=== PATIENT | female | born 1940 | race African-American/Black ===

== ENCOUNTER 2017-02-19 20:55 | Inpatient (IN) | payer MEDICARE ==
--- NOTE | 2017-02-19 21:09 | ED Physician Chart ---
Chief Complaint/HPI - Patient Information Date Seen:: 02/19/17 Time Seen:: 20:58 Chief Complaint:: agitation History of Present Illness:: 77-year-old female from nursing facility with acute, constant, worsening, moderate to severe, agitation since this morning. Has associated aggressive behavior towards staff. Allergies:: Allergies Allergy/AdvReac Type Severity Reaction Status Date / Time No Known Allergies Allergy Verified 02/19/17 21:03 Historian:: EMS, Medical Records Review:: Nurse's Note Reviewed, EMS run form Reviewed Review of Systems - Review of Systems Other: Complete system review otherwise unremarkable except as noted in history of present illness. Past Medical History - Past Medical History Past Medical History: HTN, DM, PUD/GERD, Dementia, Other (chronic UTI) Family History: None Social History: Non Smoker, No Alcohol, No Drug Use, Care Facility Surgical History: None Psychiatricy History: Dementia Medication: Reviewed Family Medical History - Family Member Mother History Unknown: Yes Physical Exam - Physical Examination Other:: INITIAL VITAL SIGNS: Reviewed by me GENERAL: Alert and interactive. No acute distress HEAD: Head is normocephalic and atraumatic EYES: EOMI. PERRL. No scleral icterus. No conjunctival injection ENT: Moist mucous membranes. NECK: Supple. No masses. Full range of motion RESPIRATORY: No tachypnea. Clear breath sounds bilaterally. No wheezing, rales, or rhonchi CV: Regular rate and rhythm. No murmurs, rubs, or gallops ABDOMEN: Soft, non-distended, non-tender. No guarding. No rebound. No masses. EXTREMITIES: No deformity. No cyanosis. No edema. SKIN: Warm and dry. No obvious rashes. NEUROLOGIC: Alert and oriented. Face is symmetric. Speech is normal. Moves all extremities equally. Motor and sensory distally intact. Labs/Radiology/EKG Results - Radiology Results Results: 12-lead EKG Interpretation by Sara Rodríguez MD: Sinus bradycardia with ventricular rate of 51 beats per minute Normal axis First-degree heart block/prolonged OH interval. No acute ST or T wave changes. No obvious STEMI ED Septic Shock - . Is Septic Shock (SBP<90, OR Lactate>4 mmol\L) present?: No Reassessment (Disposition) - Reassessment Reassessment:: Corbin by mouth potassium. EKG unremarkable. Patient medically cleared for admission to the geriatric psych unit - Diagnosis Diagnosis:: Acute psychosis, NOS - Patient Disposition Discharge/Transfer:: Acute Care w/in this hosp Admitted to:: [facility] Admitting Medical Physician:: Yue Mcmullen Admitting Psych Physician:: Claudia Rashid Time:: 23:03 Condition at Disposition:: Stable
[2017-02-19 21:31] LABS: % BASOPHILS 0.4 % (0.0-2.0); % LYMPHOCYTES 40.1 % (20.0-50.0); % MONOCYTES 7.5 % (2.0-10.0); HEMATOCRIT 37.2 % (35.0-45.0); HEMOGLOBIN 12.5 gm/dL (11.7-16.1); MEAN CELL VOLUME 90.7 fl (81-100); MEAN CORPUSCULAR HEMOGLOBIN 30.6 pg (27.0-31.0); MEAN CORPUSCULAR HGB CONC 33.7 pg (28.0-36.0); MEAN PLATELET VOLUME 7.9 fl; NEUTROPHILE ABSOLUTE 4.3 Th/cmm (1.8-8.0); PLATELET COUNT 237 Th/cmm (150-400); RED CELL DISTRIBUTION WIDTH 11.1 % (11.5-20.0); WHITE BLOOD COUNT 8.5 Th/cmm (4.8-10.8)
[2017-02-19 21:49] LABS: ALB/GLOB RATIO 1.5 (1.0-1.8); ALKALINE PHOSPHATASE 71 U/L (34-104); ANION GAP 7.3 (7.0-16.0); BILIRUBIN,TOTAL 0.3 mg/dL (0.3-1.0); BUN - UREA NITROGEN 23 mg/dL (7-25); CALCIUM SERUM 8.9 mg/dL (8.6-10.3); CARBON DIOXIDE 29.3 mEq/L (21.0-31.0); CHLORIDE 97 mEq/L (98-107); CHOLESTEROL 160 mg/dL (<200); GLUCOSE 142 mg/dL (70-105); SGOT 17 U/L (13-39); SGPT/ALT 13 U/L (7-52); SODIUM SERUM 131 mEq/L (136-145); TRIGLYCERIDES 46 mg/dL (<150)
[2017-02-19 21:52] LABS: ACETAMINOPHEN < 10.0 ug/mL (10.0-30.0); POTASSIUM SERUM 2.6 mEq/L (3.5-5.1)
[2017-02-19] MEDS ORDERED: Potassium Chloride 20 mEq ER Tab PO ONE ×4 (21:57→23:12)
[2017-02-19 23:22] VITALS: BP 128/66
[2017-02-19] MEDS ORDERED: Fluticasone Propionate 0.05mg/Actuation 16gm Nasal Spray NS PRN (23:27)
[2017-02-19] MEDS ORDERED: Magnesium Hydroxide (MOM) 30 mL UDC PO PRN (23:27)
[2017-02-20] MEDS: INSULIN ASPART SLIDING SCALE 100 UNITS/ML UNIT SUBQ SCH ×4 (06:51→20:44)
[2017-02-20] MEDS ORDERED: INSULIN ASPART SLIDING SCALE 100 UNITS/ML UNIT SUBQ SCH (07:30)
[2017-02-20] MEDS: Pantoprazole 40 mg EC Tab PO SCH (09:51)
[2017-02-20] MEDS: Multivitamin w/ Minerals Tab PO SCH (09:51)
[2017-02-20] MEDS: Aspirin 81mg Chewable Tab PO SCH (09:51)
--- NOTE | 2017-02-20 22:02 | History & Physical ---
ADMIT DATE: 02/20/2017 HISTORY OF PRESENT ILLNESS: The patient is a 77-year-old female with long history of diabetes mellitus, hypertension, dementia, admitted to [facility] for evaluation and treatment. The patient has been very agitated. No chest pain, no shortness of breath, no nausea, no vomiting, no fever, and no chills. PAST MEDICAL HISTORY: Significant for hypertension, diabetes mellitus, dementia, and psychosis. PAST SURGICAL HISTORY: No recent surgery. ALLERGIES: None. MEDICATIONS: Follow admission reconciliation. SOCIAL HISTORY: No smoking, no alcohol, and no drug. FAMILY HISTORY: Noncontributory. REVIEW OF SYSTEMS: RENAL SYSTEM: No history of chronic renal disorder. CARDIOVASCULAR SYSTEM: She has history of hypertension. ENDOCRINE SYSTEM: She has history of diabetes mellitus. GASTROINTESTINAL SYSTEM: No upper or lower gastrointestinal bleed. NEUROLOGICAL: , dementia, psychosis. MUSCULOSKELETAL SYSTEM: No muscular dystrophy. HEMATOLOGIC SYSTEM: No bleeding tendencies. GENITOURINARY: No dysuria or hematuria. PHYSICAL EXAMINATION: GENERAL: She is awake, not coherent. VITAL SIGNS: Temperature 97.8, heart rate 64, and blood pressure 112/73. HEENT: Normocephalic. Pupils are reacting and equal to light and accommodation. Sclerae clear. NECK: Supple. Negative for lymphadenopathy, JVD, or bruit. CHEST: Bilateral normal. No rhonchi or wheezing. HEART: S1, S2 normal, no gallop. ABDOMEN: Soft, bowel sounds positive. EXTREMITIES: No edema. NEUROLOGIC: She is awake, alert, not fully oriented. No focal motor or sensory deficits. LABORATORY DATA: White blood cell , hemoglobin 12.5, hematocrit 37.3, and platelet 237,000. Sodium 131, potassium 2.6, BUN 23, and creatinine ____. ASSESSMENT: 1. Hypertension. 2. Diabetes mellitus. 3. Hyponatremia. 4. Dementia. 5. Psychosis. PLAN: The patient is in the hospital under Dr. Rashid's service. MEDICAL PROBLEMS TO BE ADDRESSED DURING HOSPITALIZATION: Psychosis. MEDICAL PROBLEMS TO BE ADDRESSED AT DISCHARGE: Hypertension and diabetes mellitus. We will repeat the blood workup for tomorrow, CBC, CMP. Thank you, Dr. Rashid, for asking me to see your patient. JOB# [id number]
--- NOTE | 2017-02-21 03:23 | History & Physical ---
ADMIT DATE: 02/20/2017 IDENTIFYING INFORMATION: The patient is a 77-year-old female. CHIEF COMPLAINT: "I and here for x-ray." HISTORY OF PRESENT ILLNESS: Referred by me as they called me from [facility] yesterday said she was very psychotic, agitated. She was hitting other residents and when I talked to her, she has no clue why she is here. She is unpredictable, impulsive, needing redirection, looking disheveled; however, she was unable to tell me the date and she knew she is in the hospital, sleeping. She is here because she needs to have some x-rays checked, very poor insight. She denies any auditory or visual hallucination or paranoia, but she was very agitated yesterday. PAST PSYCHIATRIC HISTORY: I have been seeing this patient at [facility] for the past 2 weeks. MEDICATIONS: The patient has been on glipizide, insulin, lorazepam as needed, metoprolol, potassium, and Zolpidem. MEDICAL HISTORY: Deferred. The patient is diabetic. ALLERGIES: She has no known drug allergies. No history of seizure disorder. 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 She denies any family history of psychotic disorder. However, she is not a great historian. MENTAL STATUS EXAMINATION: The patient is appropriately dressed, not very well groomed. Her mood is depressed. Affect is constricted. Thoughts are concrete. Speech is coherent. She was able to tell me that ____. Concentration is fair, unable to answer questions, affect is flat. There is no forward or backward. Long-term memory is good for her age, date of . Recent memory is poor. She is not sure that she cannot tell me ____ for breakfast. She denies any intent to harm herself. She was very psychotic, family is backing up the patient, at the [facility]. Her insight and judgment is impaired. IMPRESSION: AXIS I: Psychosis, NOS. MEDICAL DIAGNOSES: Deferred to the medical doctor. ASSETS: She wants to get help, negative poor coping skills. INITIAL TREATMENT PLAN: The patient will be started on Risperdal, will do group therapy, milieu therapy, individual therapy. ESTIMATED LENGTH OF STAY: Three to 3-7 days. DISCHARGE CRITERIA: Decreasing psychosis, no longer threatening. After discharge, outpatient treatment. [facility]# [id number]
--- NOTE | 2017-02-21 04:33 | Admit Criteria Form ---
Admit Criteria Forms - Admit Criteria Diagnosis: PSYCHIATRIC DISORDERS (Place 'X' for any and all applicable criteria): Ongoing inpatient care may be needed for 1 or more of the following(1)(2)(3)(4)( 6)(7)(8): [ ]I. Danger to self or others not manageable at lower level of care. [ ]II. Grave disability (eg, inability to perform self care necessary at lower level of care) [ ]III. Agitation or inappropriate behavior interfering with care for primary condition (eg, attempting to discontinue lines or drains prematurely, unable to cooperate with respiratory care) [X ]IV. Severe disability or disorder indicated by ALL of the following: [X ]a) Severe behavioral health disorder-related symptoms or condition indicated by 1 or more of the following: [ ]i) Severe problem with cognition, memory, judgment, or impulse control [X ]ii) Severe clinical manifestations (eg, hallucinations , delusions, other acute psychotic symptoms, olga, extreme agitation or anxiety) [X ]b) Patient management at lower level of care is not feasible until acute intervention or modification is initiated. Extended stay beyond goal length of stay for the primary condition may be needed until ALLof the following are present(1)(2)(3)(4)(7)38)(23): [ ]a) Danger to self or others is absent or manageable at lower level of care [ ]b) Behavior crisis management, including physical or chemical restraints, is required and is not available at a lower level of care. [ ]c) Behavioral symptoms (e.g., agitation, somnolence, inappropriate behavior) are present, and are not manageable at a lower level of care. [ ]d) Patient cannot understand follow-up treatment and crisis plan. [ ]e) Provider and supports are sufficiently available at lower level of care. [ ]f) Patient can participate (e.g., verify absence of plan for harm) and is in needed of monitoring. The original [facility] content created by [facility] has been revised. The portions of the content which have been revised are identified through the use of italic text or in bold, and [facility] has neither reviewed nor approved the modified material. All other unmodified content is copyright [facility]. Please see references footnoted in the original [facility] edition 2017 Admit Criteria Met?: Yes
[2017-02-21] MEDS: INSULIN ASPART SLIDING SCALE 100 UNITS/ML UNIT SUBQ SCH ×4 (06:31→21:04)
[2017-02-21 07:05] LABS: % BASOPHILS 0.2 % (0.0-2.0); % LYMPHOCYTES 35.4 % (20.0-50.0); % MONOCYTES 7.9 % (2.0-10.0); % NEUTROPHILS 54.5 % (40.0-80.0); HEMATOCRIT 37.5 % (35.0-45.0); HEMOGLOBIN 12.7 gm/dL (11.7-16.1); MEAN CELL VOLUME 89.9 fl (81-100); MEAN CORPUSCULAR HEMOGLOBIN 30.5 pg (27.0-31.0); MEAN CORPUSCULAR HGB CONC 33.9 pg (28.0-36.0); NEUTROPHILE ABSOLUTE 2.9 Th/cmm (1.8-8.0); PLATELET COUNT 214 Th/cmm (150-400); RED BLOOD COUNT 4.17 Mil/cmm (3.80-5.20); RED CELL DISTRIBUTION WIDTH 11.4 % (11.5-20.0)
[2017-02-21 07:19] LABS: WHITE BLOOD COUNT 5.2 Th/cmm (4.8-10.8)
[2017-02-21 07:30] LABS: ALB/GLOB RATIO 1.5 (1.0-1.8); ALKALINE PHOSPHATASE 46 U/L (34-104); ANION GAP 8.3 (7.0-16.0); BILIRUBIN,TOTAL 0.5 mg/dL (0.3-1.0); BUN - UREA NITROGEN 20 mg/dL (7-25); CALCIUM SERUM 9.4 mg/dL (8.6-10.3); CARBON DIOXIDE 27.1 mEq/L (21.0-31.0); CHLORIDE 100 mEq/L (98-107); GLUCOSE 135 mg/dL (70-105); POTASSIUM SERUM 3.4 mEq/L (3.5-5.1); SGOT 16 U/L (13-39); SGPT/ALT 12 U/L (7-52); SODIUM SERUM 132 mEq/L (136-145)
[2017-02-21] MEDS: Multivitamin w/ Minerals Tab PO SCH (08:48)
[2017-02-21] MEDS: Aspirin 81mg Chewable Tab PO SCH (08:49)
[2017-02-21] MEDS: Pantoprazole 40 mg EC Tab PO SCH (08:52)
[2017-02-21] MEDS ORDERED: Potassium Chloride 20 mEq ER Tab PO ONE (16:32)
--- NOTE | 2017-02-21 16:39 | Internal Medicine Prog Note ---
Internal Medicine Subjective - Subjective Service Date: 02/21/17 Patient seen and examined:: with staff Patient is:: awake, in bed, confused Per staff patient has:: no adverse event (EATING WELL AND TAKING MEDICATION.) Internal Medicine Objective - Results Result Diagrams: 02/21/17 06:35 02/21/17 06:35 Recent Labs: Laboratory Last Values WBC 5.2 Th/cmm (4.8-10.8) D 02/21/17 06:35 RBC 4.17 Mil/cmm (3.80-5.20) 02/21/17 06:35 Hgb 12.7 gm/dL (11.7-16.1) 02/21/17 06:35 Hct 37.5 % (35.0-45.0) 02/21/17 06:35 MCV 89.9 fl (81-100) 02/21/17 06:35 MCH 30.5 pg (27.0-31.0) 02/21/17 06:35 MCHC Differential 33.9 pg (28.0-36.0) 02/21/17 06:35 RDW 11.4 % (11.5-20.0) L 02/21/17 06:35 Plt Count 214 Th/cmm (150-400) 02/21/17 06:35 MPV 8.0 fl 02/21/17 06:35 Neutrophils % 54.5 % (40.0-80.0) 02/21/17 06:35 Lymphocytes % 35.4 % (20.0-50.0) 02/21/17 06:35 Monocytes % 7.9 % (2.0-10.0) 02/21/17 06:35 Eosinophils % 2.0 % (0.0-5.0) 02/21/17 06:35 Basophils % 0.2 % (0.0-2.0) 02/21/17 06:35 Sodium 132 mEq/L (136-145) L 02/21/17 06:35 Potassium 3.4 mEq/L (3.5-5.1) L 02/21/17 06:35 Chloride 100 mEq/L (98-107) 02/21/17 06:35 Carbon Dioxide 27.1 mEq/L (21.0-31.0) 02/21/17 06:35 Anion Gap 8.3 (7.0-16.0) 02/21/17 06:35 BUN 20 mg/dL (7-25) 02/21/17 06:35 Creatinine 1.0 mg/dL (0.6-1.2) 02/21/17 06:35 Est GFR ( Amer) TNP 02/21/17 06:35 Est GFR (Non-Af Amer) TNP 02/21/17 06:35 BUN/Creatinine Ratio 20.0 02/21/17 06:35 Glucose 135 mg/dL (70-105) H 02/21/17 06:35 POC Glucose 88 MG/DL (70 - 105) 02/21/17 12:12 Calcium 9.4 mg/dL (8.6-10.3) 02/21/17 06:35 Total Bilirubin 0.5 mg/dL (0.3-1.0) 02/21/17 06:35 AST 16 U/L (13-39) 02/21/17 06:35 ALT 12 U/L (7-52) 02/21/17 06:35 Alkaline Phosphatase 46 U/L (34-104) 02/21/17 06:35 Total Protein 6.4 gm/dL (6.0-8.3) 02/21/17 06:35 Albumin 3.8 gm/dL (3.7-5.3) 02/21/17 06:35 Globulin 2.6 gm/dL 02/21/17 06:35 Albumin/Globulin Ratio 1.5 (1.0-1.8) 02/21/17 06:35 Triglycerides 46 mg/dL (<150) 02/19/17 21:21 Cholesterol 160 mg/dL (<200) 02/19/17 21:21 LDL Cholesterol Direct 89 mg/dL (75-193) 02/19/17 21:21 HDL Cholesterol 60 mg/dL (23-92) 02/19/17 21:21 TSH 2.02 uIU/ml (0.34-5.60) 02/19/17 21:21 Salicylates < 25.0 mg/L (30.0-100.0) L 02/19/17 21:21 Acetaminophen < 10.0 ug/mL (10.0-30.0) L 02/19/17 21:21 Ethyl Alcohol < 10 mg/dL (0-10) 02/19/17 21:21 - Physical Exam Vitals and I&O: Vital Signs Temp 97.7 F 02/21/17 06:24 Pulse 58 02/21/17 11:12 Resp 19 02/21/17 11:12 BP 137/70 02/21/17 08:50 Pulse Ox 99 02/21/17 06:24 Intake & Output 02/20/17 02/21/17 02/21/17 18:59 06:59 18:59 Intake Total 120 Balance 120 Intake: Oral 120 Other: # Voids 3 # Bowel Movements 0 Active Medications: Current Medications Acetaminophen (Tylenol) 650 mg PO Q4HR PRN PRN Reason: Pain or Fever >101 Stop: 04/20/17 23:26 Amlodipine Besylate (Norvasc) 5 mg PO DAILY [facility] Stop: 04/21/17 08:59 Last Admin: 02/21/17 08:49 Dose: 5 mg Aspirin (Aspirin Chewable) 81 mg PO DAILY [facility] Stop: 04/21/17 08:59 Last Admin: 02/21/17 08:49 Dose: 81 mg Docusate Sodium (Colace) 100 mg PO BID [facility] Stop: 04/21/17 08:59 Last Admin: 02/21/17 08:45 Dose: 100 mg Fluticasone Propionate (Flonase) 1 spr NS DAILY PRN PRN Reason: Congestion Stop: 04/20/17 23:26 Glipizide (Glucotrol) 5 mg PO BID [facility] Stop: 04/21/17 08:59 Last Admin: 02/21/17 08:48 Dose: 5 mg Insulin Aspart (Novolog Insulin Sliding Scale) 0 units SUBQ ACHS [facility] PRN Reason: Protocol Stop: 04/21/17 07:29 Last Admin: 02/21/17 13:02 Dose: Not Given Lorazepam (Ativan) 0.5 mg PO Q4HR PRN; Protocol PRN Reason: Anxiety Stop: 03/21/17 23:21 Last Admin: 02/20/17 04:28 Dose: 0.5 mg Losartan Potassium (Cozaar) 50 mg PO DAILY [facility] Stop: 04/21/17 08:59 Last Admin: 02/21/17 08:49 Dose: 50 mg Magnesium Hydroxide (Milk Of Magnesia) 30 ml PO DAILY PRN PRN Reason: Constipation Stop: 04/20/17 23:26 Metoprolol Tartrate (Lopressor) 50 mg PO BID [facility] Stop: 04/21/17 08:59 Last Admin: 02/21/17 08:50 Dose: Not Given Pantoprazole Sodium (Protonix) 40 mg PO DAILY [facility] Stop: 04/21/17 08:59 Last Admin: 02/21/17 08:52 Dose: 40 mg Potassium Chloride (Klor-Con) 40 meq PO X1 ONE Stop: 02/21/17 16:33 Risperidone (Risperdal) 0.25 mg PO BID [facility] PRN Reason: Protocol Stop: 04/21/17 16:59 Last Admin: 02/21/17 08:52 Dose: 0.25 mg Zolpidem Tartrate (Ambien) 5 mg PO HS PRN PRN Reason: Insomnia Stop: 04/20/17 23:21 Last Admin: 02/20/17 00:30 Dose: 5 mg General: demented HEENT: NC/AT, PERRLA, EOMI, anicteric sclerae, throat clear Neck: Supple, No JVD, No thyromegaly, No LAD Lungs: CTAB Cardiovascular: RRR, Normal S1, Normal S2, without murmur Abdomen: soft, non-tender, non-distended Extremities: clear Neurological: no change Internal Medicine Assmt/Plan - Assessment Assessment: 1.HTN 2.DM. 3.DEMENTIA. 4.HYPOKALEMIA - Plan Plan: KCL 40 MEQ ONE DOSE.
--- NOTE | 2017-02-22 01:06 | Progress Notes ---
DATE: 02/21/2017 Case discussed with staff of the patient, reviewed records. The patient is a little bit calmer, sleeping better, eating better. ____, unable to make safe plan for self-care. No side effects with the medication, no sedation, no nausea, no extrapyramidal symptoms. She tolerates well, no side effects and we will continue the patient in group therapy, milieu therapy, adjust medication as needed. Her chemistry panel showed low sodium 132, low potassium 3.4, high blood sugar 135, the rest within normal range. His CBC was within normal range. I will be deferring this to Dr. Mcmullen and we will continue with the patient in group therapy, milieu therapy, adjust the medication as needed. JOB# [id number]
[2017-02-22] MEDS: INSULIN ASPART SLIDING SCALE 100 UNITS/ML UNIT SUBQ SCH ×5 (06:33→20:22)
[2017-02-22] MEDS: Pantoprazole 40 mg EC Tab PO SCH (09:30)
[2017-02-22] MEDS: Multivitamin w/ Minerals Tab PO SCH (09:32)
[2017-02-22] MEDS: Aspirin 81mg Chewable Tab PO SCH (09:33)
--- NOTE | 2017-02-22 20:11 | Internal Medicine Prog Note ---
Internal Medicine Subjective - Subjective Service Date: 02/22/17 Patient seen and examined:: with staff Patient is:: awake, in bed, confused Per staff patient has:: no adverse event (EATING WELL AND TAKING MEDICATION.) Internal Medicine Objective - Results Result Diagrams: 02/21/17 06:35 02/21/17 06:35 Recent Labs: Laboratory Last Values WBC 5.2 Th/cmm (4.8-10.8) D 02/21/17 06:35 RBC 4.17 Mil/cmm (3.80-5.20) 02/21/17 06:35 Hgb 12.7 gm/dL (11.7-16.1) 02/21/17 06:35 Hct 37.5 % (35.0-45.0) 02/21/17 06:35 MCV 89.9 fl (81-100) 02/21/17 06:35 MCH 30.5 pg (27.0-31.0) 02/21/17 06:35 MCHC Differential 33.9 pg (28.0-36.0) 02/21/17 06:35 RDW 11.4 % (11.5-20.0) L 02/21/17 06:35 Plt Count 214 Th/cmm (150-400) 02/21/17 06:35 MPV 8.0 fl 02/21/17 06:35 Neutrophils % 54.5 % (40.0-80.0) 02/21/17 06:35 Lymphocytes % 35.4 % (20.0-50.0) 02/21/17 06:35 Monocytes % 7.9 % (2.0-10.0) 02/21/17 06:35 Eosinophils % 2.0 % (0.0-5.0) 02/21/17 06:35 Basophils % 0.2 % (0.0-2.0) 02/21/17 06:35 Sodium 132 mEq/L (136-145) L 02/21/17 06:35 Potassium 3.4 mEq/L (3.5-5.1) L 02/21/17 06:35 Chloride 100 mEq/L (98-107) 02/21/17 06:35 Carbon Dioxide 27.1 mEq/L (21.0-31.0) 02/21/17 06:35 Anion Gap 8.3 (7.0-16.0) 02/21/17 06:35 BUN 20 mg/dL (7-25) 02/21/17 06:35 Creatinine 1.0 mg/dL (0.6-1.2) 02/21/17 06:35 Est GFR ( Amer) TNP 02/21/17 06:35 Est GFR (Non-Af Amer) TNP 02/21/17 06:35 BUN/Creatinine Ratio 20.0 02/21/17 06:35 Glucose 135 mg/dL (70-105) H 02/21/17 06:35 POC Glucose 182 MG/DL (70 - 105) H 02/22/17 19:47 Calcium 9.4 mg/dL (8.6-10.3) 02/21/17 06:35 Total Bilirubin 0.5 mg/dL (0.3-1.0) 02/21/17 06:35 AST 16 U/L (13-39) 02/21/17 06:35 ALT 12 U/L (7-52) 02/21/17 06:35 Alkaline Phosphatase 46 U/L (34-104) 02/21/17 06:35 Total Protein 6.4 gm/dL (6.0-8.3) 02/21/17 06:35 Albumin 3.8 gm/dL (3.7-5.3) 02/21/17 06:35 Globulin 2.6 gm/dL 02/21/17 06:35 Albumin/Globulin Ratio 1.5 (1.0-1.8) 02/21/17 06:35 Triglycerides 46 mg/dL (<150) 02/19/17 21:21 Cholesterol 160 mg/dL (<200) 02/19/17 21:21 LDL Cholesterol Direct 89 mg/dL (75-193) 02/19/17 21:21 HDL Cholesterol 60 mg/dL (23-92) 02/19/17 21:21 TSH 2.02 uIU/ml (0.34-5.60) 02/19/17 21:21 Salicylates < 25.0 mg/L (30.0-100.0) L 02/19/17 21:21 Acetaminophen < 10.0 ug/mL (10.0-30.0) L 02/19/17 21:21 Ethyl Alcohol < 10 mg/dL (0-10) 02/19/17 21:21 RPR NONREACTIVE (NONREACTIVE) 02/19/17 21:21 - Physical Exam Vitals and I&O: Vital Signs Temp 98.2 F 02/22/17 16:14 Pulse 62 02/22/17 17:24 Resp 20 02/22/17 16:14 BP 180/63 02/22/17 17:24 Pulse Ox 96 02/22/17 16:14 Intake & Output 02/22/17 02/22/17 02/23/17 06:59 18:59 06:59 Intake Total 300 800 Balance 300 800 Intake: Oral 300 800 Other: # Voids 2 4 # Bowel Movements 0 1 Stool Characteristics Soft Active Medications: Current Medications Acetaminophen (Tylenol) 650 mg PO Q4HR PRN PRN Reason: Pain or Fever >101 Stop: 04/20/17 23:26 Amlodipine Besylate (Norvasc) 5 mg PO DAILY [facility] Stop: 04/21/17 08:59 Last Admin: 02/22/17 09:33 Dose: 5 mg Aspirin (Aspirin Chewable) 81 mg PO DAILY [facility] Stop: 04/21/17 08:59 Last Admin: 02/22/17 09:33 Dose: 81 mg Docusate Sodium (Colace) 100 mg PO BID [facility] Stop: 04/21/17 08:59 Last Admin: 02/22/17 17:24 Dose: 100 mg Fluticasone Propionate (Flonase) 1 spr NS DAILY PRN PRN Reason: Congestion Stop: 04/20/17 23:26 Glipizide (Glucotrol) 5 mg PO BID [facility] Stop: 04/21/17 08:59 Last Admin: 02/22/17 09:32 Dose: 5 mg Insulin Aspart (Novolog Insulin Sliding Scale) 0 units SUBQ ACHS [facility] PRN Reason: Protocol Stop: 04/21/17 07:29 Last Admin: 02/22/17 17:03 Dose: Not Given Lorazepam (Ativan) 0.5 mg PO Q4HR PRN; Protocol PRN Reason: Anxiety Stop: 03/21/17 23:21 Last Admin: 02/20/17 04:28 Dose: 0.5 mg Losartan Potassium (Cozaar) 50 mg PO DAILY [facility] Stop: 04/21/17 08:59 Last Admin: 02/22/17 09:32 Dose: 50 mg Magnesium Hydroxide (Milk Of Magnesia) 30 ml PO DAILY PRN PRN Reason: Constipation Stop: 04/20/17 23:26 Metoprolol Tartrate (Lopressor) 50 mg PO BID [facility] Stop: 04/21/17 08:59 Last Admin: 02/22/17 17:24 Dose: 50 mg Pantoprazole Sodium (Protonix) 40 mg PO DAILY [facility] Stop: 04/21/17 08:59 Last Admin: 02/22/17 09:30 Dose: 40 mg Risperidone (Risperdal) 0.25 mg PO BID [facility] PRN Reason: Protocol Stop: 04/21/17 16:59 Last Admin: 02/22/17 17:25 Dose: 0.25 mg Zolpidem Tartrate (Ambien) 5 mg PO HS PRN PRN Reason: Insomnia Stop: 04/20/17 23:21 Last Admin: 02/20/17 00:30 Dose: 5 mg General: demented HEENT: NC/AT, PERRLA, EOMI, anicteric sclerae, throat clear Neck: Supple, No JVD, No thyromegaly, No LAD Lungs: CTAB Cardiovascular: RRR, Normal S1, Normal S2, without murmur Abdomen: soft, non-tender, non-distended Extremities: clear Neurological: no change Internal Medicine Assmt/Plan - Assessment Assessment: 1.HTN 2.DM. 3.DEMENTIA. 4.HYPOKALEMIA - Plan Plan: CONTINUE ON CURRENT MEDICATION AND DIET. Nutritional Asmnt/Malnutr-PDOC - Dietary Evaluation Malnutrition Findings (Please click <Entered> for more info): Nutritional Asmnt/Malnutrition Start: 02/22/17 16: 31 Text: Status: Complete Freq: Document 02/22/17 16:31 GSUN (Rec: 02/22/17 16:43 GSUN [id number]) Nutritional Asmnt/Malnutrition Patient General Information Nutritional Screening Moderate Risk Screening Diagnosis Psychosis, NOS Pertinent Medical Hx/Surgical Hx DM, HTN, dementia, psychosis Subjective Information 77 year old female from SNF. Spoke to pt sitting in frida chair in room, pt was pleasant , slow and selective in resposnes, slight confusion noted, not suitable for nutrition edu due to cognition . Pt responded "I eat" to severel nturition questions. Pt stated usually good appetite and does feel hungry. Avg PO intake 75-100% of meals yesterday, meeting nutritional needs. Pt denied allergies. Teeth intact. Spoke to MEAT TRIMMER, MEAT TRIMMER stated no diffilculties noted. No muslce /fat wasting noted. Pt report UBW 151lb a week ago. Current Diet Order/ Nutrition Support [facility] Pertinent Medications Colace, Glucotrol, Novolog, MOM Pertinent Labs 02/19: potassium 2.6L, glucose 142H 02/21: potassium 3.4L, glucose 135H POC glucose 88, 103, 152H Nutritional Hx/Data Height 1.57 m Height (Calculated Centimeters) 157.5 Current Weight (lbs) 82.554 kg Weight (Calculated Kilograms) 82.6 Weight (Calculated Grams) 11445.8 Usual body Weight (lbs) 151 [place] Body Weight 110 Weight Status Overweight GI Symptoms Cultural/Ethnic/Tenriism Belief Pt dislikes sweet potatoes. Usual diet at home [facility]: regular, [facility], [facility] Skin Integrity/Comment: Julián 21. Skin intact. Current %PO Good (75-100%) Estimated Nutritional Goals BEE in Kcals: Adj wt of IBW Calories/Kcals/Kg AdjBW 128lb/58.2kg Kcals Calculated 1455-1746kcal (25-30kcal/kg) Protein: Adj wt of IBW Protein Calculated 58g (1g/kg) Fluid: ml 1455-1746ml (1ml/kcal) Nutritional Problem 1. Problem Problem Altered nutrition related laboratory values related to Etiology DM aeb Signs/Symptoms: pt is on insulin, elevated glucose levels Intervention/Recommendation Comments 1. Continue current diet order . Avg PO intake since adm is adequate. Expected Outcomes/Goals Expected Outcomes/Goals 1. PO intake continue to meet at least 75% of estimated nutritional needs.
--- NOTE | 2017-02-23 00:04 | Progress Notes ---
DATE: 02/22/2017 Case was discussed with staff of the patient, reviewed records. The patient was crying this morning and agitated; however, she calmed down after she took her medication. She is still unpredictable, impulsive, and needing redirection. Continues to be demented, confused, unable to make safe plan for self-care. No side effects with the medication, no sedation, no nausea, no extrapyramidal symptoms and we will continue to work with the patient in group therapy, milieu therapy, and adjust the medication as needed. JOB# [id number]
[2017-02-23] MEDS: INSULIN ASPART SLIDING SCALE 100 UNITS/ML UNIT SUBQ SCH ×4 (06:33→20:18)
[2017-02-23] MEDS: Multivitamin w/ Minerals Tab PO SCH (08:49)
[2017-02-23] MEDS: Aspirin 81mg Chewable Tab PO SCH (08:49)
[2017-02-23] MEDS: Pantoprazole 40 mg EC Tab PO SCH (08:51)
--- NOTE | 2017-02-23 19:23 | Internal Medicine Prog Note ---
Internal Medicine Subjective - Subjective Service Date: 02/23/17 Patient seen and examined:: with staff Patient is:: awake, in bed, confused Per staff patient has:: no adverse event (EATING WELL AND TAKING MEDICATION.) Internal Medicine Objective - Results Result Diagrams: 02/21/17 06:35 02/21/17 06:35 Recent Labs: Laboratory Last Values WBC 5.2 Th/cmm (4.8-10.8) D 02/21/17 06:35 RBC 4.17 Mil/cmm (3.80-5.20) 02/21/17 06:35 Hgb 12.7 gm/dL (11.7-16.1) 02/21/17 06:35 Hct 37.5 % (35.0-45.0) 02/21/17 06:35 MCV 89.9 fl (81-100) 02/21/17 06:35 MCH 30.5 pg (27.0-31.0) 02/21/17 06:35 MCHC Differential 33.9 pg (28.0-36.0) 02/21/17 06:35 RDW 11.4 % (11.5-20.0) L 02/21/17 06:35 Plt Count 214 Th/cmm (150-400) 02/21/17 06:35 MPV 8.0 fl 02/21/17 06:35 Neutrophils % 54.5 % (40.0-80.0) 02/21/17 06:35 Lymphocytes % 35.4 % (20.0-50.0) 02/21/17 06:35 Monocytes % 7.9 % (2.0-10.0) 02/21/17 06:35 Eosinophils % 2.0 % (0.0-5.0) 02/21/17 06:35 Basophils % 0.2 % (0.0-2.0) 02/21/17 06:35 Sodium 132 mEq/L (136-145) L 02/21/17 06:35 Potassium 3.4 mEq/L (3.5-5.1) L 02/21/17 06:35 Chloride 100 mEq/L (98-107) 02/21/17 06:35 Carbon Dioxide 27.1 mEq/L (21.0-31.0) 02/21/17 06:35 Anion Gap 8.3 (7.0-16.0) 02/21/17 06:35 BUN 20 mg/dL (7-25) 02/21/17 06:35 Creatinine 1.0 mg/dL (0.6-1.2) 02/21/17 06:35 Est GFR ( Amer) TNP 02/21/17 06:35 Est GFR (Non-Af Amer) TNP 02/21/17 06:35 BUN/Creatinine Ratio 20.0 02/21/17 06:35 Glucose 135 mg/dL (70-105) H 02/21/17 06:35 POC Glucose 111 MG/DL (70 - 105) H 02/23/17 16:28 Calcium 9.4 mg/dL (8.6-10.3) 02/21/17 06:35 Total Bilirubin 0.5 mg/dL (0.3-1.0) 02/21/17 06:35 AST 16 U/L (13-39) 02/21/17 06:35 ALT 12 U/L (7-52) 02/21/17 06:35 Alkaline Phosphatase 46 U/L (34-104) 02/21/17 06:35 Total Protein 6.4 gm/dL (6.0-8.3) 02/21/17 06:35 Albumin 3.8 gm/dL (3.7-5.3) 02/21/17 06:35 Globulin 2.6 gm/dL 02/21/17 06:35 Albumin/Globulin Ratio 1.5 (1.0-1.8) 02/21/17 06:35 Triglycerides 46 mg/dL (<150) 02/19/17 21:21 Cholesterol 160 mg/dL (<200) 02/19/17 21:21 LDL Cholesterol Direct 89 mg/dL (75-193) 02/19/17 21:21 HDL Cholesterol 60 mg/dL (23-92) 02/19/17 21:21 TSH 2.02 uIU/ml (0.34-5.60) 02/19/17 21:21 Salicylates < 25.0 mg/L (30.0-100.0) L 02/19/17 21:21 Acetaminophen < 10.0 ug/mL (10.0-30.0) L 02/19/17 21:21 Ethyl Alcohol < 10 mg/dL (0-10) 02/19/17 21:21 RPR NONREACTIVE (NONREACTIVE) 02/19/17 21:21 - Physical Exam Vitals and I&O: Vital Signs Temp 98.3 F 02/23/17 14:00 Pulse 56 02/23/17 16:39 Resp 20 02/23/17 14:00 BP 128/61 02/23/17 16:39 Pulse Ox 96 02/23/17 14:00 Intake & Output 02/23/17 02/23/17 02/24/17 06:59 18:59 06:59 Intake Total 120 1600 Balance 120 1600 Intake: Oral 120 1600 Other: # Voids 4 4 # Bowel Movements 0 1 Active Medications: Current Medications Acetaminophen (Tylenol) 650 mg PO Q4HR PRN PRN Reason: Pain or Fever >101 Stop: 04/20/17 23:26 Last Admin: 02/23/17 01:26 Dose: 650 mg Amlodipine Besylate (Norvasc) 5 mg PO DAILY [facility] Stop: 04/21/17 08:59 Last Admin: 02/23/17 08:53 Dose: 5 mg Aspirin (Aspirin Chewable) 81 mg PO DAILY [facility] Stop: 04/21/17 08:59 Last Admin: 02/23/17 08:49 Dose: 81 mg Docusate Sodium (Colace) 100 mg PO BID [facility] Stop: 04/21/17 08:59 Last Admin: 02/23/17 16:39 Dose: 100 mg Fluticasone Propionate (Flonase) 1 spr NS DAILY PRN PRN Reason: Congestion Stop: 04/20/17 23:26 Glipizide (Glucotrol) 5 mg PO BID [facility] Stop: 04/21/17 08:59 Last Admin: 02/23/17 16:39 Dose: 5 mg Insulin Aspart (Novolog Insulin Sliding Scale) 0 units SUBQ ACHS MARISEL PRN Reason: Protocol Stop: 04/21/17 07:29 Last Admin: 02/23/17 16:34 Dose: Not Given Lorazepam (Ativan) 0.5 mg PO Q4HR PRN; Protocol PRN Reason: Anxiety Stop: 03/21/17 23:21 Last Admin: 02/23/17 01:07 Dose: 0.5 mg Losartan Potassium (Cozaar) 50 mg PO DAILY [facility] Stop: 04/21/17 08:59 Last Admin: 02/23/17 08:50 Dose: 50 mg Magnesium Hydroxide (Milk Of Magnesia) 30 ml PO DAILY PRN PRN Reason: Constipation Stop: 04/20/17 23:26 Metoprolol Tartrate (Lopressor) 50 mg PO BID [facility] Stop: 04/21/17 08:59 Last Admin: 02/23/17 16:39 Dose: 50 mg Pantoprazole Sodium (Protonix) 40 mg PO DAILY [facility] Stop: 04/21/17 08:59 Last Admin: 02/23/17 08:51 Dose: 40 mg Risperidone (Risperdal) 0.25 mg PO BID [facility]EL PRN Reason: Protocol Stop: 04/21/17 16:59 Last Admin: 02/23/17 16:40 Dose: 0.25 mg Zolpidem Tartrate (Ambien) 5 mg PO HS PRN PRN Reason: Insomnia Stop: 04/20/17 23:21 Last Admin: 02/20/17 00:30 Dose: 5 mg General: demented HEENT: NC/AT, PERRLA, EOMI, anicteric sclerae, throat clear Neck: Supple, No JVD, No thyromegaly, No LAD Lungs: CTAB Cardiovascular: RRR, Normal S1, Normal S2, without murmur Abdomen: soft, non-tender, non-distended Extremities: clear Neurological: no change Internal Medicine Assmt/Plan - Assessment Assessment: 1.HTN 2.DM. 3.DEMENTIA. 4.HYPOKALEMIA - Plan Plan: CONTINUE ON CURRENT MEDICATION AND DIET. Nutritional Asmnt/Malnutr-PDOC - Dietary Evaluation Malnutrition Findings (Please click <Entered> for more info): Nutritional Asmnt/Malnutrition Start: 02/22/17 16: 31 Text: Status: Complete Freq: Document 02/22/17 16:31 GSUN (Rec: 02/22/17 16:43 GSUN [email or web address]) Nutritional Asmnt/Malnutrition Patient General Information Nutritional Screening Moderate Risk Screening Diagnosis Psychosis, NOS Pertinent Medical Hx/Surgical Hx DM, HTN, dementia, psychosis Subjective Information 77 year old female from SNF. Spoke to pt sitting in frida chair in room, pt was pleasant , slow and selective in resposnes, slight confusion noted, not suitable for nutrition edu due to cognition . Pt responded "I eat" to severel nturition questions. Pt stated usually good appetite and does feel hungry. Avg PO intake 75-100% of meals yesterday, meeting nutritional needs. Pt denied allergies. Teeth intact. Spoke to BRASS SORTER, BRASS SORTER stated no diffilculties noted. No muslce /fat wasting noted. Pt report UBW 151lb a week ago. Current Diet Order/ Nutrition Support [facility], [facility] Pertinent Medications Colace, Glucotrol, Novolog, MOM Pertinent Labs 02/19: potassium 2.6L, glucose 142H 02/21: potassium 3.4L, glucose 135H POC glucose 88, 103, 152H Nutritional Hx/Data Height 1.57 m Height (Calculated Centimeters) 157.5 Current Weight (lbs) 82.554 kg Weight (Calculated Kilograms) 82.6 Weight (Calculated Grams) 21042.8 Usual body Weight (lbs) 151 [place] Body Weight 110 Weight Status Overweight GI Symptoms Cultural/Ethnic/Latter Day Belief Pt dislikes sweet potatoes. Usual diet at home [facility]: regular, [facility], [facility] Skin Integrity/Comment: Julián Karishma. Skin intact. Current %PO Good (75-100%) Estimated Nutritional Goals BEE in Kcals: Adj wt of IBW Calories/Kcals/Kg AdjBW 128lb/58.2kg Kcals Calculated 1455-1746kcal (25-30kcal/kg) Protein: Adj wt of IBW Protein Calculated 58g (1g/kg) Fluid: ml 1455-1746ml (1ml/kcal) Nutritional Problem 1. Problem Problem Altered nutrition related laboratory values related to Etiology DM aeb Signs/Symptoms: pt is on insulin, elevated glucose levels Intervention/Recommendation Comments 1. Continue current diet order . Avg PO intake since adm is adequate. Expected Outcomes/Goals Expected Outcomes/Goals 1. PO intake continue to meet at least 75% of estimated nutritional needs.
--- NOTE | 2017-02-23 23:15 | Progress Notes ---
DATE: 02/23/2017 Case was discussed with staff of the patient, reviewed records. The patient is confused, continues to have poor insight, unpredictable, impulsive, stays to herself generally. She is compliant with the medication with no side effects, no sedation, no nausea, no extrapyramidal symptoms. We will continue to work with the patient in group therapy, milieu therapy, and adjust the medication as needed. JOB# [id number]
[2017-02-24] MEDS: INSULIN ASPART SLIDING SCALE 100 UNITS/ML UNIT SUBQ SCH ×4 (07:01→20:16)
[2017-02-24] MEDS: Aspirin 81mg Chewable Tab PO SCH (08:44)
[2017-02-24] MEDS: Pantoprazole 40 mg EC Tab PO SCH (08:44)
[2017-02-24] MEDS: Multivitamin w/ Minerals Tab PO SCH (08:44)
--- NOTE | 2017-02-24 17:24 | Internal Medicine Prog Note ---
Internal Medicine Subjective - Subjective Service Date: 02/24/17 Patient seen and examined:: with staff Patient is:: awake, in bed, confused Per staff patient has:: no adverse event (EATING WELL AND TAKING MEDICATION.) Internal Medicine Objective - Results Result Diagrams: 02/21/17 06:35 02/21/17 06:35 Recent Labs: Laboratory Last Values WBC 5.2 Th/cmm (4.8-10.8) D 02/21/17 06:35 RBC 4.17 Mil/cmm (3.80-5.20) 02/21/17 06:35 Hgb 12.7 gm/dL (11.7-16.1) 02/21/17 06:35 Hct 37.5 % (35.0-45.0) 02/21/17 06:35 MCV 89.9 fl (81-100) 02/21/17 06:35 MCH 30.5 pg (27.0-31.0) 02/21/17 06:35 MCHC Differential 33.9 pg (28.0-36.0) 02/21/17 06:35 RDW 11.4 % (11.5-20.0) L 02/21/17 06:35 Plt Count 214 Th/cmm (150-400) 02/21/17 06:35 MPV 8.0 fl 02/21/17 06:35 Neutrophils % 54.5 % (40.0-80.0) 02/21/17 06:35 Lymphocytes % 35.4 % (20.0-50.0) 02/21/17 06:35 Monocytes % 7.9 % (2.0-10.0) 02/21/17 06:35 Eosinophils % 2.0 % (0.0-5.0) 02/21/17 06:35 Basophils % 0.2 % (0.0-2.0) 02/21/17 06:35 Sodium 132 mEq/L (136-145) L 02/21/17 06:35 Potassium 3.4 mEq/L (3.5-5.1) L 02/21/17 06:35 Chloride 100 mEq/L (98-107) 02/21/17 06:35 Carbon Dioxide 27.1 mEq/L (21.0-31.0) 02/21/17 06:35 Anion Gap 8.3 (7.0-16.0) 02/21/17 06:35 BUN 20 mg/dL (7-25) 02/21/17 06:35 Creatinine 1.0 mg/dL (0.6-1.2) 02/21/17 06:35 Est GFR ( Amer) TNP 02/21/17 06:35 Est GFR (Non-Af Amer) TNP 02/21/17 06:35 BUN/Creatinine Ratio 20.0 02/21/17 06:35 Glucose 135 mg/dL (70-105) H 02/21/17 06:35 POC Glucose 152 MG/DL (70 - 105) H 02/24/17 16:47 Calcium 9.4 mg/dL (8.6-10.3) 02/21/17 06:35 Total Bilirubin 0.5 mg/dL (0.3-1.0) 02/21/17 06:35 AST 16 U/L (13-39) 02/21/17 06:35 ALT 12 U/L (7-52) 02/21/17 06:35 Alkaline Phosphatase 46 U/L (34-104) 02/21/17 06:35 Total Protein 6.4 gm/dL (6.0-8.3) 02/21/17 06:35 Albumin 3.8 gm/dL (3.7-5.3) 02/21/17 06:35 Globulin 2.6 gm/dL 02/21/17 06:35 Albumin/Globulin Ratio 1.5 (1.0-1.8) 02/21/17 06:35 Triglycerides 46 mg/dL (<150) 02/19/17 21:21 Cholesterol 160 mg/dL (<200) 02/19/17 21:21 LDL Cholesterol Direct 89 mg/dL (75-193) 02/19/17 21:21 HDL Cholesterol 60 mg/dL (23-92) 02/19/17 21:21 TSH 2.02 uIU/ml (0.34-5.60) 02/19/17 21:21 Salicylates < 25.0 mg/L (30.0-100.0) L 02/19/17 21:21 Acetaminophen < 10.0 ug/mL (10.0-30.0) L 02/19/17 21:21 Ethyl Alcohol < 10 mg/dL (0-10) 02/19/17 21:21 RPR NONREACTIVE (NONREACTIVE) 02/19/17 21:21 - Physical Exam Vitals and I&O: Vital Signs Temp 98.4 F 02/24/17 06:01 Pulse 55 02/24/17 16:07 Resp 20 02/24/17 08:00 BP 177/87 02/24/17 16:07 Pulse Ox 98 02/24/17 06:01 Intake & Output 02/23/17 02/24/17 02/24/17 18:59 06:59 18:59 Intake Total 1600 Balance 1600 Intake: Oral 1600 Other: # Voids 4 3 # Bowel Movements 1 0 Active Medications: Current Medications Acetaminophen (Tylenol) 650 mg PO Q4HR PRN PRN Reason: Pain or Fever >101 Stop: 04/20/17 23:26 Last Admin: 02/23/17 01:26 Dose: 650 mg Amlodipine Besylate (Norvasc) 5 mg PO DAILY [facility] Stop: 04/21/17 08:59 Last Admin: 02/24/17 08:45 Dose: 5 mg Aspirin (Aspirin Chewable) 81 mg PO DAILY [facility] Stop: 04/21/17 08:59 Last Admin: 02/24/17 08:44 Dose: 81 mg Docusate Sodium (Colace) 100 mg PO BID [facility] Stop: 04/21/17 08:59 Last Admin: 02/24/17 16:08 Dose: 100 mg Fluticasone Propionate (Flonase) 1 spr NS DAILY PRN PRN Reason: Congestion Stop: 04/20/17 23:26 Glipizide (Glucotrol) 5 mg PO BID [facility] Stop: 04/21/17 08:59 Last Admin: 02/24/17 16:08 Dose: 5 mg Insulin Aspart (Novolog Insulin Sliding Scale) 0 units SUBQ ACHS MARISEL PRN Reason: Protocol Stop: 04/21/17 07:29 Last Admin: 02/24/17 16:52 Dose: Not Given Lorazepam (Ativan) 0.5 mg PO Q4HR PRN; Protocol PRN Reason: Anxiety Stop: 03/21/17 23:21 Last Admin: 02/23/17 01:07 Dose: 0.5 mg Losartan Potassium (Cozaar) 50 mg PO DAILY [facility] Stop: 04/21/17 08:59 Last Admin: 02/24/17 08:44 Dose: 50 mg Magnesium Hydroxide (Milk Of Magnesia) 30 ml PO DAILY PRN PRN Reason: Constipation Stop: 04/20/17 23:26 Metoprolol Tartrate (Lopressor) 50 mg PO BID [facility] Stop: 04/21/17 08:59 Last Admin: 02/24/17 16:07 Dose: 50 mg Pantoprazole Sodium (Protonix) 40 mg PO DAILY [facility] Stop: 04/21/17 08:59 Last Admin: 02/24/17 08:44 Dose: 40 mg Risperidone (Risperdal) 0.5 mg PO BID [facility]ISEL PRN Reason: Protocol Stop: 04/25/17 11:39 Last Admin: 02/24/17 16:07 Dose: 0.5 mg Zolpidem Tartrate (Ambien) 5 mg PO HS PRN PRN Reason: Insomnia Stop: 04/20/17 23:21 Last Admin: 02/20/17 00:30 Dose: 5 mg General: demented HEENT: NC/AT, PERRLA, EOMI, anicteric sclerae, throat clear Neck: Supple, No JVD, No thyromegaly, No LAD Lungs: CTAB Cardiovascular: RRR, Normal S1, Normal S2, without murmur Abdomen: soft, non-tender, non-distended Extremities: clear Neurological: no change Internal Medicine Assmt/Plan - Assessment Assessment: 1.HTN 2.DM. 3.DEMENTIA. 4.HYPOKALEMIA - Plan Plan: CONTINUE ON CURRENT MEDICATION AND DIET. Nutritional Asmnt/Malnutr-PDOC - Dietary Evaluation Malnutrition Findings (Please click <Entered> for more info): Nutritional Asmnt/Malnutrition Start: 02/22/17 16: 31 Text: Status: Complete Freq: Document 02/22/17 16:31 GSUN (Rec: 02/22/17 16:43 GSUN [id number]) Nutritional Asmnt/Malnutrition Patient General Information Nutritional Screening Moderate Risk Screening Diagnosis Psychosis, NOS Pertinent Medical Hx/Surgical Hx DM, HTN, dementia, psychosis Subjective Information 77 year old female from SNF. Spoke to pt sitting in frida chair in room, pt was pleasant , slow and selective in resposnes, slight confusion noted, not suitable for nutrition edu due to cognition . Pt responded "I eat" to severel nturition questions. Pt stated usually good appetite and does feel hungry. Avg PO intake 75-100% of meals yesterday, meeting nutritional needs. Pt denied allergies. Teeth intact. Spoke to PROFESSOR OF RELIGION, PROFESSOR OF RELIGION stated no diffilculties noted. No muslce /fat wasting noted. Pt report UBW 151lb a week ago. Current Diet Order/ Nutrition Support [facility], [facility] Pertinent Medications Colace, Glucotrol, Novolog, MOM Pertinent Labs 02/19: potassium 2.6L, glucose 142H 02/21: potassium 3.4L, glucose 135H POC glucose 88, 103, 152H Nutritional Hx/Data Height 1.57 m Height (Calculated Centimeters) 157.5 Current Weight (lbs) 82.554 kg Weight (Calculated Kilograms) 82.6 Weight (Calculated Grams) 76243.8 Usual body Weight (lbs) 151 [place] Body Weight 110 Weight Status Overweight GI Symptoms Cultural/Ethnic/Rastafarian Belief Pt dislikes sweet potatoes. Usual diet at home [facility]: regular, [facility], [facility] Skin Integrity/Comment: Julián Schwarz. Skin intact. Current %PO Good (75-100%) Estimated Nutritional Goals BEE in Kcals: Adj wt of IBW Calories/Kcals/Kg AdjBW 128lb/58.2kg Kcals Calculated 1455-1746kcal (25-30kcal/kg) Protein: Adj wt of IBW Protein Calculated 58g (1g/kg) Fluid: ml 1455-1746ml (1ml/kcal) Nutritional Problem 1. Problem Problem Altered nutrition related laboratory values related to Etiology DM aeb Signs/Symptoms: pt is on insulin, elevated glucose levels Intervention/Recommendation Comments 1. Continue current diet order . Avg PO intake since adm is adequate. Expected Outcomes/Goals Expected Outcomes/Goals 1. PO intake continue to meet at least 75% of estimated nutritional needs.
--- NOTE | 2017-02-25 02:25 | Progress Notes ---
DATE: 02/24/2017 Case was discussed with staff of the patient, reviewed records. The patient is reported to be labile. She has been laughing to herself, very inappropriate`, unpredictable, impulsive, continues to have poor insight. Continues to be unable to make safe plan for self-care. She has been compliant with the medication with no side effects, no sedation, no nausea, no extrapyramidal symptoms and I will be increasing Risperdal dose to 0.5 mg twice a day. Lab work showed MRSA is negative and she has a low serum sodium and low potassium for which ____ have consulted and asked the staff to make sure that Dr. Mcmullen takes care of it. No side effects with the medication, no sedation, no nausea, no extrapyramidal symptoms. So, I will be increasing Risperdal to 0.5 mg twice a day. We will continue to work with the patient in group therapy, milieu therapy, adjust medication as needed. JOB# [id number]
[2017-02-25] MEDS: INSULIN ASPART SLIDING SCALE 100 UNITS/ML UNIT SUBQ SCH ×4 (06:39→20:20)
[2017-02-25] MEDS: Multivitamin w/ Minerals Tab PO SCH (08:40)
[2017-02-25] MEDS: Aspirin 81mg Chewable Tab PO SCH (08:41)
[2017-02-25] MEDS: Pantoprazole 40 mg EC Tab PO SCH (08:41)
--- NOTE | 2017-02-26 03:10 | Progress Notes ---
DATE: 02/25/2017 Case was discussed with staff of the patient, reviewed records. The patient continues to be labile and has not slept well last night. Continues to be unpredictable, impulsive, needing redirection. She is compliant with the medication with no side effects, no sedation, no nausea, no extrapyramidal symptoms. I will take her off Risperdal and give her Seroquel instead because of her lack of sleep as that will be a better choice to help her sleep without having to take medications. We will continue with the patient in group therapy, milieu therapy, adjust medication as needed. JOB# [id number]
[2017-02-26] MEDS: INSULIN ASPART SLIDING SCALE 100 UNITS/ML UNIT SUBQ SCH ×4 (06:38→20:59)
[2017-02-26] MEDS: Aspirin 81mg Chewable Tab PO SCH (08:47)
[2017-02-26] MEDS: Multivitamin w/ Minerals Tab PO SCH (08:54)
[2017-02-26] MEDS: Pantoprazole 40 mg EC Tab PO SCH (08:55)
--- NOTE | 2017-02-26 17:16 | General Progress Note ---
Subjective - Review of Systems Service Date: 02/26/17 Subjective: resting comfortably in chair confused Objective - Results Result Diagrams: 02/21/17 06:35 02/21/17 06:35 Recent Labs: Laboratory Last Values WBC 5.2 Th/cmm (4.8-10.8) D 02/21/17 06:35 RBC 4.17 Mil/cmm (3.80-5.20) 02/21/17 06:35 Hgb 12.7 gm/dL (11.7-16.1) 02/21/17 06:35 Hct 37.5 % (35.0-45.0) 02/21/17 06:35 MCV 89.9 fl (81-100) 02/21/17 06:35 MCH 30.5 pg (27.0-31.0) 02/21/17 06:35 MCHC Differential 33.9 pg (28.0-36.0) 02/21/17 06:35 RDW 11.4 % (11.5-20.0) L 02/21/17 06:35 Plt Count 214 Th/cmm (150-400) 02/21/17 06:35 MPV 8.0 fl 02/21/17 06:35 Neutrophils % 54.5 % (40.0-80.0) 02/21/17 06:35 Lymphocytes % 35.4 % (20.0-50.0) 02/21/17 06:35 Monocytes % 7.9 % (2.0-10.0) 02/21/17 06:35 Eosinophils % 2.0 % (0.0-5.0) 02/21/17 06:35 Basophils % 0.2 % (0.0-2.0) 02/21/17 06:35 Sodium 132 mEq/L (136-145) L 02/21/17 06:35 Potassium 3.4 mEq/L (3.5-5.1) L 02/21/17 06:35 Chloride 100 mEq/L (98-107) 02/21/17 06:35 Carbon Dioxide 27.1 mEq/L (21.0-31.0) 02/21/17 06:35 Anion Gap 8.3 (7.0-16.0) 02/21/17 06:35 BUN 20 mg/dL (7-25) 02/21/17 06:35 Creatinine 1.0 mg/dL (0.6-1.2) 02/21/17 06:35 Est GFR ( Amer) TNP 02/21/17 06:35 Est GFR (Non-Af Amer) TNP 02/21/17 06:35 BUN/Creatinine Ratio 20.0 02/21/17 06:35 Glucose 135 mg/dL (70-105) H 02/21/17 06:35 POC Glucose 161 MG/DL (70 - 105) H 02/26/17 10:22 Calcium 9.4 mg/dL (8.6-10.3) 02/21/17 06:35 Total Bilirubin 0.5 mg/dL (0.3-1.0) 02/21/17 06:35 AST 16 U/L (13-39) 02/21/17 06:35 ALT 12 U/L (7-52) 02/21/17 06:35 Alkaline Phosphatase 46 U/L (34-104) 02/21/17 06:35 Total Protein 6.4 gm/dL (6.0-8.3) 02/21/17 06:35 Albumin 3.8 gm/dL (3.7-5.3) 02/21/17 06:35 Globulin 2.6 gm/dL 02/21/17 06:35 Albumin/Globulin Ratio 1.5 (1.0-1.8) 02/21/17 06:35 Triglycerides 46 mg/dL (<150) 02/19/17 21:21 Cholesterol 160 mg/dL (<200) 02/19/17 21:21 LDL Cholesterol Direct 89 mg/dL (75-193) 02/19/17 21:21 HDL Cholesterol 60 mg/dL (23-92) 02/19/17 21:21 TSH 2.02 uIU/ml (0.34-5.60) 02/19/17 21:21 Salicylates < 25.0 mg/L (30.0-100.0) L 02/19/17 21:21 Acetaminophen < 10.0 ug/mL (10.0-30.0) L 02/19/17 21:21 Ethyl Alcohol < 10 mg/dL (0-10) 02/19/17 21:21 RPR NONREACTIVE (NONREACTIVE) 02/19/17 21:21 - Physical Exam Vitals and I&O: Vital Signs Temp 98.2 F 02/26/17 15:31 Pulse 56 02/26/17 15:31 Resp 20 02/26/17 15:31 BP 159/77 02/26/17 15:31 Pulse Ox 97 02/26/17 15:31 Intake & Output 02/25/17 02/26/17 02/26/17 18:59 06:59 18:59 Intake Total 1000 120 Balance 1000 120 Intake: Oral 1000 120 Other: # Voids 3 3 # Bowel Movements 1 Active Medications: Current Medications Acetaminophen (Tylenol) 650 mg PO Q4HR PRN PRN Reason: Pain or Fever >101 Stop: 04/20/17 23:26 Last Admin: 02/23/17 01:26 Dose: 650 mg Amlodipine Besylate (Norvasc) 5 mg PO DAILY [facility] Stop: 04/21/17 08:59 Last Admin: 02/26/17 08:46 Dose: 5 mg Aspirin (Aspirin Chewable) 81 mg PO DAILY [facility] Stop: 04/21/17 08:59 Last Admin: 02/26/17 08:47 Dose: 81 mg Docusate Sodium (Colace) 100 mg PO BID [facility] Stop: 04/21/17 08:59 Last Admin: 02/26/17 17:00 Dose: Not Given Fluticasone Propionate (Flonase) 1 spr NS DAILY PRN PRN Reason: Congestion Stop: 04/20/17 23:26 Glipizide (Glucotrol) 5 mg PO BID [facility] Stop: 04/21/17 08:59 Last Admin: 02/26/17 17:01 Dose: Not Given Insulin Aspart (Novolog Insulin Sliding Scale) 0 units SUBQ ACHS MARISEL PRN Reason: Protocol Stop: 04/21/17 07:29 Last Admin: 02/26/17 16:56 Dose: Not Given Lorazepam (Ativan) 0.5 mg PO Q4HR PRN; Protocol PRN Reason: Anxiety Stop: 03/21/17 23:21 Last Admin: 02/23/17 01:07 Dose: 0.5 mg Losartan Potassium (Cozaar) 50 mg PO DAILY [facility] Stop: 04/21/17 08:59 Last Admin: 02/26/17 08:47 Dose: 50 mg Magnesium Hydroxide (Milk Of Magnesia) 30 ml PO DAILY PRN PRN Reason: Constipation Stop: 04/20/17 23:26 Metoprolol Tartrate (Lopressor) 50 mg PO BID [facility] Stop: 04/21/17 08:59 Last Admin: 02/26/17 17:01 Dose: Not Given Pantoprazole Sodium (Protonix) 40 mg PO DAILY [facility] Stop: 04/21/17 08:59 Last Admin: 02/26/17 08:55 Dose: 40 mg Quetiapine Fumarate (Seroquel) 25 mg PO HS [facility]EL PRN Reason: Protocol Stop: 04/26/17 20:59 Zolpidem Tartrate (Ambien) 5 mg PO HS PRN PRN Reason: Insomnia Stop: 04/20/17 23:21 Last Admin: 02/20/17 00:30 Dose: 5 mg Assessment/Plan - Assessment Assessment: 1.HTN 2.DM. 3.DEMENTIA. 4.HYPOKALEMIA - Plan Plan: cont current treatment Nutritional Asmnt/Malnutr-PDOC - Dietary Evaluation Malnutrition Findings (Please click <Entered> for more info): Nutritional Asmnt/Malnutrition Start: 02/22/17 16: 31 Text: Status: Complete Freq: Document 02/22/17 16:31 GSUN (Rec: 02/22/17 16:43 GSUN [id number]) Nutritional Asmnt/Malnutrition Patient General Information Nutritional Screening Moderate Risk Screening Diagnosis Psychosis, NOS Pertinent Medical Hx/Surgical Hx DM, HTN, dementia, psychosis Subjective Information 77 year old female from SNF. Spoke to pt sitting in frida chair in room, pt was pleasant , slow and selective in resposnes, slight confusion noted, not suitable for nutrition edu due to cognition . Pt responded "I eat" to severel nturition questions. Pt stated usually good appetite and does feel hungry. Avg PO intake 75-100% of meals yesterday, meeting nutritional needs. Pt denied allergies. Teeth intact. Spoke to TEMPLATE REPRODUCTION TECHNICIAN, TEMPLATE REPRODUCTION TECHNICIAN stated no diffilculties noted. No muslce /fat wasting noted. Pt report UBW 151lb a week ago. Current Diet Order/ Nutrition Support [facility] Pertinent Medications Colace, Glucotrol, Novolog, MOM Pertinent Labs 02/19: potassium 2.6L, glucose 142H 02/21: potassium 3.4L, glucose 135H POC glucose 88, 103, 152H Nutritional Hx/Data Height 1.57 m Height (Calculated Centimeters) 157.5 Current Weight (lbs) 82.554 kg Weight (Calculated Kilograms) 82.6 Weight (Calculated Grams) 90922.8 Usual body Weight (lbs) 151 [place] Body Weight 110 Weight Status Overweight GI Symptoms Cultural/Ethnic/Confucianism Belief Pt dislikes sweet potatoes. Usual diet at home [facility]: regular, CCHO, NORRIS Skin Integrity/Comment: Julián 21. Skin intact. Current %PO Good (75-100%) Estimated Nutritional Goals BEE in Kcals: Adj wt of IBW Calories/Kcals/Kg AdjBW 128lb/58.2kg Kcals Calculated 1455-1746kcal (25-30kcal/kg) Protein: Adj wt of IBW Protein Calculated 58g (1g/kg) Fluid: ml 1455-1746ml (1ml/kcal) Nutritional Problem 1. Problem Problem Altered nutrition related laboratory values related to Etiology DM aeb Signs/Symptoms: pt is on insulin, elevated glucose levels Intervention/Recommendation Comments 1. Continue current diet order . Avg PO intake since adm is adequate. Expected Outcomes/Goals Expected Outcomes/Goals 1. PO intake continue to meet at least 75% of estimated nutritional needs.
--- NOTE | 2017-02-26 21:53 | Progress Notes ---
DATE: 02/26/2017 SUBJECTIVE: The patient seen, chart reviewed, discussed with staff. The patient is currently in the hospital, disoriented, ruminative, grandiose, believes she owns the hospital, fixated on "getting paid today," impulsive, unpredictable. Dr. Rashid has been seeing the patient since her admission and is noting that she has poor insight, unpredictable, impulsive, medications have been adjusted. ASSESSMENT: The patient remains symptomatic, grandiose, psychotic, not safe for a lower level of care. PLAN: We will continue to monitor and titrate medications as tolerated. [facility]# [id number]
[2017-02-27] MEDS: Aspirin 81mg Chewable Tab PO SCH (08:37)
[2017-02-27] MEDS: Pantoprazole 40 mg EC Tab PO SCH (08:37)
[2017-02-27] MEDS: Multivitamin w/ Minerals Tab PO SCH (08:38)
--- NOTE | 2017-02-27 08:42 | Progress Notes ---
DATE: 02/27/2017 SUBJECTIVE: The patient seen, chart reviewed, discussed with staff. The patient is coming from [place], psychotic, agitated, hitting other residents on [id number], the patient is refusing interview, refusing treatment and at times takes her medications, delusional beliefs that she does not have diabetes any more even though she is told that she does, appearing disheveled in a Sruthi chair, impulsive, unpredictable. ASSESSMENT: The patient remains symptomatic, impulsive, unpredictable, refusing treatment, impoverished thought processes. PLAN: We will continue to monitor. We will continue to adjust and titrate medications, currently on Seroquel 25 mg at nighttime. The patient may also benefit from Namenda and Aricept. JOB# [id number]
[2017-02-27] MEDS: INSULIN ASPART SLIDING SCALE 100 UNITS/ML UNIT SUBQ SCH ×4 (10:49→21:21)
[2017-02-28] MEDS: INSULIN ASPART SLIDING SCALE 100 UNITS/ML UNIT SUBQ SCH ×4 (07:07→20:30)
[2017-02-28] MEDS: Pantoprazole 40 mg EC Tab PO SCH (08:31)
[2017-02-28] MEDS: Aspirin 81mg Chewable Tab PO SCH (08:44)
[2017-02-28] MEDS: Multivitamin w/ Minerals Tab PO SCH (09:53)
--- NOTE | 2017-02-28 14:02 | Progress Notes ---
DATE: 02/28/2017 SUBJECTIVE: The patient was seen and evaluated. The patient's chart reviewed. Overnight nursing staff reported the patient continues to refuse medication, responding to internal stimuli very heavily. She presents very withdrawn, ____. Today on [id number] evaluation, the patient presents very distraught, overwhelmed. No side effects of medications. MENTAL STATUS EXAMINATION: Withdrawn, depressed, disorganized, psychotic, unable to formulate a safe plan. ASSESSMENT AND PLAN: The patient is a 77-year-old female who continues to be very withdrawn and responding heavily, disorganized, unable to formulate a safe plan outside the structured environment. In the meantime, we will continue with primary psychiatrist's treatment plan and goals, which include quetiapine 25 mg p.o. at bedtime that was recently adjusted on February 25. We will continue obtaining more collateral baseline information. [facility]# [id number]
--- NOTE | 2017-02-28 17:12 | General Progress Note ---
Subjective - Review of Systems Service Date: 02/28/17 Subjective: resting comfortably in chair confused Objective - Results Result Diagrams: 02/21/17 06:35 02/21/17 06:35 Recent Labs: Laboratory Last Values WBC 5.2 Th/cmm (4.8-10.8) D 02/21/17 06:35 RBC 4.17 Mil/cmm (3.80-5.20) 02/21/17 06:35 Hgb 12.7 gm/dL (11.7-16.1) 02/21/17 06:35 Hct 37.5 % (35.0-45.0) 02/21/17 06:35 MCV 89.9 fl (81-100) 02/21/17 06:35 MCH 30.5 pg (27.0-31.0) 02/21/17 06:35 MCHC Differential 33.9 pg (28.0-36.0) 02/21/17 06:35 RDW 11.4 % (11.5-20.0) L 02/21/17 06:35 Plt Count 214 Th/cmm (150-400) 02/21/17 06:35 MPV 8.0 fl 02/21/17 06:35 Neutrophils % 54.5 % (40.0-80.0) 02/21/17 06:35 Lymphocytes % 35.4 % (20.0-50.0) 02/21/17 06:35 Monocytes % 7.9 % (2.0-10.0) 02/21/17 06:35 Eosinophils % 2.0 % (0.0-5.0) 02/21/17 06:35 Basophils % 0.2 % (0.0-2.0) 02/21/17 06:35 Sodium 132 mEq/L (136-145) L 02/21/17 06:35 Potassium 3.4 mEq/L (3.5-5.1) L 02/21/17 06:35 Chloride 100 mEq/L (98-107) 02/21/17 06:35 Carbon Dioxide 27.1 mEq/L (21.0-31.0) 02/21/17 06:35 Anion Gap 8.3 (7.0-16.0) 02/21/17 06:35 BUN 20 mg/dL (7-25) 02/21/17 06:35 Creatinine 1.0 mg/dL (0.6-1.2) 02/21/17 06:35 Est GFR ( Amer) TNP 02/21/17 06:35 Est GFR (Non-Af Amer) TNP 02/21/17 06:35 BUN/Creatinine Ratio 20.0 02/21/17 06:35 Glucose 135 mg/dL (70-105) H 02/21/17 06:35 POC Glucose 100 MG/DL (70 - 105) 02/28/17 12:07 Calcium 9.4 mg/dL (8.6-10.3) 02/21/17 06:35 Total Bilirubin 0.5 mg/dL (0.3-1.0) 02/21/17 06:35 AST 16 U/L (13-39) 02/21/17 06:35 ALT 12 U/L (7-52) 02/21/17 06:35 Alkaline Phosphatase 46 U/L (34-104) 02/21/17 06:35 Total Protein 6.4 gm/dL (6.0-8.3) 02/21/17 06:35 Albumin 3.8 gm/dL (3.7-5.3) 02/21/17 06:35 Globulin 2.6 gm/dL 02/21/17 06:35 Albumin/Globulin Ratio 1.5 (1.0-1.8) 02/21/17 06:35 Triglycerides 46 mg/dL (<150) 02/19/17 21:21 Cholesterol 160 mg/dL (<200) 02/19/17 21:21 LDL Cholesterol Direct 89 mg/dL (75-193) 02/19/17 21:21 HDL Cholesterol 60 mg/dL (23-92) 02/19/17 21:21 TSH 2.02 uIU/ml (0.34-5.60) 02/19/17 21:21 Salicylates < 25.0 mg/L (30.0-100.0) L 02/19/17 21:21 Acetaminophen < 10.0 ug/mL (10.0-30.0) L 02/19/17 21:21 Ethyl Alcohol < 10 mg/dL (0-10) 02/19/17 21:21 RPR NONREACTIVE (NONREACTIVE) 02/19/17 21:21 - Physical Exam Vitals and I&O: Vital Signs Temp 98.0 F 02/28/17 14:00 Pulse 60 02/28/17 16:57 Resp 20 02/28/17 14:00 BP 158/83 02/28/17 16:57 Pulse Ox 97 02/28/17 14:00 Intake & Output 02/27/17 02/28/17 02/28/17 18:59 06:59 18:59 Intake Total 1000 300 Balance 1000 300 Intake: Oral 1000 300 Other: # Voids 4 2 # Bowel Movements 1 0 Stool Characteristics Soft Soft Soft Active Medications: Current Medications Acetaminophen (Tylenol) 650 mg PO Q4HR PRN PRN Reason: Pain or Fever >101 Stop: 04/20/17 23:26 Last Admin: 02/23/17 01:26 Dose: 650 mg Amlodipine Besylate (Norvasc) 5 mg PO DAILY [facility] Stop: 04/21/17 08:59 Last Admin: 02/28/17 08:31 Dose: 5 mg Aspirin (Aspirin Chewable) 81 mg PO DAILY [facility] Stop: 04/21/17 08:59 Last Admin: 02/28/17 08:44 Dose: 81 mg Docusate Sodium (Colace) 100 mg PO BID [facility] Stop: 04/21/17 08:59 Last Admin: 02/28/17 16:58 Dose: 100 mg Fluticasone Propionate (Flonase) 1 spr NS DAILY PRN PRN Reason: Congestion Stop: 04/20/17 23:26 Glipizide (Glucotrol) 5 mg PO BID [facility] Stop: 04/21/17 08:59 Last Admin: 02/28/17 17:00 Dose: Not Given Insulin Aspart (Novolog Insulin Sliding Scale) 0 units SUBQ ACHS [facility] PRN Reason: Protocol Stop: 04/21/17 07:29 Last Admin: 02/28/17 16:59 Dose: Not Given Losartan Potassium (Cozaar) 50 mg PO DAILY [facility] Stop: 04/21/17 08:59 Last Admin: 02/28/17 09:49 Dose: 50 mg Magnesium Hydroxide (Milk Of Magnesia) 30 ml PO DAILY PRN PRN Reason: Constipation Stop: 04/20/17 23:26 Metoprolol Tartrate (Lopressor) 50 mg PO BID [facility] Stop: 04/21/17 08:59 Last Admin: 02/28/17 16:57 Dose: 50 mg Pantoprazole Sodium (Protonix) 40 mg PO DAILY [facility] Stop: 04/21/17 08:59 Last Admin: 02/28/17 08:31 Dose: 40 mg Quetiapine Fumarate (Seroquel) 25 mg PO HS [facility] PRN Reason: Protocol Stop: 04/26/17 20:59 Last Admin: 02/27/17 20:55 Dose: 25 mg Assessment/Plan - Assessment Assessment: 1.HTN 2.DM. 3.DEMENTIA. 4.HYPOKALEMIA - Plan Plan: cont current treatment Nutritional Asmnt/Malnutr-PDOC - Dietary Evaluation Malnutrition Findings (Please click <Entered> for more info): Nutritional Asmnt/Malnutrition Start: 02/22/17 16: 31 Text: Status: Complete Freq: Document 02/22/17 16:31 [email or web address] (Rec: 02/22/17 16:43 GSUN [id number]) Nutritional Asmnt/Malnutrition Patient General Information Nutritional Screening Moderate Risk Screening Diagnosis Psychosis, NOS Pertinent Medical Hx/Surgical Hx DM, HTN, dementia, psychosis Subjective Information 77 year old female from SNF. Spoke to pt sitting in frida chair in room, pt was pleasant , slow and selective in resposnes, slight confusion noted, not suitable for nutrition edu due to cognition . Pt responded "I eat" to severel nturition questions. Pt stated usually good appetite and does feel hungry. Avg PO intake 75-100% of meals yesterday, meeting nutritional needs. Pt denied allergies. Teeth intact. Spoke to SALES ADMINISTRATOR, SALES ADMINISTRATOR stated no diffilculties noted. No muslce /fat wasting noted. Pt report UBW 151lb a week ago. Current Diet Order/ Nutrition Support [facility] Pertinent Medications Colace, Glucotrol, Novolog, MOM Pertinent Labs 02/19: potassium 2.6L, glucose 142H 02/21: potassium 3.4L, glucose 135H POC glucose 88, 103, 152H Nutritional Hx/Data Height 1.57 m Height (Calculated Centimeters) 157.5 Current Weight (lbs) 82.554 kg Weight (Calculated Kilograms) 82.6 Weight (Calculated Grams) 61576.8 Usual body Weight (lbs) 151 Norris Body Weight 110 Weight Status Overweight GI Symptoms Cultural/Ethnic/Shinto Belief Pt dislikes sweet potatoes. Usual diet at home [facility]: regular, [facility], [facility] Skin Integrity/Comment: Julián Schwarz. Skin intact. Current %PO Good (75-100%) Estimated Nutritional Goals BEE in Kcals: Adj wt of IBW Calories/Kcals/Kg AdjBW 128lb/58.2kg Kcals Calculated 1455-1746kcal (25-30kcal/kg) Protein: Adj wt of IBW Protein Calculated 58g (1g/kg) Fluid: ml 1455-1746ml (1ml/kcal) Nutritional Problem 1. Problem Problem Altered nutrition related laboratory values related to Etiology DM aeb Signs/Symptoms: pt is on insulin, elevated glucose levels Intervention/Recommendation Comments 1. Continue current diet order . Avg PO intake since adm is adequate. Expected Outcomes/Goals Expected Outcomes/Goals 1. PO intake continue to meet at least 75% of estimated nutritional needs.
[2017-03-01] MEDS: INSULIN ASPART SLIDING SCALE 100 UNITS/ML UNIT SUBQ SCH ×4 (07:03→20:21)
[2017-03-01] MEDS: Pantoprazole 40 mg EC Tab PO SCH (08:51)
[2017-03-01] MEDS: Aspirin 81mg Chewable Tab PO SCH (08:53)
[2017-03-01] MEDS: Multivitamin w/ Minerals Tab PO SCH (08:53)
--- NOTE | 2017-03-01 20:09 | Internal Medicine Prog Note ---
Internal Medicine Subjective - Subjective Service Date: 03/01/17 Patient seen and examined:: with staff Patient is:: awake, in bed, confused Per staff patient has:: no adverse event (EATING WELL AND TAKING MEDICATION.) Internal Medicine Objective - Results Result Diagrams: 02/21/17 06:35 02/21/17 06:35 Recent Labs: Laboratory Last Values WBC 5.2 Th/cmm (4.8-10.8) D 02/21/17 06:35 RBC 4.17 Mil/cmm (3.80-5.20) 02/21/17 06:35 Hgb 12.7 gm/dL (11.7-16.1) 02/21/17 06:35 Hct 37.5 % (35.0-45.0) 02/21/17 06:35 MCV 89.9 fl (81-100) 02/21/17 06:35 MCH 30.5 pg (27.0-31.0) 02/21/17 06:35 MCHC Differential 33.9 pg (28.0-36.0) 02/21/17 06:35 RDW 11.4 % (11.5-20.0) L 02/21/17 06:35 Plt Count 214 Th/cmm (150-400) 02/21/17 06:35 MPV 8.0 fl 02/21/17 06:35 Neutrophils % 54.5 % (40.0-80.0) 02/21/17 06:35 Lymphocytes % 35.4 % (20.0-50.0) 02/21/17 06:35 Monocytes % 7.9 % (2.0-10.0) 02/21/17 06:35 Eosinophils % 2.0 % (0.0-5.0) 02/21/17 06:35 Basophils % 0.2 % (0.0-2.0) 02/21/17 06:35 Sodium 132 mEq/L (136-145) L 02/21/17 06:35 Potassium 3.4 mEq/L (3.5-5.1) L 02/21/17 06:35 Chloride 100 mEq/L (98-107) 02/21/17 06:35 Carbon Dioxide 27.1 mEq/L (21.0-31.0) 02/21/17 06:35 Anion Gap 8.3 (7.0-16.0) 02/21/17 06:35 BUN 20 mg/dL (7-25) 02/21/17 06:35 Creatinine 1.0 mg/dL (0.6-1.2) 02/21/17 06:35 Est GFR ( Amer) TNP 02/21/17 06:35 Est GFR (Non-Af Amer) TNP 02/21/17 06:35 BUN/Creatinine Ratio 20.0 02/21/17 06:35 Glucose 135 mg/dL (70-105) H 02/21/17 06:35 POC Glucose 106 MG/DL (70 - 105) H 03/01/17 11:36 Calcium 9.4 mg/dL (8.6-10.3) 02/21/17 06:35 Total Bilirubin 0.5 mg/dL (0.3-1.0) 02/21/17 06:35 AST 16 U/L (13-39) 02/21/17 06:35 ALT 12 U/L (7-52) 02/21/17 06:35 Alkaline Phosphatase 46 U/L (34-104) 02/21/17 06:35 Total Protein 6.4 gm/dL (6.0-8.3) 02/21/17 06:35 Albumin 3.8 gm/dL (3.7-5.3) 02/21/17 06:35 Globulin 2.6 gm/dL 02/21/17 06:35 Albumin/Globulin Ratio 1.5 (1.0-1.8) 02/21/17 06:35 Triglycerides 46 mg/dL (<150) 02/19/17 21:21 Cholesterol 160 mg/dL (<200) 02/19/17 21:21 LDL Cholesterol Direct 89 mg/dL (75-193) 02/19/17 21:21 HDL Cholesterol 60 mg/dL (23-92) 02/19/17 21:21 TSH 2.02 uIU/ml (0.34-5.60) 02/19/17 21:21 Salicylates < 25.0 mg/L (30.0-100.0) L 02/19/17 21:21 Acetaminophen < 10.0 ug/mL (10.0-30.0) L 02/19/17 21:21 Ethyl Alcohol < 10 mg/dL (0-10) 02/19/17 21:21 RPR NONREACTIVE (NONREACTIVE) 02/19/17 21:21 - Physical Exam Vitals and I&O: Vital Signs Temp 98.4 F 03/01/17 14:00 Pulse 66 03/01/17 17:21 Resp 20 03/01/17 14:00 BP 140/75 03/01/17 17:21 Pulse Ox 97 03/01/17 14:00 Intake & Output 03/01/17 03/01/17 03/02/17 06:59 18:59 06:59 Intake Total 80 480 Balance 80 480 Weight (lbs) 71.259 kg Intake: Oral 80 480 Other: # Voids 4 2 # Bowel Movements 0 0 Stool Characteristics Soft Soft Active Medications: Current Medications Acetaminophen (Tylenol) 650 mg PO Q4HR PRN PRN Reason: Pain or Fever >101 Stop: 04/20/17 23:26 Last Admin: 02/23/17 01:26 Dose: 650 mg Amlodipine Besylate (Norvasc) 5 mg PO DAILY [facility] Stop: 04/21/17 08:59 Last Admin: 03/01/17 08:53 Dose: 5 mg Aspirin (Aspirin Chewable) 81 mg PO DAILY [facility] Stop: 04/21/17 08:59 Last Admin: 03/01/17 08:53 Dose: 81 mg Docusate Sodium (Colace) 100 mg PO BID [facility] Stop: 04/21/17 08:59 Last Admin: 03/01/17 17:21 Dose: 100 mg Fluticasone Propionate (Flonase) 1 spr NS DAILY PRN PRN Reason: Congestion Stop: 04/20/17 23:26 Glipizide (Glucotrol) 5 mg PO BID [facility] Stop: 04/21/17 08:59 Last Admin: 03/01/17 17:21 Dose: 5 mg Insulin Aspart (Novolog Insulin Sliding Scale) 0 units SUBQ ACHS [facility] PRN Reason: Protocol Stop: 04/21/17 07:29 Last Admin: 03/01/17 17:20 Dose: Not Given Losartan Potassium (Cozaar) 50 mg PO DAILY [facility] Stop: 04/21/17 08:59 Last Admin: 03/01/17 08:54 Dose: 50 mg Magnesium Hydroxide (Milk Of Magnesia) 30 ml PO DAILY PRN PRN Reason: Constipation Stop: 04/20/17 23:26 Metoprolol Tartrate (Lopressor) 50 mg PO BID [facility] Stop: 04/21/17 08:59 Last Admin: 03/01/17 17:21 Dose: 50 mg Pantoprazole Sodium (Protonix) 40 mg PO DAILY [facility] Stop: 04/21/17 08:59 Last Admin: 03/01/17 08:51 Dose: 40 mg Quetiapine Fumarate (Seroquel) 25 mg PO HS [facility] PRN Reason: Protocol Stop: 04/26/17 20:59 Last Admin: 02/28/17 20:35 Dose: 25 mg General: demented HEENT: NC/AT, PERRLA, EOMI, anicteric sclerae, throat clear Neck: Supple, No JVD, No thyromegaly, No LAD Lungs: CTAB Cardiovascular: RRR, Normal S1, Normal S2, without murmur Abdomen: soft, non-tender, non-distended Extremities: clear Neurological: no change Internal Medicine Assmt/Plan - Assessment Assessment: 1.HTN 2.DM. 3.DEMENTIA. - Plan Plan: CONTINUE ON CURRENT MEDICATION AND DIET. Nutritional Asmnt/Malnutr-PDOC - Dietary Evaluation Malnutrition Findings (Please click <Entered> for more info): Nutritional Asmnt/Malnutrition Start: 02/22/17 16: 31 Text: Status: Complete Freq: Document 02/22/17 16:31 GSUN (Rec: 02/22/17 16:43 GSUN [id number]) Nutritional Asmnt/Malnutrition Patient General Information Nutritional Screening Moderate Risk Screening Diagnosis Psychosis, NOS Pertinent Medical Hx/Surgical Hx DM, HTN, dementia, psychosis Subjective Information 77 year old female from SNF. Spoke to pt sitting in frida chair in room, pt was pleasant , slow and selective in resposnes, slight confusion noted, not suitable for nutrition edu due to cognition . Pt responded "I eat" to severel nturition questions. Pt stated usually good appetite and does feel hungry. Avg PO intake 75-100% of meals yesterday, meeting nutritional needs. Pt denied allergies. Teeth intact. Spoke to HEAVY EQUIPMENT ENGINE MECHANIC, HEAVY EQUIPMENT ENGINE MECHANIC stated no diffilculties noted. No muslce /fat wasting noted. Pt report UBW 151lb a week ago. Current Diet Order/ Nutrition [facility] Pertinent Medications Colace, Glucotrol, Novolog, MOM Pertinent Labs 02/19: potassium 2.6L, glucose 142H 02/21: potassium 3.4L, glucose 135H POC glucose 88, 103, 152H Nutritional Hx/Data Height 1.57 m Height (Calculated Centimeters) 157.5 Current Weight (lbs) 82.554 kg Weight (Calculated Kilograms) 82.6 Weight (Calculated Grams) 81326.8 Usual body Weight (lbs) 151 Barry Body Weight 110 Weight Status Overweight GI Symptoms Cultural/Ethnic/Mu-Ism Belief Pt dislikes sweet potatoes. Usual diet at home [facility]: regular, [facility], [facility] Skin Integrity/Comment: Julián 21. Skin intact. Current %PO Good (75-100%) Estimated Nutritional Goals BEE in Kcals: Adj wt of IBW Calories/Kcals/Kg AdjBW 128lb/58.2kg Kcals Calculated 1455-1746kcal (25-30kcal/kg) Protein: Adj wt of IBW Protein Calculated 58g (1g/kg) Fluid: ml 1455-1746ml (1ml/kcal) Nutritional Problem 1. Problem Problem Altered nutrition related laboratory values related to Etiology DM aeb Signs/Symptoms: pt is on insulin, elevated glucose levels Intervention/Recommendation Comments 1. Continue current diet order . Avg PO intake since adm is adequate. Expected Outcomes/Goals Expected Outcomes/Goals 1. PO intake continue to meet at least 75% of estimated nutritional needs.
--- NOTE | 2017-03-02 02:24 | Progress Notes ---
DATE: 03/01/2017 Case was discussed with staff of the patient, reviewed records. The patient continues to be unpredictable, impulsive, needing redirection. Continues to have poor insight. However, she is calmer in general compared to last week. She is sleeping better, eating better. No side effects with the medication, no sedation, no nausea, no extrapyramidal symptoms, so she continues to do well. We [facility]. She came from [place] where they could take care of her at lesser level of care. I will continue to work with the patient in group therapy, milieu therapy, adjust medications. JOB# [id number]
[2017-03-02] MEDS: Aspirin 81mg Chewable Tab PO SCH (10:20)
[2017-03-02] MEDS: Multivitamin w/ Minerals Tab PO SCH (10:20)
[2017-03-02] MEDS: Pantoprazole 40 mg EC Tab PO SCH (10:20)
[2017-03-02] MEDS: INSULIN ASPART SLIDING SCALE 100 UNITS/ML UNIT SUBQ SCH ×2 (17:58→20:51)
--- NOTE | 2017-03-02 19:16 | Internal Medicine Prog Note ---
Internal Medicine Subjective - Subjective Service Date: 03/02/17 Patient seen and examined:: without staff (SHE DENIES ANY PAIN OR SOB.) Patient is:: awake, in bed, confused Per staff patient has:: no adverse event (EATING WELL AND TAKING MEDICATION.) Internal Medicine Objective - Results Result Diagrams: 02/21/17 06:35 02/21/17 06:35 Recent Labs: Laboratory Last Values WBC 5.2 Th/cmm (4.8-10.8) D 02/21/17 06:35 RBC 4.17 Mil/cmm (3.80-5.20) 02/21/17 06:35 Hgb 12.7 gm/dL (11.7-16.1) 02/21/17 06:35 Hct 37.5 % (35.0-45.0) 02/21/17 06:35 MCV 89.9 fl (81-100) 02/21/17 06:35 MCH 30.5 pg (27.0-31.0) 02/21/17 06:35 MCHC Differential 33.9 pg (28.0-36.0) 02/21/17 06:35 RDW 11.4 % (11.5-20.0) L 02/21/17 06:35 Plt Count 214 Th/cmm (150-400) 02/21/17 06:35 MPV 8.0 fl 02/21/17 06:35 Neutrophils % 54.5 % (40.0-80.0) 02/21/17 06:35 Lymphocytes % 35.4 % (20.0-50.0) 02/21/17 06:35 Monocytes % 7.9 % (2.0-10.0) 02/21/17 06:35 Eosinophils % 2.0 % (0.0-5.0) 02/21/17 06:35 Basophils % 0.2 % (0.0-2.0) 02/21/17 06:35 Sodium 132 mEq/L (136-145) L 02/21/17 06:35 Potassium 3.4 mEq/L (3.5-5.1) L 02/21/17 06:35 Chloride 100 mEq/L (98-107) 02/21/17 06:35 Carbon Dioxide 27.1 mEq/L (21.0-31.0) 02/21/17 06:35 Anion Gap 8.3 (7.0-16.0) 02/21/17 06:35 BUN 20 mg/dL (7-25) 02/21/17 06:35 Creatinine 1.0 mg/dL (0.6-1.2) 02/21/17 06:35 Est GFR ( Amer) TNP 02/21/17 06:35 Est GFR (Non-Af Amer) TNP 02/21/17 06:35 BUN/Creatinine Ratio 20.0 02/21/17 06:35 Glucose 135 mg/dL (70-105) H 02/21/17 06:35 POC Glucose 109 MG/DL (70 - 105) H 03/02/17 16:40 Calcium 9.4 mg/dL (8.6-10.3) 02/21/17 06:35 Total Bilirubin 0.5 mg/dL (0.3-1.0) 02/21/17 06:35 AST 16 U/L (13-39) 02/21/17 06:35 ALT 12 U/L (7-52) 02/21/17 06:35 Alkaline Phosphatase 46 U/L (34-104) 02/21/17 06:35 Total Protein 6.4 gm/dL (6.0-8.3) 02/21/17 06:35 Albumin 3.8 gm/dL (3.7-5.3) 02/21/17 06:35 Globulin 2.6 gm/dL 02/21/17 06:35 Albumin/Globulin Ratio 1.5 (1.0-1.8) 02/21/17 06:35 Triglycerides 46 mg/dL (<150) 02/19/17 21:21 Cholesterol 160 mg/dL (<200) 02/19/17 21:21 LDL Cholesterol Direct 89 mg/dL (75-193) 02/19/17 21:21 HDL Cholesterol 60 mg/dL (23-92) 02/19/17 21:21 TSH 2.02 uIU/ml (0.34-5.60) 02/19/17 21:21 Salicylates < 25.0 mg/L (30.0-100.0) L 02/19/17 21:21 Acetaminophen < 10.0 ug/mL (10.0-30.0) L 02/19/17 21:21 Ethyl Alcohol < 10 mg/dL (0-10) 02/19/17 21:21 RPR NONREACTIVE (NONREACTIVE) 02/19/17 21:21 - Physical Exam Vitals and I&O: Vital Signs Temp 98.2 F 03/02/17 14:00 Pulse 62 03/02/17 18:07 Resp 20 03/02/17 14:00 BP 140/68 03/02/17 18:07 Pulse Ox 96 03/02/17 14:00 Intake & Output 03/02/17 03/02/17 03/03/17 06:59 18:59 06:59 Intake Total 80 1200 Balance 80 1200 Intake: Oral 80 1200 Other: # Voids 3 # Bowel Movements 0 1 Stool Characteristics Soft Active Medications: Current Medications Acetaminophen (Tylenol) 650 mg PO Q4HR PRN PRN Reason: Pain or Fever >101 Stop: 04/20/17 23:26 Last Admin: 02/23/17 01:26 Dose: 650 mg Amlodipine Besylate (Norvasc) 5 mg PO DAILY [facility] Stop: 04/21/17 08:59 Last Admin: 03/02/17 10:20 Dose: 5 mg Aspirin (Aspirin Chewable) 81 mg PO DAILY [facility] Stop: 04/21/17 08:59 Last Admin: 03/02/17 10:20 Dose: 81 mg Docusate Sodium (Colace) 100 mg PO BID [facility] Stop: 04/21/17 08:59 Last Admin: 03/02/17 17:59 Dose: Not Given Fluticasone Propionate (Flonase) 1 spr NS DAILY PRN PRN Reason: Congestion Stop: 04/20/17 23:26 Glipizide (Glucotrol) 5 mg PO BID [facility] Stop: 04/21/17 08:59 Last Admin: 03/02/17 17:59 Dose: Not Given Insulin Aspart (Novolog Insulin Sliding Scale) 0 units SUBQ ACHS [facility] PRN Reason: Protocol Stop: 04/21/17 07:29 Last Admin: 03/02/17 17:58 Dose: Not Given Losartan Potassium (Cozaar) 50 mg PO DAILY [facility] Stop: 04/21/17 08:59 Last Admin: 03/02/17 10:18 Dose: 50 mg Magnesium Hydroxide (Milk Of Magnesia) 30 ml PO DAILY PRN PRN Reason: Constipation Stop: 04/20/17 23:26 Metoprolol Tartrate (Lopressor) 50 mg PO BID [facility] Stop: 04/21/17 08:59 Last Admin: 03/02/17 18:07 Dose: 50 mg Pantoprazole Sodium (Protonix) 40 mg PO DAILY [facility] Stop: 04/21/17 08:59 Last Admin: 03/02/17 10:20 Dose: 40 mg Quetiapine Fumarate (Seroquel) 50 mg PO HS [facility] PRN Reason: Protocol Stop: 05/01/17 09:06 General: demented HEENT: NC/AT, PERRLA, EOMI, anicteric sclerae, throat clear Neck: Supple, No JVD, No thyromegaly, No LAD Lungs: CTAB Cardiovascular: RRR, Normal S1, Normal S2, without murmur Abdomen: soft, non-tender, non-distended Extremities: clear Neurological: no change Internal Medicine Assmt/Plan - Assessment Assessment: 1.HTN 2.DM. 3.DEMENTIA. - Plan Plan: CONTINUE ON CURRENT MEDICATION AND DIET. Nutritional Asmnt/Malnutr-PDOC - Dietary Evaluation Malnutrition Findings (Please click <Entered> for more info): Nutritional Asmnt/Malnutrition Start: 02/22/17 16: 31 Text: Status: Complete Freq: Document 02/22/17 16:31 GSUN (Rec: 02/22/17 16:43 [email or web address]) Nutritional Asmnt/Malnutrition Patient General Information Nutritional Screening Moderate Risk Screening Diagnosis Psychosis, NOS Pertinent Medical Hx/Surgical Hx DM, HTN, dementia, psychosis Subjective Information 77 year old female from SNF. Spoke to pt sitting in frida chair in room, pt was pleasant , slow and selective in resposnes, slight confusion noted, not suitable for nutrition edu due to cognition . Pt responded "I eat" to severel nturition questions. Pt stated usually good appetite and does feel hungry. Avg PO intake 75-100% of meals yesterday, meeting nutritional needs. Pt denied allergies. Teeth intact. Spoke to BASTING PULLER, BASTING PULLER stated no diffilculties noted. No muslce /fat wasting noted. Pt report UBW 151lb a week ago. Current Diet Order/ Nutrition Support ONRRIS, CCHO Pertinent Medications Colace, Glucotrol, Novolog, MOM Pertinent Labs 02/19: potassium 2.6L, glucose 142H 02/21: potassium 3.4L, glucose 135H POC glucose 88, 103, 152H Nutritional Hx/Data Height 1.57 m Height (Calculated Centimeters) 157.5 Current Weight (lbs) 82.554 kg Weight (Calculated Kilograms) 82.6 Weight (Calculated Grams) 82858.8 Usual body Weight (lbs) 151 [place] Body Weight 110 Weight Status Overweight GI Symptoms Cultural/Ethnic/[employer] Bel[employer] Pt dislikes sweet potatoes. Usual diet at home [facility]: regular, CCHO, NORRIS Skin Integrity/Comment: Julián 21. Skin intact. Current %PO Good (75-100%) Estimated Nutritional Goals BEE in Kcals: Adj wt of IBW Calories/Kcals/Kg AdjBW 128lb/58.2kg Kcals Calculated 1455-1746kcal (25-30kcal/kg) Protein: Adj wt of IBW Protein Calculated 58g (1g/kg) Fluid: ml 1455-1746ml (1ml/kcal) Nutritional Problem 1. Problem Problem Altered nutrition related laboratory values related to Etiology DM aeb Signs/Symptoms: pt is on insulin, elevated glucose levels Intervention/Recommendation Comments 1. Continue current diet order . Avg PO intake since adm is adequate. Expected Outcomes/Goals Expected Outcomes/Goals 1. PO intake continue to meet at least 75% of estimated nutritional needs.
--- NOTE | 2017-03-02 22:54 | Progress Notes ---
DATE: 03/02/2017 Case was discussed with staff of the patient, reviewed records. The patient since yesterday, she is not eating, but she takes her medication. She continues to be unpredictable, impulsive. She stays to herself. Continues to have poor insight. Unable to participate in a meaningful conversation or make safe plan for self-care. I will be increasing her Seroquel dose that may also improve her appetite and we will continue to work with the patient in group therapy, milieu therapy, adjust medication as needed. JOB# [id number]
[2017-03-03] MEDS: INSULIN ASPART SLIDING SCALE 100 UNITS/ML UNIT SUBQ SCH ×2 (06:39→14:20)
[2017-03-03] MEDS ORDERED: Probiotic Screen MC PRN (09:01)
[2017-03-03] MEDS: Pantoprazole 40 mg EC Tab PO SCH (09:28)
[2017-03-03] MEDS: Aspirin 81mg Chewable Tab PO SCH (09:28)
[2017-03-03] MEDS: Multivitamin w/ Minerals Tab PO SCH (09:28)
--- NOTE | 2017-03-03 12:40 | Discharge Summary ---
DATE OF DISCHARGE: 03/03/2017 IDENTIFYING INFORMATION: The patient is a 77-year-old female. HISTORY OF PRESENT ILLNESS: The patient believes that she is here for an x-ray referred by me and they called me from [facility], reported that patient was very psychotic, agitated, hitting other residents and doctor. She has no clue why she was here. She was unpredictable, impulsive, needing redirection looking disheveled; however, she was able to tell me the date and she knew she is in the hospital, sleeping not well, needs to have some x-rays, she believes, ____ very poor insight, very poor historian. Denies any hallucination or paranoia, but she was very agitated. I will continue seeing her at [facility]. COURSE IN THE HOSPITAL: The patient was started on Risperdal; however, she got more agitated and labile, so I changed her to Seroquel. The patient also was continued with glipizide, amlodipine, aspirin, and lactobacillus, losartan, metoprolol, and multivitamin, Protonix, probiotics. Seroquel dose was increased to 50 mg at bedtime because of her labile mood and inappropriate behavior and patient progressively got better. She was no longer acting in any way psychotic or agitated or labile. She was calm, cooperative, sleeping well, eating well, compliant with the medication with no side effects, no sedation, no nausea. The patient improved. We felt she could be discharged to a lesser level of care. FINAL DIAGNOSES: AXIS I: Psychosis, not otherwise specified. MEDICAL DIAGNOSES: Deferred to the medical doctor. The patient will be going back to [facility]. I will follow up with the patient there and also Dr. Mcmullen will see her there. EXPECTED OUTCOME: Stable if the patient complies with the above. JOB# [id number]
[2017-03-04] MEDS ORDERED: Lactobacillus Rhamnosus 10 Billion CFU Capsule PO SCH (09:00)
== END 2017-03-03 14:30 | disposition home or self-care (01) | DRG 885 ==
LOC: ER 20:55 → GERO 23:08
PROVIDERS: ADMIT Psychiatry & Neurology Psychiatry; ATTEND Psychiatry & Neurology Psychiatry
DX: F29 Unspecified psychosis not due to a substance or known physiological condition (principal); F03.90 Unspecified dementia, unspecified severity, without behavioral disturbance, psychotic disturbance, mood disturbance, and anxiety; E87.1 Hypo-osmolality and hyponatremia; E11.9 Type 2 diabetes mellitus without complications; N39.0 Urinary tract infection, site not specified; I10 Essential (primary) hypertension; K21.9 Gastro-esophageal reflux disease without esophagitis; E87.6 Hypokalemia; Z79.4 Long term (current) use of insulin
CPT/HCPCS: 36415-UA; 80053-TC; 80061-TC; 80320-TC; 80329-TC; 82948-90; 84443-TC; 85025-TC; 86592-TC; 90899; 93005; G0410; Z7610

== ENCOUNTER 2018-04-14 18:20 | Inpatient (IN) | payer MEDICAID, MEDICARE ==
[2018-04-14 18:37] LABS: % BASOPHILS 0.3 % (0.0-2.0); % EOSINOPHILS 1.9 % (0.0-5.0); % LYMPHOCYTES 38.3 % (20.0-50.0); % MONOCYTES 6.8 % (2.0-10.0); % NEUTROPHILS 52.7 % (40.0-80.0); EOSINOPHILE ABSOLUTE 0.1 Th/cmm (0.1-0.4); HEMOGLOBIN 12.5 gm/dL (12-16); LYMPHOCYTE ABSOLUTE 2.8 Th/cmm (1.5-3.0); MEAN CELL VOLUME 87.5 fl (81-100); MEAN CORPUSCULAR HEMOGLOBIN 29.6 pg (27.0-31.0); MEAN CORPUSCULAR HGB CONC 33.8 pg (28.0-36.0); MEAN PLATELET VOLUME 7.8 fl; MONOCYTE ABSOLUTE 0.5 Th/cmm (0.3-1.0); PLATELET COUNT 203 Th/cmm (150-400); RED BLOOD COUNT 4.23 Mil/cmm (3.80-5.20); RED CELL DISTRIBUTION WIDTH 12.4 % (11.5-20.0); WHITE BLOOD COUNT 7.4 Th/cmm (4.8-10.8)
--- NOTE | 2018-04-14 18:48 | ED Physician Chart ---
Addendum entered and electronically signed by Brandyn Gonzales 04/14/18 22:03: ED Reassessment (Disposition) - Diagnosis Diagnosis:: cp - Aftercare/Follow up Instructions Notes:: ct angio showed minimal atelectasis mild cardiomegaly gastric lap band distended distal stomach - Patient Disposition Discharge/Transfer:: Acute Care w/in this hosp Admitted to:: Med/Surg Original Note: ED Chief Complaint/HPI - Patient Information Allergies:: Allergies Allergy/AdvReac Type Severity Reaction Status Date / Time No Known Allergies Allergy Verified 02/19/17 21:03 Vitals:: Vital Signs - 8 hr 04/14/18 18:58 Temp 98.7 F HR 56 RR 17 BP 181/78 O2 Sat % 98 <Brandyn Gonzales - Last Filed: 04/14/18 21:59> - Patient Information Date Seen:: 04/14/18 Time Seen:: 18:58 Chief Complaint:: increased agitation History of Present Illness:: increased agitation in a patient who stated that she had chest pain into her left arm at the facility from which she came. talks about being the President of [employer]. Allergies:: Allergies Allergy/AdvReac Type Severity Reaction Status Date / Time No Known Allergies Allergy Verified 02/19/17 21:03 Historian:: Patient, Medical Records Review:: Nurse's Note Reviewed, Transfer documents Reviewed <Licha Caldwell - Last Filed: 04/15/18 10:22> ED Review of Systems - Review of Systems General/Constitutional: No fever, No chills, No weight loss, No weakness, No diaphoresis, No edema, No loss of appetite Skin: No skin lesions, No rash, No bruising Head: No headache, No light-headedness Eyes: No loss of vision, No pain, No diplopia ENT: No earache, No nasal drainage, No sore throat, No tinnitus Neck: No neck pain, No swelling, No thyromegaly, No stiffness, No mass noted Cardio Vascular: Chest pain, No palpitations, No PND (with radiation into left arm), other (with rad) Pulmonary: No SOB, No cough, No sputum, No wheezing GI: No nausea, No vomiting, No diarrhea, No pain, No melena, No hematochezia, No constipation, No hematemesis G/U: No dysuria, No frequency, No hematuria Musculoskeletal: No bone or joint pain, No back pain, No muscle pain Endocrine: No polyuria, No polydipsia Psychiatric: Prior psych history, No depression, No anxiety, No suicidal ideation, No homicidal ideation Hematopoietic: No bruising, No lymphadenopathy Allergic/Immuno: No urticaria, No angioedema Neurological: No syncope, No focal symptoms, No weakness, No paresthesia, No headache, No seizure, No dizziness, No confusion, No vertigo <Licha Caldwell - Last Filed: 04/15/18 10:22> ED Past Medical History - Past Medical History Obtainable: No <Licha Caldwell Last Filed: 04/15/18 10:22> Family Medical History - Family Member Mother History Unknown: Yes <Licha Caldwell - Last Filed: 04/15/18 10:22> ED Physical Exam - Physical Examination General/Constitutional: Awake, Well-developed, well-nourished, Alert, No distress, Non-toxic appearing, Ambulatory Other Gen/Cons comments:: no longer c/o chest pain at this time. talks about being the President of [employer]. smells ketotic Head: Atraumatic Eyes: Lids, conjuctiva normal, PERRL, EOMI Skin: Nl inspection, No rash, No skin lesions, No ecchymosis, Well hydrated, No lymphadenopathy ENMT: External ears, nose nl Neck: Nontender, No nuchal rigidity Respiratory: Nl effort/Exclusion, Clear to Auscultation, No Wheeze/Rhonchi/Rales Cardio Vascular: RRR, No murmur, gallop, rubs, NL S1 S2 GI: No tenderness/rebounding/guarding, No organomegaly, No hernia, Normal BS's, Nondistended : No CVA tenderness Extremities: No tenderness or effusion, Full ROM, normal strength in all extremities Other Extremities comments:: trace pretibial edema. Neuro/Psych: Normal sensory exam, Normal motor strength, No focal deficits Other Neuro/Psych comments:: talks about being the President [employer]. Misc: Normal back, No paraspinal tenderness <Licha Caldwell Last Filed: 04/15/18 10:22> ED Labs/Radiology/EKG Results - Lab Results Results: Laboratory Tests 04/14/18 04/14/18 04/14/18 18:31 18:31 18:31 WBC 7.4 RBC 4.23 Hgb 12.5 Hct 37.0 L MCV 87.5 MCH 29.6 MCHC Differential 33.8 RDW 12.4 Plt Count 203 MPV 7.8 Neutrophils % 52.7 Lymphocytes % 38.3 Monocytes % 6.8 Eosinophils % 1.9 Basophils % 0.3 Sodium 133 L Potassium 3.4 L Chloride 94 L Carbon Dioxide 28.5 Anion Gap 13.9 BUN 22 Creatinine 1.0 Est GFR ( Amer) TNP Est GFR (Non-Af Amer) TNP BUN/Creatinine Ratio 22.0 Glucose 108 H Calcium 9.2 Phosphorus 3.5 Magnesium 1.7 L Total Bilirubin 0.3 AST 21 ALT 15 Alkaline Phosphatase 53 Troponin I 0.03 Total Protein 6.7 Albumin 3.9 Globulin 2.8 Albumin/Globulin Ratio 1.4 Valproic Acid 04/14/18 18:31 WBC RBC Hgb Hct MCV MCH MCHC Differential RDW Plt Count MPV Neutrophils % Lymphocytes % Monocytes % Eosinophils % Basophils % Sodium Potassium Chloride Carbon Dioxide Anion Gap BUN Creatinine Est GFR ( Amer) Est GFR (Non-Af Amer) BUN/Creatinine Ratio Glucose Calcium Phosphorus Magnesium Total Bilirubin AST ALT Alkaline Phosphatase Troponin I Total Protein Albumin Globulin Albumin/Globulin Ratio Valproic Acid 36.0 L <Brandyn Gonzales - Last Filed: 04/14/18 21:59> - Lab Results Results: Laboratory Tests 04/14/18 18:31 WBC 7.4 RBC 4.23 Hgb 12.5 Hct 37.0 L MCV 87.5 MCH 29.6 MCHC Differential 33.8 RDW 12.4 Plt Count 203 MPV 7.8 Neutrophils % 52.7 Lymphocytes % 38.3 Monocytes % 6.8 Eosinophils % 1.9 Basophils % 0.3 <Licha Caldwell - Last Filed: 04/15/18 10:22> ED Assessment - Assessment General Assessment: TROP NL EXAM STABLE EKG NO ACUTE ST CHANGES <Brandyn Gonzales - Last Filed: 04/14/18 21:59> - Assessment General Assessment: EKG from 18:11:21 p.m. without chest pain: sinus bradycardia, flipped t wave in I, II, AVL, V2, V4, V5 and V6. CXR with widened mediastinum or enlarged aorta per my reading of the CXR. No prior CXR's to compare with. Sign out to Dr. Gonzales at 7:[address] p[address] to check chest CT scan and to decide whether or not the patient has been medically cleared for [facility]. <Licha Caldwell - Last Filed: 04/15/18 10:22> ED Septic Shock - . Is Septic Shock (SBP<90, OR Lactate>4 mmol\L) present?: No - <6hrs of presentation: Vital Signs: Vital Signs - 8 hr 04/14/18 18:58 Temp 98.7 F HR 56 RR 17 BP 181/78 O2 Sat % 98 <Brandyn Gonzales - Last Filed: 04/14/18 21:59> - . Is Septic Shock (SBP<90, OR Lactate>4 mmol\L) present?: No <Licha Caldwell - Last Filed: 04/15/18 10:22> ED Reassessment (Disposition) - Reassessment Reassessment Condition:: Unchanged - Diagnosis Diagnosis:: Increased agitation Delusions Chest pain with radiation into left arm Widened mediastinum on CXR Diabetes mellitus - Patient Disposition Discharge/Transfer:: Acute Care w/in this hosp Admitted to:: [facility] Condition at Disposition:: Stable, Unchanged <Licha Caldwell - Last Filed: 04/15/18 10:22> - Assessment Assessment: Current Active Problems Problem Status Onset AGITATION AND CHEST PAIN Acute - Plan Plan: PT WITH NO ACUTE DISTRESS NO RALES NO EDEMA SHE DENIES CP VERY AWAKE ALERT <Brandyn Gonzales - Last Filed: 04/14/18 21:59>
[2018-04-14 18:56] LABS: ALB/GLOB RATIO 1.4 (1.0-1.8); ALBUMIN 3.9 gm/dL (3.7-5.3); ALKALINE PHOSPHATASE 53 U/L (34-104); ANION GAP 13.9 (7.0-16.0); BILIRUBIN,TOTAL 0.3 mg/dL (0.3-1.0); BUN - UREA NITROGEN 22 mg/dL (7-25); CALCIUM SERUM 9.2 mg/dL (8.6-10.3); CARBON DIOXIDE 28.5 mEq/L (21.0-31.0); CHLORIDE 94 mEq/L (98-107); GLUCOSE 108 mg/dL (70-105); MAGNESIUM 1.7 mg/dL (1.9-2.7); PHOSPHOROUS 3.5 mg/dL (2.5-5.0); POTASSIUM SERUM 3.4 mEq/L (3.5-5.1); SGOT 21 U/L (13-39); SGPT/ALT 15 U/L (7-52); SODIUM SERUM 133 mEq/L (136-145); TOTAL PROTEIN,SERUM 6.7 gm/dL (6.0-8.3)
[2018-04-14] MEDS ORDERED: IOHEXOL 300mgI/mL 100 ML VIAL ONE (19:04)
[2018-04-14] MEDS ORDERED: Sodium Chloride 0.9% 1,000 ML IV ONE (20:28)
[2018-04-14] MEDS ORDERED: Potassium Chloride 20 mEq ER Tab PO ONE ×2 (20:29→20:50)
[2018-04-15 00:07] LABS: URINE SOURCE RANDOM
[2018-04-15 00:10] LABS: URINE BILIRUBIN NEGATIVE (NEGATIVE); URINE BLOOD NEGATIVE (NEGATIVE); URINE GLUCOSE (UA) NEGATIVE (NEGATIVE); URINE KETONE NEGATIVE (NEGATIVE); URINE LEUKOCYTE ESTERASE NEGATIVE (NEGATIVE); URINE NITRATE NEGATIVE (NEGATIVE); URINE PH 6.5 (4.6 - 8.0); URINE PROTEIN NEGATIVE (NEGATIVE); URINE UROBILINOGEN 0.2 E.U./dL (0.2 - 1.0)
[2018-04-15 00:27] LABS: URINE CLARITY CLEAR (CLEAR); URINE COLOR YELLOW; URINE MICROSCOPIC INDICATED? YES
[2018-04-15 00:28] LABS: URINE BACTERIA OCCASIONAL /hpf (NONE SEEN); URINE EPITHELIAL CELLS FEW /lpf (FEW); URINE RBC NONE SEEN /hpf (0-5); URINE WBC 0-2 /hpf (0-5)
[2018-04-15 00:50] VITALS: BP 126/69
[2018-04-15] MEDS ORDERED: Maalox 30 mL Cup PO PRN (00:57)
[2018-04-15] MEDS ORDERED: Magnesium Hydroxide (MOM) 30 mL UDC PO PRN (00:57)
[2018-04-15 06:38] LABS: CHOLESTEROL 166 mg/dL (<200); HDL -HIGH DENSITY LIPOPROTEIN 55 mg/dL (23-92); TRIGLYCERIDES 58 mg/dL (<150)
[2018-04-15] MEDS: Pantoprazole 40 mg EC Tab PO SCH (06:45)
[2018-04-15] MEDS: INSULIN ASPART SLIDING SCALE 100 UNITS/ML UNIT SUBQ SCH ×4 (06:46→21:28)
--- NOTE | 2018-04-15 07:30 | Psychiatric Evaluation ---
DATE OF SERVICE: JUSTIFICATION FOR HOSPITALIZATION: Worsening agitation, paranoias. CHIEF COMPLAINT: "I am here for makeover." HISTORY OF PRESENT ILLNESS: A 78-year-old female believes that she is here for "observation" and telling me she is here for "elevations" and telling me that she is here "for makeover" than telling me she is here "because of fall with diabetes." She knows it is 2018, knows it is March, knows it is Tuesday. She then starts telling me that she has 195 children then backtracks and tells me she has 157 children. The patient is bizarre, delusional, making nonsensical statements, poor historian, mostly withdrawn and isolative. Medications were noted. PAST PSYCHIATRIC HISTORY: Unclear. Poor historian, concerns for dementia, rule out schizophrenia. Under medical please see full H and P. SOCIAL HISTORY: The patient coming from long term. Unclear drugs, alcohol or tobacco. MENTAL STATUS EXAMINATION: Stated age. Fair eye contact. Speech is rambling. Mood "okay." Affect flat. Thought processes were disorganized. No overt SI or HI. The patient grandiose, delusional, stating that she has hundreds of children, poor insight, poor judgment and impulse control very poor. PROVISIONAL DIAGNOSES: Rule out dementia, rule out schizophrenia, also psychosis, unspecified; mood, unspecified. Under medical please see full H and P. ESTIMATED LENGTH OF STAY: 5-7 days. ASSESSMENT: The patient requiring hospitalization, delusional, bizarre, symptomatic. PLAN: We will continue to monitor, titrate and adjust medications. Consider dose titration of Abilify. TREATMENT PLAN: Includes group as well as milieu therapy. CONDITIONS FOR DISCHARGE: Improved mood, improved affect, better control of her psychosis. JOB# [id number]
[2018-04-15] MEDS ORDERED: INSULIN ASPART SLIDING SCALE 100 UNITS/ML UNIT SUBQ SCH (09:00)
[2018-04-15] MEDS: Benztropine 1 MG TAB PO SCH ×2 (09:39→17:17)
[2018-04-15] MEDS: Multivitamin w/ Minerals Tab PO SCH (09:39)
[2018-04-15] MEDS: Aspirin 81mg Chewable Tab PO SCH (09:39)
--- NOTE | 2018-04-15 10:03 | Diagnostic Imaging Report ---
CHEST X-RAY: AP view INDICATION: pain COMPARISON: None FINDINGS: There is abnormal opacity seen along the left first rib costochondral region. No focal consolidation or effusions. Borderline prominent heart is noted atherosclerosis of the aortic arch. Degenerative changes of the spine and right shoulder are noted. IMPRESSION: Indeterminate left upper lung zone density which may be due to the left first rib costochondral junction. Please refer to follow-up CT for further details. Mild cardiomegaly with atherosclerosis.
--- NOTE | 2018-04-15 10:15 | Diagnostic Imaging Report ---
CT Chest with IV contrast HISTORY: Chest pain, widened mediastinum COMPARISON: Chest x-ray on 04/14/2019. Technique: Axial images were obtained from the base of the neck to the upper abdomen following administration of IV contrast. Coronal reconstructions were made. Total DLP to 33, CTD I 6.5 FINDINGS: Moderate atherosclerosis is noted. No evidence of mediastinal adenopathy. No evidence of an aneurysm. Heart size is upper limits of normal. No pericardial effusion. There is a small hiatal hernia with evidence of gastric lap band procedure. No central pulmonary embolus is identified. Evaluation lung demonstrates mild chronic lung changes minimal hypoventilatory and atelectatic lung changes also noted. No focal consolidation or effusions. There is a focal right posterior diaphragmatic hernia containing fat. This measures 4.0 x 1.8 cm.. The upper abdomen demonstrates gastric lap band procedure with distended stomach distal to the lap band. 1 cm right renal cyst is noted. Degenerative changes of the spine are noted. There are sclerotic changes, partially visualized at the inferior endplate of L2 which is likely due to Modic changes and degenerative changes as surgical changes are seen In this region on the cornetist image. IMPRESSION: No focal consolidation identified. Mild hypoventilatory atelectatic changes are noted. No evidence of a mass. The density seen on recent chest x-ray along the left upper lung zone represented first rib calcifications. Moderate atherosclerosis. No evidence of an aneurysm. Evidence of prior gastric lap band procedure with small hiatal hernia noted. There is also distended stomach with food contents distal to the gastric lap band. Partially visualized sclerotic changes of the L2 vertebral body which is likely degenerative etiology as surgical changes are seen inferior to this level on the cornetist view. Please correlate with clinical history and old exams. Focal right posterior diaphragmatic hernia containing fat.
[2018-04-15] MEDS ORDERED: INSULIN GLARGINE HUM REC ANLOG 10 UNIT SUBQ SCH (21:00)
[2018-04-15] MEDS: Insulin Detemir 100 units/mL 10mL Vial SUBQ SCH (21:28)
--- NOTE | 2018-04-15 23:50 | History & Physical ---
ADMIT DATE: HISTORY OF PRESENT ILLNESS: The patient is a 78-year-old female with long history of diabetes mellitus, hypertension, degenerative joint disease, dementia, admitted to [facility] under Dr. Estrada's service for evaluation and treatment. The patient apparently has been very agitated. She has aggressive behavior. No fever, no chills, no chest pain, no shortness of breath, no nausea, no vomiting. PAST MEDICAL HISTORY: Significant for hypertension, diabetes mellitus, degenerative joint disease, and dementia. PAST SURGICAL HISTORY: No recent surgery. ALLERGIES: None. MEDICATIONS: Follow admission reconciliation. SOCIAL HISTORY: No smoking, no alcohol, no drugs. FAMILY HISTORY: Noncontributory. REVIEW OF SYSTEMS: IMMUNO SYSTEM: No history of chronic immune disorder. CARDIOVASCULAR SYSTEM: No coronary artery disease. ENDOCRINE SYSTEM: She has history of diabetes mellitus. GASTROINTESTINAL SYSTEM: No upper or lower GI bleeding. NEUROLOGICAL SYSTEM: No seizure disorders. SKELETOMUSCULAR SYSTEM: She has degenerative joint disease. PHYSICAL EXAMINATION: GENERAL: She is awake, not coherent. VITAL SIGNS: Temperature 97.8, heart rate 53, blood pressure 136/65. HEENT: Normocephalic. Pupils reactive to light and accommodation. Sclerae clear. NECK: Supple. Negative for lymphadenopathy, JVD, or bruit. CHEST: Entry of air bilaterally with no rales, rhonchi or wheezing. HEART: S1, S2 normal. No murmur or gallop rhythm. ABDOMEN: Soft, bowel sounds positive. EXTREMITIES: No edema. NEUROLOGIC: She is awake, not coherent. LABORATORY DATA: Urinalysis, specific gravity is 1.005, pH 6.5, white blood 7.8, hemoglobin 12.5, hematocrit 37.0, platelets 203. ASSESSMENT: 1. Hypertension. 2. Diabetes mellitus. 3. Degenerative joint disease. 4. Dementia. 5. Psychosis. PLAN: The patient admitted in the hospital under Dr. Estrada's service. Medical problems addressed during hospitalization are psychosis and dementia. Medical problems to be addressed at discharge are hypertension and diabetes mellitus. The patient is medically stable for activity. Thank you, Dr. Estrada, for asking me to see your patient. JOB# [id number]
[2018-04-16 06:40] LABS: ALB/GLOB RATIO 1.4 (1.0-1.8); ALBUMIN 3.5 gm/dL (3.7-5.3); ALKALINE PHOSPHATASE 43 U/L (34-104); ANION GAP 10.8 (7.0-16.0); BILIRUBIN,TOTAL 0.4 mg/dL (0.3-1.0); BUN - UREA NITROGEN 15 mg/dL (7-25); CALCIUM SERUM 8.7 mg/dL (8.6-10.3); CARBON DIOXIDE 30.3 mEq/L (21.0-31.0); CHLORIDE 102 mEq/L (98-107); CREATININE - SERUM 0.8 mg/dL (0.6-1.2); GLUCOSE 108 mg/dL (70-105); POTASSIUM SERUM 3.1 mEq/L (3.5-5.1); SGOT 26 U/L (13-39); SGPT/ALT 21 U/L (7-52); TOTAL PROTEIN,SERUM 6.1 gm/dL (6.0-8.3)
[2018-04-16 06:43] LABS: SODIUM SERUM 140 mEq/L (136-145)
[2018-04-16] MEDS: Pantoprazole 40 mg EC Tab PO SCH (06:44)
[2018-04-16] MEDS: INSULIN ASPART SLIDING SCALE 100 UNITS/ML UNIT SUBQ SCH ×4 (06:45→20:40)
--- NOTE | 2018-04-16 07:19 | Progress Notes ---
DATE: 04/16/2018 SUBJECTIVE: A 78-year-old female, I believe she is here for "observation," convinced that she is here for makeover, talking about her view, wanted to get her face redone, and was talking about having hundreds of children, 157 children. Still delusional, nonsensical. No overt changes in mental status exam versus yesterday. ASSESSMENT: The patient delusional, bizarre, odd ideation, and was poor orientation. She did not sleep much last night. PLAN: We will continue to monitor. We will titrate and adjust medications. The patient may benefit from an antipsychotic medication outside of [facility]. We will initiate Seroquel as it also targets insomnia. We will monitor and follow up. [facility]# [id number]
[2018-04-16] MEDS: Benztropine 1 MG TAB PO SCH ×2 (09:47→16:35)
[2018-04-16] MEDS: Aspirin 81mg Chewable Tab PO SCH (09:47)
[2018-04-16] MEDS: Multivitamin w/ Minerals Tab PO SCH (09:48)
[2018-04-16] MEDS: Insulin Detemir 100 units/mL 10mL Vial SUBQ SCH (20:39)
--- NOTE | 2018-04-16 20:41 | Internal Medicine Prog Note ---
Internal Medicine Subjective - Subjective Service Date: 04/16/18 Patient seen and examined:: with staff Patient is:: awake, verbal, in bed, confused Per staff patient has:: no adverse event Internal Medicine Objective - Results Result Diagrams: 04/14/18 18:31 04/16/18 06:15 Recent Labs: Laboratory Last Values WBC 7.4 Th/cmm (4.8-10.8) 04/14/18 18:31 RBC 4.23 Mil/cmm (3.80-5.20) 04/14/18 18:31 Hgb 12.5 gm/dL (12-16) 04/14/18 18:31 Hct 37.0 % (41.0-60) L 04/14/18 18:31 MCV 87.5 fl (81-100) 04/14/18 18:31 MCH 29.6 pg (27.0-31.0) 04/14/18 18:31 MCHC Differential 33.8 pg (28.0-36.0) 04/14/18 18:31 RDW 12.4 % (11.5-20.0) 04/14/18 18:31 Plt Count 203 Th/cmm (150-400) 04/14/18 18:31 MPV 7.8 fl 04/14/18 18:31 Neutrophils % 52.7 % (40.0-80.0) 04/14/18 18:31 Lymphocytes % 38.3 % (20.0-50.0) 04/14/18 18:31 Monocytes % 6.8 % (2.0-10.0) 04/14/18 18:31 Eosinophils % 1.9 % (0.0-5.0) 04/14/18 18:31 Basophils % 0.3 % (0.0-2.0) 04/14/18 18:31 Sodium 140 mEq/L (136-145) 04/16/18 06:15 Potassium 3.1 mEq/L (3.5-5.1) L 04/16/18 06:15 Chloride 102 mEq/L (98-107) 04/16/18 06:15 Carbon Dioxide 30.3 mEq/L (21.0-31.0) 04/16/18 06:15 Anion Gap 10.8 (7.0-16.0) 04/16/18 06:15 BUN 15 mg/dL (7-25) 04/16/18 06:15 Creatinine 0.8 mg/dL (0.6-1.2) 04/16/18 06:15 Est GFR ( Amer) TNP 04/16/18 06:15 Est GFR (Non-Af Amer) TNP 04/16/18 06:15 BUN/Creatinine Ratio 18.8 04/16/18 06:15 Glucose 108 mg/dL (70-105) H 04/16/18 06:15 POC Glucose 124 MG/DL (70 - 105) H 04/16/18 20:04 Calcium 8.7 mg/dL (8.6-10.3) 04/16/18 06:15 Phosphorus 3.5 mg/dL (2.5-5.0) 04/14/18 18:31 Magnesium 1.7 mg/dL (1.9-2.7) L 04/14/18 18:31 Total Bilirubin 0.4 mg/dL (0.3-1.0) 04/16/18 06:15 AST 26 U/L (13-39) 04/16/18 06:15 ALT 21 U/L (7-52) 04/16/18 06:15 Alkaline Phosphatase 43 U/L (34-104) 04/16/18 06:15 Troponin I 0.03 ng/mL (0.01-0.05) 04/14/18 18:31 Total Protein 6.1 gm/dL (6.0-8.3) 04/16/18 06:15 Albumin 3.5 gm/dL (3.7-5.3) L 04/16/18 06:15 Globulin 2.6 gm/dL 04/16/18 06:15 Albumin/Globulin Ratio 1.4 (1.0-1.8) 04/16/18 06:15 Triglycerides 58 mg/dL (<150) 04/15/18 05:45 Cholesterol 166 mg/dL (<200) 04/15/18 05:45 LDL Cholesterol Direct 86 mg/dL (75-193) 04/15/18 05:45 HDL Cholesterol 55 mg/dL (23-92) 04/15/18 05:45 Urine Source RANDOM 04/15/18 00:00 Urine Color YELLOW 04/15/18 00:00 Urine Clarity CLEAR (CLEAR) 04/15/18 00:00 Urine pH 6.5 (4.6 - 8.0) 04/15/18 00:00 Ur Specific [place] <= 1.005 (1.005-1.030) 04/15/18 00:00 Urine Protein NEGATIVE mg/dL (NEGATIVE) 04/15/18 00:00 Urine Glucose (UA) NEGATIVE mg/dL (NEGATIVE) 04/15/18 00:00 Urine Ketones NEGATIVE mg/dL (NEGATIVE) 04/15/18 00:00 Urine Blood NEGATIVE (NEGATIVE) 04/15/18 00:00 Urine Nitrate NEGATIVE (NEGATIVE) 04/15/18 00:00 Urine Bilirubin NEGATIVE (NEGATIVE) 04/15/18 00:00 Urine Urobilinogen 0.2 E.U./dL (0.2 - 1.0) 04/15/18 00:00 Ur Leukocyte Esterase NEGATIVE (NEGATIVE) 04/15/18 00:00 Urine RBC NONE SEEN /hpf (0-5) 04/15/18 00:00 Urine WBC 0-2 /hpf (0-5) 04/15/18 00:00 Ur Epithelial Cells FEW /lpf (FEW) 04/15/18 00:00 Urine Bacteria OCCASIONAL /hpf (NONE SEEN) 04/15/18 00:00 Valproic Acid 36.0 ug/mL (50.0-100.0) L 04/14/18 18:31 - Physical Exam Vitals and I&O: Vital Signs Temp 98 F 04/16/18 16:01 Pulse 62 04/16/18 16:01 Resp 18 04/16/18 16:01 BP 136/61 04/16/18 16:01 Pulse Ox 96 04/16/18 16:01 Intake & Output 04/16/18 04/16/18 04/17/18 06:59 18:59 06:59 Intake Total 1600 Balance 1600 Intake: Oral 1600 Other: # Voids 4 # Bowel Movements 0 Active Medications: Current Medications Acetaminophen (Tylenol) 650 mg PO Q4HR PRN PRN Reason: Pain or Fever >101 Stop: 06/14/18 00:56 Al Hydrox/Mg Hydrox/Simethicone (Maalox) 30 ml PO DAILY PRN PRN Reason: GI DISTRESS Stop: 06/14/18 00:56 Amlodipine Besylate (Norvasc) 5 mg PO DAILY MARISEL Stop: 06/14/18 08:59 Last Admin: 04/16/18 09:46 Dose: Not Given Aripiprazole (Abilify) 2.5 mg PO QAM [facility]; Protocol Stop: 06/14/18 08:59 Last Admin: 04/16/18 09:46 Dose: 2.5 mg Aspirin (Aspirin Chewable) 81 mg PO DAILY [facility] Stop: 06/14/18 08:59 Last Admin: 04/16/18 09:47 Dose: 81 mg Benztropine Mesylate (Cogentin) 1 mg PO BID [facility] Stop: 06/14/18 08:59 Last Admin: 04/16/18 16:35 Dose: 1 mg Divalproex Sodium (Depakote Dr) 125 mg PO BID [facility]; Protocol Stop: 06/14/18 08:59 Last Admin: 04/16/18 16:36 Dose: 125 mg Docusate Sodium (Colace) 250 mg PO DAILY [facility] Stop: 06/14/18 08:59 Last Admin: 04/16/18 09:47 Dose: 250 mg Glip[facility] ([facility]ot[facility]) [facility] Stop: 06/14/18 07:29 Last Admin: 04/16/18 16:35 Dose: 5 mg Insulin Aspart (Novolog Insulin Sliding Scale) 0 units SUBQ ACHS [facility]; Protocol Stop: 06/14/18 07:29 Last Admin: 04/16/18 17:16 Dose: Not Given Insulin Detemir (Levemir Insulin) 10 units SUBQ HS [facility]; Protocol Stop: 06/14/18 20:59 Last Admin: 04/15/18 21:28 Dose: 10 units Lorazepam (Ativan) 0.5 mg PO Q6HR PRN; Protocol PRN Reason: Anxiety Stop: 05/15/18 00:49 Losartan Potassium (Cozaar) 50 mg PO DAILY [facility] Stop: 06/14/18 08:59 Last Admin: 04/16/18 09:47 Dose: Not Given Magnesium Hydroxide (Milk Of Magnesia) 30 ml PO DAILY PRN PRN Reason: Constipation Stop: 06/14/18 00:56 Metformin HCl (Glucophage) 500 mg PO BID [facility] Stop: 06/14/18 08:59 Last Admin: 04/16/18 16:35 Dose: 500 mg Metoprolol Tartrate (Lopressor) 50 mg PO BID [facility] Stop: 06/14/18 08:59 Last Admin: 04/16/18 16:36 Dose: Not Given Pantoprazole Sodium (Protonix) 40 mg PO QDAC [facility]IS[facility] Stop: 06/14/18 07:29 Last Admin: 04/16/18 06:44 Dose: 40 mg Quetiapine Fumarate (Seroquel) 25 mg PO HS [facility]; Protocol Stop: 06/15/18 20:59 Last Admin: 04/16/18 20:20 Dose: 25 mg General: demented HEENT: NC/AT, PERRLA, EOMI, anicteric sclerae, throat clear Neck: Supple, No JVD, No thyromegaly, +2 carotid pulse wo bruit, No LAD Lungs: CTAB Cardiovascular: RRR, Normal S1, Normal S2, without murmur Abdomen: soft, non-tender, non-distended Extremities: clear Neurological: no change Internal Medicine Assmt/Plan - Assessment Assessment: 1.DM. 2.HTN. 3.DJD. 4.DEMENTIA. 5.PSYCHOSIS. - Plan Plan: CONTINUE ON CURRENT MEDICATION AND DIET.
[2018-04-17] MEDS: INSULIN ASPART SLIDING SCALE 100 UNITS/ML UNIT SUBQ SCH ×3 (06:38→21:34)
[2018-04-17] MEDS: Pantoprazole 40 mg EC Tab PO SCH (06:47)
[2018-04-17] MEDS: Aspirin 81mg Chewable Tab PO SCH (10:01)
[2018-04-17] MEDS: Benztropine 1 MG TAB PO SCH ×2 (10:02→17:21)
[2018-04-17] MEDS: Multivitamin w/ Minerals Tab PO SCH (10:03)
--- NOTE | 2018-04-17 16:57 | Progress Notes ---
DATE: 04/17/2018 SUBJECTIVE: A 78-year-old female believes that she is here for "observation" and also a makeover, waiting for her makeover, then talking about she is here because of heart problems. The patient stating that she has hundreds of children, very delusional, nonsensical, labile, states she has 157 seven children, irritable, argumentative, easily agitated, wants to be left alone, isolative, and withdrawn. ASSESSMENT: Poor orientation, does not know why she is here, states she is here for Plastic Surgery and a makeover. PLAN: We will continue to monitor, delusions persists. She has not been aggressive at all. We will continue Seroquel. [facility]# [id number]
--- NOTE | 2018-04-17 19:00 | Internal Medicine Prog Note ---
Internal Medicine Subjective - Subjective Service Date: 04/17/18 Patient seen and examined:: with staff Patient is:: awake, verbal, in bed, confused Per staff patient has:: no adverse event Internal Medicine Objective - Results Result Diagrams: 04/14/18 18:31 04/16/18 06:15 Recent Labs: Laboratory Last Values WBC 7.4 Th/cmm (4.8-10.8) 04/14/18 18:31 RBC 4.23 Mil/cmm (3.80-5.20) 04/14/18 18:31 Hgb 12.5 gm/dL (12-16) 04/14/18 18:31 Hct 37.0 % (41.0-60) L 04/14/18 18:31 MCV 87.5 fl (81-100) 04/14/18 18:31 MCH 29.6 pg (27.0-31.0) 04/14/18 18:31 MCHC Differential 33.8 pg (28.0-36.0) 04/14/18 18:31 RDW 12.4 % (11.5-20.0) 04/14/18 18:31 Plt Count 203 Th/cmm (150-400) 04/14/18 18:31 MPV 7.8 fl 04/14/18 18:31 Neutrophils % 52.7 % (40.0-80.0) 04/14/18 18:31 Lymphocytes % 38.3 % (20.0-50.0) 04/14/18 18:31 Monocytes % 6.8 % (2.0-10.0) 04/14/18 18:31 Eosinophils % 1.9 % (0.0-5.0) 04/14/18 18:31 Basophils % 0.3 % (0.0-2.0) 04/14/18 18:31 Sodium 140 mEq/L (136-145) 04/16/18 06:15 Potassium 3.1 mEq/L (3.5-5.1) L 04/16/18 06:15 Chloride 102 mEq/L (98-107) 04/16/18 06:15 Carbon Dioxide 30.3 mEq/L (21.0-31.0) 04/16/18 06:15 Anion Gap 10.8 (7.0-16.0) 04/16/18 06:15 BUN 15 mg/dL (7-25) 04/16/18 06:15 Creatinine 0.8 mg/dL (0.6-1.2) 04/16/18 06:15 Est GFR ( Amer) TNP 04/16/18 06:15 Est GFR (Non-Af Amer) TNP 04/16/18 06:15 BUN/Creatinine Ratio 18.8 04/16/18 06:15 Glucose 108 mg/dL (70-105) H 04/16/18 06:15 POC Glucose 119 MG/DL (70 - 105) H 04/17/18 05:57 Calcium 8.7 mg/dL (8.6-10.3) 04/16/18 06:15 Phosphorus 3.5 mg/dL (2.5-5.0) 04/14/18 18:31 Magnesium 1.7 mg/dL (1.9-2.7) L 04/14/18 18:31 Total Bilirubin 0.4 mg/dL (0.3-1.0) 04/16/18 06:15 AST 26 U/L (13-39) 04/16/18 06:15 ALT 21 U/L (7-52) 04/16/18 06:15 Alkaline Phosphatase 43 U/L (34-104) 04/16/18 06:15 Troponin I 0.03 ng/mL (0.01-0.05) 04/14/18 18:31 Total Protein 6.1 gm/dL (6.0-8.3) 04/16/18 06:15 Albumin 3.5 gm/dL (3.7-5.3) L 04/16/18 06:15 Globulin 2.6 gm/dL 04/16/18 06:15 Albumin/Globulin Ratio 1.4 (1.0-1.8) 04/16/18 06:15 Triglycerides 58 mg/dL (<150) 04/15/18 05:45 Cholesterol 166 mg/dL (<200) 04/15/18 05:45 LDL Cholesterol Direct 86 mg/dL (75-193) 04/15/18 05:45 HDL Cholesterol 55 mg/dL (23-92) 04/15/18 05:45 Urine Source RANDOM 04/15/18 00:00 Urine Color YELLOW 04/15/18 00:00 Urine Clarity CLEAR (CLEAR) 04/15/18 00:00 Urine pH 6.5 (4.6 - 8.0) 04/15/18 00:00 Ur Specific [place] <= 1.005 (1.005-1.030) 04/15/18 00:00 Urine Protein NEGATIVE mg/dL (NEGATIVE) 04/15/18 00:00 Urine Glucose (UA) NEGATIVE mg/dL (NEGATIVE) 04/15/18 00:00 Urine Ketones NEGATIVE mg/dL (NEGATIVE) 04/15/18 00:00 Urine Blood NEGATIVE (NEGATIVE) 04/15/18 00:00 Urine Nitrate NEGATIVE (NEGATIVE) 04/15/18 00:00 Urine Bilirubin NEGATIVE (NEGATIVE) 04/15/18 00:00 Urine Urobilinogen 0.2 E.U./dL (0.2 - 1.0) 04/15/18 00:00 Ur Leukocyte Esterase NEGATIVE (NEGATIVE) 04/15/18 00:00 Urine RBC NONE SEEN /hpf (0-5) 04/15/18 00:00 Urine WBC 0-2 /hpf (0-5) 04/15/18 00:00 Ur Epithelial Cells FEW /lpf (FEW) 04/15/18 00:00 Urine Bacteria OCCASIONAL /hpf (NONE SEEN) 04/15/18 00:00 Valproic Acid 36.0 ug/mL (50.0-100.0) L 04/14/18 18:31 - Physical Exam Vitals and I&O: Vital Signs Temp 98.2 F 04/17/18 14:00 Pulse 61 04/17/18 17:23 Resp 20 04/17/18 14:00 BP 121/66 04/17/18 17:23 Pulse Ox 98 04/17/18 14:00 Intake & Output 04/16/18 04/17/18 04/17/18 18:59 06:59 18:59 Intake Total 1840 900 Balance 1840 900 Intake: Oral 1840 900 Other: # Voids 2 4 # Bowel Movements 0 1 Active Medications: Current Medications Acetaminophen (Tylenol) 650 mg PO Q4HR PRN PRN Reason: Pain or Fever >101 Stop: 06/14/18 00:56 Al Hydrox/Mg Hydrox/Simethicone (Maalox) 30 ml PO DAILY PRN PRN Reason: GI DISTRESS Stop: 06/14/18 00:56 Amlodipine Besylate (Norvasc) 5 mg PO DAILY [facility] Stop: 06/14/18 08:59 Last Admin: 04/17/18 10:00 Dose: 5 mg Aripiprazole (Abilify) 2.5 mg PO QAM [facility]; Protocol Stop: 06/14/18 08:59 Last Admin: 04/17/18 10:01 Dose: 2.5 mg Aspirin (Aspirin Chewable) 81 mg PO DAILY [facility] Stop: 06/14/18 08:59 Last Admin: 04/17/18 10:01 Dose: 81 mg Benztropine Mesylate (Cogentin) 1 mg PO BID [facility] Stop: 06/14/18 08:59 Last Admin: 04/17/18 17:21 Dose: 1 mg Divalproex Sodium (Depakote Dr) 125 mg PO BID [facility]; Protocol Stop: 06/14/18 08:59 Last Admin: 04/17/18 17:22 Dose: 125 mg Docusate Sodium (Colace) 250 mg PO DAILY [facility] Stop: 06/14/18 08:59 Last Admin: 04/17/18 10:02 Dose: 250 mg Glipizide (Glucotrol) 5 mg PO BIDAC [facility] Stop: 06/14/18 07:29 Last Admin: 04/17/18 17:21 Dose: 5 mg Insulin Aspart (Novolog Insulin Sliding Scale) 0 units SUBQ ACHS [facility]; Protocol Stop: 06/14/18 07:29 Last Admin: 04/17/18 18:03 Dose: Not Given Insulin Detemir (Levemir Insulin) 10 units SUBQ HS [facility]; Protocol Stop: 06/14/18 20:59 Last Admin: 04/16/18 20:39 Dose: 10 units Lorazepam (Ativan) 0.5 mg PO Q6HR PRN; Protocol PRN Reason: Anxiety Stop: 05/15/18 00:49 Last Admin: 04/17/18 17:21 Dose: 0.5 mg Losartan Potassium (Cozaar) 50 mg PO DAILY [facility] Stop: 06/14/18 08:59 Last Admin: 04/17/18 10:03 Dose: 50 mg Magnesium Hydroxide (Milk Of Magnesia) 30 ml PO DAILY PRN PRN Reason: Constipation Stop: 06/14/18 00:56 Metformin HCl (Glucophage) 500 mg PO BID [facility] Stop: 06/14/18 08:59 Last Admin: 04/17/18 17:25 Dose: 500 mg Metoprolol Tartrate (Lopressor) 50 mg PO BID [facility] Stop: 06/14/18 08:59 Last Admin: 04/17/18 17:23 Dose: 50 mg Pantoprazole Sodium (Protonix) 40 mg PO QDAC [facility] Stop: 06/14/18 07:29 Last Admin: 04/17/18 06:47 Dose: 40 mg Quetiapine Fumarate (Seroquel) 25 mg PO HS [facility]; Protocol Stop: 06/15/18 20:59 Last Admin: 04/16/18 20:20 Dose: 25 mg General: demented HEENT: NC/AT, PERRLA, EOMI, anicteric sclerae, throat clear Neck: Supple, No JVD, No thyromegaly, +2 carotid pulse wo bruit, No LAD Lungs: CTAB Cardiovascular: RRR, Normal S1, Normal S2, without murmur Abdomen: soft, non-tender, non-distended Extremities: clear Neurological: no change Internal Medicine Assmt/Plan - Assessment Assessment: 1.DM. 2.HTN. 3.DJD. 4.DEMENTIA. 5.PSYCHOSIS. - Plan Plan: CONTINUE ON CURRENT MEDICATION AND DIET.
[2018-04-17] MEDS: Insulin Detemir 100 units/mL 10mL Vial SUBQ SCH (21:35)
[2018-04-18] MEDS: INSULIN ASPART SLIDING SCALE 100 UNITS/ML UNIT SUBQ SCH ×4 (06:52→21:03)
[2018-04-18] MEDS: Pantoprazole 40 mg EC Tab PO SCH (07:05)
[2018-04-18] MEDS: Multivitamin w/ Minerals Tab PO SCH (09:24)
[2018-04-18] MEDS: Aspirin 81mg Chewable Tab PO SCH (09:26)
[2018-04-18] MEDS: Benztropine 1 MG TAB PO SCH ×2 (09:26→16:53)
--- NOTE | 2018-04-18 17:26 | Progress Notes ---
DATE: 04/18/2018 SUBJECTIVE: Case was discussed with staff of the patient, reviewed records. This is a 78-year-old female who was admitted on 04/04/2018 from [place]. Because of worsening agitation, paranoia she believes she was here for a makeover. She was a poor historian because of a problem with diabetes. She was bizarre, delusional, believes she has 95 children and backtracked and tell me that 157 seven children. The patient is very bizarre, delusional, unable to make safe plan for self-care, confused, unable to participate in meaningful conversation; however, she is able to feed herself. She was started on Abilify 2.5 mg daily and Depakote 125 mg twice a day with no side effects. She continues to be unable to make safe plan for self-care, unable to participate in meaningful conversation, very evasive in her answers and we will continue to work with the patient in group therapy, milieu therapy, adjust medication as needed. JOB# [id number]
--- NOTE | 2018-04-18 20:40 | Internal Medicine Prog Note ---
Internal Medicine Subjective - Subjective Service Date: 04/18/18 Patient seen and examined:: with staff Patient is:: awake, verbal, in bed, confused Per staff patient has:: no adverse event Internal Medicine Objective - Results Result Diagrams: 04/14/18 18:31 04/16/18 06:15 Recent Labs: Laboratory Last Values WBC 7.4 Th/cmm (4.8-10.8) 04/14/18 18:31 RBC 4.23 Mil/cmm (3.80-5.20) 04/14/18 18:31 Hgb 12.5 gm/dL (12-16) 04/14/18 18:31 Hct 37.0 % (41.0-60) L 04/14/18 18:31 MCV 87.5 fl (81-100) 04/14/18 18:31 MCH 29.6 pg (27.0-31.0) 04/14/18 18:31 MCHC Differential 33.8 pg (28.0-36.0) 04/14/18 18:31 RDW 12.4 % (11.5-20.0) 04/14/18 18:31 Plt Count 203 Th/cmm (150-400) 04/14/18 18:31 MPV 7.8 fl 04/14/18 18:31 Neutrophils % 52.7 % (40.0-80.0) 04/14/18 18:31 Lymphocytes % 38.3 % (20.0-50.0) 04/14/18 18:31 Monocytes % 6.8 % (2.0-10.0) 04/14/18 18:31 Eosinophils % 1.9 % (0.0-5.0) 04/14/18 18:31 Basophils % 0.3 % (0.0-2.0) 04/14/18 18:31 Sodium 140 mEq/L (136-145) 04/16/18 06:15 Potassium 3.1 mEq/L (3.5-5.1) L 04/16/18 06:15 Chloride 102 mEq/L (98-107) 04/16/18 06:15 Carbon Dioxide 30.3 mEq/L (21.0-31.0) 04/16/18 06:15 Anion Gap 10.8 (7.0-16.0) 04/16/18 06:15 BUN 15 mg/dL (7-25) 04/16/18 06:15 Creatinine 0.8 mg/dL (0.6-1.2) 04/16/18 06:15 Est GFR ( Amer) TNP 04/16/18 06:15 Est GFR (Non-Af Amer) TNP 04/16/18 06:15 BUN/Creatinine Ratio 18.8 04/16/18 06:15 Glucose 108 mg/dL (70-105) H 04/16/18 06:15 POC Glucose 99 MG/DL (70 - 105) 04/18/18 17:23 Calcium 8.7 mg/dL (8.6-10.3) 04/16/18 06:15 Phosphorus 3.5 mg/dL (2.5-5.0) 04/14/18 18:31 Magnesium 1.7 mg/dL (1.9-2.7) L 04/14/18 18:31 Total Bilirubin 0.4 mg/dL (0.3-1.0) 04/16/18 06:15 AST 26 U/L (13-39) 04/16/18 06:15 ALT 21 U/L (7-52) 04/16/18 06:15 Alkaline Phosphatase 43 U/L (34-104) 04/16/18 06:15 Troponin I 0.03 ng/mL (0.01-0.05) 04/14/18 18:31 Total Protein 6.1 gm/dL (6.0-8.3) 04/16/18 06:15 Albumin 3.5 gm/dL (3.7-5.3) L 04/16/18 06:15 Globulin 2.6 gm/dL 04/16/18 06:15 Albumin/Globulin Ratio 1.4 (1.0-1.8) 04/16/18 06:15 Triglycerides 58 mg/dL (<150) 04/15/18 05:45 Cholesterol 166 mg/dL (<200) 04/15/18 05:45 LDL Cholesterol Direct 86 mg/dL (75-193) 04/15/18 05:45 HDL Cholesterol 55 mg/dL (23-92) 04/15/18 05:45 Urine Source RANDOM 04/15/18 00:00 Urine Color YELLOW 04/15/18 00:00 Urine Clarity CLEAR (CLEAR) 04/15/18 00:00 Urine pH 6.5 (4.6 - 8.0) 04/15/18 00:00 Ur Specific [place] <= 1.005 (1.005-1.030) 04/15/18 00:00 Urine Protein NEGATIVE mg/dL (NEGATIVE) 04/15/18 00:00 Urine Glucose (UA) NEGATIVE mg/dL (NEGATIVE) 04/15/18 00:00 Urine Ketones NEGATIVE mg/dL (NEGATIVE) 04/15/18 00:00 Urine Blood NEGATIVE (NEGATIVE) 04/15/18 00:00 Urine Nitrate NEGATIVE (NEGATIVE) 04/15/18 00:00 Urine Bilirubin NEGATIVE (NEGATIVE) 04/15/18 00:00 Urine Urobilinogen 0.2 E.U./dL (0.2 - 1.0) 04/15/18 00:00 Ur Leukocyte Esterase NEGATIVE (NEGATIVE) 04/15/18 00:00 Urine RBC NONE SEEN /hpf (0-5) 04/15/18 00:00 Urine WBC 0-2 /hpf (0-5) 04/15/18 00:00 Ur Epithelial Cells FEW /lpf (FEW) 04/15/18 00:00 Urine Bacteria OCCASIONAL /hpf (NONE SEEN) 04/15/18 00:00 Valproic Acid 36.0 ug/mL (50.0-100.0) L 04/14/18 18:31 - Physical Exam Vitals and I&O: Vital Signs Temp 97.9 F 04/18/18 20:18 Pulse 57 04/18/18 20:18 Resp 20 04/18/18 20:18 BP 124/61 04/18/18 20:18 Pulse Ox 98 04/18/18 20:18 Intake & Output 04/18/18 04/18/18 04/19/18 06:59 18:59 06:59 Intake Total 360 1000 240 Balance 360 1000 240 Weight (lbs) 77.564 kg 77.564 kg Intake: Oral 360 1000 240 Other: # Voids 2 4 3 # Bowel Movements 0 1 0 Weight Source Bedscale Bedscale Active Medications: Current Medications Acetaminophen (Tylenol) 650 mg PO Q4HR PRN PRN Reason: Pain or Fever >101 Stop: 06/14/18 00:56 Al Hydrox/Mg Hydrox/Simethicone (Maalox) 30 ml PO DAILY PRN PRN Reason: GI DISTRESS Stop: 06/14/18 00:56 Amlodipine Besylate (Norvasc) 5 mg PO DAILY [facility] Stop: 06/14/18 08:59 Last Admin: 04/18/18 09:25 Dose: 5 mg Aripiprazole (Abilify) 2.5 mg PO QAM [facility]; Protocol Stop: 06/14/18 08:59 Last Admin: 04/18/18 09:26 Dose: 2.5 mg Aspirin (Aspirin Chewable) 81 mg PO DAILY [facility] Stop: 06/14/18 08:59 Last Admin: 04/18/18 09:26 Dose: 81 mg Benztropine Mesylate (Cogentin) 1 mg PO BID [facility] Stop: 06/14/18 08:59 Last Admin: 04/18/18 16:53 Dose: 1 mg Divalproex Sodium (Depakote Dr) 125 mg PO BID [facility]; Protocol Stop: 06/14/18 08:59 Last Admin: 04/18/18 16:53 Dose: 125 mg Docusate Sodium (Colace) 250 mg PO DAILY [facility] Stop: 06/14/18 08:59 Last Admin: 04/18/18 09:26 Dose: 250 mg Glipizide (Glucotrol) 5 mg PO BIDAC [facility] Stop: 06/14/18 07:29 Last Admin: 04/18/18 16:53 Dose: 5 mg Insulin Aspart (Novolog Insulin Sliding Scale) 0 units SUBQ ACHS [facility]; Protocol Stop: 06/14/18 07:29 Last Admin: 04/18/18 17:24 Dose: Not Given Insulin Detemir (Levemir Insulin) 10 units SUBQ HS [facility]; Protocol Stop: 06/14/18 20:59 Last Admin: 04/17/18 21:35 Dose: 10 units Lorazepam (Ativan) 0.5 mg PO Q6HR PRN; Protocol PRN Reason: Anxiety Stop: 05/15/18 00:49 Last Admin: 04/17/18 21:27 Dose: 0.5 mg Losartan Potassium (Cozaar) 50 mg PO DAILY [facility] Stop: 06/14/18 08:59 Last Admin: 04/18/18 09:25 Dose: 50 mg Magnesium Hydroxide (Milk Of Magnesia) 30 ml PO DAILY PRN PRN Reason: Constipation Stop: 06/14/18 00:56 Metformin HCl (Glucophage) 500 mg PO BID [facility] Stop: 06/14/18 08:59 Last Admin: 04/18/18 16:53 Dose: 500 mg Metoprolol Tartrate (Lopressor) 50 mg PO BID [facility] Stop: 06/14/18 08:59 Last Admin: 04/18/18 16:28 Dose: Not Given Pantoprazole Sodium (Protonix) 40 mg PO QDAC [facility] Stop: 06/14/18 07:29 Last Admin: 04/18/18 07:05 Dose: 40 mg Quetiapine Fumarate (Seroquel) 25 mg PO HS [facility]; Protocol Stop: 06/15/18 20:59 Last Admin: 04/17/18 21:26 Dose: 25 mg General: demented HEENT: NC/AT, PERRLA, EOMI, anicteric sclerae, throat clear Neck: Supple, No JVD, No thyromegaly, +2 carotid pulse wo bruit, No LAD Lungs: CTAB Cardiovascular: RRR, Normal S1, Normal S2, without murmur Abdomen: soft, non-tender, non-distended Extremities: clear Neurological: no change Internal Medicine Assmt/Plan - Assessment Assessment: 1.DM. 2.HTN. 3.DJD. 4.DEMENTIA. 5.PSYCHOSIS. - Plan Plan: CONTINUE ON CURRENT MEDICATION AND DIET. Nutritional Asmnt/Malnutr-PDOC - Dietary Evaluation Malnutrition Findings (Please click <Entered> for more info): Nutritional Asmnt/Malnutrition Start: 04/18/18 13: 59 Text: Status: Complete Freq: Protocol: Document 04/18/18 13:59 LCHENG (Rec: 04/18/18 14:10 [email or web address]) Nutritional Asmnt/Malnutrition Patient General Information Nutritional Screening Moderate Risk Diagnosis psychosis NOS Pertinent Medical Hx/Surgical Hx HTN, DM, DJD, dementia Subjective Information Pt seen lying in bed at time of visit, awake and alert. Pt stated food is good, she wants 2% milk instead of fat free milk, does not eat pork, would like water with breakfast. Per EMR, PO intake 100%. Current Diet Order/ Nutrition Support CCHO 60gm, mech soft ground Pertinent Medications colace, glucotrol, novolog, levemir, glucophage, protonix, seroquel Pertinent Labs 04/17-04/18 POC 119-122 04/16 K 3.1, glucose 108, POC 103-147 Nutritional Hx/Data Height 1.57 m Height (Calculated Centimeters) 157.5 Current Weight (lbs) 77.564 kg Weight (Calculated Kilograms) 77.6 Weight (Calculated Grams) 84472.3 [place] Body Weight 110 Body Mass Index (BMI) 31.2 Weight Status Obese GI Symptoms GI Symptoms None Last BM 04/17 Difficult in: None Skin Integrity/Comment: dryness Current %PO Good (75-100%) Estimated Nutritional Goals BEE in Kcals: Adj wt of IBW Calories/Kcals/Kg 25-30 adj wt 57kg Kcals Calculated 3485-2122 Protein: Adj wt of IBW Protein g/k Protein Calculated 57 Fluid: ml 1425-1710ml (1ml/kcal) Nutritional Problem No current Nutrition Prob Problem N/A Intervention/Recommendation Comments 1. Continue with [facility] soft ground diet as ordered. Diet preference updated. 2. Monitor PO intake, wt, labs and skin integrity 3. F/U as low risk in 7 days, 04/25 Expected Outcomes/Goals Expected Outcomes/Goals 1. PO intake to meet at least 75% of nutritional needs. 2. Wt stability, skin to remain intact, labs to approach WNL.
[2018-04-18] MEDS: Insulin Detemir 100 units/mL 10mL Vial SUBQ SCH (21:13)
[2018-04-19] MEDS: INSULIN ASPART SLIDING SCALE 100 UNITS/ML UNIT SUBQ SCH ×4 (06:51→21:22)
[2018-04-19] MEDS: Pantoprazole 40 mg EC Tab PO SCH (06:52)
[2018-04-19] MEDS: Multivitamin w/ Minerals Tab PO SCH (08:12)
[2018-04-19] MEDS: Aspirin 81mg Chewable Tab PO SCH (08:12)
[2018-04-19] MEDS: Benztropine 1 MG TAB PO SCH ×2 (08:12→16:14)
--- NOTE | 2018-04-19 10:24 | Progress Notes ---
DATE: 04/19/2018 Case was discussed with staff of the patient, reviewed records. The patient continues to be somewhat delusional, grandiose, continues to have poor insight, unable to make safe plan for self-care, unpredictable, impulsive, making up stories. Continues to be unable to state a safe plan for self-care. Continues to have poor insight. She is compliant with the medication with no side effects, no sedation, no nausea, no extrapyramidal symptoms. I will be increasing her Seroquel to 50 mg at bedtime and we will continue the patient in group therapy, milieu therapy, adjust the medication as needed. JOB# [id number]
[2018-04-19] MEDS: Insulin Detemir 100 units/mL 10mL Vial SUBQ SCH (21:23)
--- NOTE | 2018-04-19 21:45 | Internal Medicine Prog Note ---
Internal Medicine Subjective - Subjective Service Date: 04/19/18 Patient seen and examined:: with staff Patient is:: awake, verbal, in bed, confused Per staff patient has:: no adverse event Internal Medicine Objective - Results Result Diagrams: 04/14/18 18:31 04/16/18 06:15 Recent Labs: Laboratory Last Values WBC 7.4 Th/cmm (4.8-10.8) 04/14/18 18:31 RBC 4.23 Mil/cmm (3.80-5.20) 04/14/18 18:31 Hgb 12.5 gm/dL (12-16) 04/14/18 18:31 Hct 37.0 % (41.0-60) L 04/14/18 18:31 MCV 87.5 fl (81-100) 04/14/18 18:31 MCH 29.6 pg (27.0-31.0) 04/14/18 18:31 MCHC Differential 33.8 pg (28.0-36.0) 04/14/18 18:31 RDW 12.4 % (11.5-20.0) 04/14/18 18:31 Plt Count 203 Th/cmm (150-400) 04/14/18 18:31 MPV 7.8 fl 04/14/18 18:31 Neutrophils % 52.7 % (40.0-80.0) 04/14/18 18:31 Lymphocytes % 38.3 % (20.0-50.0) 04/14/18 18:31 Monocytes % 6.8 % (2.0-10.0) 04/14/18 18:31 Eosinophils % 1.9 % (0.0-5.0) 04/14/18 18:31 Basophils % 0.3 % (0.0-2.0) 04/14/18 18:31 Sodium 140 mEq/L (136-145) 04/16/18 06:15 Potassium 3.1 mEq/L (3.5-5.1) L 04/16/18 06:15 Chloride 102 mEq/L (98-107) 04/16/18 06:15 Carbon Dioxide 30.3 mEq/L (21.0-31.0) 04/16/18 06:15 Anion Gap 10.8 (7.0-16.0) 04/16/18 06:15 BUN 15 mg/dL (7-25) 04/16/18 06:15 Creatinine 0.8 mg/dL (0.6-1.2) 04/16/18 06:15 Est GFR ( Amer) TNP 04/16/18 06:15 Est GFR (Non-Af Amer) TNP 04/16/18 06:15 BUN/Creatinine Ratio 18.8 04/16/18 06:15 Glucose 108 mg/dL (70-105) H 04/16/18 06:15 POC Glucose 126 MG/DL (70 - 105) H 04/19/18 20:47 Calcium 8.7 mg/dL (8.6-10.3) 04/16/18 06:15 Phosphorus 3.5 mg/dL (2.5-5.0) 04/14/18 18:31 Magnesium 1.7 mg/dL (1.9-2.7) L 04/14/18 18:31 Total Bilirubin 0.4 mg/dL (0.3-1.0) 04/16/18 06:15 AST 26 U/L (13-39) 04/16/18 06:15 ALT 21 U/L (7-52) 04/16/18 06:15 Alkaline Phosphatase 43 U/L (34-104) 04/16/18 06:15 Troponin I 0.03 ng/mL (0.01-0.05) 04/14/18 18:31 Total Protein 6.1 gm/dL (6.0-8.3) 04/16/18 06:15 Albumin 3.5 gm/dL (3.7-5.3) L 04/16/18 06:15 Globulin 2.6 gm/dL 04/16/18 06:15 Albumin/Globulin Ratio 1.4 (1.0-1.8) 04/16/18 06:15 Triglycerides 58 mg/dL (<150) 04/15/18 05:45 Cholesterol 166 mg/dL (<200) 04/15/18 05:45 LDL Cholesterol Direct 86 mg/dL (75-193) 04/15/18 05:45 HDL Cholesterol 55 mg/dL (23-92) 04/15/18 05:45 Urine Source RANDOM 04/15/18 00:00 Urine Color YELLOW 04/15/18 00:00 Urine Clarity CLEAR (CLEAR) 04/15/18 00:00 Urine pH 6.5 (4.6 - 8.0) 04/15/18 00:00 Ur Specific [place] <= 1.005 (1.005-1.030) 04/15/18 00:00 Urine Protein NEGATIVE mg/dL (NEGATIVE) 04/15/18 00:00 Urine Glucose (UA) NEGATIVE mg/dL (NEGATIVE) 04/15/18 00:00 Urine Ketones NEGATIVE mg/dL (NEGATIVE) 04/15/18 00:00 Urine Blood NEGATIVE (NEGATIVE) 04/15/18 00:00 Urine Nitrate NEGATIVE (NEGATIVE) 04/15/18 00:00 Urine Bilirubin NEGATIVE (NEGATIVE) 04/15/18 00:00 Urine Urobilinogen 0.2 E.U./dL (0.2 - 1.0) 04/15/18 00:00 Ur Leukocyte Esterase NEGATIVE (NEGATIVE) 04/15/18 00:00 Urine RBC NONE SEEN /hpf (0-5) 04/15/18 00:00 Urine WBC 0-2 /hpf (0-5) 04/15/18 00:00 Ur Epithelial Cells FEW /lpf (FEW) 04/15/18 00:00 Urine Bacteria OCCASIONAL /hpf (NONE SEEN) 04/15/18 00:00 Valproic Acid 36.0 ug/mL (50.0-100.0) L 04/14/18 18:31 - Physical Exam Vitals and I&O: Vital Signs Temp 97.8 F 04/19/18 20:00 Pulse 55 04/19/18 20:00 Resp 18 04/19/18 20:00 BP 151/74 04/19/18 20:00 Pulse Ox 98 04/19/18 20:00 Intake & Output 04/19/18 04/19/18 04/20/18 06:59 18:59 06:59 Intake Total 240 1600 Balance 240 1600 Weight (lbs) 77.564 kg Intake: Oral 240 1600 Other: # Voids 3 5 # Bowel Movements 0 1 Weight Source Bedscale Active Medications: Current Medications Acetaminophen (Tylenol) 650 mg PO Q4HR PRN PRN Reason: Pain or Fever >101 Stop: 06/14/18 00:56 Al Hydrox/Mg Hydrox/Simethicone (Maalox) 30 ml PO DAILY PRN PRN Reason: GI DISTRESS Stop: 06/14/18 00:56 Amlodipine Besylate (Norvasc) 5 mg PO DAILY [facility] Stop: 06/14/18 08:59 Last Admin: 04/19/18 08:12 Dose: 5 mg Aripiprazole (Abilify) 2.5 mg PO QAM [facility]; Protocol Stop: 06/14/18 08:59 Last Admin: 04/19/18 08:11 Dose: 2.5 mg Aspirin (Aspirin Chewable) 81 mg PO DAILY [facility] Stop: 06/14/18 08:59 Last Admin: 04/19/18 08:12 Dose: 81 mg Benztropine Mesylate (Cogentin) 1 mg PO BID [facility] Stop: 06/14/18 08:59 Last Admin: 04/19/18 16:14 Dose: 1 mg Divalproex Sodium (Depakote Dr) 125 mg PO BID [facility]; Protocol Stop: 06/14/18 08:59 Last Admin: 04/19/18 16:14 Dose: 125 mg Docusate Sodium (Colace) 250 mg PO DAILY [facility] Stop: 06/14/18 08:59 Last Admin: 04/19/18 08:12 Dose: 250 mg Glipizide (Glucotrol) 5 mg PO BIDAC [facility] Stop: 06/14/18 07:29 Last Admin: 04/19/18 16:14 Dose: 5 mg Insulin Aspart (Novolog Insulin Sliding Scale) 0 units SUBQ ACHS [facility]; Protocol Stop: 06/14/18 07:29 Last Admin: 04/19/18 21:22 Dose: Not Given Insulin Detemir (Levemir Insulin) 10 units SUBQ HS [facility]; Protocol Stop: 06/14/18 20:59 Last Admin: 04/19/18 21:23 Dose: 10 units Lorazepam (Ativan) 0.5 mg PO Q6HR PRN; Protocol PRN Reason: Anxiety Stop: 05/15/18 00:49 Last Admin: 04/17/18 21:27 Dose: 0.5 mg Losartan Potassium (Cozaar) 50 mg PO DAILY [facility] Stop: 06/14/18 08:59 Last Admin: 04/19/18 08:10 Dose: 50 mg Magnesium Hydroxide (Milk Of Magnesia) 30 ml PO DAILY PRN PRN Reason: Constipation Stop: 06/14/18 00:56 Metformin HCl (Glucophage) 500 mg PO BID [facility] Stop: 06/14/18 08:59 Last Admin: 04/19/18 16:14 Dose: 500 mg Metoprolol Tartrate (Lopressor) 50 mg PO BID [facility] Stop: 06/14/18 08:59 Last Admin: 04/19/18 16:14 Dose: 50 mg Pantoprazole Sodium (Protonix) 40 mg PO QDAC [facility] Stop: 06/14/18 07:29 Last Admin: 04/19/18 06:52 Dose: 40 mg Quetiapine Fumarate (Seroquel) 50 mg PO HS [facility]; Protocol Stop: 06/18/18 20:59 Last Admin: 04/19/18 21:24 Dose: 50 mg General: demented HEENT: NC/AT, PERRLA, EOMI, anicteric sclerae, throat clear Neck: Supple, No JVD, No thyromegaly, +2 carotid pulse wo bruit, No LAD Lungs: CTAB Cardiovascular: RRR, Normal S1, Normal S2, without murmur Abdomen: soft, non-tender, non-distended Extremities: clear Neurological: no change Internal Medicine Assmt/Plan - Assessment Assessment: 1.DM. 2.HTN. 3.DJD. 4.DEMENTIA. 5.PSYCHOSIS. - Plan Plan: CONTINUE ON CURRENT MEDICATION AND DIET. Nutritional Asmnt/Malnutr-PDOC - Dietary Evaluation Malnutrition Findings (Please click <Entered> for more info): Nutritional Asmnt/Malnutrition Start: 04/18/18 13: 59 Text: Status: Complete Freq: Protocol: Document 04/18/18 13:59 LCHENG (Rec: 04/18/18 14:10 LCHENG [id number]) Nutritional Asmnt/Malnutrition Patient General Information Nutritional Screening Moderate Risk Diagnosis psychosis NOS Pertinent Medical Hx/Surgical Hx HTN, DM, DJD, dementia Subjective Information Pt seen lying in bed at time of visit, awake and alert. Pt stated food is good, she wants 2% milk instead of fat free milk, does not eat pork, would like water with breakfast. Per EMR, PO intake 100%. Current Diet Order/ Nutrition Support CCHO 60gm, mech soft ground Pertinent Medications colace, glucotrol, novolog, levemir, glucophage, protonix, seroquel Pertinent Labs 04/17-04/18 POC 119-122 04/16 K 3.1, glucose 108, POC 103-147 Nutritional Hx/Data Height 1.57 m Height (Calculated Centimeters) 157.5 Current Weight (lbs) 77.564 kg Weight (Calculated Kilograms) 77.6 Weight (Calculated Grams) 37802.3 [place] Body Weight 110 Body Mass Index (BMI) 31.2 Weight Status Obese GI Symptoms GI Symptoms None Last BM 04/17 Difficult in: None Skin Integrity/Comment: dryness Current %PO Good (75-100%) Estimated Nutritional Goals BEE in Kcals: Adj wt of IBW Calories/Kcals/Kg 25-30 adj wt 57kg Kcals Calculated 1506-5086 Protein: Adj wt of IBW Protein g/k Protein Calculated 57 Fluid: ml 1425-1710ml (1ml/kcal) Nutritional Problem No current Nutrition Prob Problem N/A Intervention/Recommendation Comments 1. Continue with [facility] soft ground diet as ordered. Diet preference updated. 2. Monitor PO intake, wt, labs and skin integrity 3. F/U as low risk in 7 days, 04/25 Expected Outcomes/Goals Expected Outcomes/Goals 1. PO intake to meet at least 75% of nutritional needs. 2. Wt stability, skin to remain intact, labs to approach WNL.
[2018-04-20] MEDS: INSULIN ASPART SLIDING SCALE 100 UNITS/ML UNIT SUBQ SCH ×4 (06:41→21:11)
[2018-04-20] MEDS: Pantoprazole 40 mg EC Tab PO SCH (06:44)
[2018-04-20] MEDS: Benztropine 1 MG TAB PO SCH ×2 (08:39→17:24)
[2018-04-20] MEDS: Aspirin 81mg Chewable Tab PO SCH (08:40)
[2018-04-20] MEDS: Multivitamin w/ Minerals Tab PO SCH (08:40)
--- NOTE | 2018-04-20 13:02 | Progress Notes ---
DATE: 04/20/2018 SUBJECTIVE: Case was discussed with staff of the patient, reviewed records. The patient continues to be unpredictable, impulsive, needing redirection, somewhat grandiose, unable to make safe plan for self-care. Continues to have poor insight is reason for admission. She is delusional, believing she had 100s of children unpredictable and impulsive. No side effects of the medication, no sedation, no nausea, no extrapyramidal symptoms. She tolerated the increase in Seroquel yesterday to 50 mg at bedtime. I will continue the patient in group therapy, milieu therapy. JOB# [id number]
--- NOTE | 2018-04-20 13:38 | Internal Medicine Prog Note ---
Internal Medicine Subjective - Subjective Service Date: 04/20/18 Patient seen and examined:: without staff Patient is:: awake, verbal, in bed, confused Per staff patient has:: no adverse event Internal Medicine Objective - Results Result Diagrams: 04/14/18 18:31 04/16/18 06:15 Recent Labs: Laboratory Last Values WBC 7.4 Th/cmm (4.8-10.8) 04/14/18 18:31 RBC 4.23 Mil/cmm (3.80-5.20) 04/14/18 18:31 Hgb 12.5 gm/dL (12-16) 04/14/18 18:31 Hct 37.0 % (41.0-60) L 04/14/18 18:31 MCV 87.5 fl (81-100) 04/14/18 18:31 MCH 29.6 pg (27.0-31.0) 04/14/18 18:31 MCHC Differential 33.8 pg (28.0-36.0) 04/14/18 18:31 RDW 12.4 % (11.5-20.0) 04/14/18 18:31 Plt Count 203 Th/cmm (150-400) 04/14/18 18:31 MPV 7.8 fl 04/14/18 18:31 Neutrophils % 52.7 % (40.0-80.0) 04/14/18 18:31 Lymphocytes % 38.3 % (20.0-50.0) 04/14/18 18:31 Monocytes % 6.8 % (2.0-10.0) 04/14/18 18:31 Eosinophils % 1.9 % (0.0-5.0) 04/14/18 18:31 Basophils % 0.3 % (0.0-2.0) 04/14/18 18:31 Sodium 140 mEq/L (136-145) 04/16/18 06:15 Potassium 3.1 mEq/L (3.5-5.1) L 04/16/18 06:15 Chloride 102 mEq/L (98-107) 04/16/18 06:15 Carbon Dioxide 30.3 mEq/L (21.0-31.0) 04/16/18 06:15 Anion Gap 10.8 (7.0-16.0) 04/16/18 06:15 BUN 15 mg/dL (7-25) 04/16/18 06:15 Creatinine 0.8 mg/dL (0.6-1.2) 04/16/18 06:15 Est GFR ( Amer) TNP 04/16/18 06:15 Est GFR (Non-Af Amer) TNP 04/16/18 06:15 BUN/Creatinine Ratio 18.8 04/16/18 06:15 Glucose 108 mg/dL (70-105) H 04/16/18 06:15 POC Glucose 81 MG/DL (70 - 105) 04/20/18 06:23 Calcium 8.7 mg/dL (8.6-10.3) 04/16/18 06:15 Phosphorus 3.5 mg/dL (2.5-5.0) 04/14/18 18:31 Magnesium 1.7 mg/dL (1.9-2.7) L 04/14/18 18:31 Total Bilirubin 0.4 mg/dL (0.3-1.0) 04/16/18 06:15 AST 26 U/L (13-39) 04/16/18 06:15 ALT 21 U/L (7-52) 04/16/18 06:15 Alkaline Phosphatase 43 U/L (34-104) 04/16/18 06:15 Troponin I 0.03 ng/mL (0.01-0.05) 04/14/18 18:31 Total Protein 6.1 gm/dL (6.0-8.3) 04/16/18 06:15 Albumin 3.5 gm/dL (3.7-5.3) L 04/16/18 06:15 Globulin 2.6 gm/dL 04/16/18 06:15 Albumin/Globulin Ratio 1.4 (1.0-1.8) 04/16/18 06:15 Triglycerides 58 mg/dL (<150) 04/15/18 05:45 Cholesterol 166 mg/dL (<200) 04/15/18 05:45 LDL Cholesterol Direct 86 mg/dL (75-193) 04/15/18 05:45 HDL Cholesterol 55 mg/dL (23-92) 04/15/18 05:45 Urine Source RANDOM 04/15/18 00:00 Urine Color YELLOW 04/15/18 00:00 Urine Clarity CLEAR (CLEAR) 04/15/18 00:00 Urine pH 6.5 (4.6 - 8.0) 04/15/18 00:00 Ur Specific [place] <= 1.005 (1.005-1.030) 04/15/18 00:00 Urine Protein NEGATIVE mg/dL (NEGATIVE) 04/15/18 00:00 Urine Glucose (UA) NEGATIVE mg/dL (NEGATIVE) 04/15/18 00:00 Urine Ketones NEGATIVE mg/dL (NEGATIVE) 04/15/18 00:00 Urine Blood NEGATIVE (NEGATIVE) 04/15/18 00:00 Urine Nitrate NEGATIVE (NEGATIVE) 04/15/18 00:00 Urine Bilirubin NEGATIVE (NEGATIVE) 04/15/18 00:00 Urine Urobilinogen 0.2 E.U./dL (0.2 - 1.0) 04/15/18 00:00 Ur Leukocyte Esterase NEGATIVE (NEGATIVE) 04/15/18 00:00 Urine RBC NONE SEEN /hpf (0-5) 04/15/18 00:00 Urine WBC 0-2 /hpf (0-5) 04/15/18 00:00 Ur Epithelial Cells FEW /lpf (FEW) 04/15/18 00:00 Urine Bacteria OCCASIONAL /hpf (NONE SEEN) 04/15/18 00:00 Valproic Acid 36.0 ug/mL (50.0-100.0) L 04/14/18 18:31 - Physical Exam Vitals and I&O: Vital Signs Temp 97.8 F 04/19/18 20:00 Pulse 60 04/20/18 08:46 Resp 20 04/20/18 08:00 BP 148/96 04/20/18 08:46 Pulse Ox 98 04/19/18 20:00 Intake & Output 04/19/18 04/20/18 04/20/18 18:59 06:59 18:59 Intake Total 1600 120 Balance 1600 120 Intake: Oral 1600 120 Other: # Voids 5 3 # Bowel Movements 1 Active Medications: Current Medications Acetaminophen (Tylenol) 650 mg PO Q4HR PRN PRN Reason: Pain or Fever >101 Stop: 06/14/18 00:56 Al Hydrox/Mg Hydrox/Simethicone (Maalox) 30 ml PO DAILY PRN PRN Reason: GI DISTRESS Stop: 06/14/18 00:56 Amlodipine Besylate (Norvasc) 5 mg PO DAILY [facility] Stop: 06/14/18 08:59 Last Admin: 04/20/18 08:39 Dose: 5 mg Aripiprazole (Abilify) 2.5 mg PO QAM [facility]; Protocol Stop: 06/14/18 08:59 Last Admin: 04/20/18 08:39 Dose: 2.5 mg Aspirin (Aspirin Chewable) 81 mg PO DAILY [facility] Stop: 06/14/18 08:59 Last Admin: 04/20/18 08:40 Dose: 81 mg Benztropine Mesylate (Cogentin) 1 mg PO BID [facility] Stop: 06/14/18 08:59 Last Admin: 04/20/18 08:39 Dose: 1 mg Divalproex Sodium (Depakote Dr) 125 mg PO BID [facility]; Protocol Stop: 06/14/18 08:59 Last Admin: 04/20/18 08:38 Dose: 125 mg Docusate Sodium (Colace) 250 mg PO DAILY [facility] Stop: 06/14/18 08:59 Last Admin: 04/20/18 08:39 Dose: 250 mg Glipizide (Glucotrol) 5 mg PO BIDAC [facility] Stop: 06/14/18 07:29 Last Admin: 04/20/18 06:43 Dose: Not Given Insulin Aspart (Novolog Insulin Sliding Scale) 0 units SUBQ ACHS [facility]; Protocol Stop: 06/14/18 07:29 Last Admin: 04/20/18 06:41 Dose: Not Given Insulin Detemir (Levemir Insulin) 10 units SUBQ HS [facility]; Protocol Stop: 06/14/18 20:59 Last Admin: 04/19/18 21:23 Dose: 10 units Lorazepam (Ativan) 0.5 mg PO Q6HR PRN; Protocol PRN Reason: Anxiety Stop: 05/15/18 00:49 Last Admin: 04/17/18 21:27 Dose: 0.5 mg Losartan Potassium (Cozaar) 50 mg PO DAILY [facility] Stop: 06/14/18 08:59 Last Admin: 04/20/18 08:40 Dose: 50 mg Magnesium Hydroxide (Milk Of Magnesia) 30 ml PO DAILY PRN PRN Reason: Constipation Stop: 06/14/18 00:56 Metformin HCl (Glucophage) 500 mg PO BID [facility] Stop: 06/14/18 08:59 Last Admin: 04/20/18 08:40 Dose: 500 mg Metoprolol Tartrate (Lopressor) 50 mg PO BID [facility] Stop: 06/14/18 08:59 Last Admin: 04/20/18 08:46 Dose: Not Given Pantoprazole Sodium (Protonix) 40 mg PO QDAC [facility] Stop: 06/14/18 07:29 Last Admin: 04/20/18 06:44 Dose: 40 mg Quetiapine Fumarate (Seroquel) 50 mg PO HS [facility]; Protocol Stop: 06/18/18 20:59 Last Admin: 04/19/18 21:24 Dose: 50 mg General: demented HEENT: NC/AT, PERRLA, EOMI, anicteric sclerae, throat clear Neck: Supple, No JVD, No thyromegaly, +2 carotid pulse wo bruit, No LAD Lungs: CTAB Cardiovascular: RRR, Normal S1, Normal S2, without murmur Abdomen: soft, non-tender, non-distended Extremities: clear Neurological: no change Internal Medicine Assmt/Plan - Assessment Assessment: 1.DM. 2.HTN. 3.DJD. 4.DEMENTIA. 5.PSYCHOSIS. - Plan Plan: CONTINUE ON CURRENT MEDICATION AND DIET. Nutritional Asmnt/Malnutr-PDOC - Dietary Evaluation Malnutrition Findings (Please click <Entered> for more info): Nutritional Asmnt/Malnutrition Start: 04/18/18 13: 59 Text: Status: Complete Freq: Protocol: Document 04/18/18 13:59 LCHENG (Rec: 04/18/18 14:10 LCHENG [id number]) Nutritional Asmnt/Malnutrition Patient General Information Nutritional Screening Moderate Risk Diagnosis psychosis NOS Pertinent Medical Hx/Surgical Hx HTN, DM, DJD, dementia Subjective Information Pt seen lying in bed at time of visit, awake and alert. Pt stated food is good, she wants 2% milk instead of fat free milk, does not eat pork, would like water with breakfast. Per EMR, PO intake 100%. Current Diet Order/ Nutrition Support CCHO 60gm, mech soft ground Pertinent Medications colace, glucotrol, novolog, levemir, glucophage, protonix, seroquel Pertinent Labs 04/17-04/18 POC 119-122 04/16 K 3.1, glucose 108, POC 103-147 Nutritional Hx/Data Height 1.57 m Height (Calculated Centimeters) 157.5 Current Weight (lbs) 77.564 kg Weight (Calculated Kilograms) 77.6 Weight (Calculated Grams) 46557.3 [place] Body Weight 110 Body Mass Index (BMI) 31.2 Weight Status Obese GI Symptoms GI Symptoms None Last BM 04/17 Difficult in: None Skin Integrity/Comment: dryness Current %PO Good (75-100%) Estimated Nutritional Goals BEE in Kcals: Adj wt of IBW Calories/Kcals/Kg 25-30 adj wt 57kg Kcals Calculated 7171-6540 Protein: Adj wt of IBW Protein g/k Protein Calculated 57 Fluid: ml 1425-1710ml (1ml/kcal) Nutritional Problem No current Nutrition Prob Problem N/A Intervention/Recommendation Comments 1. Continue with [facility] soft ground diet as ordered. Diet preference updated. 2. Monitor PO intake, wt, labs and skin integrity 3. F/U as low risk in 7 days, 04/25 Expected Outcomes/Goals Expected Outcomes/Goals 1. PO intake to meet at least 75% of nutritional needs. 2. Wt stability, skin to remain intact, labs to approach WNL.
[2018-04-20] MEDS: Insulin Detemir 100 units/mL 10mL Vial SUBQ SCH (21:11)
[2018-04-21] MEDS: Pantoprazole 40 mg EC Tab PO SCH (06:41)
[2018-04-21] MEDS: INSULIN ASPART SLIDING SCALE 100 UNITS/ML UNIT SUBQ SCH ×4 (06:42→21:03)
[2018-04-21] MEDS: Benztropine 1 MG TAB PO SCH ×2 (08:43→17:00)
[2018-04-21] MEDS: Aspirin 81mg Chewable Tab PO SCH (08:43)
[2018-04-21] MEDS: Multivitamin w/ Minerals Tab PO SCH (08:43)
--- NOTE | 2018-04-21 16:12 | Internal Medicine Prog Note ---
Internal Medicine Subjective - Subjective Service Date: 04/21/18 Patient seen and examined:: with staff Patient is:: awake, verbal, in bed, confused Per staff patient has:: no adverse event Internal Medicine Objective - Results Result Diagrams: 04/14/18 18:31 04/16/18 06:15 Recent Labs: Laboratory Last Values WBC 7.4 Th/cmm (4.8-10.8) 04/14/18 18:31 RBC 4.23 Mil/cmm (3.80-5.20) 04/14/18 18:31 Hgb 12.5 gm/dL (12-16) 04/14/18 18:31 Hct 37.0 % (41.0-60) L 04/14/18 18:31 MCV 87.5 fl (81-100) 04/14/18 18:31 MCH 29.6 pg (27.0-31.0) 04/14/18 18:31 MCHC Differential 33.8 pg (28.0-36.0) 04/14/18 18:31 RDW 12.4 % (11.5-20.0) 04/14/18 18:31 Plt Count 203 Th/cmm (150-400) 04/14/18 18:31 MPV 7.8 fl 04/14/18 18:31 Neutrophils % 52.7 % (40.0-80.0) 04/14/18 18:31 Lymphocytes % 38.3 % (20.0-50.0) 04/14/18 18:31 Monocytes % 6.8 % (2.0-10.0) 04/14/18 18:31 Eosinophils % 1.9 % (0.0-5.0) 04/14/18 18:31 Basophils % 0.3 % (0.0-2.0) 04/14/18 18:31 Sodium 140 mEq/L (136-145) 04/16/18 06:15 Potassium 3.1 mEq/L (3.5-5.1) L 04/16/18 06:15 Chloride 102 mEq/L (98-107) 04/16/18 06:15 Carbon Dioxide 30.3 mEq/L (21.0-31.0) 04/16/18 06:15 Anion Gap 10.8 (7.0-16.0) 04/16/18 06:15 BUN 15 mg/dL (7-25) 04/16/18 06:15 Creatinine 0.8 mg/dL (0.6-1.2) 04/16/18 06:15 Est GFR ( Amer) TNP 04/16/18 06:15 Est GFR (Non-Af Amer) TNP 04/16/18 06:15 BUN/Creatinine Ratio 18.8 04/16/18 06:15 Glucose 108 mg/dL (70-105) H 04/16/18 06:15 POC Glucose 50 MG/DL (70 - 105) L 04/21/18 12:02 Calcium 8.7 mg/dL (8.6-10.3) 04/16/18 06:15 Phosphorus 3.5 mg/dL (2.5-5.0) 04/14/18 18:31 Magnesium 1.7 mg/dL (1.9-2.7) L 04/14/18 18:31 Total Bilirubin 0.4 mg/dL (0.3-1.0) 04/16/18 06:15 AST 26 U/L (13-39) 04/16/18 06:15 ALT 21 U/L (7-52) 04/16/18 06:15 Alkaline Phosphatase 43 U/L (34-104) 04/16/18 06:15 Troponin I 0.03 ng/mL (0.01-0.05) 04/14/18 18:31 Total Protein 6.1 gm/dL (6.0-8.3) 04/16/18 06:15 Albumin 3.5 gm/dL (3.7-5.3) L 04/16/18 06:15 Globulin 2.6 gm/dL 04/16/18 06:15 Albumin/Globulin Ratio 1.4 (1.0-1.8) 04/16/18 06:15 Triglycerides 58 mg/dL (<150) 04/15/18 05:45 Cholesterol 166 mg/dL (<200) 04/15/18 05:45 LDL Cholesterol Direct 86 mg/dL (75-193) 04/15/18 05:45 HDL Cholesterol 55 mg/dL (23-92) 04/15/18 05:45 Urine Source RANDOM 04/15/18 00:00 Urine Color YELLOW 04/15/18 00:00 Urine Clarity CLEAR (CLEAR) 04/15/18 00:00 Urine pH 6.5 (4.6 - 8.0) 04/15/18 00:00 Ur Specific [place] <= 1.005 (1.005-1.030) 04/15/18 00:00 Urine Protein NEGATIVE mg/dL (NEGATIVE) 04/15/18 00:00 Urine Glucose (UA) NEGATIVE mg/dL (NEGATIVE) 04/15/18 00:00 Urine Ketones NEGATIVE mg/dL (NEGATIVE) 04/15/18 00:00 Urine Blood NEGATIVE (NEGATIVE) 04/15/18 00:00 Urine Nitrate NEGATIVE (NEGATIVE) 04/15/18 00:00 Urine Bilirubin NEGATIVE (NEGATIVE) 04/15/18 00:00 Urine Urobilinogen 0.2 E.U./dL (0.2 - 1.0) 04/15/18 00:00 Ur Leukocyte Esterase NEGATIVE (NEGATIVE) 04/15/18 00:00 Urine RBC NONE SEEN /hpf (0-5) 04/15/18 00:00 Urine WBC 0-2 /hpf (0-5) 04/15/18 00:00 Ur Epithelial Cells FEW /lpf (FEW) 04/15/18 00:00 Urine Bacteria OCCASIONAL /hpf (NONE SEEN) 04/15/18 00:00 Valproic Acid 36.0 ug/mL (50.0-100.0) L 04/14/18 18:31 - Physical Exam Vitals and I&O: Vital Signs Temp 98.0 F 04/21/18 14:00 Pulse 60 04/21/18 14:00 Resp 20 04/21/18 14:00 BP 156/78 04/21/18 14:00 Pulse Ox 97 04/21/18 14:00 Intake & Output 04/20/18 04/21/18 04/21/18 18:59 06:59 18:59 Intake Total 900 120 Balance 900 120 Intake: Oral 900 120 Other: # Voids 3 3 # Bowel Movements 1 Stool Characteristics Soft Formed Brown Active Medications: Current Medications Acetaminophen (Tylenol) 650 mg PO Q4HR PRN PRN Reason: Pain or Fever >101 Stop: 06/14/18 00:56 Al Hydrox/Mg Hydrox/Simethicone (Maalox) 30 ml PO DAILY PRN PRN Reason: GI DISTRESS Stop: 06/14/18 00:56 Amlodipine Besylate (Norvasc) 5 mg PO DAILY [facility] Stop: 06/14/18 08:59 Last Admin: 04/21/18 08:46 Dose: 5 mg Aripiprazole (Abilify) 2.5 mg PO QAM [facility]; Protocol Stop: 06/14/18 08:59 Last Admin: 04/21/18 08:46 Dose: 2.5 mg Aspirin (Aspirin Chewable) 81 mg PO DAILY [facility] Stop: 06/14/18 08:59 Last Admin: 04/21/18 08:43 Dose: 81 mg Benztropine Mesylate (Cogentin) 1 mg PO BID [facility] Stop: 06/14/18 08:59 Last Admin: 04/21/18 08:43 Dose: 1 mg Divalproex Sodium (Depakote Dr) 125 mg PO BID [facility]; Protocol Stop: 06/14/18 08:59 Last Admin: 04/21/18 08:43 Dose: 125 mg Docusate Sodium (Colace) 250 mg PO DAILY [facility] Stop: 06/14/18 08:59 Last Admin: 04/21/18 08:43 Dose: 250 mg Glipizide (Glucotrol) 5 mg PO BIDAC [facility] Stop: 06/14/18 07:29 Last Admin: 04/21/18 06:41 Dose: 5 mg Insulin Aspart (Novolog Insulin Sliding Scale) 0 units SUBQ ACHS [facility]; Protocol Stop: 06/14/18 07:29 Last Admin: 04/21/18 12:11 Dose: Not Given Insulin Detemir (Levemir Insulin) 10 units SUBQ HS [facility]; Protocol Stop: 06/14/18 20:59 Last Admin: 04/20/18 21:11 Dose: 10 units Lorazepam (Ativan) 0.5 mg PO Q6HR PRN; Protocol PRN Reason: Anxiety Stop: 05/15/18 00:49 Last Admin: 04/17/18 21:27 Dose: 0.5 mg Losartan Potassium (Cozaar) 50 mg PO DAILY [facility] Stop: 06/14/18 08:59 Last Admin: 04/21/18 08:45 Dose: Not Given Magnesium Hydroxide (Milk Of Magnesia) 30 ml PO DAILY PRN PRN Reason: Constipation Stop: 06/14/18 00:56 Metformin HCl (Glucophage) 500 mg PO BID [facility] Stop: 06/14/18 08:59 Last Admin: 04/21/18 08:43 Dose: 500 mg Metoprolol Tartrate (Lopressor) 50 mg PO BID [facility] Stop: 06/14/18 08:59 Last Admin: 04/21/18 08:44 Dose: Not Given Pantoprazole Sodium (Protonix) 40 mg PO QDAC [facility] Stop: 06/14/18 07:29 Last Admin: 04/21/18 06:41 Dose: 40 mg Quetiapine Fumarate (Seroquel) 75 mg PO HS [facility]; Protocol Stop: 06/20/18 20:59 General: demented HEENT: NC/AT, PERRLA, EOMI, anicteric sclerae, throat clear Neck: Supple, No JVD, No thyromegaly, +2 carotid pulse wo bruit, No LAD Lungs: CTAB Cardiovascular: RRR, Normal S1, Normal S2, without murmur Abdomen: soft, non-tender, non-distended Extremities: clear Neurological: no change Internal Medicine Assmt/Plan - Assessment Assessment: 1.DM. 2.HTN. 3.DJD. 4.DEMENTIA. 5.PSYCHOSIS. - Plan Plan: CONTINUE ON CURRENT MEDICATION AND DIET. Nutritional Asmnt/Malnutr-PDOC - Dietary Evaluation Malnutrition Findings (Please click <Entered> for more info): Nutritional Asmnt/Malnutrition Start: 04/18/18 13: 59 Text: Status: Complete Freq: Protocol: Document 04/18/18 13:59 LCHENG (Rec: 04/18/18 14:10 [email or web address]) Nutritional Asmnt/Malnutrition Patient General Information Nutritional Screening Moderate Risk Diagnosis psychosis NOS Pertinent Medical Hx/Surgical Hx HTN, DM, DJD, dementia Subjective Information Pt seen lying in bed at time of visit, awake and alert. Pt stated food is good, she wants 2% milk instead of fat free milk, does not eat pork, would like water with breakfast. Per EMR, PO intake 100%. Current Diet Order/ Nutrition Support CCHO 60gm, mech soft ground Pertinent Medications colace, glucotrol, novolog, levemir, glucophage, protonix, seroquel Pertinent Labs 04/17-04/18 POC 119-122 04/16 K 3.1, glucose 108, POC 103-147 Nutritional Hx/Data Height 1.57 m Height (Calculated Centimeters) 157.5 Current Weight (lbs) 77.564 kg Weight (Calculated Kilograms) 77.6 Weight (Calculated Grams) 62340.3 [place] Body Weight 110 Body Mass Index (BMI) 31.2 Weight Status Obese GI Symptoms GI Symptoms None Last BM 04/17 Difficult in: None Skin Integrity/Comment: dryness Current %PO Good (75-100%) Estimated Nutritional Goals BEE in Kcals: Adj wt of IBW Calories/Kcals/Kg 25-30 adj wt 57kg Kcals Calculated 7679-7112 Protein: Adj wt of IBW Protein g/k Protein Calculated 57 Fluid: ml 1425-1710ml (1ml/kcal) Nutritional Problem No current Nutrition Prob Problem N/A Intervention/Recommendation Comments 1. Continue with [facility] soft ground diet as ordered. Diet preference updated. 2. Monitor PO intake, wt, labs and skin integrity 3. F/U as low risk in 7 days, 04/25 Expected Outcomes/Goals Expected Outcomes/Goals 1. PO intake to meet at least 75% of nutritional needs. 2. Wt stability, skin to remain intact, labs to approach WNL.
[2018-04-21] MEDS: Insulin Detemir 100 units/mL 10mL Vial SUBQ SCH (21:02)
--- NOTE | 2018-04-21 23:25 | Progress Notes ---
DATE: 04/21/2018 Case was discussed with staff of the patient, reviewed records. The patient continues to be delusional. Continues to be unpredictable, impulsive, needing redirection. Continues to believe that she has more than 100 children. She continues to have poor insight. Unable to carry on a conversation or make safe plan for self-care. Also, she is restless, pacing in the unit. She is already on Cogentin 1 mg twice a day. She is on Seroquel. At this time, I increased to 50 mg at bedtime, not increased further to 75 mg at bedtime to help with her psychotic symptoms. Lab work showed only blood sugar that was high yesterday at 158. We will continue outpatient group therapy, milieu therapy, and adjust medication as needed. JOB# [id number]
[2018-04-22] MEDS: INSULIN ASPART SLIDING SCALE 100 UNITS/ML UNIT SUBQ SCH ×4 (06:41→20:36)
[2018-04-22] MEDS: Aspirin 81mg Chewable Tab PO SCH (09:12)
[2018-04-22] MEDS: Multivitamin w/ Minerals Tab PO SCH (09:12)
[2018-04-22] MEDS: Benztropine 1 MG TAB PO SCH ×2 (09:12→16:41)
[2018-04-22] MEDS: Pantoprazole 40 mg EC Tab PO SCH ×2 (09:15→09:19)
--- NOTE | 2018-04-22 16:47 | General Progress Note ---
Subjective - Review of Systems Service Date: 04/22/18 Subjective: awake and alert no distress Objective - Results Result Diagrams: 04/14/18 18:31 04/16/18 06:15 Recent Labs: Laboratory Last Values WBC 7.4 Th/cmm (4.8-10.8) 04/14/18 18:31 RBC 4.23 Mil/cmm (3.80-5.20) 04/14/18 18:31 Hgb 12.5 gm/dL (12-16) 04/14/18 18:31 Hct 37.0 % (41.0-60) L 04/14/18 18:31 MCV 87.5 fl (81-100) 04/14/18 18:31 MCH 29.6 pg (27.0-31.0) 04/14/18 18:31 MCHC Differential 33.8 pg (28.0-36.0) 04/14/18 18:31 RDW 12.4 % (11.5-20.0) 04/14/18 18:31 Plt Count 203 Th/cmm (150-400) 04/14/18 18:31 MPV 7.8 fl 04/14/18 18:31 Neutrophils % 52.7 % (40.0-80.0) 04/14/18 18:31 Lymphocytes % 38.3 % (20.0-50.0) 04/14/18 18:31 Monocytes % 6.8 % (2.0-10.0) 04/14/18 18:31 Eosinophils % 1.9 % (0.0-5.0) 04/14/18 18:31 Basophils % 0.3 % (0.0-2.0) 04/14/18 18:31 Sodium 140 mEq/L (136-145) 04/16/18 06:15 Potassium 3.1 mEq/L (3.5-5.1) L 04/16/18 06:15 Chloride 102 mEq/L (98-107) 04/16/18 06:15 Carbon Dioxide 30.3 mEq/L (21.0-31.0) 04/16/18 06:15 Anion Gap 10.8 (7.0-16.0) 04/16/18 06:15 BUN 15 mg/dL (7-25) 04/16/18 06:15 Creatinine 0.8 mg/dL (0.6-1.2) 04/16/18 06:15 Est GFR ( Amer) TNP 04/16/18 06:15 Est GFR (Non-Af Amer) TNP 04/16/18 06:15 BUN/Creatinine Ratio 18.8 04/16/18 06:15 Glucose 108 mg/dL (70-105) H 04/16/18 06:15 POC Glucose 100 MG/DL (70 - 105) 04/21/18 17:17 Calcium 8.7 mg/dL (8.6-10.3) 04/16/18 06:15 Phosphorus 3.5 mg/dL (2.5-5.0) 04/14/18 18:31 Magnesium 1.7 mg/dL (1.9-2.7) L 04/14/18 18:31 Total Bilirubin 0.4 mg/dL (0.3-1.0) 04/16/18 06:15 AST 26 U/L (13-39) 04/16/18 06:15 ALT 21 U/L (7-52) 04/16/18 06:15 Alkaline Phosphatase 43 U/L (34-104) 04/16/18 06:15 Troponin I 0.03 ng/mL (0.01-0.05) 04/14/18 18:31 Total Protein 6.1 gm/dL (6.0-8.3) 04/16/18 06:15 Albumin 3.5 gm/dL (3.7-5.3) L 04/16/18 06:15 Globulin 2.6 gm/dL 04/16/18 06:15 Albumin/Globulin Ratio 1.4 (1.0-1.8) 04/16/18 06:15 Triglycerides 58 mg/dL (<150) 04/15/18 05:45 Cholesterol 166 mg/dL (<200) 04/15/18 05:45 LDL Cholesterol Direct 86 mg/dL (75-193) 04/15/18 05:45 HDL Cholesterol 55 mg/dL (23-92) 04/15/18 05:45 Urine Source RANDOM 04/15/18 00:00 Urine Color YELLOW 04/15/18 00:00 Urine Clarity CLEAR (CLEAR) 04/15/18 00:00 Urine pH 6.5 (4.6 - 8.0) 04/15/18 00:00 Ur Specific [place] <= 1.005 (1.005-1.030) 04/15/18 00:00 Urine Protein NEGATIVE mg/dL (NEGATIVE) 04/15/18 00:00 Urine Glucose (UA) NEGATIVE mg/dL (NEGATIVE) 04/15/18 00:00 Urine Ketones NEGATIVE mg/dL (NEGATIVE) 04/15/18 00:00 Urine Blood NEGATIVE (NEGATIVE) 04/15/18 00:00 Urine Nitrate NEGATIVE (NEGATIVE) 04/15/18 00:00 Urine Bilirubin NEGATIVE (NEGATIVE) 04/15/18 00:00 Urine Urobilinogen 0.2 E.U./dL (0.2 - 1.0) 04/15/18 00:00 Ur Leukocyte Esterase NEGATIVE (NEGATIVE) 04/15/18 00:00 Urine RBC NONE SEEN /hpf (0-5) 04/15/18 00:00 Urine WBC 0-2 /hpf (0-5) 04/15/18 00:00 Ur Epithelial Cells FEW /lpf (FEW) 04/15/18 00:00 Urine Bacteria OCCASIONAL /hpf (NONE SEEN) 04/15/18 00:00 Valproic Acid 36.0 ug/mL (50.0-100.0) L 04/14/18 18:31 - Physical Exam Vitals and I&O: Vital Signs Temp 97.9 F 04/22/18 14:00 Pulse 68 04/22/18 16:41 Resp 18 04/22/18 14:00 BP 129/63 04/22/18 16:38 Pulse Ox 97 04/22/18 14:00 Intake & Output 04/21/18 04/22/18 04/22/18 18:59 06:59 18:59 Intake Total 900 Balance 900 Intake: Oral 900 Other: # Voids 3 # Bowel Movements 1 Stool Characteristics Soft Formed Brown Active Medications: Current Medications Acetaminophen (Tylenol) 650 mg PO Q4HR PRN PRN Reason: Pain or Fever >101 Stop: 06/14/18 00:56 Al Hydrox/Mg Hydrox/Simethicone (Maalox) 30 ml PO DAILY PRN PRN Reason: GI DISTRESS Stop: 06/14/18 00:56 Amlodipine Besylate (Norvasc) 5 mg PO DAILY [facility] Stop: 06/14/18 08:59 Last Admin: 04/22/18 09:11 Dose: 5 mg Aripiprazole (Abilify) 5 mg PO QAM [facility]; Protocol Stop: 06/22/18 08:59 Aspirin (Aspirin Chewable) 81 mg PO DAILY [facility] Stop: 06/14/18 08:59 Last Admin: 04/22/18 09:12 Dose: 81 mg Benztropine Mesylate (Cogentin) 1 mg PO BID [facility] Stop: 06/14/18 08:59 Last Admin: 04/22/18 16:41 Dose: 1 mg Divalproex Sodium (Depakote Dr) 125 mg PO BID [facility]; Protocol Stop: 06/14/18 08:59 Last Admin: 04/22/18 16:39 Dose: 125 mg Docusate Sodium (Colace) 250 mg PO DAILY [facility] Stop: 06/14/18 08:59 Last Admin: 04/22/18 09:12 Dose: 250 mg Glipizide (Glucotrol) 5 mg PO BIDAC [facility] Stop: 06/14/18 07:29 Last Admin: 04/22/18 16:39 Dose: 5 mg Insulin Aspart (Novolog Insulin Sliding Scale) 0 units SUBQ ACHS [facility]; Protocol Stop: 06/14/18 07:29 Last Admin: 04/22/18 16:42 Dose: Not Given Insulin Detemir (Levemir Insulin) 10 units SUBQ [facility]; Protocol Stop: 06/14/18 20:59 Last Admin: 04/21/18 21:02 Dose: 10 units Losartan Potassium (Cozaar) 50 mg PO DAILY [facility] Stop: 06/14/18 08:59 Last Admin: 04/22/18 09:15 Dose: Not Given Magnesium Hydroxide (Milk Of Magnesia) 30 ml PO DAILY PRN PRN Reason: Constipation Stop: 06/14/18 00:56 Metformin HCl (Glucophage) 500 mg PO BID [facility] Stop: 06/14/18 08:59 Last Admin: 04/22/18 16:42 Dose: 500 mg Metoprolol Tartrate (Lopressor) 50 mg PO BID [facility] Stop: 06/14/18 08:59 Last Admin: 04/22/18 16:38 Dose: 50 mg Pantoprazole Sodium (Protonix) 40 mg PO QDAC [facility] Stop: 06/14/18 07:29 Last Admin: 04/22/18 09:19 Dose: 40 mg Quetiapine Fumarate (Seroquel) 75 mg PO HS [facility]; Protocol Stop: 06/20/18 20:59 Last Admin: 04/21/18 21:01 Dose: 75 mg General: No acute distress HEENT: Atraumatic, PERRLA Neck: Supple, JVD Cardiovascular: Regular rate, Normal S1, Normal S2 Lungs: Clear to auscultation Abdomen: Bowel sounds, Soft Assessment/Plan - Problem List Patient Problems: All Active Problems AGITATION AND CHEST PAIN (Acute) - Assessment Assessment: 1.HTN. 2.DEMENTIA. 3.PSYCHSIS. - Plan Plan: continue current treatment Nutritional Asmnt/Malnutr-PDOC - Dietary Evaluation Malnutrition Findings (Please click <Entered> for more info): Nutritional Asmnt/Malnutrition Start: 04/18/18 13: 59 Text: Status: Complete Freq: Protocol: Document 04/18/18 13:59 LCHENG (Rec: 04/18/18 14:10 [email or web address] [id number]) Nutritional Asmnt/Malnutrition Patient General Information Nutritional Screening Moderate Risk Diagnosis psychosis NOS Pertinent Medical Hx/Surgical Hx HTN, DM, DJD, dementia Subjective Information Pt seen lying in bed at time of visit, awake and alert. Pt stated food is good, she wants 2% milk instead of fat free milk, does not eat pork, would like water with breakfast. Per EMR, PO intake 100%. Current Diet Order/ Nutrition Support CCHO 60gm, mech soft ground Pertinent Medications colace, glucotrol, novolog, levemir, glucophage, protonix, seroquel Pertinent Labs 04/17-04/18 POC 119-122 04/16 K 3.1, glucose 108, POC 103-147 Nutritional Hx/Data Height 1.57 m Height (Calculated Centimeters) 157.5 Current Weight (lbs) 77.564 kg Weight (Calculated Kilograms) 77.6 Weight (Calculated Grams) 98903.3 [place] Body Weight 110 Body Mass Index (BMI) 31.2 Weight Status Obese GI Symptoms GI Symptoms None Last BM 04/17 Difficult in: None Skin Integrity/Comment: dryness Current %PO Good (75-100%) Estimated Nutritional Goals BEE in Kcals: Adj wt of IBW Calories/Kcals/Kg 25-30 adj wt 57kg Kcals Calculated 7968-3894 Protein: Adj wt of IBW Protein g/k Protein Calculated 57 Fluid: ml 1425-1710ml (1ml/kcal) Nutritional Problem No current Nutrition Prob Problem N/A Intervention/Recommendation Comments 1. Continue with [facility] soft ground diet as ordered. Diet preference updated. 2. Monitor PO intake, wt, labs and skin integrity 3. F/U as low risk in 7 days, 04/25 Expected Outcomes/Goals Expected Outcomes/Goals 1. PO intake to meet at least 75% of nutritional needs. 2. Wt stability, skin to remain intact, labs to approach WNL.
[2018-04-22] MEDS: Insulin Detemir 100 units/mL 10mL Vial SUBQ SCH (20:36)
--- NOTE | 2018-04-23 00:07 | Progress Notes ---
DATE: 04/22/2018 Case was discussed with staff of the patient, reviewed records. The patient continues to be delusional. She believes, she has more than 100 children. Continues to have poor insight, unable to make safe plan for self-care. In general, she is calmer, but she is still psychotic make safe plan for self-care and delusional. No side effects with the medication, no sedation, no nausea, no extrapyramidal symptoms. I will be increasing the Abilify to 5 mg daily, we will continue to work with the patient in group therapy, milieu therapy, adjust the medication as needed. JOB# [id number]
[2018-04-23] MEDS: INSULIN ASPART SLIDING SCALE 100 UNITS/ML UNIT SUBQ SCH ×4 (06:44→20:48)
[2018-04-23] MEDS: Pantoprazole 40 mg EC Tab PO SCH (06:44)
[2018-04-23] MEDS: Benztropine 1 MG TAB PO SCH ×2 (08:38→17:24)
[2018-04-23] MEDS: Multivitamin w/ Minerals Tab PO SCH (08:38)
[2018-04-23] MEDS: Aspirin 81mg Chewable Tab PO SCH (08:38)
[2018-04-23] MEDS ORDERED: Haloperidol Lactate 5 mg/mL 1mL Vial IM ONE (09:27)
[2018-04-23] MEDS ORDERED: Haloperidol Lactate 5 mg/mL 1mL Vial ONE (09:32)
--- NOTE | 2018-04-23 15:44 | General Progress Note ---
Subjective - Review of Systems Service Date: 04/23/18 Subjective: awake and alert no distress Objective - Results Result Diagrams: 04/14/18 18:31 04/16/18 06:15 Recent Labs: Laboratory Last Values WBC 7.4 Th/cmm (4.8-10.8) 04/14/18 18:31 RBC 4.23 Mil/cmm (3.80-5.20) 04/14/18 18:31 Hgb 12.5 gm/dL (12-16) 04/14/18 18:31 Hct 37.0 % (41.0-60) L 04/14/18 18:31 MCV 87.5 fl (81-100) 04/14/18 18:31 MCH 29.6 pg (27.0-31.0) 04/14/18 18:31 MCHC Differential 33.8 pg (28.0-36.0) 04/14/18 18:31 RDW 12.4 % (11.5-20.0) 04/14/18 18:31 Plt Count 203 Th/cmm (150-400) 04/14/18 18:31 MPV 7.8 fl 04/14/18 18:31 Neutrophils % 52.7 % (40.0-80.0) 04/14/18 18:31 Lymphocytes % 38.3 % (20.0-50.0) 04/14/18 18:31 Monocytes % 6.8 % (2.0-10.0) 04/14/18 18:31 Eosinophils % 1.9 % (0.0-5.0) 04/14/18 18:31 Basophils % 0.3 % (0.0-2.0) 04/14/18 18:31 Sodium 140 mEq/L (136-145) 04/16/18 06:15 Potassium 3.1 mEq/L (3.5-5.1) L 04/16/18 06:15 Chloride 102 mEq/L (98-107) 04/16/18 06:15 Carbon Dioxide 30.3 mEq/L (21.0-31.0) 04/16/18 06:15 Anion Gap 10.8 (7.0-16.0) 04/16/18 06:15 BUN 15 mg/dL (7-25) 04/16/18 06:15 Creatinine 0.8 mg/dL (0.6-1.2) 04/16/18 06:15 Est GFR ( Amer) TNP 04/16/18 06:15 Est GFR (Non-Af Amer) TNP 04/16/18 06:15 BUN/Creatinine Ratio 18.8 04/16/18 06:15 Glucose 108 mg/dL (70-105) H 04/16/18 06:15 POC Glucose 84 MG/DL (70 - 105) 04/23/18 06:16 Calcium 8.7 mg/dL (8.6-10.3) 04/16/18 06:15 Phosphorus 3.5 mg/dL (2.5-5.0) 04/14/18 18:31 Magnesium 1.7 mg/dL (1.9-2.7) L 04/14/18 18:31 Total Bilirubin 0.4 mg/dL (0.3-1.0) 04/16/18 06:15 AST 26 U/L (13-39) 04/16/18 06:15 ALT 21 U/L (7-52) 04/16/18 06:15 Alkaline Phosphatase 43 U/L (34-104) 04/16/18 06:15 Troponin I 0.03 ng/mL (0.01-0.05) 04/14/18 18:31 Total Protein 6.1 gm/dL (6.0-8.3) 04/16/18 06:15 Albumin 3.5 gm/dL (3.7-5.3) L 04/16/18 06:15 Globulin 2.6 gm/dL 04/16/18 06:15 Albumin/Globulin Ratio 1.4 (1.0-1.8) 04/16/18 06:15 Triglycerides 58 mg/dL (<150) 04/15/18 05:45 Cholesterol 166 mg/dL (<200) 04/15/18 05:45 LDL Cholesterol Direct 86 mg/dL (75-193) 04/15/18 05:45 HDL Cholesterol 55 mg/dL (23-92) 04/15/18 05:45 Urine Source RANDOM 04/15/18 00:00 Urine Color YELLOW 04/15/18 00:00 Urine Clarity CLEAR (CLEAR) 04/15/18 00:00 Urine pH 6.5 (4.6 - 8.0) 04/15/18 00:00 Ur Specific [place] <= 1.005 (1.005-1.030) 04/15/18 00:00 Urine Protein NEGATIVE mg/dL (NEGATIVE) 04/15/18 00:00 Urine Glucose (UA) NEGATIVE mg/dL (NEGATIVE) 04/15/18 00:00 Urine Ketones NEGATIVE mg/dL (NEGATIVE) 04/15/18 00:00 Urine Blood NEGATIVE (NEGATIVE) 04/15/18 00:00 Urine Nitrate NEGATIVE (NEGATIVE) 04/15/18 00:00 Urine Bilirubin NEGATIVE (NEGATIVE) 04/15/18 00:00 Urine Urobilinogen 0.2 E.U./dL (0.2 - 1.0) 04/15/18 00:00 Ur Leukocyte Esterase NEGATIVE (NEGATIVE) 04/15/18 00:00 Urine RBC NONE SEEN /hpf (0-5) 04/15/18 00:00 Urine WBC 0-2 /hpf (0-5) 04/15/18 00:00 Ur Epithelial Cells FEW /lpf (FEW) 04/15/18 00:00 Urine Bacteria OCCASIONAL /hpf (NONE SEEN) 04/15/18 00:00 Valproic Acid 36.0 ug/mL (50.0-100.0) L 04/14/18 18:31 - Physical Exam Vitals and I&O: Vital Signs Temp 97.4 F 04/23/18 14:40 Pulse 65 04/23/18 14:40 Resp 20 04/23/18 14:40 BP 159/91 04/23/18 14:40 Pulse Ox 100 04/23/18 14:40 Intake & Output 04/22/18 04/23/18 04/23/18 18:59 06:59 18:59 Intake Total 850 240 Balance 850 240 Intake: Oral 850 240 Other: # Voids 2 Active Medications: Current Medications Acetaminophen (Tylenol) 650 mg PO Q4HR PRN PRN Reason: Pain or Fever >101 Stop: 06/14/18 00:56 Al Hydrox/Mg Hydrox/Simethicone (Maalox) 30 ml PO DAILY PRN PRN Reason: GI DISTRESS Stop: 06/14/18 00:56 Amlodipine Besylate (Norvasc) 5 mg PO DAILY [facility] Stop: 06/14/18 08:59 Last Admin: 04/23/18 08:42 Dose: 5 mg Aripiprazole (Abilify) 5 mg PO QAM [facility]; Protocol Stop: 06/22/18 08:59 Last Admin: 04/23/18 08:37 Dose: 5 mg Aspirin (Aspirin Chewable) 81 mg PO DAILY [facility] Stop: 06/14/18 08:59 Last Admin: 04/23/18 08:38 Dose: 81 mg Benztropine Mesylate (Cogentin) 1 mg PO BID [facility] Stop: 06/14/18 08:59 Last Admin: 04/23/18 08:38 Dose: 1 mg Divalproex Sodium (Depakote Dr) 125 mg PO BID [facility]; Protocol Stop: 06/14/18 08:59 Last Admin: 04/23/18 08:37 Dose: 125 mg Docusate Sodium (Colace) 250 mg PO DAILY [facility] Stop: 06/14/18 08:59 Last Admin: 04/23/18 08:38 Dose: 250 mg Glipizide (Glucotrol) 5 mg PO BIDAC [facility] Stop: 06/14/18 07:29 Last Admin: 04/23/18 06:43 Dose: 5 mg Insulin Aspart (Novolog Insulin Sliding Scale) 0 units SUBQ ACHS [facility]; Protocol Stop: 06/14/18 07:29 Last Admin: 04/23/18 11:23 Dose: Not Given Insulin Detemir (Levemir Insulin) 10 units SUBQ HS [facility]; Protocol Stop: 06/14/18 20:59 Last Admin: 04/22/18 20:36 Dose: 10 units Losartan Potassium (Cozaar) 50 mg PO DAILY [facility] Stop: 06/14/18 08:59 Last Admin: 04/23/18 08:43 Dose: 50 mg Magnesium Hydroxide (Milk Of Magnesia) 30 ml PO DAILY PRN PRN Reason: Constipation Stop: 06/14/18 00:56 Metformin HCl (Glucophage) 500 mg PO BID [facility] Stop: 06/14/18 08:59 Last Admin: 04/23/18 08:38 Dose: 500 mg Metoprolol Tartrate (Lopressor) 50 mg PO BID [facility] Stop: 06/14/18 08:59 Last Admin: 04/23/18 08:37 Dose: 50 mg Pantoprazole Sodium (Protonix) 40 mg PO QDAC [facility] Stop: 06/14/18 07:29 Last Admin: 04/23/18 06:44 Dose: 40 mg Quetiapine Fumarate (Seroquel) 100 mg PO HS [facility]; Protocol Stop: 06/22/18 20:59 General: No acute distress HEENT: Atraumatic, PERRLA Neck: Supple, JVD Cardiovascular: Regular rate, Normal S1, Normal S2 Lungs: Clear to auscultation Abdomen: Bowel sounds, Soft Assessment/Plan - Problem List Patient Problems: All Active Problems AGITATION AND CHEST PAIN (Acute) - Assessment Assessment: 1.HTN. 2.DEMENTIA. 3.PSYCHSIS. - Plan Plan: continue current treatment Nutritional Asmnt/Malnutr-PDOC - Dietary Evaluation Malnutrition Findings (Please click <Entered> for more info): Nutritional Asmnt/Malnutrition Start: 04/18/18 13: 59 Text: Status: Complete Freq: Protocol: Document 04/18/18 13:59 LCHENG (Rec: 04/18/18 14:10 [email or web address] [id number]) Nutritional Asmnt/Malnutrition Patient General Information Nutritional Screening Moderate Risk Diagnosis psychosis NOS Pertinent Medical Hx/Surgical Hx HTN, DM, DJD, dementia Subjective Information Pt seen lying in bed at time of visit, awake and alert. Pt stated food is good, she wants 2% milk instead of fat free milk, does not eat pork, would like water with breakfast. Per EMR, PO intake 100%. Current Diet Order/ Nutrition Support CCHO 60gm, mech soft ground Pertinent Medications colace, glucotrol, novolog, levemir, glucophage, protonix, seroquel Pertinent Labs 04/17-04/18 POC 119-122 04/16 K 3.1, glucose 108, POC 103-147 Nutritional Hx/Data Height 1.57 m Height (Calculated Centimeters) 157.5 Current Weight (lbs) 77.564 kg Weight (Calculated Kilograms) 77.6 Weight (Calculated Grams) 43641.3 [place] Body Weight 110 Body Mass Index (BMI) 31.2 Weight Status Obese GI Symptoms GI Symptoms None Last BM 04/17 Difficult in: None Skin Integrity/Comment: dryness Current %PO Good (75-100%) Estimated Nutritional Goals BEE in Kcals: Adj wt of IBW Calories/Kcals/Kg 25-30 adj wt 57kg Kcals Calculated 1500-5602 Protein: Adj wt of IBW Protein g/k Protein Calculated 57 Fluid: ml 1425-1710ml (1ml/kcal) Nutritional Problem No current Nutrition Prob Problem N/A Intervention/Recommendation Comments 1. Continue with [facility] soft ground diet as ordered. Diet preference updated. 2. Monitor PO intake, wt, labs and skin integrity 3. F/U as low risk in 7 days, 04/25 Expected Outcomes/Goals Expected Outcomes/Goals 1. PO intake to meet at least 75% of nutritional needs. 2. Wt stability, skin to remain intact, labs to approach WNL.
--- NOTE | 2018-04-23 16:38 | Progress Notes ---
DATE: 04/23/2018 SUBJECTIVE: Case was discussed with staff of the patient, reviewed records. The patient was acting out this morning, had to be medicated with Haldol, Ativan and Benadryl. Continues to have poor insight, delusional. Continues to be unable to make safe plan for self-care, unpredictable, impulsive, needing redirection. I will be increasing her Seroquel 200 mg at bedtime to help improve her psychotic symptoms, delusional, psychotic behavior. So far she has been compliant with the medication with no side effects, no sedation, no nausea, no extrapyramidal symptoms and we will continue to work with the patient in group therapy, milieu therapy, adjust medication as needed. [facility]# [id number]
[2018-04-23] MEDS: Insulin Detemir 100 units/mL 10mL Vial SUBQ SCH (20:49)
[2018-04-24] MEDS: Pantoprazole 40 mg EC Tab PO SCH (06:43)
[2018-04-24] MEDS: INSULIN ASPART SLIDING SCALE 100 UNITS/ML UNIT SUBQ SCH ×4 (06:44→21:58)
[2018-04-24] MEDS: Benztropine 1 MG TAB PO SCH ×2 (09:27→16:58)
[2018-04-24] MEDS: Aspirin 81mg Chewable Tab PO SCH (09:27)
[2018-04-24] MEDS: Multivitamin w/ Minerals Tab PO SCH (09:30)
--- NOTE | 2018-04-24 20:42 | Internal Medicine Prog Note ---
Internal Medicine Subjective - Subjective Service Date: 04/24/18 Patient seen and examined:: with staff Patient is:: awake, verbal, in bed, confused Per staff patient has:: no adverse event Internal Medicine Objective - Results Result Diagrams: 04/14/18 18:31 04/16/18 06:15 Recent Labs: Laboratory Last Values WBC 7.4 Th/cmm (4.8-10.8) 04/14/18 18:31 RBC 4.23 Mil/cmm (3.80-5.20) 04/14/18 18:31 Hgb 12.5 gm/dL (12-16) 04/14/18 18:31 Hct 37.0 % (41.0-60) L 04/14/18 18:31 MCV 87.5 fl (81-100) 04/14/18 18:31 MCH 29.6 pg (27.0-31.0) 04/14/18 18:31 MCHC Differential 33.8 pg (28.0-36.0) 04/14/18 18:31 RDW 12.4 % (11.5-20.0) 04/14/18 18:31 Plt Count 203 Th/cmm (150-400) 04/14/18 18:31 MPV 7.8 fl 04/14/18 18:31 Neutrophils % 52.7 % (40.0-80.0) 04/14/18 18:31 Lymphocytes % 38.3 % (20.0-50.0) 04/14/18 18:31 Monocytes % 6.8 % (2.0-10.0) 04/14/18 18:31 Eosinophils % 1.9 % (0.0-5.0) 04/14/18 18:31 Basophils % 0.3 % (0.0-2.0) 04/14/18 18:31 Sodium 140 mEq/L (136-145) 04/16/18 06:15 Potassium 3.1 mEq/L (3.5-5.1) L 04/16/18 06:15 Chloride 102 mEq/L (98-107) 04/16/18 06:15 Carbon Dioxide 30.3 mEq/L (21.0-31.0) 04/16/18 06:15 Anion Gap 10.8 (7.0-16.0) 04/16/18 06:15 BUN 15 mg/dL (7-25) 04/16/18 06:15 Creatinine 0.8 mg/dL (0.6-1.2) 04/16/18 06:15 Est GFR ( Amer) TNP 04/16/18 06:15 Est GFR (Non-Af Amer) TNP 04/16/18 06:15 BUN/Creatinine Ratio 18.8 04/16/18 06:15 Glucose 108 mg/dL (70-105) H 04/16/18 06:15 POC Glucose 94 MG/DL (70 - 105) 04/24/18 06:31 Calcium 8.7 mg/dL (8.6-10.3) 04/16/18 06:15 Phosphorus 3.5 mg/dL (2.5-5.0) 04/14/18 18:31 Magnesium 1.7 mg/dL (1.9-2.7) L 04/14/18 18:31 Total Bilirubin 0.4 mg/dL (0.3-1.0) 04/16/18 06:15 AST 26 U/L (13-39) 04/16/18 06:15 ALT 21 U/L (7-52) 04/16/18 06:15 Alkaline Phosphatase 43 U/L (34-104) 04/16/18 06:15 Troponin I 0.03 ng/mL (0.01-0.05) 04/14/18 18:31 Total Protein 6.1 gm/dL (6.0-8.3) 04/16/18 06:15 Albumin 3.5 gm/dL (3.7-5.3) L 04/16/18 06:15 Globulin 2.6 gm/dL 04/16/18 06:15 Albumin/Globulin Ratio 1.4 (1.0-1.8) 04/16/18 06:15 Triglycerides 58 mg/dL (<150) 04/15/18 05:45 Cholesterol 166 mg/dL (<200) 04/15/18 05:45 LDL Cholesterol Direct 86 mg/dL (75-193) 04/15/18 05:45 HDL Cholesterol 55 mg/dL (23-92) 04/15/18 05:45 Urine Source RANDOM 04/15/18 00:00 Urine Color YELLOW 04/15/18 00:00 Urine Clarity CLEAR (CLEAR) 04/15/18 00:00 Urine pH 6.5 (4.6 - 8.0) 04/15/18 00:00 Ur Specific [place] <= 1.005 (1.005-1.030) 04/15/18 00:00 Urine Protein NEGATIVE mg/dL (NEGATIVE) 04/15/18 00:00 Urine Glucose (UA) NEGATIVE mg/dL (NEGATIVE) 04/15/18 00:00 Urine Ketones NEGATIVE mg/dL (NEGATIVE) 04/15/18 00:00 Urine Blood NEGATIVE (NEGATIVE) 04/15/18 00:00 Urine Nitrate NEGATIVE (NEGATIVE) 04/15/18 00:00 Urine Bilirubin NEGATIVE (NEGATIVE) 04/15/18 00:00 Urine Urobilinogen 0.2 E.U./dL (0.2 - 1.0) 04/15/18 00:00 Ur Leukocyte Esterase NEGATIVE (NEGATIVE) 04/15/18 00:00 Urine RBC NONE SEEN /hpf (0-5) 04/15/18 00:00 Urine WBC 0-2 /hpf (0-5) 04/15/18 00:00 Ur Epithelial Cells FEW /lpf (FEW) 04/15/18 00:00 Urine Bacteria OCCASIONAL /hpf (NONE SEEN) 04/15/18 00:00 Valproic Acid 11.4 ug/mL (50.0-100.0) L 04/24/18 13:15 - Physical Exam Vitals and I&O: Vital Signs Temp 98.3 F 04/24/18 14:00 Pulse 54 04/24/18 18:00 Resp 18 04/24/18 14:00 BP 123/69 04/24/18 18:00 Pulse Ox 97 04/24/18 14:00 Intake & Output 04/24/18 04/24/18 04/25/18 06:59 18:59 06:59 Intake Total 420 1600 Balance 420 1600 Intake: Oral 420 1600 Other: # Voids 1 4 # Bowel Movements 0 0 Active Medications: Current Medications Acetaminophen (Tylenol) 650 mg PO Q4HR PRN PRN Reason: Pain or Fever >101 Stop: 06/14/18 00:56 Al Hydrox/Mg Hydrox/Simethicone (Maalox) 30 ml PO DAILY PRN PRN Reason: GI DISTRESS Stop: 06/14/18 00:56 Amlodipine Besylate (Norvasc) 5 mg PO DAILY [facility] Stop: 06/14/18 08:59 Last Admin: 04/24/18 09:26 Dose: 5 mg Aripiprazole (Abilify) 5 mg PO QAM [facility]; Protocol Stop: 06/22/18 08:59 Last Admin: 04/24/18 09:27 Dose: 5 mg Aspirin (Aspirin Chewable) 81 mg PO DAILY [facility] Stop: 06/14/18 08:59 Last Admin: 04/24/18 09:27 Dose: 81 mg Benztropine Mesylate (Cogentin) 1 mg PO BID [facility] Stop: 06/14/18 08:59 Last Admin: 04/24/18 16:58 Dose: 1 mg Divalproex Sodium (Depakote Dr) 125 mg PO BID [facility]; Protocol Stop: 06/14/18 08:59 Last Admin: 04/24/18 16:59 Dose: 125 mg Docusate Sodium (Colace) 250 mg PO DAILY [facility] Stop: 06/14/18 08:59 Last Admin: 04/24/18 09:28 Dose: 250 mg Glipizide (Glucotrol) 5 mg PO BIDAC [facility] Stop: 06/14/18 07:29 Last Admin: 04/24/18 16:58 Dose: 5 mg Insulin Aspart (Novolog Insulin Sliding Scale) 0 units SUBQ ACHS [facility]; Protocol Stop: 06/14/18 07:29 Last Admin: 04/24/18 16:58 Dose: Not Given Insulin Detemir (Levemir Insulin) 10 units SUBQ HS [facility]; Protocol Stop: 06/14/18 20:59 Last Admin: 04/23/18 20:49 Dose: 10 units Lorazepam (Ativan) 0.5 mg PO Q4HR PRN; Protocol PRN Reason: Agitation Stop: 06/23/18 06:03 Last Admin: 04/24/18 11:09 Dose: 0.5 mg Losartan Potassium (Cozaar) 50 mg PO DAILY [facility] Stop: 06/14/18 08:59 Last Admin: 04/24/18 09:28 Dose: 50 mg Magnesium Hydroxide (Milk Of Magnesia) 30 ml PO DAILY PRN PRN Reason: Constipation Stop: 06/14/18 00:56 Metformin HCl (Glucophage) 500 mg PO BID [facility] Stop: 06/14/18 08:59 Last Admin: 04/24/18 16:59 Dose: 500 mg Metoprolol Tartrate (Lopressor) 50 mg PO BID [facility] Stop: 06/14/18 08:59 Last Admin: 04/24/18 17:02 Dose: 50 mg Pantoprazole Sodium (Protonix) 40 mg PO QDAC [facility] Stop: 06/14/18 07:29 Last Admin: 04/24/18 06:43 Dose: 40 mg Quetiapine Fumarate (Seroquel) 100 mg PO HS [facility]; Protocol Stop: 06/22/18 20:59 Last Admin: 04/23/18 20:42 Dose: 100 mg General: demented HEENT: NC/AT, PERRLA, EOMI, anicteric sclerae, throat clear Neck: Supple, No JVD, No thyromegaly, +2 carotid pulse wo bruit, No LAD Lungs: CTAB Cardiovascular: RRR, Normal S1, Normal S2, without murmur Abdomen: soft, non-tender, non-distended Extremities: clear Neurological: no change Internal Medicine Assmt/Plan - Assessment Assessment: 1.DM. 2.HTN. 3.DJD. 4.DEMENTIA. 5.PSYCHOSIS. - Plan Plan: CONTINUE ON CURRENT MEDICATION AND DIET. Nutritional Asmnt/Malnutr-PDOC - Dietary Evaluation Malnutrition Findings (Please click <Entered> for more info): Nutritional Asmnt/Malnutrition Start: 04/18/18 13: 59 Text: Status: Complete Freq: Protocol: Document 04/18/18 13:59 LCHENG (Rec: 04/18/18 14:10 [id number]) Nutritional Asmnt/Malnutrition Patient General Information Nutritional Screening Moderate Risk Diagnosis psychosis NOS Pertinent Medical Hx/Surgical Hx HTN, DM, DJD, dementia Subjective Information Pt seen lying in bed at time of visit, awake and alert. Pt stated food is good, she wants 2% milk instead of fat free milk, does not eat pork, would like water with breakfast. Per EMR, PO intake 100%. Current Diet Order/ Nutrition Support CCHO 60gm, mech soft ground Pertinent Medications colace, glucotrol, novolog, levemir, glucophage, protonix, seroquel Pertinent Labs 04/17-04/18 POC 119-122 04/16 K 3.1, glucose 108, POC 103-147 Nutritional Hx/Data Height 1.57 m Height (Calculated Centimeters) 157.5 Current Weight (lbs) 77.564 kg Weight (Calculated Kilograms) 77.6 Weight (Calculated Grams) 23660.3 [place] Body Weight 110 Body Mass Index (BMI) 31.2 Weight Status Obese GI Symptoms GI Symptoms None Last BM 04/17 Difficult in: None Skin Integrity/Comment: dryness Current %PO Good (75-100%) Estimated Nutritional Goals BEE in Kcals: Adj wt of IBW Calories/Kcals/Kg 25-30 adj wt 57kg Kcals Calculated 5710-0688 Protein: Adj wt of IBW Protein g/k Protein Calculated 57 Fluid: ml 1425-1710ml (1ml/kcal) Nutritional Problem No current Nutrition Prob Problem N/A Intervention/Recommendation Comments 1. Continue with [facility] soft ground diet as ordered. Diet preference updated. 2. Monitor PO intake, wt, labs and skin integrity 3. F/U as low risk in 7 days, 04/25 Expected Outcomes/Goals Expected Outcomes/Goals 1. PO intake to meet at least 75% of nutritional needs. 2. Wt stability, skin to remain intact, labs to approach WNL.
[2018-04-24] MEDS: Insulin Detemir 100 units/mL 10mL Vial SUBQ SCH (21:58)
--- NOTE | 2018-04-25 00:28 | Progress Notes ---
DATE: 04/24/2018 Case was discussed with staff of the patient, reviewed records. The patient has been acting out, has been delusional, believes she has 195 children. Continues to be unable to make safe plan for self-care. I did increase Abilify dose yesterday, so it is too early to make further adjustment. No side effects with the medication, no sedation, no nausea, no extrapyramidal symptoms. I will be checking her Depakote level and we will continue to work with the patient in group therapy, milieu therapy, and adjust the medication as needed. JOB# [id number]
[2018-04-25] MEDS: INSULIN ASPART SLIDING SCALE 100 UNITS/ML UNIT SUBQ SCH ×4 (07:02→21:10)
[2018-04-25] MEDS: Pantoprazole 40 mg EC Tab PO SCH (07:10)
[2018-04-25] MEDS: Aspirin 81mg Chewable Tab PO SCH (09:29)
[2018-04-25] MEDS: Multivitamin w/ Minerals Tab PO SCH (09:30)
[2018-04-25] MEDS: Benztropine 1 MG TAB PO SCH ×2 (09:31→17:52)
--- NOTE | 2018-04-25 15:23 | Progress Notes ---
DATE: 04/25/2018 Case was discussed with staff of the patient, reviewed records. The patient's level of Depakote was very low at 11.1 and that may explain some of her poor response that she is still delusional. Continues to be unable to make safe plan for self-care. Continues to be unpredictable, impulsive, needing redirection. I will be changing her Depakote to liquid Depakene and so we will change her to liquid to Depakene and we will continue to work with the patient in group therapy, milieu therapy, adjust medication as needed. JOB# [id number]
--- NOTE | 2018-04-25 19:27 | Internal Medicine Prog Note ---
Internal Medicine Subjective - Subjective Service Date: 04/25/18 Patient seen and examined:: with staff Patient is:: awake, verbal, in bed, confused Per staff patient has:: no adverse event Internal Medicine Objective - Results Result Diagrams: 04/14/18 18:31 04/16/18 06:15 Recent Labs: Laboratory Last Values WBC 7.4 Th/cmm (4.8-10.8) 04/14/18 18:31 RBC 4.23 Mil/cmm (3.80-5.20) 04/14/18 18:31 Hgb 12.5 gm/dL (12-16) 04/14/18 18:31 Hct 37.0 % (41.0-60) L 04/14/18 18:31 MCV 87.5 fl (81-100) 04/14/18 18:31 MCH 29.6 pg (27.0-31.0) 04/14/18 18:31 MCHC Differential 33.8 pg (28.0-36.0) 04/14/18 18:31 RDW 12.4 % (11.5-20.0) 04/14/18 18:31 Plt Count 203 Th/cmm (150-400) 04/14/18 18:31 MPV 7.8 fl 04/14/18 18:31 Neutrophils % 52.7 % (40.0-80.0) 04/14/18 18:31 Lymphocytes % 38.3 % (20.0-50.0) 04/14/18 18:31 Monocytes % 6.8 % (2.0-10.0) 04/14/18 18:31 Eosinophils % 1.9 % (0.0-5.0) 04/14/18 18:31 Basophils % 0.3 % (0.0-2.0) 04/14/18 18:31 Sodium 140 mEq/L (136-145) 04/16/18 06:15 Potassium 3.1 mEq/L (3.5-5.1) L 04/16/18 06:15 Chloride 102 mEq/L (98-107) 04/16/18 06:15 Carbon Dioxide 30.3 mEq/L (21.0-31.0) 04/16/18 06:15 Anion Gap 10.8 (7.0-16.0) 04/16/18 06:15 BUN 15 mg/dL (7-25) 04/16/18 06:15 Creatinine 0.8 mg/dL (0.6-1.2) 04/16/18 06:15 Est GFR ( Amer) TNP 04/16/18 06:15 Est GFR (Non-Af Amer) TNP 04/16/18 06:15 BUN/Creatinine Ratio 18.8 04/16/18 06:15 Glucose 108 mg/dL (70-105) H 04/16/18 06:15 POC Glucose 94 MG/DL (70 - 105) 04/24/18 06:31 Calcium 8.7 mg/dL (8.6-10.3) 04/16/18 06:15 Phosphorus 3.5 mg/dL (2.5-5.0) 04/14/18 18:31 Magnesium 1.7 mg/dL (1.9-2.7) L 04/14/18 18:31 Total Bilirubin 0.4 mg/dL (0.3-1.0) 04/16/18 06:15 AST 26 U/L (13-39) 04/16/18 06:15 ALT 21 U/L (7-52) 04/16/18 06:15 Alkaline Phosphatase 43 U/L (34-104) 04/16/18 06:15 Troponin I 0.03 ng/mL (0.01-0.05) 04/14/18 18:31 Total Protein 6.1 gm/dL (6.0-8.3) 04/16/18 06:15 Albumin 3.5 gm/dL (3.7-5.3) L 04/16/18 06:15 Globulin 2.6 gm/dL 04/16/18 06:15 Albumin/Globulin Ratio 1.4 (1.0-1.8) 04/16/18 06:15 Triglycerides 58 mg/dL (<150) 04/15/18 05:45 Cholesterol 166 mg/dL (<200) 04/15/18 05:45 LDL Cholesterol Direct 86 mg/dL (75-193) 04/15/18 05:45 HDL Cholesterol 55 mg/dL (23-92) 04/15/18 05:45 Urine Source RANDOM 04/15/18 00:00 Urine Color YELLOW 04/15/18 00:00 Urine Clarity CLEAR (CLEAR) 04/15/18 00:00 Urine pH 6.5 (4.6 - 8.0) 04/15/18 00:00 Ur Specific [place] <= 1.005 (1.005-1.030) 04/15/18 00:00 Urine Protein NEGATIVE mg/dL (NEGATIVE) 04/15/18 00:00 Urine Glucose (UA) NEGATIVE mg/dL (NEGATIVE) 04/15/18 00:00 Urine Ketones NEGATIVE mg/dL (NEGATIVE) 04/15/18 00:00 Urine Blood NEGATIVE (NEGATIVE) 04/15/18 00:00 Urine Nitrate NEGATIVE (NEGATIVE) 04/15/18 00:00 Urine Bilirubin NEGATIVE (NEGATIVE) 04/15/18 00:00 Urine Urobilinogen 0.2 E.U./dL (0.2 - 1.0) 04/15/18 00:00 Ur Leukocyte Esterase NEGATIVE (NEGATIVE) 04/15/18 00:00 Urine RBC NONE SEEN /hpf (0-5) 04/15/18 00:00 Urine WBC 0-2 /hpf (0-5) 04/15/18 00:00 Ur Epithelial Cells FEW /lpf (FEW) 04/15/18 00:00 Urine Bacteria OCCASIONAL /hpf (NONE SEEN) 04/15/18 00:00 Valproic Acid 11.4 ug/mL (50.0-100.0) L 04/24/18 13:15 - Physical Exam Vitals and I&O: Vital Signs Temp 96.8 F 04/25/18 18:19 Pulse 98 04/25/18 18:19 Resp 18 04/25/18 18:19 BP 132/61 04/25/18 18:19 Pulse Ox 99 04/25/18 18:19 Intake & Output 04/25/18 04/25/18 04/26/18 06:59 18:59 06:59 Intake Total 240 Balance 240 Intake: Oral 240 Other: # Voids 2 Active Medications: Current Medications Acetaminophen (Tylenol) 650 mg PO Q4HR PRN PRN Reason: Pain or Fever >101 Stop: 06/14/18 00:56 Al Hydrox/Mg Hydrox/Simethicone (Maalox) 30 ml PO DAILY PRN PRN Reason: GI DISTRESS Stop: 06/14/18 00:56 Amlodipine Besylate (Norvasc) 5 mg PO DAILY [facility] Stop: 06/14/18 08:59 Last Admin: 04/25/18 09:29 Dose: 5 mg Aripiprazole (Abilify) 5 mg PO QAM [facility]; Protocol Stop: 06/22/18 08:59 Last Admin: 04/25/18 09:30 Dose: 5 mg Aspirin (Aspirin Chewable) 81 mg PO DAILY [facility] Stop: 06/14/18 08:59 Last Admin: 04/25/18 09:29 Dose: 81 mg Benztropine Mesylate (Cogentin) 1 mg PO BID [facility] Stop: 06/14/18 08:59 Last Admin: 04/25/18 17:52 Dose: 1 mg Docusate Sodium (Colace) 250 mg PO DAILY [facility] Stop: 06/14/18 08:59 Last Admin: 04/25/18 09:31 Dose: 250 mg Glipizide (Glucotrol) 5 mg PO BIDAC [facility] Stop: 06/14/18 07:29 Last Admin: 04/25/18 16:53 Dose: 5 mg Insulin Aspart (Novolog Insulin Sliding Scale) 0 units SUBQ ACHS [facility]; Protocol Stop: 06/14/18 07:29 Last Admin: 04/25/18 16:59 Dose: Not Given Insulin Detemir (Levemir Insulin) 10 units SUBQ HS [facility]; Protocol Stop: 06/14/18 20:59 Last Admin: 04/24/18 21:58 Dose: 10 units Lorazepam (Ativan) 0.5 mg PO Q4HR PRN; Protocol PRN Reason: Agitation Stop: 06/23/18 06:03 Last Admin: 04/24/18 21:44 Dose: 0.5 mg Losartan Potassium (Cozaar) 50 mg PO DAILY [facility] Stop: 06/14/18 08:59 Last Admin: 04/25/18 09:34 Dose: Not Given Magnesium Hydroxide (Milk Of Magnesia) 30 ml PO DAILY PRN PRN Reason: Constipation Stop: 06/14/18 00:56 Metformin HCl (Glucophage) 500 mg PO BID [facility] Stop: 06/14/18 08:59 Last Admin: 04/25/18 17:52 Dose: 500 mg Metoprolol Tartrate (Lopressor) 50 mg PO BID [facility] Stop: 06/14/18 08:59 Last Admin: 04/25/18 17:53 Dose: 50 mg Pantoprazole Sodium (Protonix) 40 mg PO QDAC [facility] Stop: 06/14/18 07:29 Last Admin: 04/25/18 07:10 Dose: Not Given Quetiapine Fumarate (Seroquel) 100 mg PO HS [facility]; Protocol Stop: 06/22/18 20:59 Last Admin: 04/24/18 21:44 Dose: 100 mg Valproate Sodium (Depakene) 250 mg PO BID [facility]; Protocol Stop: 06/24/18 16:59 Last Admin: 04/25/18 17:52 Dose: 250 mg General: demented HEENT: NC/AT, PERRLA, EOMI, anicteric sclerae, throat clear Neck: Supple, No JVD, No thyromegaly, +2 carotid pulse wo bruit, No LAD Lungs: CTAB Cardiovascular: RRR, Normal S1, Normal S2, without murmur Abdomen: soft, non-tender, non-distended Extremities: clear Neurological: no change Internal Medicine Assmt/Plan - Assessment Assessment: 1.DM. 2.HTN. 3.DJD. 4.DEMENTIA. 5.PSYCHOSIS. - Plan Plan: CONTINUE ON CURRENT MEDICATION AND DIET. Nutritional Asmnt/Malnutr-PDOC - Dietary Evaluation Malnutrition Findings (Please click <Entered> for more info): Nutritional Asmnt/Malnutrition Start: 04/18/18 13: 59 Text: Status: Complete Freq: Protocol: Document 04/18/18 13:59 LCHENG (Rec: 04/18/18 14:10 LCHENG [email or web address]) Nutritional Asmnt/Malnutrition Patient General Information Nutritional Screening Moderate Risk Diagnosis psychosis NOS Pertinent Medical Hx/Surgical Hx HTN, DM, DJD, dementia Subjective Information Pt seen lying in bed at time of visit, awake and alert. Pt stated food is good, she wants 2% milk instead of fat free milk, does not eat pork, would like water with breakfast. Per EMR, PO intake 100%. Current Diet Order/ Nutrition Support CCHO 60gm, mech soft ground Pertinent Medications colace, glucotrol, novolog, levemir, glucophage, protonix, seroquel Pertinent Labs 04/17-04/18 POC 119-122 04/16 K 3.1, glucose 108, POC 103-147 Nutritional Hx/Data Height 1.57 m Height (Calculated Centimeters) 157.5 Current Weight (lbs) 77.564 kg Weight (Calculated Kilograms) 77.6 Weight (Calculated Grams) 53515.3 [place] Body Weight 110 Body Mass Index (BMI) 31.2 Weight Status Obese GI Symptoms GI Symptoms None Last BM 04/17 Difficult in: None Skin Integrity/Comment: dryness Current %PO Good (75-100%) Estimated Nutritional Goals BEE in Kcals: Adj wt of IBW Calories/Kcals/Kg 25-30 adj wt 57kg Kcals Calculated 8591-8050 Protein: Adj wt of IBW Protein g/k Protein Calculated 57 Fluid: ml 1425-1710ml (1ml/kcal) Nutritional Problem No current Nutrition Prob Problem N/A Intervention/Recommendation Comments 1. Continue with [facility] soft ground diet as ordered. Diet preference updated. 2. Monitor PO intake, wt, labs and skin integrity 3. F/U as low risk in 7 days, 04/25 Expected Outcomes/Goals Expected Outcomes/Goals 1. PO intake to meet at least 75% of nutritional needs. 2. Wt stability, skin to remain intact, labs to approach WNL.
[2018-04-25] MEDS: Insulin Detemir 100 units/mL 10mL Vial SUBQ SCH (21:09)
[2018-04-26] MEDS: Pantoprazole 40 mg EC Tab PO SCH (06:34)
[2018-04-26] MEDS: INSULIN ASPART SLIDING SCALE 100 UNITS/ML UNIT SUBQ SCH ×4 (06:45→20:27)
[2018-04-26] MEDS: Aspirin 81mg Chewable Tab PO SCH (08:15)
[2018-04-26] MEDS: Multivitamin w/ Minerals Tab PO SCH (08:16)
[2018-04-26] MEDS: Benztropine 1 MG TAB PO SCH ×2 (08:17→17:05)
[2018-04-26] MEDS: Insulin Detemir 100 units/mL 10mL Vial SUBQ SCH (20:24)
--- NOTE | 2018-04-26 20:24 | Internal Medicine Prog Note ---
Internal Medicine Subjective - Subjective Service Date: 04/26/18 Patient seen and examined:: with staff Patient is:: awake, verbal, in bed, confused Per staff patient has:: no adverse event Internal Medicine Objective - Results Result Diagrams: 04/14/18 18:31 04/16/18 06:15 Recent Labs: Laboratory Last Values WBC 7.4 Th/cmm (4.8-10.8) 04/14/18 18:31 RBC 4.23 Mil/cmm (3.80-5.20) 04/14/18 18:31 Hgb 12.5 gm/dL (12-16) 04/14/18 18:31 Hct 37.0 % (41.0-60) L 04/14/18 18:31 MCV 87.5 fl (81-100) 04/14/18 18:31 MCH 29.6 pg (27.0-31.0) 04/14/18 18:31 MCHC Differential 33.8 pg (28.0-36.0) 04/14/18 18:31 RDW 12.4 % (11.5-20.0) 04/14/18 18:31 Plt Count 203 Th/cmm (150-400) 04/14/18 18:31 MPV 7.8 fl 04/14/18 18:31 Neutrophils % 52.7 % (40.0-80.0) 04/14/18 18:31 Lymphocytes % 38.3 % (20.0-50.0) 04/14/18 18:31 Monocytes % 6.8 % (2.0-10.0) 04/14/18 18:31 Eosinophils % 1.9 % (0.0-5.0) 04/14/18 18:31 Basophils % 0.3 % (0.0-2.0) 04/14/18 18:31 Sodium 140 mEq/L (136-145) 04/16/18 06:15 Potassium 3.1 mEq/L (3.5-5.1) L 04/16/18 06:15 Chloride 102 mEq/L (98-107) 04/16/18 06:15 Carbon Dioxide 30.3 mEq/L (21.0-31.0) 04/16/18 06:15 Anion Gap 10.8 (7.0-16.0) 04/16/18 06:15 BUN 15 mg/dL (7-25) 04/16/18 06:15 Creatinine 0.8 mg/dL (0.6-1.2) 04/16/18 06:15 Est GFR ( Amer) TNP 04/16/18 06:15 Est GFR (Non-Af Amer) TNP 04/16/18 06:15 BUN/Creatinine Ratio 18.8 04/16/18 06:15 Glucose 108 mg/dL (70-105) H 04/16/18 06:15 POC Glucose 123 MG/DL (70 - 105) H 04/26/18 19:58 Calcium 8.7 mg/dL (8.6-10.3) 04/16/18 06:15 Phosphorus 3.5 mg/dL (2.5-5.0) 04/14/18 18:31 Magnesium 1.7 mg/dL (1.9-2.7) L 04/14/18 18:31 Total Bilirubin 0.4 mg/dL (0.3-1.0) 04/16/18 06:15 AST 26 U/L (13-39) 04/16/18 06:15 ALT 21 U/L (7-52) 04/16/18 06:15 Alkaline Phosphatase 43 U/L (34-104) 04/16/18 06:15 Troponin I 0.03 ng/mL (0.01-0.05) 04/14/18 18:31 Total Protein 6.1 gm/dL (6.0-8.3) 04/16/18 06:15 Albumin 3.5 gm/dL (3.7-5.3) L 04/16/18 06:15 Globulin 2.6 gm/dL 04/16/18 06:15 Albumin/Globulin Ratio 1.4 (1.0-1.8) 04/16/18 06:15 Triglycerides 58 mg/dL (<150) 04/15/18 05:45 Cholesterol 166 mg/dL (<200) 04/15/18 05:45 LDL Cholesterol Direct 86 mg/dL (75-193) 04/15/18 05:45 HDL Cholesterol 55 mg/dL (23-92) 04/15/18 05:45 Urine Source RANDOM 04/15/18 00:00 Urine Color YELLOW 04/15/18 00:00 Urine Clarity CLEAR (CLEAR) 04/15/18 00:00 Urine pH 6.5 (4.6 - 8.0) 04/15/18 00:00 Ur Specific [place] <= 1.005 (1.005-1.030) 04/15/18 00:00 Urine Protein NEGATIVE mg/dL (NEGATIVE) 04/15/18 00:00 Urine Glucose (UA) NEGATIVE mg/dL (NEGATIVE) 04/15/18 00:00 Urine Ketones NEGATIVE mg/dL (NEGATIVE) 04/15/18 00:00 Urine Blood NEGATIVE (NEGATIVE) 04/15/18 00:00 Urine Nitrate NEGATIVE (NEGATIVE) 04/15/18 00:00 Urine Bilirubin NEGATIVE (NEGATIVE) 04/15/18 00:00 Urine Urobilinogen 0.2 E.U./dL (0.2 - 1.0) 04/15/18 00:00 Ur Leukocyte Esterase NEGATIVE (NEGATIVE) 04/15/18 00:00 Urine RBC NONE SEEN /hpf (0-5) 04/15/18 00:00 Urine WBC 0-2 /hpf (0-5) 04/15/18 00:00 Ur Epithelial Cells FEW /lpf (FEW) 04/15/18 00:00 Urine Bacteria OCCASIONAL /hpf (NONE SEEN) 04/15/18 00:00 Valproic Acid 11.4 ug/mL (50.0-100.0) L 04/24/18 13:15 - Physical Exam Vitals and I&O: Vital Signs Temp 97.8 F 04/26/18 14:00 Pulse 58 04/26/18 18:07 Resp 18 04/26/18 14:00 BP 129/57 04/26/18 18:07 Pulse Ox 87 04/26/18 14:00 Intake & Output 04/26/18 04/26/18 04/27/18 06:59 18:59 06:59 Intake Total 280 900 Balance 280 900 Intake: Oral 280 900 Other: # Voids 2 3 # Bowel Movements 0 1 Active Medications: Current Medications Acetaminophen (Tylenol) 650 mg PO Q4HR PRN PRN Reason: Pain or Fever >101 Stop: 06/14/18 00:56 Al Hydrox/Mg Hydrox/Simethicone (Maalox) 30 ml PO DAILY PRN PRN Reason: GI DISTRESS Stop: 06/14/18 00:56 Amlodipine Besylate (Norvasc) 5 mg PO DAILY [facility] Stop: 06/14/18 08:59 Last Admin: 04/26/18 08:16 Dose: 5 mg Aripiprazole (Abilify) 7.5 mg PO QAM [facility]; Protocol Stop: 06/26/18 08:59 Aspirin (Aspirin Chewable) 81 mg PO DAILY [facility] Stop: 06/14/18 08:59 Last Admin: 04/26/18 08:15 Dose: 81 mg Benztropine Mesylate (Cogentin) 1 mg PO BID [facility] Stop: 06/14/18 08:59 Last Admin: 04/26/18 17:05 Dose: 1 mg Docusate Sodium (Colace) 250 mg PO DAILY [facility] Stop: 06/14/18 08:59 Last Admin: 04/26/18 08:17 Dose: 250 mg Glipizide (Glucotrol) 5 mg PO BIDAC [facility] Stop: 06/14/18 07:29 Last Admin: 04/26/18 17:08 Dose: 5 mg Insulin Aspart (Novolog Insulin Sliding Scale) 0 units SUBQ ACHS [facility]; Protocol Stop: 06/14/18 07:29 Last Admin: 04/26/18 17:04 Dose: Not Given Insulin Detemir (Levemir Insulin) 10 units SUBQ HS [facility]; Protocol Stop: 06/14/18 20:59 Last Admin: 04/25/18 21:09 Dose: 10 units Lorazepam (Ativan) 0.5 mg PO Q4HR PRN; Protocol PRN Reason: Agitation Stop: 06/23/18 06:03 Last Admin: 04/24/18 21:44 Dose: 0.5 mg Losartan Potassium (Cozaar) 50 mg PO DAILY [facility] Stop: 06/14/18 08:59 Last Admin: 04/26/18 08:16 Dose: 50 mg Magnesium Hydroxide (Milk Of Magnesia) 30 ml PO DAILY PRN PRN Reason: Constipation Stop: 06/14/18 00:56 Metformin HCl (Glucophage) 500 mg PO BID [facility] Stop: 06/14/18 08:59 Last Admin: 04/26/18 17:07 Dose: 500 mg Metoprolol Tartrate (Lopressor) 50 mg PO BID [facility] Stop: 06/14/18 08:59 Last Admin: 04/26/18 17:06 Dose: 50 mg Pantoprazole Sodium (Protonix) 40 mg PO QDAC [facility] Stop: 06/14/18 07:29 Last Admin: 04/26/18 06:34 Dose: 40 mg Quetiapine Fumarate (Seroquel) 100 mg PO HS [facility]; Protocol Stop: 06/22/18 20:59 Last Admin: 04/25/18 20:35 Dose: 100 mg Valproate Sodium (Depakene) 250 mg PO BID [facility]; Protocol Stop: 06/24/18 16:59 Last Admin: 04/26/18 17:05 Dose: 250 mg General: demented HEENT: NC/AT, PERRLA, EOMI, anicteric sclerae, throat clear Neck: Supple, No JVD, No thyromegaly, +2 carotid pulse wo bruit, No LAD Lungs: CTAB Cardiovascular: RRR, Normal S1, Normal S2, without murmur Abdomen: soft, non-tender, non-distended Extremities: clear Neurological: no change Internal Medicine Assmt/Plan - Assessment Assessment: 1.DM. 2.HTN. 3.DJD. 4.DEMENTIA. 5.PSYCHOSIS. - Plan Plan: CONTINUE ON CURRENT MEDICATION AND DIET. Nutritional Asmnt/Malnutr-PDOC - Dietary Evaluation Malnutrition Findings (Please click <Entered> for more info): Nutritional Asmnt/Malnutrition Start: 04/18/18 13: 59 Text: Status: Complete Freq: Protocol: Document 04/18/18 13:59 LCHENG (Rec: 04/18/18 14:10 LCHENG [id number]) Nutritional Asmnt/Malnutrition Patient General Information Nutritional Screening Moderate Risk Diagnosis psychosis NOS Pertinent Medical Hx/Surgical Hx HTN, DM, DJD, dementia Subjective Information Pt seen lying in bed at time of visit, awake and alert. Pt stated food is good, she wants 2% milk instead of fat free milk, does not eat pork, would like water with breakfast. Per EMR, PO intake 100%. Current Diet Order/ Nutrition Support CCHO 60gm, mech soft ground Pertinent Medications colace, glucotrol, novolog, levemir, glucophage, protonix, seroquel Pertinent Labs 04/17-04/18 POC 119-122 04/16 K 3.1, glucose 108, POC 103-147 Nutritional Hx/Data Height 1.57 m Height (Calculated Centimeters) 157.5 Current Weight (lbs) 77.564 kg Weight (Calculated Kilograms) 77.6 Weight (Calculated Grams) 41326.3 [place] Body Weight 110 Body Mass Index (BMI) 31.2 Weight Status Obese GI Symptoms GI Symptoms None Last BM 04/17 Difficult in: None Skin Integrity/Comment: dryness Current %PO Good (75-100%) Estimated Nutritional Goals BEE in Kcals: Adj wt of IBW Calories/Kcals/Kg 25-30 adj wt 57kg Kcals Calculated 7364-8174 Protein: Adj wt of IBW Protein g/k Protein Calculated 57 Fluid: ml 1425-1710ml (1ml/kcal) Nutritional Problem No current Nutrition Prob Problem N/A Intervention/Recommendation Comments 1. Continue with [facility] soft ground diet as ordered. Diet preference updated. 2. Monitor PO intake, wt, labs and skin integrity 3. F/U as low risk in 7 days, 04/25 Expected Outcomes/Goals Expected Outcomes/Goals 1. PO intake to meet at least 75% of nutritional needs. 2. Wt stability, skin to remain intact, labs to approach WNL.
--- NOTE | 2018-04-26 20:38 | Progress Notes ---
DATE: 04/26/2018 Case was discussed with staff of the patient, reviewed records. The patient continues to be unpredictable, impulsive, delusional. Continues to have poor insight. Continues to believe she has 195 children. I will be increasing Abilify to 7.5 mg at bedtime and so far no side effects to the medication, no sedation, no nausea, no extrapyramidal symptoms and continue outpatient group therapy, milieu therapy, and adjust medication as needed. JOB# [id number]
[2018-04-27] MEDS: Pantoprazole 40 mg EC Tab PO SCH (06:42)
[2018-04-27] MEDS: INSULIN ASPART SLIDING SCALE 100 UNITS/ML UNIT SUBQ SCH ×4 (06:49→20:28)
[2018-04-27] MEDS: Aspirin 81mg Chewable Tab PO SCH (08:49)
[2018-04-27] MEDS: Benztropine 1 MG TAB PO SCH ×2 (08:49→16:42)
[2018-04-27] MEDS: Multivitamin w/ Minerals Tab PO SCH (08:50)
--- NOTE | 2018-04-27 14:18 | Progress Notes ---
DATE: 04/27/2018 Case was discussed with staff of the patient, reviewed records. The patient continues to be delusional. Today, she believes that she has 155 children. She continues to have poor insight, unpredictable, impulsive, delusional, grandiose. I have increased her Abilify to 7.5 mg that was started today. No side effects with the medication, no sedation, no nausea and no extrapyramidal symptoms. She also on Seroquel 100 mg at bedtime and valproic acid 250 mg twice a day and valproic acid was low that was checked on 04/24/2018 at 11.1. So, I will be increasing the dose to 3 times a day. No side effects with the medication, no sedation, no nausea, no extrapyramidal symptoms and we will continue to work with the patient in group therapy, milieu therapy, adjust the medication as needed. JOB# [id number]
[2018-04-27] MEDS: Insulin Detemir 100 units/mL 10mL Vial SUBQ SCH (20:26)
--- NOTE | 2018-04-27 21:31 | Internal Medicine Prog Note ---
Internal Medicine Subjective - Subjective Service Date: 04/27/18 Patient seen and examined:: without staff Patient is:: awake, verbal, in bed, confused Per staff patient has:: no adverse event Internal Medicine Objective - Results Result Diagrams: 04/14/18 18:31 04/16/18 06:15 Recent Labs: Laboratory Last Values WBC 7.4 Th/cmm (4.8-10.8) 04/14/18 18:31 RBC 4.23 Mil/cmm (3.80-5.20) 04/14/18 18:31 Hgb 12.5 gm/dL (12-16) 04/14/18 18:31 Hct 37.0 % (41.0-60) L 04/14/18 18:31 MCV 87.5 fl (81-100) 04/14/18 18:31 MCH 29.6 pg (27.0-31.0) 04/14/18 18:31 MCHC Differential 33.8 pg (28.0-36.0) 04/14/18 18:31 RDW 12.4 % (11.5-20.0) 04/14/18 18:31 Plt Count 203 Th/cmm (150-400) 04/14/18 18:31 MPV 7.8 fl 04/14/18 18:31 Neutrophils % 52.7 % (40.0-80.0) 04/14/18 18:31 Lymphocytes % 38.3 % (20.0-50.0) 04/14/18 18:31 Monocytes % 6.8 % (2.0-10.0) 04/14/18 18:31 Eosinophils % 1.9 % (0.0-5.0) 04/14/18 18:31 Basophils % 0.3 % (0.0-2.0) 04/14/18 18:31 Sodium 140 mEq/L (136-145) 04/16/18 06:15 Potassium 3.1 mEq/L (3.5-5.1) L 04/16/18 06:15 Chloride 102 mEq/L (98-107) 04/16/18 06:15 Carbon Dioxide 30.3 mEq/L (21.0-31.0) 04/16/18 06:15 Anion Gap 10.8 (7.0-16.0) 04/16/18 06:15 BUN 15 mg/dL (7-25) 04/16/18 06:15 Creatinine 0.8 mg/dL (0.6-1.2) 04/16/18 06:15 Est GFR ( Amer) TNP 04/16/18 06:15 Est GFR (Non-Af Amer) TNP 04/16/18 06:15 BUN/Creatinine Ratio 18.8 04/16/18 06:15 Glucose 108 mg/dL (70-105) H 04/16/18 06:15 POC Glucose 151 MG/DL (70 - 105) H 04/27/18 19:56 Calcium 8.7 mg/dL (8.6-10.3) 04/16/18 06:15 Phosphorus 3.5 mg/dL (2.5-5.0) 04/14/18 18:31 Magnesium 1.7 mg/dL (1.9-2.7) L 04/14/18 18:31 Total Bilirubin 0.4 mg/dL (0.3-1.0) 04/16/18 06:15 AST 26 U/L (13-39) 04/16/18 06:15 ALT 21 U/L (7-52) 04/16/18 06:15 Alkaline Phosphatase 43 U/L (34-104) 04/16/18 06:15 Troponin I 0.03 ng/mL (0.01-0.05) 04/14/18 18:31 Total Protein 6.1 gm/dL (6.0-8.3) 04/16/18 06:15 Albumin 3.5 gm/dL (3.7-5.3) L 04/16/18 06:15 Globulin 2.6 gm/dL 04/16/18 06:15 Albumin/Globulin Ratio 1.4 (1.0-1.8) 04/16/18 06:15 Triglycerides 58 mg/dL (<150) 04/15/18 05:45 Cholesterol 166 mg/dL (<200) 04/15/18 05:45 LDL Cholesterol Direct 86 mg/dL (75-193) 04/15/18 05:45 HDL Cholesterol 55 mg/dL (23-92) 04/15/18 05:45 Urine Source RANDOM 04/15/18 00:00 Urine Color YELLOW 04/15/18 00:00 Urine Clarity CLEAR (CLEAR) 04/15/18 00:00 Urine pH 6.5 (4.6 - 8.0) 04/15/18 00:00 Ur Specific [place] <= 1.005 (1.005-1.030) 04/15/18 00:00 Urine Protein NEGATIVE mg/dL (NEGATIVE) 04/15/18 00:00 Urine Glucose (UA) NEGATIVE mg/dL (NEGATIVE) 04/15/18 00:00 Urine Ketones NEGATIVE mg/dL (NEGATIVE) 04/15/18 00:00 Urine Blood NEGATIVE (NEGATIVE) 04/15/18 00:00 Urine Nitrate NEGATIVE (NEGATIVE) 04/15/18 00:00 Urine Bilirubin NEGATIVE (NEGATIVE) 04/15/18 00:00 Urine Urobilinogen 0.2 E.U./dL (0.2 - 1.0) 04/15/18 00:00 Ur Leukocyte Esterase NEGATIVE (NEGATIVE) 04/15/18 00:00 Urine RBC NONE SEEN /hpf (0-5) 04/15/18 00:00 Urine WBC 0-2 /hpf (0-5) 04/15/18 00:00 Ur Epithelial Cells FEW /lpf (FEW) 04/15/18 00:00 Urine Bacteria OCCASIONAL /hpf (NONE SEEN) 04/15/18 00:00 Valproic Acid 11.4 ug/mL (50.0-100.0) L 04/24/18 13:15 - Physical Exam Vitals and I&O: Vital Signs Temp 97.7 F 04/27/18 14:00 Pulse 66 04/27/18 17:42 Resp 20 04/27/18 14:00 BP 139/76 04/27/18 17:42 Pulse Ox 99 04/27/18 14:00 Intake & Output 04/27/18 04/27/18 04/28/18 06:59 18:59 06:59 Other: # Voids 4 Active Medications: Current Medications Acetaminophen (Tylenol) 650 mg PO Q4HR PRN PRN Reason: Pain or Fever >101 Stop: 06/14/18 00:56 Al Hydrox/Mg Hydrox/Simethicone (Maalox) 30 ml PO DAILY PRN PRN Reason: GI DISTRESS Stop: 06/14/18 00:56 Amlodipine Besylate (Norvasc) 5 mg PO DAILY [facility] Stop: 06/14/18 08:59 Last Admin: 04/27/18 08:49 Dose: 5 mg Aripiprazole (Abilify) 7.5 mg PO QAM [facility]; Protocol Stop: 06/26/18 08:59 Last Admin: 04/27/18 08:48 Dose: 7.5 mg Aspirin (Aspirin Chewable) 81 mg PO DAILY [facility] Stop: 06/14/18 08:59 Last Admin: 04/27/18 08:49 Dose: 81 mg Benztropine Mesylate (Cogentin) 1 mg PO BID [facility] Stop: 06/14/18 08:59 Last Admin: 04/27/18 16:42 Dose: 1 mg Docusate Sodium (Colace) 250 mg PO DAILY [facility] Stop: 06/14/18 08:59 Last Admin: 04/27/18 08:43 Dose: 250 mg Glipizide (Glucotrol) 5 mg PO BIDAC [facility] Stop: 06/14/18 07:29 Last Admin: 04/27/18 16:42 Dose: 5 mg Insulin Aspart (Novolog Insulin Sliding Scale) 0 units SUBQ ACHS [facility]; Protocol Stop: 06/14/18 07:29 Last Admin: 04/27/18 20:28 Dose: 2 units Insulin Detemir (Levemir Insulin) 10 units SUBQ HS [facility]; Protocol Stop: 06/14/18 20:59 Last Admin: 04/27/18 20:26 Dose: 10 units Lorazepam (Ativan) 0.5 mg PO Q4HR PRN; Protocol PRN Reason: Agitation Stop: 06/23/18 06:03 Last Admin: 04/24/18 21:44 Dose: 0.5 mg Losartan Potassium (Cozaar) 50 mg PO DAILY [facility] Stop: 06/14/18 08:59 Last Admin: 04/27/18 08:50 Dose: 50 mg Magnesium Hydroxide (Milk Of Magnesia) 30 ml PO DAILY PRN PRN Reason: Constipation Stop: 06/14/18 00:56 Metformin HCl (Glucophage) 500 mg PO BID [facility] Stop: 06/14/18 08:59 Last Admin: 04/27/18 16:45 Dose: 500 mg Metoprolol Tartrate (Lopressor) 50 mg PO BID [facility] Stop: 06/14/18 08:59 Last Admin: 04/27/18 16:43 Dose: 50 mg Pantoprazole Sodium (Protonix) 40 mg PO QDAC [facility] Stop: 06/14/18 07:29 Last Admin: 04/27/18 06:42 Dose: 40 mg Quetiapine Fumarate (Seroquel) 100 mg PO HS [facility]; Protocol Stop: 06/22/18 20:59 Last Admin: 04/27/18 20:25 Dose: 100 mg Valproate Sodium (Depakene) 250 mg PO TID [facility]; Protocol Stop: 06/26/18 13:59 Last Admin: 04/27/18 20:40 Dose: Not Given General: demented HEENT: NC/AT, PERRLA, EOMI, anicteric sclerae, throat clear Neck: Supple, No JVD, No thyromegaly, +2 carotid pulse wo bruit, No LAD Lungs: CTAB Cardiovascular: RRR, Normal S1, Normal S2, without murmur Abdomen: soft, non-tender, non-distended Extremities: clear Neurological: no change Internal Medicine Assmt/Plan - Assessment Assessment: 1.DM. 2.HTN. 3.DJD. 4.DEMENTIA. 5.PSYCHOSIS. - Plan Plan: CONTINUE ON CURRENT MEDICATION AND DIET. Nutritional Asmnt/Malnutr-PDOC - Dietary Evaluation Malnutrition Findings (Please click <Entered> for more info): Nutritional Asmnt/Malnutrition Start: 04/18/18 13: 59 Text: Status: Complete Freq: Protocol: Document 04/18/18 13:59 LCHENG (Rec: 04/18/18 14:10 [email or web address] [email or web address]) Nutritional Asmnt/Malnutrition Patient General Information Nutritional Screening Moderate Risk Diagnosis psychosis NOS Pertinent Medical Hx/Surgical Hx HTN, DM, DJD, dementia Subjective Information Pt seen lying in bed at time of visit, awake and alert. Pt stated food is good, she wants 2% milk instead of fat free milk, does not eat pork, would like water with breakfast. Per EMR, PO intake 100%. Current Diet Order/ Nutrition Support CCHO 60gm, mech soft ground Pertinent Medications colace, glucotrol, novolog, levemir, glucophage, protonix, seroquel Pertinent Labs 04/17-04/18 POC 119-122 04/16 K 3.1, glucose 108, POC 103-147 Nutritional Hx/Data Height 1.57 m Height (Calculated Centimeters) 157.5 Current Weight (lbs) 77.564 kg Weight (Calculated Kilograms) 77.6 Weight (Calculated Grams) 36234.3 [place] Body Weight 110 Body Mass Index (BMI) 31.2 Weight Status Obese GI Symptoms GI Symptoms None Last BM 04/17 Difficult in: None Skin Integrity/Comment: dryness Current %PO Good (75-100%) Estimated Nutritional Goals BEE in Kcals: Adj wt of IBW Calories/Kcals/Kg 25-30 adj wt 57kg Kcals Calculated 9857-4190 Protein: Adj wt of IBW Protein g/k Protein Calculated 57 Fluid: ml 1425-1710ml (1ml/kcal) Nutritional Problem No current Nutrition Prob Problem N/A Intervention/Recommendation Comments 1. Continue with [facility] soft ground diet as ordered. Diet preference updated. 2. Monitor PO intake, wt, labs and skin integrity 3. F/U as low risk in 7 days, 04/25 Expected Outcomes/Goals Expected Outcomes/Goals 1. PO intake to meet at least 75% of nutritional needs. 2. Wt stability, skin to remain intact, labs to approach WNL.
[2018-04-28] MEDS: Pantoprazole 40 mg EC Tab PO SCH (06:44)
[2018-04-28] MEDS: INSULIN ASPART SLIDING SCALE 100 UNITS/ML UNIT SUBQ SCH ×4 (06:57→20:52)
[2018-04-28] MEDS: Benztropine 1 MG TAB PO SCH ×2 (09:47→18:06)
[2018-04-28] MEDS: Multivitamin w/ Minerals Tab PO SCH (09:47)
[2018-04-28] MEDS: Aspirin 81mg Chewable Tab PO SCH (09:48)
--- NOTE | 2018-04-28 15:45 | Progress Notes ---
DATE: 04/28/2018 SUBJECTIVE: Case was discussed with staff of the patient, reviewed records. The patient tolerated the increase in Abilify with no side effects; however, she continues to be delusional. Continues to need redirection, unpredictable, impulsive, unable to make safe plan for self-care. She is also on Seroquel 100 mg at bedtime and Depakote that was increased yesterday to 250 mg 3 times a day. No side effects of the medication, no sedation, no nausea, no extrapyramidal symptoms and we will continue to work with the patient in group therapy, milieu therapy, adjust the medication as needed. JOB# [id number]
[2018-04-28] MEDS: Insulin Detemir 100 units/mL 10mL Vial SUBQ SCH (20:52)
--- NOTE | 2018-04-28 21:32 | Internal Medicine Prog Note ---
Internal Medicine Subjective - Subjective Service Date: 04/28/18 Patient seen and examined:: with staff Patient is:: awake, verbal, in bed, confused Per staff patient has:: no adverse event Internal Medicine Objective - Results Result Diagrams: 04/14/18 18:31 04/16/18 06:15 Recent Labs: Laboratory Last Values WBC 7.4 Th/cmm (4.8-10.8) 04/14/18 18:31 RBC 4.23 Mil/cmm (3.80-5.20) 04/14/18 18:31 Hgb 12.5 gm/dL (12-16) 04/14/18 18:31 Hct 37.0 % (41.0-60) L 04/14/18 18:31 MCV 87.5 fl (81-100) 04/14/18 18:31 MCH 29.6 pg (27.0-31.0) 04/14/18 18:31 MCHC Differential 33.8 pg (28.0-36.0) 04/14/18 18:31 RDW 12.4 % (11.5-20.0) 04/14/18 18:31 Plt Count 203 Th/cmm (150-400) 04/14/18 18:31 MPV 7.8 fl 04/14/18 18:31 Neutrophils % 52.7 % (40.0-80.0) 04/14/18 18:31 Lymphocytes % 38.3 % (20.0-50.0) 04/14/18 18:31 Monocytes % 6.8 % (2.0-10.0) 04/14/18 18:31 Eosinophils % 1.9 % (0.0-5.0) 04/14/18 18:31 Basophils % 0.3 % (0.0-2.0) 04/14/18 18:31 Sodium 140 mEq/L (136-145) 04/16/18 06:15 Potassium 3.1 mEq/L (3.5-5.1) L 04/16/18 06:15 Chloride 102 mEq/L (98-107) 04/16/18 06:15 Carbon Dioxide 30.3 mEq/L (21.0-31.0) 04/16/18 06:15 Anion Gap 10.8 (7.0-16.0) 04/16/18 06:15 BUN 15 mg/dL (7-25) 04/16/18 06:15 Creatinine 0.8 mg/dL (0.6-1.2) 04/16/18 06:15 Est GFR ( Amer) TNP 04/16/18 06:15 Est GFR (Non-Af Amer) TNP 04/16/18 06:15 BUN/Creatinine Ratio 18.8 04/16/18 06:15 Glucose 108 mg/dL (70-105) H 04/16/18 06:15 POC Glucose 87 MG/DL (70 - 105) 04/28/18 16:45 Calcium 8.7 mg/dL (8.6-10.3) 04/16/18 06:15 Phosphorus 3.5 mg/dL (2.5-5.0) 04/14/18 18:31 Magnesium 1.7 mg/dL (1.9-2.7) L 04/14/18 18:31 Total Bilirubin 0.4 mg/dL (0.3-1.0) 04/16/18 06:15 AST 26 U/L (13-39) 04/16/18 06:15 ALT 21 U/L (7-52) 04/16/18 06:15 Alkaline Phosphatase 43 U/L (34-104) 04/16/18 06:15 Troponin I 0.03 ng/mL (0.01-0.05) 04/14/18 18:31 Total Protein 6.1 gm/dL (6.0-8.3) 04/16/18 06:15 Albumin 3.5 gm/dL (3.7-5.3) L 04/16/18 06:15 Globulin 2.6 gm/dL 04/16/18 06:15 Albumin/Globulin Ratio 1.4 (1.0-1.8) 04/16/18 06:15 Triglycerides 58 mg/dL (<150) 04/15/18 05:45 Cholesterol 166 mg/dL (<200) 04/15/18 05:45 LDL Cholesterol Direct 86 mg/dL (75-193) 04/15/18 05:45 HDL Cholesterol 55 mg/dL (23-92) 04/15/18 05:45 Urine Source RANDOM 04/15/18 00:00 Urine Color YELLOW 04/15/18 00:00 Urine Clarity CLEAR (CLEAR) 04/15/18 00:00 Urine pH 6.5 (4.6 - 8.0) 04/15/18 00:00 Ur Specific [place] <= 1.005 (1.005-1.030) 04/15/18 00:00 Urine Protein NEGATIVE mg/dL (NEGATIVE) 04/15/18 00:00 Urine Glucose (UA) NEGATIVE mg/dL (NEGATIVE) 04/15/18 00:00 Urine Ketones NEGATIVE mg/dL (NEGATIVE) 04/15/18 00:00 Urine Blood NEGATIVE (NEGATIVE) 04/15/18 00:00 Urine Nitrate NEGATIVE (NEGATIVE) 04/15/18 00:00 Urine Bilirubin NEGATIVE (NEGATIVE) 04/15/18 00:00 Urine Urobilinogen 0.2 E.U./dL (0.2 - 1.0) 04/15/18 00:00 Ur Leukocyte Esterase NEGATIVE (NEGATIVE) 04/15/18 00:00 Urine RBC NONE SEEN /hpf (0-5) 04/15/18 00:00 Urine WBC 0-2 /hpf (0-5) 04/15/18 00:00 Ur Epithelial Cells FEW /lpf (FEW) 04/15/18 00:00 Urine Bacteria OCCASIONAL /hpf (NONE SEEN) 04/15/18 00:00 Valproic Acid 11.4 ug/mL (50.0-100.0) L 04/24/18 13:15 - Physical Exam Vitals and I&O: Vital Signs Temp 97.6 F 04/28/18 14:00 Pulse 67 04/28/18 18:06 Resp 18 04/28/18 14:00 BP 151/94 04/28/18 18:06 Pulse Ox 96 04/28/18 14:00 Intake & Output 04/28/18 04/28/18 04/29/18 06:59 18:59 06:59 Intake Total 1200 Balance 1200 Intake: Oral 1200 Other: # Bowel Movements 1 Active Medications: Current Medications Acetaminophen (Tylenol) 650 mg PO Q4HR PRN PRN Reason: Pain or Fever >101 Stop: 06/14/18 00:56 Al Hydrox/Mg Hydrox/Simethicone (Maalox) 30 ml PO DAILY PRN PRN Reason: GI DISTRESS Stop: 06/14/18 00:56 Amlodipine Besylate (Norvasc) 5 mg PO DAILY [facility] Stop: 06/14/18 08:59 Last Admin: 04/28/18 09:49 Dose: 5 mg Aripiprazole (Abilify) 7.5 mg PO QAM [facility]; Protocol Stop: 06/26/18 08:59 Last Admin: 04/28/18 09:46 Dose: 7.5 mg Aspirin (Aspirin Chewable) 81 mg PO DAILY [facility] Stop: 06/14/18 08:59 Last Admin: 04/28/18 09:48 Dose: 81 mg Benztropine Mesylate (Cogentin) 1 mg PO BID [facility] Stop: 06/14/18 08:59 Last Admin: 04/28/18 18:06 Dose: 1 mg Divalproex Sodium (Depakote Dr) 250 mg PO Q8HR [facility]; Protocol Stop: 06/27/18 20:59 Last Admin: 04/28/18 20:51 Dose: 250 mg Docusate Sodium (Colace) 250 mg PO DAILY [facility] Stop: 06/14/18 08:59 Last Admin: 04/28/18 09:47 Dose: 250 mg Glipizide (Glucotrol) 5 mg PO BIDAC [facility] Stop: 06/14/18 07:29 Last Admin: 04/28/18 18:20 Dose: Not Given Insulin Aspart (Novolog Insulin Sliding Scale) 0 units SUBQ ACHS [facility]; Protocol Stop: 06/14/18 07:29 Last Admin: 04/28/18 20:52 Dose: Not Given Insulin Detemir (Levemir Insulin) 10 units SUBQ HS [facility]; Protocol Stop: 06/14/18 20:59 Last Admin: 04/28/18 20:52 Dose: Not Given Lorazepam (Ativan) 0.5 mg PO Q4HR PRN; Protocol PRN Reason: Agitation Stop: 06/23/18 06:03 Last Admin: 04/24/18 21:44 Dose: 0.5 mg Losartan Potassium (Cozaar) 50 mg PO DAILY [facility] Stop: 06/14/18 08:59 Last Admin: 04/28/18 09:48 Dose: 50 mg Magnesium Hydroxide (Milk Of Magnesia) 30 ml PO DAILY PRN PRN Reason: Constipation Stop: 06/14/18 00:56 Metformin HCl (Glucophage) 500 mg PO BID [facility] Stop: 06/14/18 08:59 Last Admin: 04/28/18 18:20 Dose: Not Given Metoprolol Tartrate (Lopressor) 50 mg PO BID [facility] Stop: 06/14/18 08:59 Last Admin: 04/28/18 18:06 Dose: 50 mg Pantoprazole Sodium (Protonix) 40 mg PO QDAC [facility] Stop: 06/14/18 07:29 Last Admin: 04/28/18 06:44 Dose: 40 mg Quetiapine Fumarate (Seroquel) 100 mg PO HS [facility]; Protocol Stop: 06/22/18 20:59 Last Admin: 04/28/18 20:51 Dose: 100 mg General: demented HEENT: NC/AT, PERRLA, EOMI, anicteric sclerae, throat clear Neck: Supple, No JVD, No thyromegaly, +2 carotid pulse wo bruit, No LAD Lungs: CTAB Cardiovascular: RRR, Normal S1, Normal S2, without murmur Abdomen: soft, non-tender, non-distended Extremities: clear Neurological: no change Internal Medicine Assmt/Plan - Assessment Assessment: 1.DM. 2.HTN. 3.DJD. 4.DEMENTIA. 5.PSYCHOSIS. - Plan Plan: CONTINUE ON CURRENT MEDICATION AND DIET. Nutritional Asmnt/Malnutr-PDOC - Dietary Evaluation Malnutrition Findings (Please click <Entered> for more info): Nutritional Asmnt/Malnutrition Start: 04/18/18 13: 59 Text: Status: Complete Freq: Protocol: Document 04/18/18 13:59 LCHENG (Rec: 04/18/18 14:10 LCHENG [id number]) Nutritional Asmnt/Malnutrition Patient General Information Nutritional Screening Moderate Risk Diagnosis psychosis NOS Pertinent Medical Hx/Surgical Hx HTN, DM, DJD, dementia Subjective Information Pt seen lying in bed at time of visit, awake and alert. Pt stated food is good, she wants 2% milk instead of fat free milk, does not eat pork, would like water with breakfast. Per EMR, PO intake 100%. Current Diet Order/ Nutrition Support CCHO 60gm, mech soft ground Pertinent Medications colace, glucotrol, novolog, levemir, glucophage, protonix, seroquel Pertinent Labs 04/17-04/18 POC 119-122 04/16 K 3.1, glucose 108, POC 103-147 Nutritional Hx/Data Height 1.57 m Height (Calculated Centimeters) 157.5 Current Weight (lbs) 77.564 kg Weight (Calculated Kilograms) 77.6 Weight (Calculated Grams) 57077.3 [place] Body Weight 110 Body Mass Index (BMI) 31.2 Weight Status Obese GI Symptoms GI Symptoms None Last BM 04/17 Difficult in: None Skin Integrity/Comment: dryness Current %PO Good (75-100%) Estimated Nutritional Goals BEE in Kcals: Adj wt of IBW Calories/Kcals/Kg 25-30 adj wt 57kg Kcals Calculated 0814-6268 Protein: Adj wt of IBW Protein g/k Protein Calculated 57 Fluid: ml 1425-1710ml (1ml/kcal) Nutritional Problem No current Nutrition Prob Problem N/A Intervention/Recommendation Comments 1. Continue with [facility] soft ground diet as ordered. Diet preference updated. 2. Monitor PO intake, wt, labs and skin integrity 3. F/U as low risk in 7 days, 04/25 Expected Outcomes/Goals Expected Outcomes/Goals 1. PO intake to meet at least 75% of nutritional needs. 2. Wt stability, skin to remain intact, labs to approach WNL.
[2018-04-29] MEDS: INSULIN ASPART SLIDING SCALE 100 UNITS/ML UNIT SUBQ SCH ×4 (06:36→20:48)
[2018-04-29] MEDS: Pantoprazole 40 mg EC Tab PO SCH (06:36)
[2018-04-29] MEDS: Benztropine 1 MG TAB PO SCH ×2 (09:06→17:02)
[2018-04-29] MEDS: Multivitamin w/ Minerals Tab PO SCH (09:07)
[2018-04-29] MEDS: Aspirin 81mg Chewable Tab PO SCH (09:08)
--- NOTE | 2018-04-29 15:34 | Internal Medicine Prog Note ---
Internal Medicine Subjective - Subjective Service Date: 04/29/18 Patient seen and examined:: with staff Patient is:: awake, verbal, in bed, confused Per staff patient has:: no adverse event Internal Medicine Objective - Results Result Diagrams: 04/14/18 18:31 04/16/18 06:15 Recent Labs: Laboratory Last Values WBC 7.4 Th/cmm (4.8-10.8) 04/14/18 18:31 RBC 4.23 Mil/cmm (3.80-5.20) 04/14/18 18:31 Hgb 12.5 gm/dL (12-16) 04/14/18 18:31 Hct 37.0 % (41.0-60) L 04/14/18 18:31 MCV 87.5 fl (81-100) 04/14/18 18:31 MCH 29.6 pg (27.0-31.0) 04/14/18 18:31 MCHC Differential 33.8 pg (28.0-36.0) 04/14/18 18:31 RDW 12.4 % (11.5-20.0) 04/14/18 18:31 Plt Count 203 Th/cmm (150-400) 04/14/18 18:31 MPV 7.8 fl 04/14/18 18:31 Neutrophils % 52.7 % (40.0-80.0) 04/14/18 18:31 Lymphocytes % 38.3 % (20.0-50.0) 04/14/18 18:31 Monocytes % 6.8 % (2.0-10.0) 04/14/18 18:31 Eosinophils % 1.9 % (0.0-5.0) 04/14/18 18:31 Basophils % 0.3 % (0.0-2.0) 04/14/18 18:31 Sodium 140 mEq/L (136-145) 04/16/18 06:15 Potassium 3.1 mEq/L (3.5-5.1) L 04/16/18 06:15 Chloride 102 mEq/L (98-107) 04/16/18 06:15 Carbon Dioxide 30.3 mEq/L (21.0-31.0) 04/16/18 06:15 Anion Gap 10.8 (7.0-16.0) 04/16/18 06:15 BUN 15 mg/dL (7-25) 04/16/18 06:15 Creatinine 0.8 mg/dL (0.6-1.2) 04/16/18 06:15 Est GFR ( Amer) TNP 04/16/18 06:15 Est GFR (Non-Af Amer) TNP 04/16/18 06:15 BUN/Creatinine Ratio 18.8 04/16/18 06:15 Glucose 108 mg/dL (70-105) H 04/16/18 06:15 POC Glucose 87 MG/DL (70 - 105) 04/29/18 06:12 Calcium 8.7 mg/dL (8.6-10.3) 04/16/18 06:15 Phosphorus 3.5 mg/dL (2.5-5.0) 04/14/18 18:31 Magnesium 1.7 mg/dL (1.9-2.7) L 04/14/18 18:31 Total Bilirubin 0.4 mg/dL (0.3-1.0) 04/16/18 06:15 AST 26 U/L (13-39) 04/16/18 06:15 ALT 21 U/L (7-52) 04/16/18 06:15 Alkaline Phosphatase 43 U/L (34-104) 04/16/18 06:15 Troponin I 0.03 ng/mL (0.01-0.05) 04/14/18 18:31 Total Protein 6.1 gm/dL (6.0-8.3) 04/16/18 06:15 Albumin 3.5 gm/dL (3.7-5.3) L 04/16/18 06:15 Globulin 2.6 gm/dL 04/16/18 06:15 Albumin/Globulin Ratio 1.4 (1.0-1.8) 04/16/18 06:15 Triglycerides 58 mg/dL (<150) 04/15/18 05:45 Cholesterol 166 mg/dL (<200) 04/15/18 05:45 LDL Cholesterol Direct 86 mg/dL (75-193) 04/15/18 05:45 HDL Cholesterol 55 mg/dL (23-92) 04/15/18 05:45 Urine Source RANDOM 04/15/18 00:00 Urine Color YELLOW 04/15/18 00:00 Urine Clarity CLEAR (CLEAR) 04/15/18 00:00 Urine pH 6.5 (4.6 - 8.0) 04/15/18 00:00 Ur Specific [place] <= 1.005 (1.005-1.030) 04/15/18 00:00 Urine Protein NEGATIVE mg/dL (NEGATIVE) 04/15/18 00:00 Urine Glucose (UA) NEGATIVE mg/dL (NEGATIVE) 04/15/18 00:00 Urine Ketones NEGATIVE mg/dL (NEGATIVE) 04/15/18 00:00 Urine Blood NEGATIVE (NEGATIVE) 04/15/18 00:00 Urine Nitrate NEGATIVE (NEGATIVE) 04/15/18 00:00 Urine Bilirubin NEGATIVE (NEGATIVE) 04/15/18 00:00 Urine Urobilinogen 0.2 E.U./dL (0.2 - 1.0) 04/15/18 00:00 Ur Leukocyte Esterase NEGATIVE (NEGATIVE) 04/15/18 00:00 Urine RBC NONE SEEN /hpf (0-5) 04/15/18 00:00 Urine WBC 0-2 /hpf (0-5) 04/15/18 00:00 Ur Epithelial Cells FEW /lpf (FEW) 04/15/18 00:00 Urine Bacteria OCCASIONAL /hpf (NONE SEEN) 04/15/18 00:00 Valproic Acid 11.4 ug/mL (50.0-100.0) L 04/24/18 13:15 - Physical Exam Vitals and I&O: Vital Signs Temp 96.3 F 04/29/18 06:21 Pulse 51 04/29/18 09:08 Resp 18 04/29/18 08:00 BP 169/74 04/29/18 09:08 Pulse Ox 99 04/29/18 06:21 Intake & Output 04/28/18 04/29/18 04/29/18 18:59 06:59 18:59 Intake Total 1200 Balance 1200 Intake: Oral 1200 Other: # Bowel Movements 1 Active Medications: Current Medications Acetaminophen (Tylenol) 650 mg PO Q4HR PRN PRN Reason: Pain or Fever >101 Stop: 06/14/18 00:56 Al Hydrox/Mg Hydrox/Simethicone (Maalox) 30 ml PO DAILY PRN PRN Reason: GI DISTRESS Stop: 06/14/18 00:56 Amlodipine Besylate (Norvasc) 5 mg PO DAILY [facility] Stop: 06/14/18 08:59 Last Admin: 04/29/18 09:08 Dose: 5 mg Aripiprazole (Abilify) 7.5 mg PO QAM [facility]; Protocol Stop: 06/26/18 08:59 Last Admin: 04/29/18 09:06 Dose: 7.5 mg Aspirin (Aspirin Chewable) 81 mg PO DAILY [facility] Stop: 06/14/18 08:59 Last Admin: 04/29/18 09:08 Dose: 81 mg Benztropine Mesylate (Cogentin) 1 mg PO BID [facility] Stop: 06/14/18 08:59 Last Admin: 04/29/18 09:06 Dose: 1 mg Divalproex Sodium (Depakote Dr) 250 mg PO Q8HR [facility]; Protocol Stop: 06/27/18 20:59 Last Admin: 04/29/18 04:48 Dose: 250 mg Docusate Sodium (Colace) 250 mg PO DAILY [facility] Stop: 06/14/18 08:59 Last Admin: 04/29/18 09:08 Dose: 250 mg Glipizide (Glucotrol) 5 mg PO BIDAC [facility] Stop: 06/14/18 07:29 Last Admin: 04/29/18 06:40 Dose: 5 mg Insulin Aspart (Novolog Insulin Sliding Scale) 0 units SUBQ ACHS [facility]; Protocol Stop: 06/14/18 07:29 Last Admin: 04/29/18 11:23 Dose: Not Given Insulin Detemir (Levemir Insulin) 10 units SUBQ HS [facility]; Protocol Stop: 06/14/18 20:59 Last Admin: 04/28/18 20:52 Dose: Not Given Lorazepam (Ativan) 0.5 mg PO Q4HR PRN; Protocol PRN Reason: Agitation Stop: 06/23/18 06:03 Last Admin: 04/24/18 21:44 Dose: 0.5 mg Losartan Potassium (Cozaar) 50 mg PO DAILY [facility] Stop: 06/14/18 08:59 Last Admin: 04/29/18 09:07 Dose: 50 mg Magnesium Hydroxide (Milk Of Magnesia) 30 ml PO DAILY PRN PRN Reason: Constipation Stop: 06/14/18 00:56 Metformin HCl (Glucophage) 500 mg PO BID [facility] Stop: 06/14/18 08:59 Last Admin: 04/29/18 09:08 Dose: 500 mg Metoprolol Tartrate (Lopressor) 50 mg PO BID [facility] Stop: 06/14/18 08:59 Last Admin: 04/29/18 09:07 Dose: 50 mg Pantoprazole Sodium (Protonix) 40 mg PO QDAC [facility] Stop: 06/14/18 07:29 Last Admin: 04/29/18 06:36 Dose: 40 mg Quetiapine Fumarate (Seroquel) 100 mg PO HS [facility]; Protocol Stop: 06/22/18 20:59 Last Admin: 04/28/18 20:51 Dose: 100 mg General: demented HEENT: NC/AT, PERRLA, EOMI, anicteric sclerae, throat clear Neck: Supple, No JVD, No thyromegaly, +2 carotid pulse wo bruit, No LAD Lungs: CTAB Cardiovascular: RRR, Normal S1, Normal S2, without murmur Abdomen: soft, non-tender, non-distended Extremities: clear Neurological: no change Internal Medicine Assmt/Plan - Assessment Assessment: 1.DM. 2.HTN. 3.DJD. 4.DEMENTIA. 5.PSYCHOSIS. - Plan Plan: CONTINUE ON CURRENT MEDICATION AND DIET. Nutritional Asmnt/Malnutr-PDOC - Dietary Evaluation Malnutrition Findings (Please click <Entered> for more info): Nutritional Asmnt/Malnutrition Start: 04/18/18 13: 59 Text: Status: Complete Freq: Protocol: Document 04/18/18 13:59 LCHENG (Rec: 04/18/18 14:10 [email or web address]) Nutritional Asmnt/Malnutrition Patient General Information Nutritional Screening Moderate Risk Diagnosis psychosis NOS Pertinent Medical Hx/Surgical Hx HTN, DM, DJD, dementia Subjective Information Pt seen lying in bed at time of visit, awake and alert. Pt stated food is good, she wants 2% milk instead of fat free milk, does not eat pork, would like water with breakfast. Per EMR, PO intake 100%. Current Diet Order/ Nutrition Support CCHO 60gm, mech soft ground Pertinent Medications colace, glucotrol, novolog, levemir, glucophage, protonix, seroquel Pertinent Labs 04/17-04/18 POC 119-122 04/16 K 3.1, glucose 108, POC 103-147 Nutritional Hx/Data Height 1.57 m Height (Calculated Centimeters) 157.5 Current Weight (lbs) 77.564 kg Weight (Calculated Kilograms) 77.6 Weight (Calculated Grams) 92994.3 [place] Body Weight 110 Body Mass Index (BMI) 31.2 Weight Status Obese GI Symptoms GI Symptoms None Last BM 04/17 Difficult in: None Skin Integrity/Comment: dryness Current %PO Good (75-100%) Estimated Nutritional Goals BEE in Kcals: Adj wt of IBW Calories/Kcals/Kg 25-30 adj wt 57kg Kcals Calculated 3439-5247 Protein: Adj wt of IBW Protein g/k Protein Calculated 57 Fluid: ml 1425-1710ml (1ml/kcal) Nutritional Problem No current Nutrition Prob Problem N/A Intervention/Recommendation Comments 1. Continue with [facility] soft ground diet as ordered. Diet preference updated. 2. Monitor PO intake, wt, labs and skin integrity 3. F/U as low risk in 7 days, 04/25 Expected Outcomes/Goals Expected Outcomes/Goals 1. PO intake to meet at least 75% of nutritional needs. 2. Wt stability, skin to remain intact, labs to approach WNL.
--- NOTE | 2018-04-29 20:54 | Progress Notes ---
DATE: 04/29/2018 SUBJECTIVE: The patient continues to believe that she is in the hospital to have "make over." Also, telling me that she had a heart attack and so she is here. She knows the month. She believes the year is 2019. She remains forgetful, still disoriented, in a Sruthi chair, requiring prompting, redirection. Still remains somewhat impulsive, unpredictable and not the best historian, still confused. Dr. Rashid has been seeing this patient, making appropriate medication adjustments, currently on Seroquel for example. PLAN: We will continue to monitor. Medications were noted. The patient remains confused, disoriented, unable to be cared for at a lower level of care. The patient apparently will be going back to [place]. JOB# [id number]
[2018-04-29] MEDS: Insulin Detemir 100 units/mL 10mL Vial SUBQ SCH (21:20)
[2018-04-30] MEDS: Pantoprazole 40 mg EC Tab PO SCH (06:31)
[2018-04-30] MEDS: INSULIN ASPART SLIDING SCALE 100 UNITS/ML UNIT SUBQ SCH ×4 (06:31→21:00)
[2018-04-30] MEDS: Aspirin 81mg Chewable Tab PO SCH (09:18)
[2018-04-30] MEDS: Multivitamin w/ Minerals Tab PO SCH (09:18)
[2018-04-30] MEDS: Benztropine 1 MG TAB PO SCH ×2 (09:18→16:27)
--- NOTE | 2018-04-30 19:24 | Internal Medicine Prog Note ---
Internal Medicine Subjective - Subjective Service Date: 04/30/18 Patient seen and examined:: with staff Patient is:: awake, verbal, in bed, confused Per staff patient has:: no adverse event Internal Medicine Objective - Results Result Diagrams: 04/14/18 18:31 04/16/18 06:15 Recent Labs: Laboratory Last Values WBC 7.4 Th/cmm (4.8-10.8) 04/14/18 18:31 RBC 4.23 Mil/cmm (3.80-5.20) 04/14/18 18:31 Hgb 12.5 gm/dL (12-16) 04/14/18 18:31 Hct 37.0 % (41.0-60) L 04/14/18 18:31 MCV 87.5 fl (81-100) 04/14/18 18:31 MCH 29.6 pg (27.0-31.0) 04/14/18 18:31 MCHC Differential 33.8 pg (28.0-36.0) 04/14/18 18:31 RDW 12.4 % (11.5-20.0) 04/14/18 18:31 Plt Count 203 Th/cmm (150-400) 04/14/18 18:31 MPV 7.8 fl 04/14/18 18:31 Neutrophils % 52.7 % (40.0-80.0) 04/14/18 18:31 Lymphocytes % 38.3 % (20.0-50.0) 04/14/18 18:31 Monocytes % 6.8 % (2.0-10.0) 04/14/18 18:31 Eosinophils % 1.9 % (0.0-5.0) 04/14/18 18:31 Basophils % 0.3 % (0.0-2.0) 04/14/18 18:31 Sodium 140 mEq/L (136-145) 04/16/18 06:15 Potassium 3.1 mEq/L (3.5-5.1) L 04/16/18 06:15 Chloride 102 mEq/L (98-107) 04/16/18 06:15 Carbon Dioxide 30.3 mEq/L (21.0-31.0) 04/16/18 06:15 Anion Gap 10.8 (7.0-16.0) 04/16/18 06:15 BUN 15 mg/dL (7-25) 04/16/18 06:15 Creatinine 0.8 mg/dL (0.6-1.2) 04/16/18 06:15 Est GFR ( Amer) TNP 04/16/18 06:15 Est GFR (Non-Af Amer) TNP 04/16/18 06:15 BUN/Creatinine Ratio 18.8 04/16/18 06:15 Glucose 108 mg/dL (70-105) H 04/16/18 06:15 POC Glucose 85 MG/DL (70 - 105) 04/30/18 15:57 Calcium 8.7 mg/dL (8.6-10.3) 04/16/18 06:15 Phosphorus 3.5 mg/dL (2.5-5.0) 04/14/18 18:31 Magnesium 1.7 mg/dL (1.9-2.7) L 04/14/18 18:31 Total Bilirubin 0.4 mg/dL (0.3-1.0) 04/16/18 06:15 AST 26 U/L (13-39) 04/16/18 06:15 ALT 21 U/L (7-52) 04/16/18 06:15 Alkaline Phosphatase 43 U/L (34-104) 04/16/18 06:15 Troponin I 0.03 ng/mL (0.01-0.05) 04/14/18 18:31 Total Protein 6.1 gm/dL (6.0-8.3) 04/16/18 06:15 Albumin 3.5 gm/dL (3.7-5.3) L 04/16/18 06:15 Globulin 2.6 gm/dL 04/16/18 06:15 Albumin/Globulin Ratio 1.4 (1.0-1.8) 04/16/18 06:15 Triglycerides 58 mg/dL (<150) 04/15/18 05:45 Cholesterol 166 mg/dL (<200) 04/15/18 05:45 LDL Cholesterol Direct 86 mg/dL (75-193) 04/15/18 05:45 HDL Cholesterol 55 mg/dL (23-92) 04/15/18 05:45 Urine Source RANDOM 04/15/18 00:00 Urine Color YELLOW 04/15/18 00:00 Urine Clarity CLEAR (CLEAR) 04/15/18 00:00 Urine pH 6.5 (4.6 - 8.0) 04/15/18 00:00 Ur Specific [place] <= 1.005 (1.005-1.030) 04/15/18 00:00 Urine Protein NEGATIVE mg/dL (NEGATIVE) 04/15/18 00:00 Urine Glucose (UA) NEGATIVE mg/dL (NEGATIVE) 04/15/18 00:00 Urine Ketones NEGATIVE mg/dL (NEGATIVE) 04/15/18 00:00 Urine Blood NEGATIVE (NEGATIVE) 04/15/18 00:00 Urine Nitrate NEGATIVE (NEGATIVE) 04/15/18 00:00 Urine Bilirubin NEGATIVE (NEGATIVE) 04/15/18 00:00 Urine Urobilinogen 0.2 E.U./dL (0.2 - 1.0) 04/15/18 00:00 Ur Leukocyte Esterase NEGATIVE (NEGATIVE) 04/15/18 00:00 Urine RBC NONE SEEN /hpf (0-5) 04/15/18 00:00 Urine WBC 0-2 /hpf (0-5) 04/15/18 00:00 Ur Epithelial Cells FEW /lpf (FEW) 04/15/18 00:00 Urine Bacteria OCCASIONAL /hpf (NONE SEEN) 04/15/18 00:00 Valproic Acid 11.4 ug/mL (50.0-100.0) L 04/24/18 13:15 - Physical Exam Vitals and I&O: Vital Signs Temp 97.4 F 04/30/18 14:00 Pulse 54 04/30/18 16:28 Resp 20 04/30/18 14:00 BP 128/58 04/30/18 16:27 Pulse Ox 97 04/30/18 14:00 Intake & Output 04/30/18 04/30/18 05/01/18 06:59 18:59 06:59 Intake Total 1600 Balance 1600 Intake: Oral 1600 Other: # Voids 4 # Bowel Movements 0 Active Medications: Current Medications Acetaminophen (Tylenol) 650 mg PO Q4HR PRN PRN Reason: Pain or Fever >101 Stop: 06/14/18 00:56 Al Hydrox/Mg Hydrox/Simethicone (Maalox) 30 ml PO DAILY PRN PRN Reason: GI DISTRESS Stop: 06/14/18 00:56 Amlodipine Besylate (Norvasc) 5 mg PO DAILY [facility] Stop: 06/14/18 08:59 Last Admin: 04/30/18 09:19 Dose: 5 mg Aripiprazole (Abilify) 7.5 mg PO QAM [facility]; Protocol Stop: 06/26/18 08:59 Last Admin: 04/30/18 09:19 Dose: 7.5 mg Aspirin (Aspirin Chewable) 81 mg PO DAILY [facility] Stop: 06/14/18 08:59 Last Admin: 04/30/18 09:18 Dose: 81 mg Benztropine Mesylate (Cogentin) 1 mg PO BID [facility] Stop: 06/14/18 08:59 Last Admin: 04/30/18 16:27 Dose: 1 mg Divalproex Sodium (Depakote Dr) 250 mg PO Q8HR [facility]; Protocol Stop: 06/27/18 20:59 Last Admin: 04/30/18 13:01 Dose: 250 mg Docusate Sodium (Colace) 250 mg PO DAILY [facility] Stop: 06/14/18 08:59 Last Admin: 04/30/18 09:18 Dose: 250 mg Glipizide (Glucotrol) 5 mg PO BIDAC [facility] Stop: 06/14/18 07:29 Last Admin: 04/30/18 16:27 Dose: 5 mg Insulin Aspart (Novolog Insulin Sliding Scale) 0 units SUBQ ACHS [facility]; Protocol Stop: 06/14/18 07:29 Last Admin: 04/30/18 16:28 Dose: Not Given Insulin Detemir (Levemir Insulin) 10 units SUBQ HS [facility]; Protocol Stop: 06/14/18 20:59 Last Admin: 04/29/18 21:20 Dose: Not Given Lorazepam (Ativan) 0.5 mg PO Q4HR PRN; Protocol PRN Reason: Agitation Stop: 06/23/18 06:03 Last Admin: 04/30/18 04:41 Dose: 0.5 mg Losartan Potassium (Cozaar) 50 mg PO DAILY [facility] Stop: 06/14/18 08:59 Last Admin: 04/30/18 09:19 Dose: 50 mg Magnesium Hydroxide (Milk Of Magnesia) 30 ml PO DAILY PRN PRN Reason: Constipation Stop: 06/14/18 00:56 Metformin HCl (Glucophage) 500 mg PO BID [facility] Stop: 06/14/18 08:59 Last Admin: 04/30/18 16:26 Dose: 500 mg Metoprolol Tartrate (Lopressor) 50 mg PO BID [facility] Stop: 06/14/18 08:59 Last Admin: 04/30/18 16:27 Dose: 50 mg Pantoprazole Sodium (Protonix) 40 mg PO QDAC [facility] Stop: 06/14/18 07:29 Last Admin: 04/30/18 06:31 Dose: Not Given Quetiapine Fumarate (Seroquel) 100 mg PO HS [facility]; Protocol Stop: 06/22/18 20:59 Last Admin: 04/29/18 20:48 Dose: 100 mg General: demented HEENT: NC/AT, PERRLA, EOMI, anicteric sclerae, throat clear Neck: Supple, No JVD, No thyromegaly, +2 carotid pulse wo bruit, No LAD Lungs: CTAB Cardiovascular: RRR, Normal S1, Normal S2, without murmur Abdomen: soft, non-tender, non-distended Extremities: clear Neurological: no change Internal Medicine Assmt/Plan - Assessment Assessment: 1.DM. 2.HTN. 3.DJD. 4.DEMENTIA. 5.PSYCHOSIS. - Plan Plan: CONTINUE ON CURRENT MEDICATION AND DIET. Nutritional Asmnt/Malnutr-PDOC - Dietary Evaluation Malnutrition Findings (Please click <Entered> for more info): Nutritional Asmnt/Malnutrition Start: 04/18/18 13: 59 Text: Status: Complete Freq: Protocol: Document 04/18/18 13:59 LCHENG (Rec: 04/18/18 14:10 LCHENG [id number]) Nutritional Asmnt/Malnutrition Patient General Information Nutritional Screening Moderate Risk Diagnosis psychosis NOS Pertinent Medical Hx/Surgical Hx HTN, DM, DJD, dementia Subjective Information Pt seen lying in bed at time of visit, awake and alert. Pt stated food is good, she wants 2% milk instead of fat free milk, does not eat pork, would like water with breakfast. Per EMR, PO intake 100%. Current Diet Order/ Nutrition Support CCHO 60gm, mech soft ground Pertinent Medications colace, glucotrol, novolog, levemir, glucophage, protonix, seroquel Pertinent Labs 04/17-04/18 POC 119-122 04/16 K 3.1, glucose 108, POC 103-147 Nutritional Hx/Data Height 1.57 m Height (Calculated Centimeters) 157.5 Current Weight (lbs) 77.564 kg Weight (Calculated Kilograms) 77.6 Weight (Calculated Grams) 80875.3 [place] Body Weight 110 Body Mass Index (BMI) 31.2 Weight Status Obese GI Symptoms GI Symptoms None Last BM 04/17 Difficult in: None Skin Integrity/Comment: dryness Current %PO Good (75-100%) Estimated Nutritional Goals BEE in Kcals: Adj wt of IBW Calories/Kcals/Kg 25-30 adj wt 57kg Kcals Calculated 3321-0214 Protein: Adj wt of IBW Protein g/k Protein Calculated 57 Fluid: ml 1425-1710ml (1ml/kcal) Nutritional Problem No current Nutrition Prob Problem N/A Intervention/Recommendation Comments 1. Continue with [facility] soft ground diet as ordered. Diet preference updated. 2. Monitor PO intake, wt, labs and skin integrity 3. F/U as low risk in 7 days, 04/25 Expected Outcomes/Goals Expected Outcomes/Goals 1. PO intake to meet at least 75% of nutritional needs. 2. Wt stability, skin to remain intact, labs to approach WNL.
--- NOTE | 2018-04-30 20:04 | Progress Notes ---
DATE: 04/30/2018 SUBJECTIVE: The patient is still delusional, believing that she is here for makeover, does not know what is going on or where she is. She does know that she is in the hospital. She told me earlier that she is here because she had a heart attack, does not know the year, the month, in a Sruthi chair, remains impulsive, highly unpredictable, hyperverbal, talking about past experiences, crying at times, laughing at other times. The patient sometimes does not want to take medications, confused, "I don't need it." ASSESSMENT: The patient remains confused, disoriented and she is somewhat calm at this time, but mumbling to self, talking to self. MEDICATIONS: Noted. PLAN: We will continue to monitor given her impulsivity is ongoing symptom. She is not safe for discharge. JOB# [id number]
[2018-04-30] MEDS: Insulin Detemir 100 units/mL 10mL Vial SUBQ SCH (20:59)
[2018-05-01] MEDS: INSULIN ASPART SLIDING SCALE 100 UNITS/ML UNIT SUBQ SCH ×4 (06:46→21:17)
[2018-05-01] MEDS: Pantoprazole 40 mg EC Tab PO SCH (06:47)
[2018-05-01] MEDS: Benztropine 1 MG TAB PO SCH ×2 (08:44→16:55)
[2018-05-01] MEDS: Aspirin 81mg Chewable Tab PO SCH (08:47)
[2018-05-01] MEDS: Multivitamin w/ Minerals Tab PO SCH (08:48)
--- NOTE | 2018-05-01 21:13 | Internal Medicine Prog Note ---
Internal Medicine Subjective - Subjective Service Date: 05/01/18 Patient seen and examined:: with staff Patient is:: awake, verbal, in bed, confused Per staff patient has:: no adverse event Internal Medicine Objective - Results Result Diagrams: 04/14/18 18:31 04/16/18 06:15 Recent Labs: Laboratory Last Values WBC 7.4 Th/cmm (4.8-10.8) 04/14/18 18:31 RBC 4.23 Mil/cmm (3.80-5.20) 04/14/18 18:31 Hgb 12.5 gm/dL (12-16) 04/14/18 18:31 Hct 37.0 % (41.0-60) L 04/14/18 18:31 MCV 87.5 fl (81-100) 04/14/18 18:31 MCH 29.6 pg (27.0-31.0) 04/14/18 18:31 MCHC Differential 33.8 pg (28.0-36.0) 04/14/18 18:31 RDW 12.4 % (11.5-20.0) 04/14/18 18:31 Plt Count 203 Th/cmm (150-400) 04/14/18 18:31 MPV 7.8 fl 04/14/18 18:31 Neutrophils % 52.7 % (40.0-80.0) 04/14/18 18:31 Lymphocytes % 38.3 % (20.0-50.0) 04/14/18 18:31 Monocytes % 6.8 % (2.0-10.0) 04/14/18 18:31 Eosinophils % 1.9 % (0.0-5.0) 04/14/18 18:31 Basophils % 0.3 % (0.0-2.0) 04/14/18 18:31 Sodium 140 mEq/L (136-145) 04/16/18 06:15 Potassium 3.1 mEq/L (3.5-5.1) L 04/16/18 06:15 Chloride 102 mEq/L (98-107) 04/16/18 06:15 Carbon Dioxide 30.3 mEq/L (21.0-31.0) 04/16/18 06:15 Anion Gap 10.8 (7.0-16.0) 04/16/18 06:15 BUN 15 mg/dL (7-25) 04/16/18 06:15 Creatinine 0.8 mg/dL (0.6-1.2) 04/16/18 06:15 Est GFR ( Amer) TNP 04/16/18 06:15 Est GFR (Non-Af Amer) TNP 04/16/18 06:15 BUN/Creatinine Ratio 18.8 04/16/18 06:15 Glucose 108 mg/dL (70-105) H 04/16/18 06:15 POC Glucose 135 MG/DL (70 - 105) H 05/01/18 20:50 Calcium 8.7 mg/dL (8.6-10.3) 04/16/18 06:15 Phosphorus 3.5 mg/dL (2.5-5.0) 04/14/18 18:31 Magnesium 1.7 mg/dL (1.9-2.7) L 04/14/18 18:31 Total Bilirubin 0.4 mg/dL (0.3-1.0) 04/16/18 06:15 AST 26 U/L (13-39) 04/16/18 06:15 ALT 21 U/L (7-52) 04/16/18 06:15 Alkaline Phosphatase 43 U/L (34-104) 04/16/18 06:15 Troponin I 0.03 ng/mL (0.01-0.05) 04/14/18 18:31 Total Protein 6.1 gm/dL (6.0-8.3) 04/16/18 06:15 Albumin 3.5 gm/dL (3.7-5.3) L 04/16/18 06:15 Globulin 2.6 gm/dL 04/16/18 06:15 Albumin/Globulin Ratio 1.4 (1.0-1.8) 04/16/18 06:15 Triglycerides 58 mg/dL (<150) 04/15/18 05:45 Cholesterol 166 mg/dL (<200) 04/15/18 05:45 LDL Cholesterol Direct 86 mg/dL (75-193) 04/15/18 05:45 HDL Cholesterol 55 mg/dL (23-92) 04/15/18 05:45 Urine Source RANDOM 04/15/18 00:00 Urine Color YELLOW 04/15/18 00:00 Urine Clarity CLEAR (CLEAR) 04/15/18 00:00 Urine pH 6.5 (4.6 - 8.0) 04/15/18 00:00 Ur Specific [place] <= 1.005 (1.005-1.030) 04/15/18 00:00 Urine Protein NEGATIVE mg/dL (NEGATIVE) 04/15/18 00:00 Urine Glucose (UA) NEGATIVE mg/dL (NEGATIVE) 04/15/18 00:00 Urine Ketones NEGATIVE mg/dL (NEGATIVE) 04/15/18 00:00 Urine Blood NEGATIVE (NEGATIVE) 04/15/18 00:00 Urine Nitrate NEGATIVE (NEGATIVE) 04/15/18 00:00 Urine Bilirubin NEGATIVE (NEGATIVE) 04/15/18 00:00 Urine Urobilinogen 0.2 E.U./dL (0.2 - 1.0) 04/15/18 00:00 Ur Leukocyte Esterase NEGATIVE (NEGATIVE) 04/15/18 00:00 Urine RBC NONE SEEN /hpf (0-5) 04/15/18 00:00 Urine WBC 0-2 /hpf (0-5) 04/15/18 00:00 Ur Epithelial Cells FEW /lpf (FEW) 04/15/18 00:00 Urine Bacteria OCCASIONAL /hpf (NONE SEEN) 04/15/18 00:00 Valproic Acid 11.4 ug/mL (50.0-100.0) L 04/24/18 13:15 - Physical Exam Vitals and I&O: Vital Signs Temp 97.1 F 05/01/18 20:32 Pulse 50 05/01/18 20:32 Resp 19 05/01/18 20:32 BP 119/57 05/01/18 20:32 Pulse Ox 99 05/01/18 20:32 Intake & Output 05/01/18 05/01/18 05/02/18 06:59 18:59 06:59 Intake Total 900 160 Balance 900 160 Intake: Oral 900 160 Other: # Voids 3 1 # Bowel Movements 1 0 Active Medications: Current Medications Acetaminophen (Tylenol) 650 mg PO Q4HR PRN PRN Reason: Pain or Fever >101 Stop: 06/14/18 00:56 Al Hydrox/Mg Hydrox/Simethicone (Maalox) 30 ml PO DAILY PRN PRN Reason: GI DISTRESS Stop: 06/14/18 00:56 Amlodipine Besylate (Norvasc) 5 mg PO DAILY [facility] Stop: 06/14/18 08:59 Last Admin: 05/01/18 08:47 Dose: 5 mg Aripiprazole (Abilify) 10 mg PO QAM [facility]; Protocol Stop: 07/01/18 08:59 Aspirin (Aspirin Chewable) 81 mg PO DAILY [facility] Stop: 06/14/18 08:59 Last Admin: 05/01/18 08:47 Dose: 81 mg Benztropine Mesylate (Cogentin) 1 mg PO BID [facility] Stop: 06/14/18 08:59 Last Admin: 05/01/18 16:55 Dose: 1 mg Divalproex Sodium (Depakote Dr) 250 mg PO Q8HR [facility]; Protocol Stop: 06/27/18 20:59 Last Admin: 05/01/18 13:17 Dose: 250 mg Docusate Sodium (Colace) 250 mg PO DAILY [facility] Stop: 06/14/18 08:59 Last Admin: 05/01/18 08:47 Dose: 250 mg Glipizide (Glucotrol) 5 mg PO BIDAC [facility] Stop: 06/14/18 07:29 Last Admin: 05/01/18 16:55 Dose: 5 mg Insulin Aspart (Novolog Insulin Sliding Scale) 0 units SUBQ ACHS [facility]; Protocol Stop: 06/14/18 07:29 Last Admin: 05/01/18 16:55 Dose: Not Given Insulin Detemir (Levemir Insulin) 10 units SUBQ HS [facility]; Protocol Stop: 06/14/18 20:59 Last Admin: 04/30/18 20:59 Dose: 10 units Lorazepam (Ativan) 0.5 mg PO Q4HR PRN; Protocol PRN Reason: Agitation Stop: 06/23/18 06:03 Last Admin: 04/30/18 20:59 Dose: 0.5 mg Losartan Potassium (Cozaar) 50 mg PO DAILY [facility] Stop: 06/14/18 08:59 Last Admin: 05/01/18 08:48 Dose: 50 mg Magnesium Hydroxide (Milk Of Magnesia) 30 ml PO DAILY PRN PRN Reason: Constipation Stop: 06/14/18 00:56 Metformin HCl (Glucophage) 500 mg PO BID [facility] Stop: 06/14/18 08:59 Last Admin: 05/01/18 16:55 Dose: 500 mg Metoprolol Tartrate (Lopressor) 50 mg PO BID [facility] Stop: 06/14/18 08:59 Last Admin: 05/01/18 16:56 Dose: 50 mg Pantoprazole Sodium (Protonix) 40 mg PO QDAC [facility] Stop: 06/14/18 07:29 Last Admin: 05/01/18 06:47 Dose: 40 mg Quetiapine Fumarate (Seroquel) 100 mg PO HS [facility]; Protocol Stop: 06/22/18 20:59 Last Admin: 04/30/18 20:58 Dose: 100 mg General: demented HEENT: NC/AT, PERRLA, EOMI, anicteric sclerae, throat clear Neck: Supple, No JVD, No thyromegaly, +2 carotid pulse wo bruit, No LAD Lungs: CTAB Cardiovascular: RRR, Normal S1, Normal S2, without murmur Abdomen: soft, non-tender, non-distended Extremities: clear Neurological: no change Internal Medicine Assmt/Plan - Assessment Assessment: 1.DM. 2.HTN. 3.DJD. 4.DEMENTIA. 5.PSYCHOSIS. - Plan Plan: CONTINUE ON CURRENT MEDICATION AND DIET. Nutritional Asmnt/Malnutr-PDOC - Dietary Evaluation Malnutrition Findings (Please click <Entered> for more info): Nutritional Asmnt/Malnutrition Start: 04/18/18 13: 59 Text: Status: Complete Freq: Protocol: Document 04/18/18 13:59 LCHENG (Rec: 04/18/18 14:10 [email or web address]) Nutritional Asmnt/Malnutrition Patient General Information Nutritional Screening Moderate Risk Diagnosis psychosis NOS Pertinent Medical Hx/Surgical Hx HTN, DM, DJD, dementia Subjective Information Pt seen lying in bed at time of visit, awake and alert. Pt stated food is good, she wants 2% milk instead of fat free milk, does not eat pork, would like water with breakfast. Per EMR, PO intake 100%. Current Diet Order/ Nutrition Support CCHO 60gm, mech soft ground Pertinent Medications colace, glucotrol, novolog, levemir, glucophage, protonix, seroquel Pertinent Labs 04/17-04/18 POC 119-122 04/16 K 3.1, glucose 108, POC 103-147 Nutritional Hx/Data Height 1.57 m Height (Calculated Centimeters) 157.5 Current Weight (lbs) 77.564 kg Weight (Calculated Kilograms) 77.6 Weight (Calculated Grams) 93906.3 [place] Body Weight 110 Body Mass Index (BMI) 31.2 Weight Status Obese GI Symptoms GI Symptoms None Last BM 04/17 Difficult in: None Skin Integrity/Comment: dryness Current %PO Good (75-100%) Estimated Nutritional Goals BEE in Kcals: Adj wt of IBW Calories/Kcals/Kg 25-30 adj wt 57kg Kcals Calculated 4195-6857 Protein: Adj wt of IBW Protein g/k Protein Calculated 57 Fluid: ml 1425-1710ml (1ml/kcal) Nutritional Problem No current Nutrition Prob Problem N/A Intervention/Recommendation Comments 1. Continue with [facility] soft ground diet as ordered. Diet preference updated. 2. Monitor PO intake, wt, labs and skin integrity 3. F/U as low risk in 7 days, 04/25 Expected Outcomes/Goals Expected Outcomes/Goals 1. PO intake to meet at least 75% of nutritional needs. 2. Wt stability, skin to remain intact, labs to approach WNL.
[2018-05-01] MEDS: Insulin Detemir 100 units/mL 10mL Vial SUBQ SCH (21:16)
--- NOTE | 2018-05-01 23:35 | Progress Notes ---
DATE: 05/01/2018 SUBJECTIVE: Case was discussed with staff of the patient, reviewed records. The patient continues to be unpredictable, impulsive, needing redirection. Continues to have poor insight. Today, she came and asked me to tell everybody that she owns this place. She believes that she has 132 children, so she is compliant with the medication with no side effects, no sedation, no nausea, no extrapyramidal symptoms. I will be increasing Abilify to 10 mg a day. We will continue to work with the patient group therapy, milieu therapy, adjust medication. DICTATION ENDS HERE JOB# [id number]
[2018-05-02] MEDS: Pantoprazole 40 mg EC Tab PO SCH (07:00)
[2018-05-02] MEDS: INSULIN ASPART SLIDING SCALE 100 UNITS/ML UNIT SUBQ SCH ×3 (07:01→18:15)
[2018-05-02] MEDS: Multivitamin w/ Minerals Tab PO SCH (08:45)
[2018-05-02] MEDS: Benztropine 1 MG TAB PO SCH ×2 (08:45→18:15)
[2018-05-02] MEDS: Aspirin 81mg Chewable Tab PO SCH (08:45)
--- NOTE | 2018-05-02 11:53 | Discharge Summary ---
DATE OF DISCHARGE: 05/02/2018 IDENTIFYING INFORMATION: The patient is a 78-year-old female. CHIEF COMPLAINT: "I am here for makeover." HISTORY OF PRESENT ILLNESS: The patient is a 78-year-old female who was admitted for observation. She reports that she was here for elevation and a makeover. She was staying that she has a fall with diabetes. She thinks this is 2018 to March and it is Tuesday. She is in state telling the psychiatrist, who admitted ____ she has known 95 children, then backtracked and tell me she has 157 children. She is bizarre, delusional, making nonsensical statements. The patient was a poor historian. The patient diagnosed with dementia, schizophrenia, and psychosis. COURSE IN THE HOSPITAL: The patient was started on Depakote and that was increased to 250 mg 3 times a day and also, Abilify, start Abilify increased to 10 mg daily. The patient was continued with amlodipine, aspirin, Cogentin, and pantoprazole. Seroquel also was in her medication. The patient progressively got better, though she was still delusional about how many children she has. However, she was not acting anyway dangerous, so we felt she is delusional maybe fixed and could be managed at a lower level of care. The patient was taken care of by Dr. Mcmullen during her stay here who manage her diabetes and her hypertension with the medication thought patient improved. She was doing well, sleeping well, eating well, no longer acting in anyway dangerous; however, though she was still delusional about how many children she has, we felt she could be treated at a lesser level of care. Despite all the change in her medications she continues to believe that she has those many children. FINAL DIAGNOSES: Chronic undifferentiated schizophrenia and dementia. MEDICAL DIAGNOSES: Diabetes mellitus and hypertension. The patient will be going back to the nursing facility. She will follow up with the psychiatrist, primary care physician and a therapist. EXPECTED OUTCOME: Stable if the patient complies with the above. JOB# [id number]
== END 2018-05-02 18:40 | DRG 885 ==
LOC: ER 18:20 → GERO2 22:55 → GERO 04-15 18:05
PROVIDERS: ADMIT Psychiatry & Neurology Psychiatry; ATTEND Psychiatry & Neurology Psychiatry
DX: F20.5 Residual schizophrenia (principal); J98.11 Atelectasis; F29 Unspecified psychosis not due to a substance or known physiological condition; F39 Unspecified mood [affective] disorder; E11.9 Type 2 diabetes mellitus without complications; M19.90 Unspecified osteoarthritis, unspecified site; F03.90 Unspecified dementia, unspecified severity, without behavioral disturbance, psychotic disturbance, mood disturbance, and anxiety; I11.9 Hypertensive heart disease without heart failure; K31.89 Other diseases of stomach and duodenum; F22 Delusional disorders; R07.9 Chest pain, unspecified; W18.30XA Fall on same level, unspecified, initial encounter; Y93.89 Activity, other specified; Y92.89 Other specified places as the place of occurrence of the external cause; Y99.8 Other external cause status
CPT/HCPCS: 36415-UA; 71045-TC; 71260-TC; 80053-TC; 80061-TC; 80164-TC; 81001-TC; 82948-90; 83036-90; 83735-TC; 84100-TC; 84484-TC; 85025-TC; 93005; G0410; J1200; J1630; J1815; J2060; J7030; Q9967; Z7610

== ENCOUNTER 2018-10-02 16:30 | Inpatient (IN) | payer MEDICARE, MEDICAID ==
--- NOTE | 2018-10-02 17:12 | ED Physician Chart ---
ED Chief Complaint/HPI - Patient Information Date Seen:: 10/02/18 Time Seen:: 17:00 Chief Complaint:: swallowing difficultybreast lumps breastpain deteriation in psyche status History of Present Illness:: recent exacerbation Allergies:: Allergies Allergy/AdvReac Type Severity Reaction Status Date / Time No Known Allergies Allergy Verified 02/19/17 21:03 Vitals:: Vital Signs - 8 hr 10/02/18 16:41 Temp 99.8 F HR 62 RR 21 BP 143/55 O2 Sat % 98 Historian:: Patient Review:: Nurse's Note Reviewed, Transfer documents Reviewed ED Review of Systems - Review of Systems General/Constitutional: No fever (unreliable historian) ED Past Medical History - Past Medical History Past Medical History: HTN, DM, Other (schizo asthma bipolar) Family Medical History - Family Member Mother History Unknown: Yes Ethnicity: Unknown Living Status: Unknown Hx Family Cancer: (unknown) Hx Family Coronary Artery Disease: (unknown) Hx Family Congestive Heart Failure: (unknown) Hx Family Hypertension: (unknown) Hx Family Stroke: (unknown) Hx Family Diabetes: (unknown) Hx Family Seizures: (unknown) Hx Family Dementia: (unknown) Hx Family AIDS: (unknown) Hx Family HIV: No Hx Family COPD: (unknown) Hx Family Hepatitis: (unknown) Hx Family Psychiatric Problems: (unknown) Hx Family Tuberculosis: (unknown) ED Physical Exam - Physical Examination General/Constitutional: Alert, No distress, Non-toxic appearing Eyes: Lids, conjuctiva normal Skin: Nl inspection ENMT: External ears, nose nl Neck: Nontender Respiratory: Nl effort/Exclusion Cardio Vascular: RRR GI: No tenderness/rebounding/guarding Extremities: No tenderness or effusion ED Assessment - Assessment General Assessment: equivocal swallowing difficulty psyche status deteriation ED Septic Shock - <6hrs of presentation: Vital Signs: Vital Signs - 8 hr 10/02/18 16:41 Temp 99.8 F HR 62 RR 21 BP 143/55 O2 Sat % 98 ED Reassessment (Disposition) - Reassessment Reassessment Condition:: Unchanged - Patient Disposition Discharge/Transfer:: Acute Care w/in this hosp (seen eating viguorosly)
[2018-10-02 17:53] LABS: % BASOPHILS 1.3 % (0.0-2.0); % LYMPHOCYTES 38.5 % (20.0-50.0); % MONOCYTES 8.9 % (2.0-10.0); % NEUTROPHILS 49.3 % (40.0-80.0); BASOPHILE ABSOLUTE 0.1 Th/cumm (0-0.2); EOSINOPHILE ABSOLUTE 0.1 Th/cmm (0.1-0.4); HEMATOCRIT 32.9 % (41.0-60); HEMOGLOBIN 11.1 gm/dL (12-16); LYMPHOCYTE ABSOLUTE 2.5 Th/cmm (1.5-3.0); MEAN CORPUSCULAR HEMOGLOBIN 30.1 pg (27.0-31.0); MEAN CORPUSCULAR HGB CONC 33.8 pg (28.0-36.0); MONOCYTE ABSOLUTE 0.6 Th/cmm (0.3-1.0); NEUTROPHILE ABSOLUTE 3.2 Th/cmm (1.8-8.0); PLATELET COUNT 154 Th/cmm (150-400); RED BLOOD COUNT 3.69 Mil/cmm (3.80-5.20); RED CELL DISTRIBUTION WIDTH 12.1 % (11.5-20.0); WHITE BLOOD COUNT 6.5 Th/cmm (4.8-10.8)
[2018-10-02 17:54] LABS: ALB/GLOB RATIO 1.6 (1.0-1.8); ALBUMIN 3.6 gm/dL (3.7-5.3); ALKALINE PHOSPHATASE 42 U/L (34-104); ANION GAP 11.4 (7.0-16.0); BILIRUBIN,TOTAL 0.3 mg/dL (0.3-1.0); BUN - UREA NITROGEN 26 mg/dL (7-25); CALCIUM SERUM 9.1 mg/dL (8.6-10.3); CARBON DIOXIDE 30.5 mEq/L (21.0-31.0); CHLORIDE 97 mEq/L (98-107); GLUCOSE 99 mg/dL (70-105); LIPASE 15 U/L (11-82); POTASSIUM SERUM 3.9 mEq/L (3.5-5.1); SGOT 15 U/L (13-39); SGPT/ALT 12 U/L (7-52); SODIUM SERUM 135 mEq/L (136-145); TOTAL PROTEIN,SERUM 5.8 gm/dL (6.0-8.3)
[2018-10-02 17:59] LABS: BILIRUBIN,DIRECT 0.05 mg/dL (0.0-0.2)
[2018-10-02 18:18] LABS: URINE SOURCE RANDOM
[2018-10-02 18:21] LABS: URINE BILIRUBIN NEGATIVE (NEGATIVE); URINE BLOOD NEGATIVE (NEGATIVE); URINE GLUCOSE (UA) NEGATIVE (NEGATIVE); URINE KETONE NEGATIVE (NEGATIVE); URINE LEUKOCYTE ESTERASE TRACE (NEGATIVE); URINE MICROSCOPIC INDICATED? YES; URINE NITRATE NEGATIVE (NEGATIVE); URINE PROTEIN NEGATIVE (NEGATIVE); URINE UROBILINOGEN 0.2 E.U./dL (0.2 - 1.0)
[2018-10-02 20:10] VITALS: BP 143/55
[2018-10-02 20:18] LABS: URINE CLARITY HAZY (CLEAR); URINE COLOR YELLOW
[2018-10-02 20:19] LABS: URINE BACTERIA FEW /hpf (NONE SEEN); URINE EPITHELIAL CELLS FEW /lpf (FEW); URINE RBC 0-2 /hpf (0-5)
[2018-10-02 20:56] LABS: CHOLESTEROL 149 mg/dL (<200); HDL -HIGH DENSITY LIPOPROTEIN 58 mg/dL (23-92); TRIGLYCERIDES 68 mg/dL (<150)
[2018-10-02] MEDS ORDERED: Magnesium Hydroxide (MOM) 30 mL UDC PO PRN (21:45)
[2018-10-02] MEDS ORDERED: GLUCAGON HCl 1 MG KIT IM PRN (22:10)
--- NOTE | 2018-10-03 00:36 | History & Physical ---
ADMIT DATE: 10/02/2018 HISTORY OF PRESENT ILLNESS: The patient is a 78-year-old female with long history of diabetes mellitus, hypertension, hyperlipidemia, psychosis, admitted to [facility] under Dr. Estrada's service. The patient denies fevers, chills, nausea or vomiting. PAST MEDICAL HISTORY: Significant for hypertension, diabetes mellitus, hyperlipidemia, psychosis. PAST SURGICAL HISTORY: No recent surgery. ALLERGIES: None. MEDICATIONS: Follow admission reconciliation. SOCIAL HISTORY: No smoking, no alcohol, no drug. FAMILY HISTORY: Noncontributory. REVIEW OF SYSTEMS: RENAL SYSTEM: No history of chronic renal disorder. CARDIOVASCULAR SYSTEM: No coronary artery disease. ENDOCRINE SYSTEM: She has history of diabetes mellitus. GASTROINTESTINAL SYSTEM: No upper or lower gastrointestinal bleed. NEUROLOGICAL SYSTEM: Seizure disorder. SKELETOMUSCULAR SYSTEM: No muscular dystrophy. HEMATOLOGIC SYSTEM: No bleeding tendencies. RESPIRATORY SYSTEM: No asthma. GENITOURINARY SYSTEM: No dysuria or hematuria. PHYSICAL EXAMINATION: GENERAL: She is awake, alert, mildly confused. VITAL SIGNS: Temperature 99.4, heart rate 62, blood pressure 143/55. HEENT: Normocephalic. Pupils are reactive to light and accommodation. Sclerae clear. NECK: Supple. Negative for lymphadenopathy, JVD or bruit. CHEST: Entry of air bilaterally normal. No rhonchi or wheezing. HEART: S1, S2 normal. No gallop rhythm. ABDOMEN: Soft, bowel sounds positive. EXTREMITIES: No edema. NEUROLOGIC: She is awake, alert, mildly confused. No focal muscle deficits. Cranial nerves 2-12 are intact. LABORATORY DATA: White blood cell 6.45, hemoglobin 11.1, hematocrit 32.9, platelet 154. Sodium 135, potassium 3.9, BUN 26, creatinine 1.0. ASSESSMENT: 1. Diabetes mellitus. 2. Hypertension. 3. Hyperlipidemia. 4. Mild anemia. 5. Psychosis. PLAN: The patient admitted to the hospital under Dr. Estrada's service. Medical problem addressed during hospitalization is psychosis. Medical problems addressed at discharge, diabetes mellitus, hypertension, hyperlipidemia. The patient is medically stable for activity. Thank you, Dr. Estrada, for asking me to see your patient. The patient will follow up with primary physician upon discharge. JOB# [id number]
[2018-10-03] MEDS: INSULIN LISPRO SLIDING SCALE 100 UNITS/ML UNIT SUBQ SCH ×5 (06:45→21:13)
[2018-10-03] MEDS: Pantoprazole 40 mg EC Tab PO SCH (06:46)
--- NOTE | 2018-10-03 08:29 | Diagnostic Imaging Report ---
Portable chest x-ray Time: History: Pneumothorax Allowing for portable technique the heart size is normal. No focal pulmonary parenchymal processes. No hilar or mediastinal abnormalities. Impression: No acute abnormalities.
[2018-10-03] MEDS: Benztropine 1 MG TAB PO SCH ×2 (09:00→17:03)
[2018-10-03] MEDS: Aspirin 81mg Chewable Tab PO SCH (09:59)
[2018-10-03] MEDS: Multivitamin w/ Minerals Tab PO SCH (09:59)
--- NOTE | 2018-10-03 11:43 | History & Physical ---
ADMIT DATE: 10/03/2018 IDENTIFYING INFORMATION: The patient is a 78-year-old female. CHIEF COMPLAINT: The patient was admitted because of agitation. HISTORY OF PRESENT ILLNESS: The patient was sent from a nursing facility because of agitation. The patient was a very poor historian. She believes she is 80 and that she will be 28 when she leaves this place. She believes this 09/25/2018. She reports that later she reports when she told me that she has first 95 kids and she said no they were 35. She was delusional, paranoid. She has not been able to sleep or eat well. Unable to give previous history. She said that she is here for makeover. PAST PSYCHIATRIC HISTORY: The patient has prior admissions to this facility and at that time also she said she was here for makeover that was present in 03/2018. She is a poor historian in general, she is unpredictable and impulsive. MEDICAL HISTORY: The patient has hypertension, diabetes mellitus. ALLERGIES: She has no known drug allergies. MEDICATIONS: She is on amlodipine, Abilify 10 mg in the morning, Depakote 250 mg 3 times a day. Glipizide, glucagon, insulin, losartan, metformin, metoprolol, multivitamin, pantoprazole, Seroquel 100 mg at bedtime. FAMILY AND SOCIAL HISTORY: The patient reports that she has 95 kids, later she said 35. The patient is unable to give much information about personal history. She reports she was born in [place] and that she lives in [place]. She denies substance abuse, but however, she is a poor historian. MENTAL STATUS EXAMINATION: The patient is appropriately dressed, not very well groomed. She was pacing unit. She was alert. She was able to know this is 09/2018, but she does not know how many children she has. She is confused about why she is here. She believes she is here to have a makeover. Her affect is constricted. Her speech is rambling, delusional. She has very poor insight. Unable to make safe plan for self-care. She denies any visual hallucination. She reports she is not sleeping or eating well. halfway memory is poor, cannot remember her age, she believes she is 80 ____ she was 78. She denies any suicidal ideation, homicidal ideation, denies prior suicide attempts. Her insight about her illness is poor, does not realize she has a problem. Judgment is poor with her agitated behavior. IMPRESSION: Dementia with behavioral disturbances. Also, schizophrenia, unspecified. Her assets, she is accepting negative poor coping skills. INITIAL TREATMENT AND PLAN: The patient was continued on her medication. We will do group therapy, milieu therapy, and ____. ESTIMATED LENGTH OF STAY: 3-7 days. DISCHARGE CRITERIA: Decreased agitation, psychosis after discharge outpatient treatment. [facility]# [id number]
[2018-10-03] MEDS: Insulin Glargine 100 units/ml 10ml Vial SUBQ SCH ×2 (20:59→21:07)
[2018-10-03] MEDS ORDERED: Insulin Glargine 100 units/ml 10ml Vial SUBQ SCH (21:00)
[2018-10-03] MEDS ORDERED: Non-Formulary Item 1 EA (Insulin Detemir 10 UNITS) SUBQ SCH (21:00)
--- NOTE | 2018-10-03 21:01 | Internal Medicine Prog Note ---
Internal Medicine Subjective - Subjective Service Date: 10/03/18 Patient seen and examined:: with staff Patient is:: awake, verbal, in bed, talking Per staff patient has:: no adverse event Internal Medicine Objective - Results Result Diagrams: 10/02/18 17:30 10/02/18 17:30 Recent Labs: Laboratory Last Values WBC 6.5 Th/cmm (4.8-10.8) 10/02/18 17:30 RBC 3.69 Mil/cmm (3.80-5.20) L 10/02/18 17:30 Hgb 11.1 gm/dL (12-16) L 10/02/18 17:30 Hct 32.9 % (41.0-60) L 10/02/18 17:30 MCV 89.0 fl (81-100) 10/02/18 17:30 MCH 30.1 pg (27.0-31.0) 10/02/18 17:30 MCHC Differential 33.8 pg (28.0-36.0) 10/02/18 17:30 RDW 12.1 % (11.5-20.0) 10/02/18 17:30 Plt Count 154 Th/cmm (150-400) 10/02/18 17:30 MPV 8.0 fl 10/02/18 17:30 Neutrophils % 49.3 % (40.0-80.0) 10/02/18 17:30 Lymphocytes % 38.5 % (20.0-50.0) 10/02/18 17:30 Monocytes % 8.9 % (2.0-10.0) 10/02/18 17:30 Eosinophils % 2.0 % (0.0-5.0) 10/02/18 17:30 Basophils % 1.3 % (0.0-2.0) 10/02/18 17:30 Sodium 135 mEq/L (136-145) L 10/02/18 17:30 Potassium 3.9 mEq/L (3.5-5.1) 10/02/18 17:30 Chloride 97 mEq/L (98-107) L 10/02/18 17:30 Carbon Dioxide 30.5 mEq/L (21.0-31.0) 10/02/18 17:30 Anion Gap 11.4 (7.0-16.0) 10/02/18 17:30 BUN 26 mg/dL (7-25) H 10/02/18 17:30 Creatinine 1.0 mg/dL (0.6-1.2) 10/02/18 17:30 Est GFR ( Amer) TNP 10/02/18 17:30 Est GFR (Non-Af Amer) TNP 10/02/18 17:30 BUN/Creatinine Ratio 26.0 10/02/18 17:30 Glucose 99 mg/dL (70-105) 10/02/18 17:30 POC Glucose 83 MG/DL (70 - 105) 10/03/18 20:26 Calcium 9.1 mg/dL (8.6-10.3) 10/02/18 17:30 Total Bilirubin 0.3 mg/dL (0.3-1.0) 10/02/18 17:30 Direct Bilirubin 0.05 mg/dL (0.0-0.2) 10/02/18 17:30 AST 15 U/L (13-39) 10/02/18 17:30 ALT 12 U/L (7-52) 10/02/18 17:30 Alkaline Phosphatase 42 U/L (34-104) 10/02/18 17:30 Total Protein 5.8 gm/dL (6.0-8.3) L 10/02/18 17:30 Albumin 3.6 gm/dL (3.7-5.3) L 10/02/18 17:30 Globulin 2.2 gm/dL 10/02/18 17:30 Albumin/Globulin Ratio 1.6 (1.0-1.8) 10/02/18 17:30 Triglycerides 68 mg/dL (<150) 10/02/18 17:30 Cholesterol 149 mg/dL (<200) 10/02/18 17:30 LDL Cholesterol Direct 73 mg/dL (75-193) L 10/02/18 17:30 HDL Cholesterol 58 mg/dL (23-92) 10/02/18 17:30 Lipase 15 U/L (11-82) 10/02/18 17:30 Urine Source RANDOM 10/02/18 18:10 Urine Color YELLOW 10/02/18 18:10 Urine Clarity HAZY (CLEAR) 10/02/18 18:10 Urine pH 6.0 (4.6 - 8.0) 10/02/18 18:10 Ur Specific [place] 1.010 (1.005-1.030) 10/02/18 18:10 Urine Protein NEGATIVE mg/dL (NEGATIVE) 10/02/18 18:10 Urine Glucose (UA) NEGATIVE mg/dL (NEGATIVE) 10/02/18 18:10 Urine Ketones NEGATIVE mg/dL (NEGATIVE) 10/02/18 18:10 Urine Blood NEGATIVE (NEGATIVE) 10/02/18 18:10 Urine Nitrate NEGATIVE (NEGATIVE) 10/02/18 18:10 Urine Bilirubin NEGATIVE (NEGATIVE) 10/02/18 18:10 Urine Urobilinogen 0.2 E.U./dL (0.2 - 1.0) 10/02/18 18:10 Ur Leukocyte Esterase TRACE (NEGATIVE) H 10/02/18 18:10 Urine RBC 0-2 /hpf (0-5) 10/02/18 18:10 Urine WBC 6-10 /hpf (0-5) H 10/02/18 18:10 Ur Epithelial Cells FEW /lpf (FEW) 10/02/18 18:10 Urine Bacteria FEW /hpf (NONE SEEN) 10/02/18 18:10 - Physical Exam Vitals and I&O: Vital Signs Temp 98.3 F 10/03/18 19:37 Pulse 51 10/03/18 19:37 Resp 19 10/03/18 19:37 BP 130/65 10/03/18 19:37 Pulse Ox 98 10/03/18 19:37 Intake & Output 10/03/18 10/03/18 10/04/18 06:59 18:59 06:59 Intake Total 180 Balance 180 Intake: Oral 180 Other: # Voids 2 # Bowel Movements 0 Active Medications: Current Medications Acetaminophen (Tylenol) 650 mg PO Q4HR PRN PRN Reason: Pain or Fever >101 Stop: 12/01/18 21:36 Last Admin: 10/03/18 04:12 Dose: 650 mg Amlodipine Besylate (Norvasc) 5 mg PO DAILY [facility] Stop: 12/02/18 08:59 Last Admin: 10/03/18 09:58 Dose: 5 mg [facility] ([facility]) [facility] Protocol Stop: 12/02/18 08:59 Last Admin: 10/03/18 09:59 Dose: 10 mg Aspirin (Aspirin Chewable) 81 mg PO DAILY [facility] Stop: 12/02/18 08:59 Last Admin: 10/03/18 09:59 Dose: 81 mg Benztropine Mesylate (Cogentin) 1 mg PO BID [facility] Stop: 12/02/18 08:59 Last Admin: 10/03/18 17:03 Dose: 1 mg Dextrose (Glutose 40%) 18.75 gm PO PRN PRN PRN Reason: Blood Glucose less than 70 Stop: 12/01/18 22:09 Divalproex Sodium (Depakote Dr) 250 mg PO Q8HR [facility]; Protocol Stop: 12/02/18 04:59 Last Admin: 10/03/18 13:08 Dose: 250 mg Docusate Sodium (Colace) 250 mg PO DAILY [facility] Stop: 12/02/18 08:59 Last Admin: 10/03/18 10:01 Dose: 250 mg Glipizide (Glucotrol) [facility] Stop: 12/02/18 07:29 Last Admin: 10/03/18 17:03 Dose: 2.5 mg Glucagon (Glucagen) 1 mg IM PRN PRN PRN Reason: Blood Glucose less than 70 Stop: 12/01/18 22:09 Insulin Glargine (Lantus Insulin) 10 units SUBQ HS [facility] Stop: 12/02/18 20:59 Insulin Human Lispro (Humalog Insulin Sliding Scale) 0 units SUBQ ACHS [facility]; Protocol Stop: 12/02/18 07:29 Last Admin: 10/03/18 17:47 Dose: 2 units Lorazepam (Ativan) 0.5 mg PO Q6HR PRN; Protocol PRN Reason: Agitation Stop: 12/01/18 22:07 Losartan Potassium (Cozaar) 50 mg PO DAILY [facility] Stop: 12/02/18 08:59 Last Admin: 10/03/18 10:00 Dose: 50 mg Magnesium Hydroxide (Milk Of Magnesia) 30 ml PO DAILY PRN PRN Reason: Constipation Stop: 12/01/18 21:44 Metformin HCl (Glucophage) 500 mg PO BIDWM [facility] Stop: 12/02/18 07:59 Last Admin: 10/03/18 17:45 Dose: 500 mg Metoprolol Tartrate (Lopressor) 50 mg PO BID [facility] Stop: 12/02/18 08:59 Last Admin: 10/03/18 17:00 Dose: 50 mg Pantoprazole Sodium (Protonix) 40 mg PO QDAC [facility] Stop: 12/02/18 07:29 Last Admin: 10/03/18 06:46 Dose: 40 mg Quetiapine Fumarate (Seroquel) 100 mg PO HS [facility]; Protocol Stop: 12/02/18 20:59 Zolpidem Tartrate (Ambien) 5 mg PO HS PRN PRN Reason: Insomnia Stop: 12/01/18 22:09 General: demented HEENT: NC/AT, PERRLA, EOMI, anicteric sclerae, throat clear Neck: Supple, No JVD, No thyromegaly, +2 carotid pulse wo bruit, No LAD Lungs: CTAB Cardiovascular: RRR, Normal S1, Normal S2, without murmur Abdomen: non-tender, non-distended Extremities: clear Neurological: no change Internal Medicine Assmt/Plan - Assessment Assessment: 1.DM. 2.HTN. 3.HYPERLIPIDEMIA. 4.PSYCHOSIS - Plan Plan: CONTINUE ON CURRENT MEDICATION AND DIET
[2018-10-04] MEDS: Pantoprazole 40 mg EC Tab PO SCH (06:53)
[2018-10-04] MEDS: INSULIN LISPRO SLIDING SCALE 100 UNITS/ML UNIT SUBQ SCH ×4 (06:55→21:54)
[2018-10-04] MEDS: Aspirin 81mg Chewable Tab PO SCH (08:37)
[2018-10-04] MEDS: Benztropine 1 MG TAB PO SCH ×2 (08:41→16:40)
[2018-10-04] MEDS: Multivitamin w/ Minerals Tab PO SCH (08:41)
--- NOTE | 2018-10-04 20:27 | Internal Medicine Prog Note ---
Internal Medicine Subjective - Subjective Service Date: 10/04/18 Patient seen and examined:: with staff Patient is:: awake, verbal, in bed, talking Per staff patient has:: no adverse event Internal Medicine Objective - Results Result Diagrams: 10/02/18 17:30 10/02/18 17:30 Recent Labs: Laboratory Last Values WBC 6.5 Th/cmm (4.8-10.8) 10/02/18 17:30 RBC 3.69 Mil/cmm (3.80-5.20) L 10/02/18 17:30 Hgb 11.1 gm/dL (12-16) L 10/02/18 17:30 Hct 32.9 % (41.0-60) L 10/02/18 17:30 MCV 89.0 fl (81-100) 10/02/18 17:30 MCH 30.1 pg (27.0-31.0) 10/02/18 17:30 MCHC Differential 33.8 pg (28.0-36.0) 10/02/18 17:30 RDW 12.1 % (11.5-20.0) 10/02/18 17:30 Plt Count 154 Th/cmm (150-400) 10/02/18 17:30 MPV 8.0 fl 10/02/18 17:30 Neutrophils % 49.3 % (40.0-80.0) 10/02/18 17:30 Lymphocytes % 38.5 % (20.0-50.0) 10/02/18 17:30 Monocytes % 8.9 % (2.0-10.0) 10/02/18 17:30 Eosinophils % 2.0 % (0.0-5.0) 10/02/18 17:30 Basophils % 1.3 % (0.0-2.0) 10/02/18 17:30 Sodium 135 mEq/L (136-145) L 10/02/18 17:30 Potassium 3.9 mEq/L (3.5-5.1) 10/02/18 17:30 Chloride 97 mEq/L (98-107) L 10/02/18 17:30 Carbon Dioxide 30.5 mEq/L (21.0-31.0) 10/02/18 17:30 Anion Gap 11.4 (7.0-16.0) 10/02/18 17:30 BUN 26 mg/dL (7-25) H 10/02/18 17:30 Creatinine 1.0 mg/dL (0.6-1.2) 10/02/18 17:30 Est GFR ( Amer) TNP 10/02/18 17:30 Est GFR (Non-Af Amer) TNP 10/02/18 17:30 BUN/Creatinine Ratio 26.0 10/02/18 17:30 Glucose 99 mg/dL (70-105) 10/02/18 17:30 POC Glucose 90 MG/DL (70 - 105) 10/04/18 16:19 Calcium 9.1 mg/dL (8.6-10.3) 10/02/18 17:30 Total Bilirubin 0.3 mg/dL (0.3-1.0) 10/02/18 17:30 Direct Bilirubin 0.05 mg/dL (0.0-0.2) 10/02/18 17:30 AST 15 U/L (13-39) 10/02/18 17:30 ALT 12 U/L (7-52) 10/02/18 17:30 Alkaline Phosphatase 42 U/L (34-104) 10/02/18 17:30 Total Protein 5.8 gm/dL (6.0-8.3) L 10/02/18 17:30 Albumin 3.6 gm/dL (3.7-5.3) L 10/02/18 17:30 Globulin 2.2 gm/dL 10/02/18 17:30 Albumin/Globulin Ratio 1.6 (1.0-1.8) 10/02/18 17:30 Triglycerides 68 mg/dL (<150) 10/02/18 17:30 Cholesterol 149 mg/dL (<200) 10/02/18 17:30 LDL Cholesterol Direct 73 mg/dL (75-193) L 10/02/18 17:30 HDL Cholesterol 58 mg/dL (23-92) 10/02/18 17:30 Lipase 15 U/L (11-82) 10/02/18 17:30 Urine Source RANDOM 10/02/18 18:10 Urine Color YELLOW 10/02/18 18:10 Urine Clarity HAZY (CLEAR) 10/02/18 18:10 Urine pH 6.0 (4.6 - 8.0) 10/02/18 18:10 Ur Specific [place] 1.010 (1.005-1.030) 10/02/18 18:10 Urine Protein NEGATIVE mg/dL (NEGATIVE) 10/02/18 18:10 Urine Glucose (UA) NEGATIVE mg/dL (NEGATIVE) 10/02/18 18:10 Urine Ketones NEGATIVE mg/dL (NEGATIVE) 10/02/18 18:10 Urine Blood NEGATIVE (NEGATIVE) 10/02/18 18:10 Urine Nitrate NEGATIVE (NEGATIVE) 10/02/18 18:10 Urine Bilirubin NEGATIVE (NEGATIVE) 10/02/18 18:10 Urine Urobilinogen 0.2 E.U./dL (0.2 - 1.0) 10/02/18 18:10 Ur Leukocyte Esterase TRACE (NEGATIVE) H 10/02/18 18:10 Urine RBC 0-2 /hpf (0-5) 10/02/18 18:10 Urine WBC 6-10 /hpf (0-5) H 10/02/18 18:10 Ur Epithelial Cells FEW /lpf (FEW) 10/02/18 18:10 Urine Bacteria FEW /hpf (NONE SEEN) 10/02/18 18:10 - Physical Exam Vitals and I&O: Vital Signs Temp 97.4 F 10/04/18 20:00 Pulse 78 10/04/18 20:00 Resp 19 10/04/18 20:00 BP 120/70 10/04/18 20:00 Pulse Ox 98 10/04/18 20:00 Intake & Output 10/04/18 10/04/18 10/05/18 06:59 18:59 06:59 Intake Total 300 1080 Balance 300 1080 Intake: Oral 300 1080 Other: # Voids 2 4 # Bowel Movements 1 1 Active Medications: Current Medications Acetaminophen (Tylenol) 650 mg PO Q4HR PRN PRN Reason: Pain or Fever >101 Stop: 12/01/18 21:36 Last Admin: 10/03/18 04:12 Dose: 650 mg Aripiprazole (Abilify) 10 mg PO QAM [facility]; Protocol Stop: 12/02/18 08:59 Last Admin: 10/04/18 08:46 Dose: 10 mg Aspirin (Aspirin Chewable) 81 mg PO DAILY [facility] Stop: 12/02/18 08:59 Last Admin: 10/04/18 08:37 Dose: 81 mg Benztropine Mesylate (Cogentin) 1 mg PO BID [facility] Stop: 12/02/18 08:59 Last Admin: 10/04/18 16:40 Dose: 1 mg Dextrose (Glutose 40%) 18.75 gm PO PRN PRN PRN Reason: Blood Glucose less than 70 Stop: 12/01/18 22:09 Divalproex Sodium (Depakote Dr) 250 mg PO Q8HR [facility]; Protocol Stop: 12/02/18 04:59 Last Admin: 10/04/18 12:41 Dose: 250 mg Docusate Sodium (Colace) 250 mg PO DAILY [facility] Stop: 12/02/18 08:59 Last Admin: 10/04/18 08:38 Dose: 250 mg [facility]: 12/02/18 07:29 Last Admin: 10/04/18 16:40 Dose: 2.5 mg Glucagon (Glucagen) 1 mg IM PRN PRN PRN Reason: Blood Glucose less than 70 Stop: 12/01/18 22:09 Insulin Glargine (Lantus Insulin) 10 units SUBQ HS [facility] Stop: 12/02/18 20:59 Last Admin: 10/03/18 21:07 Dose: Not Given Insulin Human Lispro (Humalog Insulin Sliding Scale) 0 units SUBQ [facility]; Protocol Stop: 12/02/18 07:29 Last Admin: 10/04/18 16:43 Dose: Not Given Lorazepam (Ativan) 0.5 mg PO Q6HR PRN; Protocol PRN Reason: Agitation Stop: 12/01/18 22:07 Losartan Potassium (Cozaar) 50 mg PO DAILY [facility] Stop: 12/02/18 08:59 Last Admin: 10/04/18 08:38 Dose: 50 mg Magnesium Hydroxide (Milk Of Magnesia) 30 ml PO DAILY PRN PRN Reason: Constipation Stop: 12/01/18 21:44 Metformin HCl (Glucophage) 500 mg PO BIDWM [facility] Stop: 12/02/18 07:59 Last Admin: 10/04/18 17:01 Dose: 500 mg Metoprolol Tartrate (Lopressor) 50 mg PO BID [facility] Stop: 12/02/18 08:59 Last Admin: 10/04/18 16:39 Dose: 50 mg Pantoprazole Sodium (Protonix) 40 mg PO QDAC [facility] Stop: 12/02/18 07:29 Last Admin: 10/04/18 06:53 Dose: 40 mg Quetiapine Fumarate (Seroquel) 100 mg PO HS [facility]; Protocol Stop: 12/02/18 20:59 Last Admin: 10/03/18 20:45 Dose: 100 mg Quetiapine Fumarate (Seroquel) 25 mg PO DAILY [facility]; Protocol Stop: 12/03/18 08:59 Last Admin: 10/04/18 12:41 Dose: 25 mg Zolpidem Tartrate (Ambien) 5 mg PO HS PRN PRN Reason: Insomnia Stop: 12/01/18 22:09 General: demented HEENT: NC/AT, PERRLA, EOMI, anicteric sclerae, throat clear Neck: Supple, No JVD, No thyromegaly, +2 carotid pulse wo bruit, No LAD Lungs: CTAB Cardiovascular: RRR, Normal S1, Normal S2, without murmur Abdomen: non-tender, non-distended Extremities: clear Neurological: no change Internal Medicine Assmt/Plan - Assessment Assessment: 1.DM. 2.HTN. 3.HYPERLIPIDEMIA. 4.PSYCHOSIS - Plan Plan: CONTINUE ON CURRENT MEDICATION AND DIET
[2018-10-04] MEDS: Insulin Glargine 100 units/ml 10ml Vial SUBQ SCH (21:45)
--- NOTE | 2018-10-05 04:42 | Progress Notes ---
DATE: 10/04/2018 SUBJECTIVE: Chart reviewed and the patient interviewed. Also, discussed the patient's condition with the staff and reviewed records and labs. The patient is still confused and delusional. The patient is still mumbling and talking to herself. She also still needs lots of redirections. The patient also still has mood swings and she still wants to be left alone. Otherwise, the patient is compliant with taking her medications. The patient also continued to talk about her having "[id number] babies." JOB# [id number]
--- NOTE | 2018-10-05 04:45 | Progress Notes ---
DATE: 10/04/2018 SUBJECTIVE: Chart reviewed and the patient interviewed. Also, discussed the patient's condition with the staff and reviewed records and labs. The patient is still confused and is still actively hallucinating. The patient also is still delusional. She continued to talk about her having "[id number] babies." She also is still paranoid. Also, personal hygiene is still poor. Otherwise, the patient is compliant with taking her medications with no side effects of medications. ASSESSMENT: The patient is still psychotic and needs close monitoring. TREATMENT PLAN: We will continue to monitor her behavior and her condition closely. Also, we will increase Seroquel to 25 mg in the morning and 100 mg at bedtime and we will discontinue Abilify since the patient is taking Seroquel. Also, we will continue Depakote 250 mg 3 times a day. Also, we will get Depakote blood level and continue to follow up closely. JOB# [id number]
[2018-10-05] MEDS: Pantoprazole 40 mg EC Tab PO SCH (06:53)
[2018-10-05] MEDS: INSULIN LISPRO SLIDING SCALE 100 UNITS/ML UNIT SUBQ SCH ×4 (06:53→20:56)
[2018-10-05] MEDS: Multivitamin w/ Minerals Tab PO SCH (09:01)
[2018-10-05] MEDS: Benztropine 1 MG TAB PO SCH ×2 (09:01→16:34)
[2018-10-05] MEDS: Aspirin 81mg Chewable Tab PO SCH (09:01)
--- NOTE | 2018-10-05 18:51 | Internal Medicine Prog Note ---
Internal Medicine Subjective - Subjective Service Date: 10/05/18 Patient seen and examined:: with staff Patient is:: awake, verbal, in bed, talking Per staff patient has:: no adverse event Internal Medicine Objective - Results Result Diagrams: 10/02/18 17:30 10/02/18 17:30 Recent Labs: Laboratory Last Values WBC 6.5 Th/cmm (4.8-10.8) 10/02/18 17:30 RBC 3.69 Mil/cmm (3.80-5.20) L 10/02/18 17:30 Hgb 11.1 gm/dL (12-16) L 10/02/18 17:30 Hct 32.9 % (41.0-60) L 10/02/18 17:30 MCV 89.0 fl (81-100) 10/02/18 17:30 MCH 30.1 pg (27.0-31.0) 10/02/18 17:30 MCHC Differential 33.8 pg (28.0-36.0) 10/02/18 17:30 RDW 12.1 % (11.5-20.0) 10/02/18 17:30 Plt Count 154 Th/cmm (150-400) 10/02/18 17:30 MPV 8.0 fl 10/02/18 17:30 Neutrophils % 49.3 % (40.0-80.0) 10/02/18 17:30 Lymphocytes % 38.5 % (20.0-50.0) 10/02/18 17:30 Monocytes % 8.9 % (2.0-10.0) 10/02/18 17:30 Eosinophils % 2.0 % (0.0-5.0) 10/02/18 17:30 Basophils % 1.3 % (0.0-2.0) 10/02/18 17:30 Sodium 135 mEq/L (136-145) L 10/02/18 17:30 Potassium 3.9 mEq/L (3.5-5.1) 10/02/18 17:30 Chloride 97 mEq/L (98-107) L 10/02/18 17:30 Carbon Dioxide 30.5 mEq/L (21.0-31.0) 10/02/18 17:30 Anion Gap 11.4 (7.0-16.0) 10/02/18 17:30 BUN 26 mg/dL (7-25) H 10/02/18 17:30 Creatinine 1.0 mg/dL (0.6-1.2) 10/02/18 17:30 Est GFR ( Amer) TNP 10/02/18 17:30 Est GFR (Non-Af Amer) TNP 10/02/18 17:30 BUN/Creatinine Ratio 26.0 10/02/18 17:30 Glucose 99 mg/dL (70-105) 10/02/18 17:30 POC Glucose 104 MG/DL (70 - 105) 10/05/18 06:51 Calcium 9.1 mg/dL (8.6-10.3) 10/02/18 17:30 Total Bilirubin 0.3 mg/dL (0.3-1.0) 10/02/18 17:30 Direct Bilirubin 0.05 mg/dL (0.0-0.2) 10/02/18 17:30 AST 15 U/L (13-39) 10/02/18 17:30 ALT 12 U/L (7-52) 10/02/18 17:30 Alkaline Phosphatase 42 U/L (34-104) 10/02/18 17:30 Total Protein 5.8 gm/dL (6.0-8.3) L 10/02/18 17:30 Albumin 3.6 gm/dL (3.7-5.3) L 10/02/18 17:30 Globulin 2.2 gm/dL 10/02/18 17:30 Albumin/Globulin Ratio 1.6 (1.0-1.8) 10/02/18 17:30 Triglycerides 68 mg/dL (<150) 10/02/18 17:30 Cholesterol 149 mg/dL (<200) 10/02/18 17:30 LDL Cholesterol Direct 73 mg/dL (75-193) L 10/02/18 17:30 HDL Cholesterol 58 mg/dL (23-92) 10/02/18 17:30 Lipase 15 U/L (11-82) 10/02/18 17:30 Urine Source RANDOM 10/02/18 18:10 Urine Color YELLOW 10/02/18 18:10 Urine Clarity HAZY (CLEAR) 10/02/18 18:10 Urine pH 6.0 (4.6 - 8.0) 10/02/18 18:10 Ur Specific [place] 1.010 (1.005-1.030) 10/02/18 18:10 Urine Protein NEGATIVE mg/dL (NEGATIVE) 10/02/18 18:10 Urine Glucose (UA) NEGATIVE mg/dL (NEGATIVE) 10/02/18 18:10 Urine Ketones NEGATIVE mg/dL (NEGATIVE) 10/02/18 18:10 Urine Blood NEGATIVE (NEGATIVE) 10/02/18 18:10 Urine Nitrate NEGATIVE (NEGATIVE) 10/02/18 18:10 Urine Bilirubin NEGATIVE (NEGATIVE) 10/02/18 18:10 Urine Urobilinogen 0.2 E.U./dL (0.2 - 1.0) 10/02/18 18:10 Ur Leukocyte Esterase TRACE (NEGATIVE) H 10/02/18 18:10 Urine RBC 0-2 /hpf (0-5) 10/02/18 18:10 Urine WBC 6-10 /hpf (0-5) H 10/02/18 18:10 Ur Epithelial Cells FEW /lpf (FEW) 10/02/18 18:10 Urine Bacteria FEW /hpf (NONE SEEN) 10/02/18 18:10 Valproic Acid 57.0 ug/mL (50.0-100.0) 10/05/18 11:40 - Physical Exam Vitals and I&O: Vital Signs Temp 97.9 F 10/05/18 14:00 Pulse 79 10/05/18 16:35 Resp 18 10/05/18 14:00 BP 132/77 10/05/18 16:35 Pulse Ox 98 10/05/18 14:00 Intake & Output 10/04/18 10/05/18 10/05/18 18:59 06:59 18:59 Intake Total 4284 365 3138 Balance 9504 523 4560 Intake: Oral 6633 230 5133 Other: # Voids 4 2 4 # Bowel Movements 1 0 0 Active Medications: Current Medications Acetaminophen (Tylenol) 650 mg PO Q4HR PRN PRN Reason: Pain or Fever >101 Stop: 12/01/18 21:36 Last Admin: 10/03/18 04:12 Dose: 650 mg Aripiprazole (Abilify) 10 mg PO [facility]; Protocol Stop: 12/02/18 08:59 Last Admin: 10/05/18 09:01 Dose: 10 mg Aspirin (Aspirin Chewable) 81 mg PO DAILY [facility] Stop: 12/02/18 08:59 Last Admin: 10/05/18 09:01 Dose: 81 mg Benztropine Mesylate (Cogentin) 1 mg PO BID [facility] Stop: 12/02/18 08:59 Last Admin: 10/05/18 16:34 Dose: 1 mg Dextrose (Glutose 40%) 18.75 gm PO PRN PRN PRN Reason: Blood Glucose less than 70 Stop: 12/01/18 22:09 Divalproex Sodium (Depakote Dr) 250 mg PO Q8HR [facility]; Protocol Stop: 12/02/18 04:59 Last Admin: 10/05/18 13:30 Dose: Not Given Docusate Sodium (Colace) 250 mg PO DAILY [facility] Stop: 12/02/18 08:59 Last Admin: 10/05/18 09:01 Dose: 250 mg Glipizide (Glucotrol) 2.5 mg PO BIDAC [facility] Stop: 12/02/18 07:29 Last Admin: 10/05/18 16:34 Dose: 2.5 mg Glucagon (Glucagen) 1 mg IM PRN PRN PRN Reason: Blood Glucose less than 70 Stop: 12/01/18 22:09 Insulin Glargine (Lantus Insulin) 10 units SUBQ HS [facility] Stop: 12/02/18 20:59 Last Admin: 10/04/18 21:45 Dose: 10 units Insulin Human Lispro (Humalog Insulin Sliding Scale) 0 units SUBQ ACHS [facility]; Protocol Stop: 12/02/18 07:29 Last Admin: 10/05/18 16:13 Dose: Not Given Lorazepam (Ativan) 0.5 mg PO Q6HR PRN; Protocol PRN Reason: Agitation Stop: 12/01/18 22:07 Losartan Potassium (Cozaar) 50 mg PO DAILY [facility] Stop: 12/02/18 08:59 Last Admin: 10/05/18 09:01 Dose: 50 mg Magnesium Hydroxide (Milk Of Magnesia) 30 ml PO DAILY PRN PRN Reason: Constipation Stop: 12/01/18 21:44 Metformin HCl (Glucophage) 500 mg PO BIDWM [facility] Stop: 12/02/18 07:59 Last Admin: 10/05/18 09:03 Dose: 500 mg Metoprolol Tartrate (Lopressor) 50 mg PO BID [facility] Stop: 12/02/18 08:59 Last Admin: 10/05/18 16:35 Dose: 50 mg Pantoprazole Sodium (Protonix) 40 mg PO QDAC [facility] Stop: 12/02/18 07:29 Last Admin: 10/05/18 06:53 Dose: 40 mg Quetiapine Fumarate (Seroquel) 100 mg PO HS [facility]; Protocol Stop: 12/02/18 20:59 Last Admin: 10/04/18 21:55 Dose: 100 mg Quetiapine Fumarate (Seroquel) 25 mg PO DAILY [facility]; Protocol Stop: 12/03/18 08:59 Last Admin: 10/05/18 09:01 Dose: 25 mg Zolpidem Tartrate (Ambien) 5 mg PO HS PRN PRN Reason: Insomnia Stop: 12/01/18 22:09 Last Admin: 10/04/18 21:55 Dose: 5 mg General: demented HEENT: NC/AT, PERRLA, EOMI, anicteric sclerae, throat clear Neck: Supple, No JVD, No thyromegaly, +2 carotid pulse wo bruit, No LAD Lungs: CTAB Cardiovascular: RRR, Normal S1, Normal S2, without murmur Abdomen: non-tender, non-distended Extremities: clear Neurological: no change Internal Medicine Assmt/Plan - Assessment Assessment: 1.DM. 2.HTN. 3.HYPERLIPIDEMIA. 4.PSYCHOSIS - Plan Plan: CONTINUE ON CURRENT MEDICATION AND DIET Nutritional Asmnt/Malnutr-PDOC - Dietary Evaluation Malnutrition Findings (Please click <Entered> for more info): Nutritional Asmnt/Malnutrition Start: 10/05/18 17: 39 Text: Status: Complete Freq: Protocol: Document 10/05/18 17:40 LCHENG (Rec: 10/05/18 17:50 LCHENG [email or web address]) Nutritional Asmnt/Malnutrition Patient General Information Nutritional Screening Moderate Risk Diagnosis psychosis Pertinent Medical Hx/Surgical Hx HTN, DM, hyperlipidemia, psychosis Subjective Information Per EMR, PO intake 75-100%. Pt not seen available in her room. Current Diet Order/ Nutrition Support CCHO 45gm, na2gm, soft Pertinent Medications glucotrol, lantus, humalog, colace, glucophage, protonix, seroquel Pertinent Labs 10/02 Na 135, Cl 97, BUN 26, glucose 99 10/04-10/05 POC 66-153 Nutritional Hx/Data Height 1.57 m Height (Calculated Centimeters) 157.5 Current Weight (lbs) 76.204 kg Weight (Calculated Kilograms) 76.2 Weight (Calculated Grams) 20333.5 [place] Body Weight 110 Body Mass Index (BMI) 30.7 Weight Status Obese GI Symptoms GI Symptoms None Last BM 10/04 Difficult in: None Skin Integrity/Comment: intact Current %PO Good (75-100%) Estimated Nutritional Goals Calories/Kcals/Kg 23-27 Kcals Calculated 9248-5341 Protein g/k.8-1 Protein Calculated 60-76 Fluid: ml 1748-2052ml (1ml/kcal) Nutritional Problem No current Nutrition Prob Problem N/A Malnutrition Alert Is there a minimum of two criteria No selected? Query Text:Check all the applicable criteria. A minimum of two criteria are recommended for diagnosis of either severe or non-severe malnutrition. Malnutrition Related to Morbid Obesity Malnutrition related to morbid obesity No Intervention/Recommendation Comments 1. Continue with current diet as ordered. Consider change from CCHO 45gm to 60gm for better meeting kcal needs. 2. Monitor PO intake, wt, labs and skin integrity 3. F/U as low risk in 7 days Expected Outcomes/Goals Expected Outcomes/Goals 1. PO intake to meet at least 75% of nutritional needs. 2. Wt stability, skin to remain intact, labs to approach WNL.
[2018-10-05] MEDS: Insulin Glargine 100 units/ml 10ml Vial SUBQ SCH (20:56)
[2018-10-06] MEDS: Pantoprazole 40 mg EC Tab PO SCH (06:37)
[2018-10-06] MEDS: INSULIN LISPRO SLIDING SCALE 100 UNITS/ML UNIT SUBQ SCH ×4 (06:38→21:34)
[2018-10-06] MEDS: Multivitamin w/ Minerals Tab PO SCH (08:17)
[2018-10-06] MEDS: Aspirin 81mg Chewable Tab PO SCH (08:17)
[2018-10-06] MEDS: Benztropine 1 MG TAB PO SCH ×2 (08:17→16:58)
--- NOTE | 2018-10-06 16:37 | Progress Notes ---
DATE: SUBJECTIVE: Chart reviewed and the patient interviewed. Also discussed the patient's condition with the staff and reviewed records and labs. The patient is still actively hallucinating and is guarded and talking to herself. The patient also is still paranoid, delusional about having "45 babies." She also is still rambling and her thought processes are circumstantial and tangential with occasional flight of ideas. Otherwise, the patient is interacting slightly more and slightly easier to redirect her. ASSESSMENT: The patient is still delusional and paranoid. TREATMENT PLAN: Continue to monitor behavior and condition closely. Also, continue adjusting psychotropic medications and work on behavioral modification. Also, we will get Depakote blood level. JOB# [id number]
--- NOTE | 2018-10-06 20:47 | Internal Medicine Prog Note ---
Internal Medicine Subjective - Subjective Service Date: 10/06/18 Patient seen and examined:: without staff Patient is:: awake, verbal, in bed, talking Per staff patient has:: no adverse event Internal Medicine Objective - Results Result Diagrams: 10/02/18 17:30 10/02/18 17:30 Recent Labs: Laboratory Last Values WBC 6.5 Th/cmm (4.8-10.8) 10/02/18 17:30 RBC 3.69 Mil/cmm (3.80-5.20) L 10/02/18 17:30 Hgb 11.1 gm/dL (12-16) L 10/02/18 17:30 Hct 32.9 % (41.0-60) L 10/02/18 17:30 MCV 89.0 fl (81-100) 10/02/18 17:30 MCH 30.1 pg (27.0-31.0) 10/02/18 17:30 MCHC Differential 33.8 pg (28.0-36.0) 10/02/18 17:30 RDW 12.1 % (11.5-20.0) 10/02/18 17:30 Plt Count 154 Th/cmm (150-400) 10/02/18 17:30 MPV 8.0 fl 10/02/18 17:30 Neutrophils % 49.3 % (40.0-80.0) 10/02/18 17:30 Lymphocytes % 38.5 % (20.0-50.0) 10/02/18 17:30 Monocytes % 8.9 % (2.0-10.0) 10/02/18 17:30 Eosinophils % 2.0 % (0.0-5.0) 10/02/18 17:30 Basophils % 1.3 % (0.0-2.0) 10/02/18 17:30 Sodium 135 mEq/L (136-145) L 10/02/18 17:30 Potassium 3.9 mEq/L (3.5-5.1) 10/02/18 17:30 Chloride 97 mEq/L (98-107) L 10/02/18 17:30 Carbon Dioxide 30.5 mEq/L (21.0-31.0) 10/02/18 17:30 Anion Gap 11.4 (7.0-16.0) 10/02/18 17:30 BUN 26 mg/dL (7-25) H 10/02/18 17:30 Creatinine 1.0 mg/dL (0.6-1.2) 10/02/18 17:30 Est GFR ( Amer) TNP 10/02/18 17:30 Est GFR (Non-Af Amer) TNP 10/02/18 17:30 BUN/Creatinine Ratio 26.0 10/02/18 17:30 Glucose 99 mg/dL (70-105) 10/02/18 17:30 POC Glucose 118 MG/DL (70 - 105) H 10/06/18 20:42 Calcium 9.1 mg/dL (8.6-10.3) 10/02/18 17:30 Total Bilirubin 0.3 mg/dL (0.3-1.0) 10/02/18 17:30 Direct Bilirubin 0.05 mg/dL (0.0-0.2) 10/02/18 17:30 AST 15 U/L (13-39) 10/02/18 17:30 ALT 12 U/L (7-52) 10/02/18 17:30 Alkaline Phosphatase 42 U/L (34-104) 10/02/18 17:30 Total Protein 5.8 gm/dL (6.0-8.3) L 10/02/18 17:30 Albumin 3.6 gm/dL (3.7-5.3) L 10/02/18 17:30 Globulin 2.2 gm/dL 10/02/18 17:30 Albumin/Globulin Ratio 1.6 (1.0-1.8) 10/02/18 17:30 Triglycerides 68 mg/dL (<150) 10/02/18 17:30 Cholesterol 149 mg/dL (<200) 10/02/18 17:30 LDL Cholesterol Direct 73 mg/dL (75-193) L 10/02/18 17:30 HDL Cholesterol 58 mg/dL (23-92) 10/02/18 17:30 Lipase 15 U/L (11-82) 10/02/18 17:30 Urine Source RANDOM 10/02/18 18:10 Urine Color YELLOW 10/02/18 18:10 Urine Clarity HAZY (CLEAR) 10/02/18 18:10 Urine pH 6.0 (4.6 - 8.0) 10/02/18 18:10 Ur Specific [place] 1.010 (1.005-1.030) 10/02/18 18:10 Urine Protein NEGATIVE mg/dL (NEGATIVE) 10/02/18 18:10 Urine Glucose (UA) NEGATIVE mg/dL (NEGATIVE) 10/02/18 18:10 Urine Ketones NEGATIVE mg/dL (NEGATIVE) 10/02/18 18:10 Urine Blood NEGATIVE (NEGATIVE) 10/02/18 18:10 Urine Nitrate NEGATIVE (NEGATIVE) 10/02/18 18:10 Urine Bilirubin NEGATIVE (NEGATIVE) 10/02/18 18:10 Urine Urobilinogen 0.2 E.U./dL (0.2 - 1.0) 10/02/18 18:10 Ur Leukocyte Esterase TRACE (NEGATIVE) H 10/02/18 18:10 Urine RBC 0-2 /hpf (0-5) 10/02/18 18:10 Urine WBC 6-10 /hpf (0-5) H 10/02/18 18:10 Ur Epithelial Cells FEW /lpf (FEW) 10/02/18 18:10 Urine Bacteria FEW /hpf (NONE SEEN) 10/02/18 18:10 Valproic Acid 57.0 ug/mL (50.0-100.0) 10/05/18 11:40 - Physical Exam Vitals and I&O: Vital Signs Temp 97.8 F 10/06/18 20:13 Pulse 55 10/06/18 20:13 Resp 18 10/06/18 20:13 BP 100/60 10/06/18 20:13 Pulse Ox 97 10/06/18 20:13 Intake & Output 10/06/18 10/06/18 10/07/18 06:59 18:59 06:59 Intake Total 180 1200 Balance 180 1200 Intake: Oral 180 1200 Other: # Voids 3 # Bowel Movements 0 1 Active Medications: Current Medications Acetaminophen (Tylenol) 650 mg PO Q4HR PRN PRN Reason: Pain or Fever >101 Stop: 12/01/18 21:36 Last Admin: 10/03/18 04:12 Dose: 650 mg [facility] ([facility]il[facility]) [facility] [place]; Protocol Stop: 12/02/18 08:59 Last Admin: 10/06/18 08:16 Dose: 10 mg Aspirin (Aspirin Chewable) 81 mg PO DAILY [facility] Stop: 12/02/18 08:59 Last Admin: 10/06/18 08:17 Dose: 81 mg Benztropine Mesylate (Cogentin) 1 mg PO BID [facility] Stop: 12/02/18 08:59 Last Admin: 10/06/18 16:58 Dose: 1 mg Dextrose (Glutose 40%) 18.75 gm PO PRN PRN PRN Reason: Blood Glucose less than 70 Stop: 12/01/18 22:09 Divalproex Sodium (Depakote Dr) 250 mg PO Q8HR [facility]; Protocol Stop: 12/02/18 04:59 Last Admin: 10/06/18 13:05 Dose: 250 mg Docusate Sodium (Colace) 250 mg PO DAILY [facility] Stop: 12/02/18 08:59 Last Admin: 10/06/18 08:17 Dose: 250 mg Glipizide (Glucotrol) 2.5 mg PO BIDAC [facility] Stop: 12/02/18 07:29 Last Admin: 10/06/18 16:58 Dose: 2.5 mg Glucagon (Glucagen) 1 mg IM PRN PRN PRN Reason: Blood Glucose less than 70 Stop: 12/01/18 22:09 Insulin Glargine (Lantus Insulin) 10 units SUBQ HS [facility] Stop: 12/02/18 20:59 Last Admin: 10/05/18 20:56 Dose: 10 units Insulin Human Lispro (Humalog Insulin Sliding Scale) 0 units SUBQ ACHS [facility]; Protocol Stop: 12/02/18 07:29 Last Admin: 10/06/18 16:15 Dose: Not Given Lorazepam (Ativan) 0.5 mg PO Q6HR PRN; Protocol PRN Reason: Agitation Stop: 12/01/18 22:07 Losartan Potassium (Cozaar) 50 mg PO DAILY [facility] Stop: 12/02/18 08:59 Last Admin: 10/06/18 08:17 Dose: 50 mg Magnesium Hydroxide (Milk Of Magnesia) 30 ml PO DAILY PRN PRN Reason: Constipation Stop: 12/01/18 21:44 Metformin HCl (Glucophage) 500 mg PO BIDWM [facility] Stop: 12/02/18 07:59 Last Admin: 10/06/18 16:59 Dose: 500 mg Metoprolol Tartrate (Lopressor) 50 mg PO BID [facility] Stop: 12/02/18 08:59 Last Admin: 10/06/18 16:59 Dose: 50 mg Pantoprazole Sodium (Protonix) 40 mg PO QDAC [facility] Stop: 12/02/18 07:29 Last Admin: 10/06/18 06:37 Dose: 40 mg Quetiapine Fumarate (Seroquel) 100 mg PO HS [facility]; Protocol Stop: 12/02/18 20:59 Last Admin: 10/05/18 20:55 Dose: 100 mg Quetiapine Fumarate (Seroquel) 25 mg PO DAILY [facility]; Protocol Stop: 12/03/18 08:59 Last Admin: 10/06/18 08:16 Dose: 25 mg Zolpidem Tartrate (Ambien) 5 mg PO HS PRN PRN Reason: Insomnia Stop: 12/01/18 22:09 Last Admin: 10/05/18 20:57 Dose: 5 mg General: demented HEENT: NC/AT, PERRLA, EOMI, anicteric sclerae, throat clear Neck: Supple, No JVD, No thyromegaly, +2 carotid pulse wo bruit, No LAD Lungs: CTAB Cardiovascular: RRR, Normal S1, Normal S2, without murmur Abdomen: non-tender, non-distended Extremities: clear Neurological: no change Internal Medicine Assmt/Plan - Assessment Assessment: 1.DM. 2.HTN. 3.HYPERLIPIDEMIA. 4.PSYCHOSIS - Plan Plan: CONTINUE ON CURRENT MEDICATION AND DIET Nutritional Asmnt/Malnutr-PDOC - Dietary Evaluation Malnutrition Findings (Please click <Entered> for more info): Nutritional Asmnt/Malnutrition Start: 10/05/18 17: 39 Text: Status: Complete Freq: Protocol: Document 10/05/18 17:40 LCHENG (Rec: 10/05/18 17:50 LCHENG [email or web address]) Nutritional Asmnt/Malnutrition Patient General Information Nutritional Screening Moderate Risk Diagnosis psychosis Pertinent Medical Hx/Surgical Hx HTN, DM, hyperlipidemia, psychosis Subjective Information Per EMR, PO intake 75-100%. Pt not seen available in her room. Current Diet Order/ Nutrition Support CCHO 45gm, na2gm, soft Pertinent Medications glucotrol, lantus, humalog, colace, glucophage, protonix, seroquel Pertinent Labs 10/02 Na 135, Cl 97, BUN 26, glucose 99 10/04-10/05 POC 66-153 Nutritional Hx/Data Height 1.57 m Height (Calculated Centimeters) 157.5 Current Weight (lbs) 76.204 kg Weight (Calculated Kilograms) 76.2 Weight (Calculated Grams) 82279.5 [place] Body Weight 110 Body Mass Index (BMI) 30.7 Weight Status Obese GI Symptoms GI Symptoms None Last BM 10/04 Difficult in: None Skin Integrity/Comment: intact Current %PO Good (75-100%) Estimated Nutritional Goals Calories/Kcals/Kg 23-27 Kcals Calculated 5128-0198 Protein g/k.8-1 Protein Calculated 60-76 Fluid: ml 1748-2052ml (1ml/kcal) Nutritional Problem No current Nutrition Prob Problem N/A Malnutrition Alert Is there a minimum of two criteria No selected? Query Text:Check all the applicable criteria. A minimum of two criteria are recommended for diagnosis of either severe or non-severe malnutrition. Malnutrition Related to Morbid Obesity Malnutrition related to morbid obesity No Intervention/Recommendation Comments 1. Continue with current diet as ordered. Consider change from CCHO 45gm to 60gm for better meeting kcal needs. 2. Monitor PO intake, wt, labs and skin integrity 3. F/U as low risk in 7 days Expected Outcomes/Goals Expected Outcomes/Goals 1. PO intake to meet at least 75% of nutritional needs. 2. Wt stability, skin to remain intact, labs to approach WNL.
[2018-10-06] MEDS: Insulin Glargine 100 units/ml 10ml Vial SUBQ SCH (21:44)
[2018-10-07] MEDS: INSULIN LISPRO SLIDING SCALE 100 UNITS/ML UNIT SUBQ SCH ×4 (06:52→20:27)
[2018-10-07] MEDS: Pantoprazole 40 mg EC Tab PO SCH (06:53)
[2018-10-07] MEDS: Multivitamin w/ Minerals Tab PO SCH (09:39)
[2018-10-07] MEDS: Benztropine 1 MG TAB PO SCH ×2 (09:40→17:57)
[2018-10-07] MEDS: Aspirin 81mg Chewable Tab PO SCH (09:41)
--- NOTE | 2018-10-07 13:21 | Progress Notes ---
DATE: 10/06/2018 SUBJECTIVE: Chart reviewed and the patient interviewed. Also, discussed the patient's condition with the staff and reviewed records and labs. The patient continued to be paranoid and disoriented. The patient also is still resisting care and thinks that the medicine "will kill me." But, she is still taking her medications with no side effects. She also is still resisting care and she is still suspicious and paranoid. Otherwise, she is slightly easier to redirect her. ASSESSMENT: The patient is still agitated and is still psychotic. TREATMENT PLAN: Continue to monitor her behavior and her condition closely. Also, continue adjusting psychotropic medications and work on behavioral modification. JOB# [id number]
--- NOTE | 2018-10-07 19:08 | General Progress Note ---
Subjective - Review of Systems Service Date: 10/07/18 Subjective: resting comfortbaly no distress Objective - Results Result Diagrams: 10/02/18 17:30 10/02/18 17:30 Recent Labs: Laboratory Last Values WBC 6.5 Th/cmm (4.8-10.8) 10/02/18 17:30 RBC 3.69 Mil/cmm (3.80-5.20) L 10/02/18 17:30 Hgb 11.1 gm/dL (12-16) L 10/02/18 17:30 Hct 32.9 % (41.0-60) L 10/02/18 17:30 MCV 89.0 fl (81-100) 10/02/18 17:30 MCH 30.1 pg (27.0-31.0) 10/02/18 17:30 MCHC Differential 33.8 pg (28.0-36.0) 10/02/18 17:30 RDW 12.1 % (11.5-20.0) 10/02/18 17:30 Plt Count 154 Th/cmm (150-400) 10/02/18 17:30 MPV 8.0 fl 10/02/18 17:30 Neutrophils % 49.3 % (40.0-80.0) 10/02/18 17:30 Lymphocytes % 38.5 % (20.0-50.0) 10/02/18 17:30 Monocytes % 8.9 % (2.0-10.0) 10/02/18 17:30 Eosinophils % 2.0 % (0.0-5.0) 10/02/18 17:30 Basophils % 1.3 % (0.0-2.0) 10/02/18 17:30 Sodium 135 mEq/L (136-145) L 10/02/18 17:30 Potassium 3.9 mEq/L (3.5-5.1) 10/02/18 17:30 Chloride 97 mEq/L (98-107) L 10/02/18 17:30 Carbon Dioxide 30.5 mEq/L (21.0-31.0) 10/02/18 17:30 Anion Gap 11.4 (7.0-16.0) 10/02/18 17:30 BUN 26 mg/dL (7-25) H 10/02/18 17:30 Creatinine 1.0 mg/dL (0.6-1.2) 10/02/18 17:30 Est GFR ( Amer) TNP 10/02/18 17:30 Est GFR (Non-Af Amer) TNP 10/02/18 17:30 BUN/Creatinine Ratio 26.0 10/02/18 17:30 Glucose 99 mg/dL (70-105) 10/02/18 17:30 POC Glucose 135 MG/DL (70 - 105) H 10/07/18 16:45 Calcium 9.1 mg/dL (8.6-10.3) 10/02/18 17:30 Total Bilirubin 0.3 mg/dL (0.3-1.0) 10/02/18 17:30 Direct Bilirubin 0.05 mg/dL (0.0-0.2) 10/02/18 17:30 AST 15 U/L (13-39) 10/02/18 17:30 ALT 12 U/L (7-52) 10/02/18 17:30 Alkaline Phosphatase 42 U/L (34-104) 10/02/18 17:30 Total Protein 5.8 gm/dL (6.0-8.3) L 10/02/18 17:30 Albumin 3.6 gm/dL (3.7-5.3) L 10/02/18 17:30 Globulin 2.2 gm/dL 10/02/18 17:30 Albumin/Globulin Ratio 1.6 (1.0-1.8) 10/02/18 17:30 Triglycerides 68 mg/dL (<150) 10/02/18 17:30 Cholesterol 149 mg/dL (<200) 10/02/18 17:30 LDL Cholesterol Direct 73 mg/dL (75-193) L 10/02/18 17:30 HDL Cholesterol 58 mg/dL (23-92) 10/02/18 17:30 Lipase 15 U/L (11-82) 10/02/18 17:30 Urine Source RANDOM 10/02/18 18:10 Urine Color YELLOW 10/02/18 18:10 Urine Clarity HAZY (CLEAR) 10/02/18 18:10 Urine pH 6.0 (4.6 - 8.0) 10/02/18 18:10 Ur Specific [place] 1.010 (1.005-1.030) 10/02/18 18:10 Urine Protein NEGATIVE mg/dL (NEGATIVE) 10/02/18 18:10 Urine Glucose (UA) NEGATIVE mg/dL (NEGATIVE) 10/02/18 18:10 Urine Ketones NEGATIVE mg/dL (NEGATIVE) 10/02/18 18:10 Urine Blood NEGATIVE (NEGATIVE) 10/02/18 18:10 Urine Nitrate NEGATIVE (NEGATIVE) 10/02/18 18:10 Urine Bilirubin NEGATIVE (NEGATIVE) 10/02/18 18:10 Urine Urobilinogen 0.2 E.U./dL (0.2 - 1.0) 10/02/18 18:10 Ur Leukocyte Esterase TRACE (NEGATIVE) H 10/02/18 18:10 Urine RBC 0-2 /hpf (0-5) 10/02/18 18:10 Urine WBC 6-10 /hpf (0-5) H 10/02/18 18:10 Ur Epithelial Cells FEW /lpf (FEW) 10/02/18 18:10 Urine Bacteria FEW /hpf (NONE SEEN) 10/02/18 18:10 Valproic Acid 57.0 ug/mL (50.0-100.0) 10/05/18 11:40 - Physical Exam Vitals and I&O: Vital Signs Temp 97.5 F 10/07/18 14:00 Pulse 70 10/07/18 17:57 Resp 18 10/07/18 14:00 BP 122/64 10/07/18 17:57 Pulse Ox 97 10/07/18 14:00 Intake & Output 10/07/18 10/07/18 10/08/18 06:59 18:59 06:59 Intake Total 180 Balance 180 Intake: Oral 180 Other: # Voids 3 # Bowel Movements 0 Active Medications: Current Medications Acetaminophen (Tylenol) 650 mg PO Q4HR PRN PRN Reason: Pain or Fever >101 Stop: 12/01/18 21:36 Last Admin: 10/03/18 04:12 Dose: 650 mg Aripiprazole (Abilify) 10 mg PO QAM [facility]; Protocol Stop: 12/02/18 08:59 Last Admin: 10/07/18 09:42 Dose: 10 mg Aspirin (Aspirin Chewable) 81 mg PO DAILY [facility] Stop: 12/02/18 08:59 Last Admin: 10/07/18 09:41 Dose: 81 mg Benztropine Mesylate (Cogentin) 1 mg PO BID [facility] Stop: 12/02/18 08:59 Last Admin: 10/07/18 17:57 Dose: 1 mg Dextrose (Glutose 40%) 18.75 gm PO PRN PRN PRN Reason: Blood Glucose less than 70 Stop: 12/01/18 22:09 Divalproex Sodium (Depakote Dr) 250 mg PO Q8HR [facility]; Protocol Stop: 12/02/18 04:59 Last Admin: 10/07/18 13:58 Dose: 250 mg Docusate Sodium (Colace) 250 mg PO DAILY [facility] Stop: 12/02/18 08:59 Last Admin: 10/07/18 09:43 Dose: Not Given Glipizide (Glucotrol) 2.5 mg PO BIDAC [facility] Stop: 12/02/18 07:29 Last Admin: 10/07/18 16:47 Dose: Not Given Glucagon (Glucagen) 1 mg IM PRN PRN PRN Reason: Blood Glucose less than 70 Stop: 12/01/18 22:09 Insulin Glargine (Lantus Insulin) 10 units SUBQ HS [facility] Stop: 12/02/18 20:59 Last Admin: 10/06/18 21:44 Dose: 10 units Insulin Human Lispro (Humalog Insulin Sliding Scale) 0 units SUBQ [facility]; Protocol Stop: 12/02/18 07:29 Last Admin: 10/07/18 16:48 Dose: Not Given Lorazepam (Ativan) 0.5 mg PO Q6HR PRN; Protocol PRN Reason: Agitation Stop: 12/01/18 22:07 Losartan Potassium (Cozaar) 50 mg PO DAILY [facility] Stop: 12/02/18 08:59 Last Admin: 10/07/18 09:39 Dose: 50 mg Magnesium Hydroxide (Milk Of Magnesia) 30 ml PO DAILY PRN PRN Reason: Constipation Stop: 12/01/18 21:44 Metformin HCl (Glucophage) 500 mg PO BIDWM [facility] Stop: 12/02/18 07:59 Last Admin: 10/07/18 17:57 Dose: Not Given Metoprolol Tartrate (Lopressor) 50 mg PO BID [facility] Stop: 12/02/18 08:59 Last Admin: 10/07/18 17:57 Dose: 50 mg Pantoprazole Sodium (Protonix) 40 mg PO QDAC [facility] Stop: 12/02/18 07:29 Last Admin: 10/07/18 06:53 Dose: 40 mg Quetiapine Fumarate (Seroquel) 100 mg PO HS [facility]; Protocol Stop: 12/02/18 20:59 Last Admin: 10/06/18 21:35 Dose: 100 mg Quetiapine Fumarate (Seroquel) 25 mg PO DAILY [facility]; Protocol Stop: 12/03/18 08:59 Last Admin: 10/07/18 09:40 Dose: 25 mg Zolpidem Tartrate (Ambien) 5 mg PO HS PRN PRN Reason: Insomnia Stop: 12/01/18 22:09 Last Admin: 10/06/18 21:35 Dose: 5 mg General: No acute distress HEENT: Atraumatic, PERRLA Neck: Supple, JVD Cardiovascular: Regular rate, Normal S1, Normal S2 Lungs: Clear to auscultation Abdomen: Bowel sounds, Soft Assessment/Plan - Problem List Patient Problems: All Active Problems WEAKNESS AND POOR APPETITE (Acute) - Assessment Assessment: 1.DM. 2.HTN. 3.HYPERLIPIDEMIA. 4.PSYCHOSIS - Plan Plan: continue current treatment Nutritional Asmnt/Malnutr-PDOC - Dietary Evaluation Malnutrition Findings (Please click <Entered> for more info): Nutritional Asmnt/Malnutrition Start: 10/05/18 17: 39 Text: Status: Complete Freq: Protocol: Document 10/05/18 17:40 LCHENG (Rec: 10/05/18 17:50 LCHENG [id number]) Nutritional Asmnt/Malnutrition Patient General Information Nutritional Screening Moderate Risk Diagnosis psychosis Pertinent Medical Hx/Surgical Hx HTN, DM, hyperlipidemia, psychosis Subjective Information Per EMR, PO intake 75-100%. Pt not seen available in her room. Current Diet Order/ Nutrition Support CCHO 45gm, na2gm, soft Pertinent Medications glucotrol, lantus, humalog, colace, glucophage, protonix, seroquel Pertinent Labs 10/02 Na 135, Cl 97, BUN 26, glucose 99 10/04-10/05 POC 66-153 Nutritional Hx/Data Height 1.57 m Height (Calculated Centimeters) 157.5 Current Weight (lbs) 76.204 kg Weight (Calculated Kilograms) 76.2 Weight (Calculated Grams) 24682.5 [place] Body Weight 110 Body Mass Index (BMI) 30.7 Weight Status Obese GI Symptoms GI Symptoms None Last BM 4/10 Difficult in: None Skin Integrity/Comment: intact Current %PO Good (75-100%) Estimated Nutritional Goals Calories/Kcals/Kg 23-27 Kcals Calculated 3293-2470 Protein g/k.8-1 Protein Calculated 60-76 Fluid: ml 1748-2052ml (1ml/kcal) Nutritional Problem No current Nutrition Prob Problem N/A Malnutrition Alert Is there a minimum of two criteria No selected? Query Text:Check all the applicable criteria. A minimum of two criteria are recommended for diagnosis of either severe or non-severe malnutrition. Malnutrition Related to Morbid Obesity Malnutrition related to morbid obesity No Intervention/Recommendation Comments 1. Continue with current diet as ordered. Consider change from CCHO 45gm to 60gm for better meeting kcal needs. 2. Monitor PO intake, wt, labs and skin integrity 3. F/U as low risk in 7 days Expected Outcomes/Goals Expected Outcomes/Goals 1. PO intake to meet at least 75% of nutritional needs. 2. Wt stability, skin to remain intact, labs to approach WNL.
[2018-10-07] MEDS: Insulin Glargine 100 units/ml 10ml Vial SUBQ SCH (20:12)
--- NOTE | 2018-10-07 23:02 | Progress Notes ---
DATE: 10/07/2018 SUBJECTIVE: The patient was seen and evaluated. The patient's chart reviewed. This is Dr. Hung covering for Dr. Estrada. IDENTIFYING DATA: A 78-year-old female with date of service 10/07/2018. She initially was brought here from a [place] [facility] because of agitation, believing that she was 80 years old and she will be 28, when she had lived this place, presented disorganized. Current medication reconciliation reviewing includes Depakote 250 t.i.d., Seroquel 100 mg at nighttime and Seroquel 25 mg in the morning. Today on [id number] evaluation, the patient needs a lot of redirection to maintain a linear conversation, extremely disorganized, distressful, and easily agitated. She reports the medicine is going to kill her. MENTAL STATUS EXAMINATION: Disorganized, suspicious. ASSESSMENT AND PLAN: The patient is unconscious. The patient is irritable, agitated. There was hold from her paranoid, unable to formulate a safe plan. We will continue with the recent adjustment of the Seroquel. JOB# [id number]
[2018-10-08] MEDS: Pantoprazole 40 mg EC Tab PO SCH (06:55)
[2018-10-08] MEDS: INSULIN LISPRO SLIDING SCALE 100 UNITS/ML UNIT SUBQ SCH ×4 (06:55→21:16)
[2018-10-08] MEDS: Aspirin 81mg Chewable Tab PO SCH (09:32)
[2018-10-08] MEDS: Multivitamin w/ Minerals Tab PO SCH (09:33)
[2018-10-08] MEDS: Benztropine 1 MG TAB PO SCH ×2 (09:33→17:17)
--- NOTE | 2018-10-08 13:18 | General Progress Note ---
Subjective - Review of Systems Service Date: 10/08/18 Subjective: resting comfortbaly no distress Objective - Results Result Diagrams: 10/02/18 17:30 10/02/18 17:30 Recent Labs: Laboratory Last Values WBC 6.5 Th/cmm (4.8-10.8) 10/02/18 17:30 RBC 3.69 Mil/cmm (3.80-5.20) L 10/02/18 17:30 Hgb 11.1 gm/dL (12-16) L 10/02/18 17:30 Hct 32.9 % (41.0-60) L 10/02/18 17:30 MCV 89.0 fl (81-100) 10/02/18 17:30 MCH 30.1 pg (27.0-31.0) 10/02/18 17:30 MCHC Differential 33.8 pg (28.0-36.0) 10/02/18 17:30 RDW 12.1 % (11.5-20.0) 10/02/18 17:30 Plt Count 154 Th/cmm (150-400) 10/02/18 17:30 MPV 8.0 fl 10/02/18 17:30 Neutrophils % 49.3 % (40.0-80.0) 10/02/18 17:30 Lymphocytes % 38.5 % (20.0-50.0) 10/02/18 17:30 Monocytes % 8.9 % (2.0-10.0) 10/02/18 17:30 Eosinophils % 2.0 % (0.0-5.0) 10/02/18 17:30 Basophils % 1.3 % (0.0-2.0) 10/02/18 17:30 Sodium 135 mEq/L (136-145) L 10/02/18 17:30 Potassium 3.9 mEq/L (3.5-5.1) 10/02/18 17:30 Chloride 97 mEq/L (98-107) L 10/02/18 17:30 Carbon Dioxide 30.5 mEq/L (21.0-31.0) 10/02/18 17:30 Anion Gap 11.4 (7.0-16.0) 10/02/18 17:30 BUN 26 mg/dL (7-25) H 10/02/18 17:30 Creatinine 1.0 mg/dL (0.6-1.2) 10/02/18 17:30 Est GFR ( Amer) TNP 10/02/18 17:30 Est GFR (Non-Af Amer) TNP 10/02/18 17:30 BUN/Creatinine Ratio 26.0 10/02/18 17:30 Glucose 99 mg/dL (70-105) 10/02/18 17:30 POC Glucose 58 MG/DL (70 - 105) L 10/08/18 11:39 Calcium 9.1 mg/dL (8.6-10.3) 10/02/18 17:30 Total Bilirubin 0.3 mg/dL (0.3-1.0) 10/02/18 17:30 Direct Bilirubin 0.05 mg/dL (0.0-0.2) 10/02/18 17:30 AST 15 U/L (13-39) 10/02/18 17:30 ALT 12 U/L (7-52) 10/02/18 17:30 Alkaline Phosphatase 42 U/L (34-104) 10/02/18 17:30 Total Protein 5.8 gm/dL (6.0-8.3) L 10/02/18 17:30 Albumin 3.6 gm/dL (3.7-5.3) L 10/02/18 17:30 Globulin 2.2 gm/dL 10/02/18 17:30 Albumin/Globulin Ratio 1.6 (1.0-1.8) 10/02/18 17:30 Triglycerides 68 mg/dL (<150) 10/02/18 17:30 Cholesterol 149 mg/dL (<200) 10/02/18 17:30 LDL Cholesterol Direct 73 mg/dL (75-193) L 10/02/18 17:30 HDL Cholesterol 58 mg/dL (23-92) 10/02/18 17:30 Lipase 15 U/L (11-82) 10/02/18 17:30 Urine Source RANDOM 10/02/18 18:10 Urine Color YELLOW 10/02/18 18:10 Urine Clarity HAZY (CLEAR) 10/02/18 18:10 Urine pH 6.0 (4.6 - 8.0) 10/02/18 18:10 Ur Specific [place] 1.010 (1.005-1.030) 10/02/18 18:10 Urine Protein NEGATIVE mg/dL (NEGATIVE) 10/02/18 18:10 Urine Glucose (UA) NEGATIVE mg/dL (NEGATIVE) 10/02/18 18:10 Urine Ketones NEGATIVE mg/dL (NEGATIVE) 10/02/18 18:10 Urine Blood NEGATIVE (NEGATIVE) 10/02/18 18:10 Urine Nitrate NEGATIVE (NEGATIVE) 10/02/18 18:10 Urine Bilirubin NEGATIVE (NEGATIVE) 10/02/18 18:10 Urine Urobilinogen 0.2 E.U./dL (0.2 - 1.0) 10/02/18 18:10 Ur Leukocyte Esterase TRACE (NEGATIVE) H 10/02/18 18:10 Urine RBC 0-2 /hpf (0-5) 10/02/18 18:10 Urine WBC 6-10 /hpf (0-5) H 10/02/18 18:10 Ur Epithelial Cells FEW /lpf (FEW) 10/02/18 18:10 Urine Bacteria FEW /hpf (NONE SEEN) 10/02/18 18:10 Valproic Acid 57.0 ug/mL (50.0-100.0) 10/05/18 11:40 - Physical Exam Vitals and I&O: Vital Signs Temp 97.5 F 10/08/18 05:43 Pulse 70 10/08/18 10:33 Resp 18 10/08/18 05:43 BP 145/74 10/08/18 10:33 Pulse Ox 100 10/08/18 05:43 Intake & Output 10/07/18 10/08/18 10/08/18 18:59 06:59 18:59 Intake Total 240 Balance 240 Intake: Oral 240 Other: # Voids 2 Active Medications: Current Medications Acetaminophen (Tylenol) 650 mg PO Q4HR PRN PRN Reason: Pain or Fever >101 Stop: 12/01/18 21:36 Last Admin: 10/03/18 04:12 Dose: 650 mg Aripiprazole (Abilify) [facility] [place] Stop: 12/02/18 08:59 Last Admin: 10/08/18 09:34 Dose: 10 mg Aspirin (Aspirin Chewable) 81 mg PO DAILY [facility] Stop: 12/02/18 08:59 Last Admin: 10/08/18 09:32 Dose: 81 mg Benztropine Mesylate (Cogentin) 1 mg PO BID [facility] Stop: 12/02/18 08:59 Last Admin: 10/08/18 09:33 Dose: 1 mg Dextrose (Glutose 40%) 18.75 gm PO PRN PRN PRN Reason: Blood Glucose less than 70 Stop: 12/01/18 22:09 Divalproex Sodium (Depakote Dr) 250 mg PO Q8HR [facility]; Protocol Stop: 12/02/18 04:59 Last Admin: 10/08/18 05:00 Dose: Not Given Docusate Sodium (Colace) 250 mg PO DAILY [facility] Stop: 12/02/18 08:59 Last Admin: 10/08/18 09:34 Dose: Not Given Glipiz[facility] ([facility]ot[facility]) [facility] Stop: 12/02/18 07:29 Last Admin: 10/08/18 06:54 Dose: 2.5 mg Glucagon (Glucagen) 1 mg IM PRN PRN PRN Reason: Blood Glucose less than 70 Stop: 12/01/18 22:09 Insulin Glargine (Lantus Insulin) 10 units SUBQ [facility] Stop: 12/02/18 20:59 Last Admin: 10/07/18 20:12 Dose: 10 units Insulin Human Lispro (Humalog Insulin Sliding Scale) 0 units SUBQ [facility]; Protocol Stop: 12/02/18 07:29 Last Admin: 10/08/18 11:50 Dose: Not Given Lorazepam (Ativan) 0.5 mg PO Q6HR PRN; Protocol PRN Reason: Agitation Stop: 12/01/18 22:07 Last Admin: 10/08/18 09:33 Dose: 0.5 mg Losartan Potassium (Cozaar) 50 mg PO DAILY [facility] Stop: 12/02/18 08:59 Last Admin: 10/08/18 09:34 Dose: 50 mg Magnesium Hydroxide (Milk Of Magnesia) 30 ml PO DAILY PRN PRN Reason: Constipation Stop: 12/01/18 21:44 Metformin HCl (Glucophage) 500 mg PO BIDWM [facility] Stop: 12/02/18 07:59 Last Admin: 10/08/18 08:34 Dose: Not Given Metoprolol Tartrate (Lopressor) 50 mg PO BID [facility] Stop: 12/02/18 08:59 Last Admin: 10/08/18 09:32 Dose: 50 mg Pantoprazole Sodium (Protonix) 40 mg PO QDAC [facility] Stop: 12/02/18 07:29 Last Admin: 10/08/18 06:55 Dose: 40 mg Quetiapine Fumarate (Seroquel) 100 mg PO HS [facility]; Protocol Stop: 12/02/18 20:59 Last Admin: 10/07/18 20:14 Dose: 100 mg Quetiapine Fumarate (Seroquel) 25 mg PO DAILY [facility]; Protocol Stop: 12/03/18 08:59 Last Admin: 10/08/18 09:33 Dose: 25 mg Zolpidem Tartrate (Ambien) 5 mg PO HS PRN PRN Reason: Insomnia Stop: 12/01/18 22:09 Last Admin: 10/07/18 20:14 Dose: 5 mg General: No acute distress HEENT: Atraumatic, PERRLA Neck: Supple, JVD Cardiovascular: Regular rate, Normal S1, Normal S2 Lungs: Clear to auscultation Abdomen: Bowel sounds, Soft Assessment/Plan - Problem List Patient Problems: All Active Problems WEAKNESS AND POOR APPETITE (Acute) - Assessment Assessment: 1.DM. 2.HTN. 3.HYPERLIPIDEMIA. 4.PSYCHOSIS - Plan Plan: continue current treatment Nutritional Asmnt/Malnutr-PDOC - Dietary Evaluation Malnutrition Findings (Please click <Entered> for more info): Nutritional Asmnt/Malnutrition Start: 10/05/18 17: 39 Text: Status: Complete Freq: Protocol: Document 10/05/18 17:40 LCHENG (Rec: 10/05/18 17:50 LCHENG [email or web address]) Nutritional Asmnt/Malnutrition Patient General Information Nutritional Screening Moderate Risk Diagnosis psychosis Pertinent Medical Hx/Surgical Hx HTN, DM, hyperlipidemia, psychosis Subjective Information Per EMR, PO intake 75-100%. Pt not seen available in her room. Current Diet Order/ Nutrition Support CCHO 45gm, na2gm, soft Pertinent Medications glucotrol, lantus, humalog, colace, glucophage, protonix, seroquel Pertinent Labs 10/02 Na 135, Cl 97, BUN 26, glucose 99 10/04-10/05 POC 66-153 Nutritional Hx/Data Height 1.57 m Height (Calculated Centimeters) 157.5 Current Weight (lbs) 76.204 kg Weight (Calculated Kilograms) 76.2 Weight (Calculated Grams) 61760.5 [place] Body Weight 110 Body Mass Index (BMI) 30.7 Weight Status Obese GI Symptoms GI Symptoms None Last BM 4/10 Difficult in: None Skin Integrity/Comment: intact Current %PO Good (75-100%) Estimated Nutritional Goals Calories/Kcals/Kg 23-27 Kcals Calculated 0758-4293 Protein g/k.8-1 Protein Calculated 60-76 Fluid: ml 1748-2052ml (1ml/kcal) Nutritional Problem No current Nutrition Prob Problem N/A Malnutrition Alert Is there a minimum of two criteria No selected? Query Text:Check all the applicable criteria. A minimum of two criteria are recommended for diagnosis of either severe or non-severe malnutrition. Malnutrition Related to Morbid Obesity Malnutrition related to morbid obesity No Intervention/Recommendation Comments 1. Continue with current diet as ordered. Consider change from CCHO 45gm to 60gm for better meeting kcal needs. 2. Monitor PO intake, wt, labs and skin integrity 3. F/U as low risk in 7 days Expected Outcomes/Goals Expected Outcomes/Goals 1. PO intake to meet at least 75% of nutritional needs. 2. Wt stability, skin to remain intact, labs to approach WNL.
[2018-10-08] MEDS: Insulin Glargine 100 units/ml 10ml Vial SUBQ SCH (21:16)
--- NOTE | 2018-10-09 00:06 | Progress Notes ---
DATE: 10/08/2018 SUBJECTIVE: The patient was seen and evaluated. The patient's chart reviewed. Overnight nursing staff reported the patient is engaging a little bit more, less aggressive behavior. Today on [id number] evaluation, the patient finds herself more calm in her bed. Denies any complication. MENTAL STATUS EXAMINATION: Mild redirection is needed, able to maintain a linear conversation, although disorganized at times. ASSESSMENT AND PLAN: The patient is observed to be more calmer, less disorganized, not needing a lot of redirection for simple ADLs. We will continue with primary psychiatrist's treatment plan and goals. JOB# [id number]
[2018-10-09] MEDS: Pantoprazole 40 mg EC Tab PO SCH (06:33)
[2018-10-09] MEDS: INSULIN LISPRO SLIDING SCALE 100 UNITS/ML UNIT SUBQ SCH ×2 (06:34→11:57)
[2018-10-09] MEDS: Aspirin 81mg Chewable Tab PO SCH (08:35)
[2018-10-09] MEDS: Benztropine 1 MG TAB PO SCH (08:35)
[2018-10-09] MEDS: Multivitamin w/ Minerals Tab PO SCH (08:36)
--- NOTE | 2018-10-10 00:16 | Discharge Summary ---
DATE OF DISCHARGE: 10/09/2018 PATIENT'S AGE: 78. SEX: Female. PHYSICIAN: Cheryl Estrada MD, MPH FINAL DIAGNOSES: PRIMARY DIAGNOSES: Unspecified psychosis. History of schizophrenia. SECONDARY DIAGNOSES: Dementia, moderate to severe, with psychotic features. REASON FOR HOSPITALIZATION: The patient was admitted to the hospital from [facility] because [facility] and the patient also was paranoid and delusional and irritable with the staff. HOSPITAL COURSE: The patient continued to be irritable and delusional upon admission. The patient was started on Abilify in a dose of 10 mg in the morning. She also was given Depakote in a dose of 250 mg 3 times a day. Gradually, the patient's affect was brighter. The patient was calmer and it was easier to redirect her. She also was compliant with taking her medications and she had no side effects of Abilify. Also, Seroquel was giving in a dose of 25 mg in the morning and 100 mg at bedtime because of continuous agitation in the beginning of her hospitalization and later on Abilify was stopped. The patient was calmer and she was not aggressive with peers or with the staff and easier to redirect her, and the patient was discharged from the hospital and then back to [facility]. Physical exam of the patient was basically within normal and the patient had no major medical issues while in the hospital. AFTER DISCHARGE PLANS: The patient is still at [facility] with plans for continued followup there. EXPECTED OUTCOME AFTER DISCHARGE: Fair if the patient continued with her treatment and follow up with discharge plans. [facility]# [id number]
== END 2018-10-09 15:10 | DRG 885 ==
LOC: ER 16:30 → GERO2 18:18
PROVIDERS: ADMIT Psychiatry & Neurology Psychiatry; ATTEND Psychiatry & Neurology Psychiatry
DX: F29 Unspecified psychosis not due to a substance or known physiological condition (principal); F03.91 Unspecified dementia, unspecified severity, with behavioral disturbance; I10 Essential (primary) hypertension; E11.9 Type 2 diabetes mellitus without complications; J45.909 Unspecified asthma, uncomplicated; E78.5 Hyperlipidemia, unspecified; D64.9 Anemia, unspecified
CPT/HCPCS: 36415-UA; 71045-TC; 80053-TC; 80061-TC; 80164-TC; 81001-TC; 82248-TC; 82948-90; 83036-90; 83690-TC; 85025-TC; 93005; G0410; J1815; Z7610

== ENCOUNTER 2019-02-15 18:23 | Inpatient (IN) | payer MEDICARE, MEDICAID ==
--- NOTE | 2019-02-15 18:36 | ED Physician Chart ---
ED Chief Complaint/HPI - Patient Information Date Seen:: 02/15/19 Time Seen:: 18:20 Chief Complaint:: aggressive behavior History of Present Illness:: Patient was sent here for admission to [facility] for exhibiting aggressive behavior at her extended care facility. Patient denies getting angry today but states she often gets angry on a daily basis because people irritate her and she tells so which makes the other people angry. Allergies:: Allergies Allergy/AdvReac Type Severity Reaction Status Date / Time No Known Allergies Allergy Verified 02/19/17 21:03 Historian:: Patient Review:: Nurse's Note Reviewed ED Review of Systems - Review of Systems General/Constitutional: No fever, No chills, No weight loss, No weakness, No diaphoresis, No edema, No loss of appetite Skin: No skin lesions, No rash, No bruising Head: No headache, No light-headedness Eyes: No loss of vision, No pain, No diplopia ENT: No earache, No nasal drainage, No sore throat, No tinnitus Neck: No neck pain, No swelling, No thyromegaly, No stiffness, No mass noted Cardio Vascular: No chest pain, No palpitations, No PND, No orthopnea, No edema Pulmonary: No SOB, No cough, No sputum, No wheezing GI: No nausea, No vomiting, No diarrhea, No pain, No melena, No hematochezia, No constipation, No hematemesis G/U: No dysuria, No frequency, No hematuria Musculoskeletal: No bone or joint pain, No back pain, No muscle pain Endocrine: No polyuria, No polydipsia Psychiatric: Prior psych history Hematopoietic: No bruising Allergic/Immuno: No urticaria Neurological: No syncope, No focal symptoms ED Past Medical History - Past Medical History Past Medical History: HTN, DM, Asthma/COPD, Dyslipidemia, Arthritis, Other ( anemia; hyperlipidemia; schizoaffective disorder) Family History: Diabetes Melitus, HTN Social History: Non Smoker, No Alcohol Surgical History: Appendectomy, other (lumpectomy both breasts; tonsillectomy) Psychiatricy History: Other (schizoaffective disorder) Family Medical History - Family Member Mother History Unknown: Yes Ethnicity: Unknown Living Status: Unknown Hx Family Cancer: (unknown) Hx Family Coronary Artery Disease: (unknown) Hx Family Congestive Heart Failure: (unknown) Hx Family Hypertension: (unknown) Hx Family Stroke: (unknown) Hx Family Diabetes: (unknown) Hx Family Seizures: (unknown) Hx Family Dementia: (unknown) Hx Family AIDS: (unknown) Hx Family HIV: No Hx Family COPD: (unknown) Hx Family Hepatitis: (unknown) Hx Family Psychiatric Problems: (unknown) Hx Family Tuberculosis: (unknown) ED Physical Exam - Physical Examination General/Constitutional: Awake, Well-developed, well-nourished, Alert, No distress, GCS 15, Non-toxic appearing, Ambulatory Other Gen/Cons comments:: She is alert and oriented to yesterday's date Head: Atraumatic Eyes: Lids, conjuctiva normal, PERRL Skin: Nl inspection, No rash ENMT: External ears, nose nl, Nasal exam nl, Lips, teeth, gums nl, Oropharynx nl , Tonsils nl Neck: No nuchal rigidity Respiratory: Nl effort/Exclusion, Clear to Auscultation, No Wheeze/Rhonchi/Rales Cardio Vascular: RRR, No murmur, gallop, rubs, NL S1 S2 GI: No tenderness/rebounding/guarding, No organomegaly, No hernia, Normal BS's, Nondistended, No mass/bruits : No CVA tenderness Extremities: Normal digits & nails Neuro/Psych: No focal deficits Misc: No paraspinal tenderness ED Labs/Radiology/EKG Results - EKG Interpretations Rate & Rhythm: normal sinus rhythm with a rate of 47 [place]: borderline left axis deviation Comments:: Inverted T waves in leads 1, II aVL, V4 and V6; left ventricular hypertrophy ED Septic Shock - . Is Septic Shock (SBP<90, OR Lactate>4 mmol\L) present?: No ED Reassessment (Disposition) - Reassessment Reassessment Condition:: Unchanged - Diagnosis Diagnosis:: Aggressive behavior by history; schizoaffective disorder; diabetes; history of hypertension; anemia - Patient Disposition Admitted to:: [facility] Admitting Medical Physician:: Yue Mcmullen Admitting Psych Physician:: Cheryl Estrada
[2019-02-15 18:49] LABS: % BASOPHILS 1.1 % (0.0-2.0); % EOSINOPHILS 1.1 % (0.0-5.0); % LYMPHOCYTES 37.3 % (20.0-50.0); % NEUTROPHILS 51.5 % (40.0-80.0); BASOPHILE ABSOLUTE 0.1 Th/cumm (0-0.2); EOSINOPHILE ABSOLUTE 0.1 Th/cmm (0.1-0.4); HEMATOCRIT 31.4 % (41.0-60); HEMOGLOBIN 10.8 gm/dL (12-16); LYMPHOCYTE ABSOLUTE 2.2 Th/cmm (1.5-3.0); MEAN CELL VOLUME 86.6 fl (81-100); MEAN CORPUSCULAR HEMOGLOBIN 29.7 pg (27.0-31.0); MEAN CORPUSCULAR HGB CONC 34.3 pg (28.0-36.0); MONOCYTE ABSOLUTE 0.5 Th/cmm (0.3-1.0); NEUTROPHILE ABSOLUTE 2.9 Th/cmm (1.8-8.0); PLATELET COUNT 138 Th/cmm (150-400); RED BLOOD COUNT 3.62 Mil/cmm (3.80-5.20); RED CELL DISTRIBUTION WIDTH 12.4 % (11.5-20.0); WHITE BLOOD COUNT 5.8 Th/cmm (4.8-10.8)
[2019-02-15 19:04] LABS: ALB/GLOB RATIO 1.5 (1.0-1.8); ALBUMIN 3.4 gm/dL (3.7-5.3); ALKALINE PHOSPHATASE 110 U/L (34-104); ANION GAP 10.6 (7.0-16.0); BILIRUBIN,TOTAL 0.3 mg/dL (0.3-1.0); BUN - UREA NITROGEN 22 mg/dL (7-25); CALCIUM SERUM 8.6 mg/dL (8.6-10.3); CARBON DIOXIDE 30.1 mEq/L (21.0-31.0); CHLORIDE 101 mEq/L (98-107); CHOLESTEROL 142 mg/dL (<200); CREATININE - SERUM 0.9 mg/dL (0.6-1.2); GLUCOSE 138 mg/dL (70-105); HDL -HIGH DENSITY LIPOPROTEIN 55 mg/dL (23-92); POTASSIUM SERUM 3.7 mEq/L (3.5-5.1); SGOT 44 U/L (13-39); SGPT/ALT 51 U/L (7-52); SODIUM SERUM 138 mEq/L (136-145); TOTAL PROTEIN,SERUM 5.7 gm/dL (6.0-8.3); TRIGLYCERIDES 60 mg/dL (<150)
[2019-02-15 19:06] LABS: URINE SOURCE CLEAN C
[2019-02-15 19:10] LABS: URINE BILIRUBIN NEGATIVE (NEGATIVE); URINE BLOOD NEGATIVE (NEGATIVE); URINE GLUCOSE (UA) NEGATIVE (NEGATIVE); URINE KETONE NEGATIVE (NEGATIVE); URINE LEUKOCYTE ESTERASE SMALL (NEGATIVE); URINE MICROSCOPIC INDICATED? YES; URINE NITRATE NEGATIVE (NEGATIVE); URINE PROTEIN TRACE mg/dL (NEGATIVE); URINE UROBILINOGEN 0.2 E.U./dL (0.2 - 1.0)
[2019-02-15 19:11] LABS: URINE CLARITY HAZY (CLEAR); URINE COLOR YELLOW
[2019-02-15 19:19] LABS: URINE BACTERIA MODERATE /hpf (NONE SEEN); URINE EPITHELIAL CELLS FEW /lpf (FEW); URINE RBC 0-2 /hpf (0-5)
[2019-02-15 19:20] LABS: URINE AMORPHOUS SEDIMENT FEW URATES (NONE SEEN)
[2019-02-15 20:52] VITALS: BP 133/79
--- NOTE | 2019-02-16 07:32 | Psychiatric Evaluation ---
DATE OF SERVICE: 02/15/2019 AGE: 79. SEX: Female. PHYSICIAN: Dr. Estrada. HISTORY OF PRESENT ILLNESS: The patient is a 79-year-old female who was admitted to the hospital from [facility] because of increased agitation and increased irritability. The patient has been in angry and in irritable mood. She also has been having difficulty following directions in [facility]. The patient also has been paranoid and increasingly agitated. She also has been confused. She also has been aggressive with the staff, especially when they tried to help her with her ADLs. PAST PSYCHIATRIC HISTORY: The patient has multiple psychiatric hospitalizations to [facility] for treatment of psychosis and dementia with behavioral disturbances. The patient has been taking Abilify, Seroquel, and Depakote. PAST MEDICAL HISTORY: The patient has hypertension, diabetes mellitus, hyperlipidemia and mild anemia. SOCIAL HISTORY: The patient lives in [facility]. No known alcohol or drug use. ALLERGIES: No known allergies. MENTAL STATUS EXAMINATION: The patient appears her stated age. Anxious. Irritable mood. Confused. Easily agitated. Thought processes are circumstantial with flight of ideas. The patient is preoccupied and actively responding. The patient denies suicidal or homicidal ideations. The patient is alert, but seems to be disoriented to time, place, person, and situation. Impaired immediate and recent memory are intact remote memory. Poor insight and poor judgment. ASSESSMENT: PRIMARY DIAGNOSIS: Unspecified psychosis. SECONDARY DIAGNOSIS: Dementia, moderate to severe, with psychotic features. TREATMENT PLAN: We will monitor the patient's behavior and condition closely. We will restart psychotropic medications and will adjust the dose. ESTIMATED LENGTH OF STAY: 5-7 days. PATIENT'S STRENGTHS AND WEAKNESSES: The patient seems to be in relatively fair health considering her age. Weaknesses is her ineffective coping and her agitation. AFTER DISCHARGE PLANS: Outpatient treatment and followup will continue as an outpatient. CRITERIA FOR DISCHARGE: The patient will not be as agitated and will stabilize psychotropic medications and will establish outpatient treatment plans. [facility]# [id number]
[2019-02-16] MEDS ORDERED: Non-Formulary Item 1 EA (Clonidine Hcl [Clonidine Hcl Er] 0.1 MG) PO SCH (09:00)
[2019-02-16] MEDS ORDERED: GLIPIZIDE 2.5 MG PO SCH (09:00)
[2019-02-16] MEDS: Benztropine 1 MG TAB PO SCH ×2 (09:07→16:39)
[2019-02-16] MEDS ORDERED: Maalox 30 mL Cup PO PRN (14:53)
[2019-02-16] MEDS ORDERED: Magnesium Hydroxide (MOM) 30 mL UDC PO PRN (14:53)
--- NOTE | 2019-02-16 19:23 | History & Physical ---
ADMIT DATE: 02/15/2019 HISTORY OF PRESENT ILLNESS: The patient is a 79-year-old female with long history of diabetes mellitus, hypertension, dementia, psychosis, admitted to [facility] under Dr. Estrada's service for evaluation and treatment. The patient denies any chest pain, shortness of breath, nausea, vomiting, fever or chills. PAST MEDICAL HISTORY: Significant for hypertension, diabetes mellitus, dementia and psychosis. PAST SURGICAL HISTORY: No recent surgery. ALLERGIES: None. MEDICATIONS: Follow admission reconciliation. SOCIAL HISTORY: No smoking, alcohol or drug. FAMILY HISTORY: Noncontributory. REVIEW OF SYSTEMS: RENAL SYSTEM: No history of chronic renal disorder. CARDIOVASCULAR SYSTEM: She has history of hypertension. ENDOCRINE SYSTEM: She has diabetes mellitus. GASTROINTESTINAL SYSTEM: No upper or lower GI bleed. NEUROLOGICAL SYSTEM: No seizure disorder. SKELETOMUSCULAR SYSTEM: No muscular dystrophy. HEMATOLOGICAL SYSTEM: No bleeding tendencies. RESPIRATORY SYSTEM: No asthma. GENITOURINARY: No dysuria or hematuria. PHYSICAL EXAMINATION: GENERAL: She is awake, alert, not coherent. VITAL SIGNS: Temperature 97.4, heart rate 62, blood pressure 161/82. HEENT: Normocephalic. Pupils reactive to light and accommodation. Sclerae clear. NECK: Supple. Negative for lymphadenopathy, JVD or bruit. CHEST: Entry of air bilaterally normal. No rhonchi or wheezing. HEART: S1, S2 normal. No gallop rhythm. ABDOMEN: Soft, bowel sounds positive. EXTREMITIES: No edema. BACK: Normal vertebrae. SKIN: Intact. BREASTS, PELVIC AND RECTAL: Done by primary physician, no complaint. NEUROLOGIC: She is awake, alert, mildly confused. No focal muscle deficits. Cranial nerves 2-12 intact. LABORATORY DATA: White blood cell 5.8, hemoglobin 10.8, hematocrit 31.4, platelet 138. Sodium 138, potassium 3.7, glucose 138. ASSESSMENT: 1. Diabetes mellitus. 2. Hypertension. 3. Anemia. 4. Dementia. PLAN: The patient in the hospital under Dr. Estrada's service. Medical problems addressed during hospitalization are dementia and psychosis. Medical problems to be addressed at discharge are hypertension, diabetes mellitus, chronic anemia. The patient is medically stable for activity. Thank you Dr. Estrada for asking me to see your patient. The patient is a full code. The patient is going to resume her medication and diet. [facility]# [id number]
[2019-02-16] MEDS: Insulin Glargine 100 units/ml 10ml Vial SUBQ SCH (20:35)
[2019-02-16] MEDS ORDERED: INSULIN GLARGINE HUM REC ANLOG 10 UNIT SQ SCH (21:00)
[2019-02-16] MEDS ORDERED: [UNRECOGNIZED DRUG - OTHER] SQ SCH (21:00)
[2019-02-17 07:06] LABS: A1C 6.9 % (4.8-5.6)
[2019-02-17] MEDS: Benztropine 1 MG TAB PO SCH ×2 (09:12→18:13)
--- NOTE | 2019-02-17 18:26 | Internal Medicine Prog Note ---
Internal Medicine Subjective - Subjective Service Date: 02/17/19 Patient seen and examined:: with staff (SHE IS CONFUSED) Patient is:: awake, verbal, in bed, confused Per staff patient has:: no adverse event Internal Medicine Objective - Results Result Diagrams: 02/15/19 18:35 02/15/19 18:35 Recent Labs: Laboratory Last Values WBC 5.8 Th/cmm (4.8-10.8) 02/15/19 18:35 RBC 3.62 Mil/cmm (3.80-5.20) L 02/15/19 18:35 Hgb 10.8 gm/dL (12-16) L 02/15/19 18:35 Hct 31.4 % (41.0-60) L 02/15/19 18:35 MCV 86.6 fl (81-100) 02/15/19 18:35 MCH 29.7 pg (27.0-31.0) 02/15/19 18:35 MCHC Differential 34.3 pg (28.0-36.0) 02/15/19 18:35 RDW 12.4 % (11.5-20.0) 02/15/19 18:35 Plt Count 138 Th/cmm (150-400) L 02/15/19 18:35 MPV 7.9 fl 02/15/19 18:35 Neutrophils % 51.5 % (40.0-80.0) 02/15/19 18:35 Lymphocytes % 37.3 % (20.0-50.0) 02/15/19 18:35 Monocytes % 9.0 % (2.0-10.0) 02/15/19 18:35 Eosinophils % 1.1 % (0.0-5.0) 02/15/19 18:35 Basophils % 1.1 % (0.0-2.0) 02/15/19 18:35 Sodium 138 mEq/L (136-145) 02/15/19 18:35 Potassium 3.7 mEq/L (3.5-5.1) 02/15/19 18:35 Chloride 101 mEq/L (98-107) 02/15/19 18:35 Carbon Dioxide 30.1 mEq/L (21.0-31.0) 02/15/19 18:35 Anion Gap 10.6 (7.0-16.0) 02/15/19 18:35 BUN 22 mg/dL (7-25) 02/15/19 18:35 Creatinine 0.9 mg/dL (0.6-1.2) 02/15/19 18:35 Est GFR ( Amer) TNP 02/15/19 18:35 Est GFR (Non-Af Amer) TNP 02/15/19 18:35 BUN/Creatinine Ratio 24.4 02/15/19 18:35 Glucose 138 mg/dL (70-105) H 02/15/19 18:35 POC Glucose 84 MG/DL (70 - 105) 02/17/19 17:28 Calcium 8.6 mg/dL (8.6-10.3) 02/15/19 18:35 Total Bilirubin 0.3 mg/dL (0.3-1.0) 02/15/19 18:35 AST 44 U/L (13-39) H 02/15/19 18:35 ALT 51 U/L (7-52) 02/15/19 18:35 Alkaline Phosphatase 110 U/L (34-104) H 02/15/19 18:35 Total Protein 5.7 gm/dL (6.0-8.3) L 02/15/19 18:35 Albumin 3.4 gm/dL (3.7-5.3) L 02/15/19 18:35 Globulin 2.3 gm/dL 02/15/19 18:35 Albumin/Globulin Ratio 1.5 (1.0-1.8) 02/15/19 18:35 Triglycerides 60 mg/dL (<150) 02/15/19 18:35 Cholesterol 142 mg/dL (<200) 02/15/19 18:35 LDL Cholesterol Direct 71 mg/dL (75-193) L 02/15/19 18:35 HDL Cholesterol 55 mg/dL (23-92) 02/15/19 18:35 TSH 4.98 uIU/ml (0.34-5.60) 02/15/19 18:35 Urine Source CLEAN C 02/15/19 19:00 Urine Color YELLOW 02/15/19 19:00 Urine Clarity HAZY (CLEAR) 02/15/19 19:00 Urine pH 7.0 (4.6 - 8.0) 02/15/19 19:00 Ur Specific [place] 1.010 (1.005-1.030) 02/15/19 19:00 Urine Protein TRACE mg/dL (NEGATIVE) 02/15/19 19:00 Urine Glucose (UA) NEGATIVE mg/dL (NEGATIVE) 02/15/19 19:00 Urine Ketones NEGATIVE mg/dL (NEGATIVE) 02/15/19 19:00 Urine Blood NEGATIVE (NEGATIVE) 02/15/19 19:00 Urine Nitrate NEGATIVE (NEGATIVE) 02/15/19 19:00 Urine Bilirubin NEGATIVE (NEGATIVE) 02/15/19 19:00 Urine Urobilinogen 0.2 E.U./dL (0.2 - 1.0) 02/15/19 19:00 Ur Leukocyte Esterase SMALL (NEGATIVE) H 02/15/19 19:00 Urine RBC 0-2 /hpf (0-5) 02/15/19 19:00 Urine WBC 2-5 /hpf (0-5) 02/15/19 19:00 Ur Epithelial Cells FEW /lpf (FEW) 02/15/19 19:00 Amorphous Sediment FEW URATES (NONE SEEN) 02/15/19 19:00 Urine Bacteria MODERATE /hpf (NONE SEEN) H 02/15/19 19:00 RPR NONREACTIVE (NONREACTIVE) 02/15/19 18:35 - Physical Exam Vitals and I&O: Vital Signs Temp 98.0 F 02/17/19 14:00 Pulse 59 02/17/19 18:14 Resp 20 02/17/19 14:00 BP 158/86 02/17/19 14:00 Pulse Ox 96 02/17/19 14:00 Intake & Output 02/16/19 02/17/19 02/17/19 18:59 06:59 18:59 Intake Total 1000 900 Balance 1000 900 Intake: Oral 1000 900 Other: # Voids 4 3 # Bowel Movements 1 1 Active Medications: Current Medications Acetaminophen (Tylenol) 650 mg PO Q4HR PRN PRN Reason: Mild Pain / Temp above 100 Stop: 04/17/19 06:31 Al Hydrox/Mg Hydrox/Simethicone (Maalox) 30 ml PO Q4HR PRN PRN Reason: GI DISTRESS Stop: 04/17/19 14:52 Aripiprazole (Abilify) 10 mg PO DAILY [facility]; Protocol Stop: 04/17/19 08:59 Last Admin: 02/17/19 09:06 Dose: 10 mg Aspirin (Ecotrin) 81 mg PO DAILY [facility] Stop: 04/17/19 08:59 Last Admin: 02/17/19 09:10 Dose: 81 mg Benztropine Mesylate (Cogentin) 1 mg PO BID [facility] Stop: 04/17/19 08:59 Last Admin: 02/17/19 18:13 Dose: 1 mg Divalproex Sodium (Depakote Dr) 250 mg PO TID [facility]; Protocol Stop: 04/16/19 20:59 Last Admin: 02/17/19 14:00 Dose: 250 mg Docusate Sodium (Colace) 250 mg PO DAILY [facility] Stop: 04/17/19 08:59 Last Admin: 02/17/19 09:18 Dose: 250 mg Famotidine (Pepcid) 20 mg PO DAILY [facility] Stop: 04/17/19 08:59 Last Admin: 02/17/19 09:13 Dose: 20 mg Glipizide (Glucotrol) 2.5 mg PO BID [facility] Stop: 04/17/19 08:59 Last Admin: 02/17/19 18:15 Dose: Not Given Insulin Glargine (Lantus Insulin) 10 units SUBQ HS [facility] Stop: 04/17/19 20:59 Last Admin: 02/16/19 20:35 Dose: 10 unit Lorazepam (Ativan) 0.5 mg PO Q4HR PRN; Protocol PRN Reason: Anxiety Stop: 03/17/19 21:07 Losartan Potassium (Cozaar) 50 mg PO DAILY [facility] Stop: 04/17/19 08:59 Last Admin: 02/17/19 09:16 Dose: 50 mg Magnesium Hydroxide (Milk Of Magnesia) 30 ml PO HS PRN PRN Reason: Constipation Metformin HCl (Glucophage) 500 mg PO BID [facility] Stop: 04/17/19 08:59 Last Admin: 02/17/19 18:13 Dose: Not Given Quetiapine Fumarate (Seroquel) 25 mg PO DAILY [facility]; Protocol Stop: 04/17/19 08:59 Last Admin: 02/17/19 09:15 Dose: 25 mg Quetiapine Fumarate (Seroquel) 100 mg PO HS [facility]; Protocol Stop: 04/16/19 20:59 Last Admin: 02/16/19 20:35 Dose: 100 mg Zolpidem Tartrate (Ambien) 5 mg PO HS PRN PRN Reason: Insomnia Stop: 04/16/19 21:07 Last Admin: 02/16/19 20:35 Dose: 5 mg General: demented HEENT: NC/AT, PERRLA, EOMI, anicteric sclerae, throat clear Neck: Supple, No JVD, No thyromegaly, +2 carotid pulse wo bruit, No LAD Lungs: CTAB Cardiovascular: RRR, Normal S1, without murmur Abdomen: soft, non-tender, non-distended Extremities: clear Neurological: no change Internal Medicine Assmt/Plan - Assessment Assessment: 1.DM. 2.HTN. 3.ANEMIA. 4.DEMENTIA - Plan Plan: CONTINUE ON CURRENT MEDICATION AND DIET
--- NOTE | 2019-02-17 20:15 | Progress Notes ---
DATE: 02/17/2019 PSYCHIATRIC FOLLOWUP NOTE Covering for Dr. Estrada. SUBJECTIVE: The patient was seen and evaluated. The patient's chart reviewed. Overnight nursing staff reported the patient mostly be disengaged, withdrawn. HOSPITAL COURSE: She is a 79-year-old female brought in here from [facility] for increased agitation, increased irritability and paranoia. Medication reconciliation reviewed. Depakote 250 b.i.d., lorazepam as needed, Seroquel 100 mg p.o. at bedtime and 25 in the morning. Today on [id number] evaluation, the patient believes that she is here in the hospital because she is here to enter a contest in her makeover. MENTAL STATUS EXAMINATION: Delusional. ASSESSMENT AND PLAN: Dementia with behavior disturbance and underlying history of schizophrenia. We will continue with the current medication regimen to continue to reach steady state, to target the patient's ongoing confused state. [facility]# [id number]
[2019-02-17] MEDS: Insulin Glargine 100 units/ml 10ml Vial SUBQ SCH (21:06)
[2019-02-18] MEDS: Benztropine 1 MG TAB PO SCH ×2 (10:08→16:45)
--- NOTE | 2019-02-18 18:34 | Internal Medicine Prog Note ---
Internal Medicine Subjective - Subjective Service Date: 02/18/19 Patient seen and examined:: without staff (SHE IS CONFUSED) Patient is:: awake, verbal, in bed, confused Per staff patient has:: no adverse event Internal Medicine Objective - Results Result Diagrams: 02/15/19 18:35 02/15/19 18:35 Recent Labs: Laboratory Last Values WBC 5.8 Th/cmm (4.8-10.8) 02/15/19 18:35 RBC 3.62 Mil/cmm (3.80-5.20) L 02/15/19 18:35 Hgb 10.8 gm/dL (12-16) L 02/15/19 18:35 Hct 31.4 % (41.0-60) L 02/15/19 18:35 MCV 86.6 fl (81-100) 02/15/19 18:35 MCH 29.7 pg (27.0-31.0) 02/15/19 18:35 MCHC Differential 34.3 pg (28.0-36.0) 02/15/19 18:35 RDW 12.4 % (11.5-20.0) 02/15/19 18:35 Plt Count 138 Th/cmm (150-400) L 02/15/19 18:35 MPV 7.9 fl 02/15/19 18:35 Neutrophils % 51.5 % (40.0-80.0) 02/15/19 18:35 Lymphocytes % 37.3 % (20.0-50.0) 02/15/19 18:35 Monocytes % 9.0 % (2.0-10.0) 02/15/19 18:35 Eosinophils % 1.1 % (0.0-5.0) 02/15/19 18:35 Basophils % 1.1 % (0.0-2.0) 02/15/19 18:35 Sodium 138 mEq/L (136-145) 02/15/19 18:35 Potassium 3.7 mEq/L (3.5-5.1) 02/15/19 18:35 Chloride 101 mEq/L (98-107) 02/15/19 18:35 Carbon Dioxide 30.1 mEq/L (21.0-31.0) 02/15/19 18:35 Anion Gap 10.6 (7.0-16.0) 02/15/19 18:35 BUN 22 mg/dL (7-25) 02/15/19 18:35 Creatinine 0.9 mg/dL (0.6-1.2) 02/15/19 18:35 Est GFR ( Amer) TNP 02/15/19 18:35 Est GFR (Non-Af Amer) TNP 02/15/19 18:35 BUN/Creatinine Ratio 24.4 02/15/19 18:35 Glucose 138 mg/dL (70-105) H 02/15/19 18:35 POC Glucose 133 MG/DL (70 - 105) H 02/18/19 16:26 Calcium 8.6 mg/dL (8.6-10.3) 02/15/19 18:35 Total Bilirubin 0.3 mg/dL (0.3-1.0) 02/15/19 18:35 AST 44 U/L (13-39) H 02/15/19 18:35 ALT 51 U/L (7-52) 02/15/19 18:35 Alkaline Phosphatase 110 U/L (34-104) H 02/15/19 18:35 Total Protein 5.7 gm/dL (6.0-8.3) L 02/15/19 18:35 Albumin 3.4 gm/dL (3.7-5.3) L 02/15/19 18:35 Globulin 2.3 gm/dL 02/15/19 18:35 Albumin/Globulin Ratio 1.5 (1.0-1.8) 02/15/19 18:35 Triglycerides 60 mg/dL (<150) 02/15/19 18:35 Cholesterol 142 mg/dL (<200) 02/15/19 18:35 LDL Cholesterol Direct 71 mg/dL (75-193) L 02/15/19 18:35 HDL Cholesterol 55 mg/dL (23-92) 02/15/19 18:35 TSH 4.98 uIU/ml (0.34-5.60) 02/15/19 18:35 Urine Source CLEAN C 02/15/19 19:00 Urine Color YELLOW 02/15/19 19:00 Urine Clarity HAZY (CLEAR) 02/15/19 19:00 Urine pH 7.0 (4.6 - 8.0) 02/15/19 19:00 Ur Specific [place] 1.010 (1.005-1.030) 02/15/19 19:00 Urine Protein TRACE mg/dL (NEGATIVE) 02/15/19 19:00 Urine Glucose (UA) NEGATIVE mg/dL (NEGATIVE) 02/15/19 19:00 Urine Ketones NEGATIVE mg/dL (NEGATIVE) 02/15/19 19:00 Urine Blood NEGATIVE (NEGATIVE) 02/15/19 19:00 Urine Nitrate NEGATIVE (NEGATIVE) 02/15/19 19:00 Urine Bilirubin NEGATIVE (NEGATIVE) 02/15/19 19:00 Urine Urobilinogen 0.2 E.U./dL (0.2 - 1.0) 02/15/19 19:00 Ur Leukocyte Esterase SMALL (NEGATIVE) H 02/15/19 19:00 Urine RBC 0-2 /hpf (0-5) 02/15/19 19:00 Urine WBC 2-5 /hpf (0-5) 02/15/19 19:00 Ur Epithelial Cells FEW /lpf (FEW) 02/15/19 19:00 Amorphous Sediment FEW URATES (NONE SEEN) 02/15/19 19:00 Urine Bacteria MODERATE /hpf (NONE SEEN) H 02/15/19 19:00 RPR NONREACTIVE (NONREACTIVE) 02/15/19 18:35 - Physical Exam Vitals and I&O: Vital Signs Temp 98.6 F 02/18/19 14:00 Pulse 66 02/18/19 16:42 Resp 20 02/18/19 14:00 BP 166/80 02/18/19 14:00 Pulse Ox 97 02/18/19 14:00 Intake & Output 02/17/19 02/18/19 02/18/19 18:59 06:59 18:59 Intake Total 900 220 900 Balance 900 220 900 Intake: Oral 900 220 900 Other: # Voids 3 2 3 # Bowel Movements 1 1 Active Medications: Current Medications Acetaminophen (Tylenol) 650 mg PO Q4HR PRN PRN Reason: Mild Pain / Temp above 100 Stop: 04/17/19 06:31 Last Admin: 02/18/19 10:03 Dose: 650 mg Al Hydrox/Mg Hydrox/Simethicone (Maalox) 30 ml PO Q4HR PRN PRN Reason: GI DISTRESS Stop: 04/17/19 14:52 Aripiprazole (Abilify) 10 mg PO DAILY [facility]; Protocol Stop: 04/17/19 08:59 Last Admin: 02/18/19 10:01 Dose: 10 mg Aspirin (Ecotrin) 81 mg PO DAILY [facility] Stop: 04/17/19 08:59 Last Admin: 02/18/19 10:04 Dose: 81 mg Benztropine Mesylate (Cogentin) 1 mg PO BID [facility] Stop: 04/17/19 08:59 Last Admin: 02/18/19 16:45 Dose: 1 mg Divalproex Sodium (Depakote Dr) 250 mg PO TID [facility]; Protocol Stop: 04/16/19 20:59 Last Admin: 02/18/19 14:00 Dose: 250 mg Docusate Sodium (Colace) 250 mg PO DAILY [facility] Stop: 04/17/19 08:59 Last Admin: 02/18/19 10:07 Dose: 250 mg Famotidine (Pepcid) 20 mg PO DAILY [facility] Stop: 04/17/19 08:59 Last Admin: 02/18/19 10:03 Dose: 20 mg Glipizide (Glucotrol) 2.5 mg PO BID [facility] Stop: 04/17/19 08:59 Last Admin: 02/18/19 16:45 Dose: 2.5 mg Insulin Glargine (Lantus Insulin) 10 units SUBQ HS [facility] Stop: 04/17/19 20:59 Last Admin: 02/17/19 21:06 Dose: 10 unit Lorazepam (Ativan) 0.5 mg PO Q4HR PRN; Protocol PRN Reason: Anxiety Stop: 03/17/19 21:07 Losartan Potassium (Cozaar) 50 mg PO DAILY [facility] Stop: 04/17/19 08:59 Last Admin: 02/18/19 10:04 Dose: 50 mg Magnesium Hydroxide (Milk Of Magnesia) 30 ml PO HS PRN PRN Reason: Constipation Metformin HCl (Glucophage) 500 mg PO BID [facility] Stop: 04/17/19 08:59 Last Admin: 02/18/19 16:46 Dose: 500 mg Quetiapine Fumarate (Seroquel) 25 mg PO DAILY [facility]; Protocol Stop: 04/17/19 08:59 Last Admin: 02/18/19 10:06 Dose: 25 mg Quetiapine Fumarate (Seroquel) 100 mg PO HS [facility]; Protocol Stop: 04/16/19 20:59 Last Admin: 02/17/19 21:06 Dose: 100 mg Zolpidem Tartrate (Ambien) 5 mg PO HS PRN PRN Reason: Insomnia Stop: 04/16/19 21:07 Last Admin: 02/16/19 20:35 Dose: 5 mg General: demented HEENT: NC/AT, PERRLA, EOMI, anicteric sclerae, throat clear Neck: Supple, No JVD, No thyromegaly, +2 carotid pulse wo bruit, No LAD Lungs: CTAB Cardiovascular: RRR, Normal S1, without murmur Abdomen: soft, non-tender, non-distended Extremities: clear Neurological: no change Internal Medicine Assmt/Plan - Assessment Assessment: 1.DM. 2.HTN. 3.ANEMIA. 4.DEMENTIA - Plan Plan: CONTINUE ON CURRENT MEDICATION AND DIET
--- NOTE | 2019-02-18 19:59 | Progress Notes ---
DATE: 02/18/2019 SUBJECTIVE: The patient was seen and evaluated. The patient's chart reviewed. Covering for Dr. Estrada. Today on [id number] evaluation, the patient continues to be easily agitated and suspicious upon interview, at times avoidant. When attempting to evaluate her emotions, she becomes a little bit more open and continues to perseverate about being in the hospital for "a makeover." MENTAL STATUS EXAMINATION: Suspicious, delusional, believing that she is here to have a makeover. ASSESSMENT AND PLAN: History of dementia with behavior disturbances. We will continue with current medication regimen to continue to reach steady state, which includes the Abilify at 10 mg. We will continue monitoring and evaluating as medication continues to reach steady state. JOB# [id number]
[2019-02-18] MEDS: Insulin Glargine 100 units/ml 10ml Vial SUBQ SCH (21:53)
[2019-02-19] MEDS: Benztropine 1 MG TAB PO SCH ×2 (08:45→17:31)
--- NOTE | 2019-02-19 20:21 | Internal Medicine Prog Note ---
Internal Medicine Subjective - Subjective Service Date: 02/19/19 Patient seen and examined:: without staff (SHE IS STABLE) Patient is:: awake, verbal, in bed, confused Per staff patient has:: no adverse event Internal Medicine Objective - Results Result Diagrams: 02/15/19 18:35 02/15/19 18:35 Recent Labs: Laboratory Last Values WBC 5.8 Th/cmm (4.8-10.8) 02/15/19 18:35 RBC 3.62 Mil/cmm (3.80-5.20) L 02/15/19 18:35 Hgb 10.8 gm/dL (12-16) L 02/15/19 18:35 Hct 31.4 % (41.0-60) L 02/15/19 18:35 MCV 86.6 fl (81-100) 02/15/19 18:35 MCH 29.7 pg (27.0-31.0) 02/15/19 18:35 MCHC Differential 34.3 pg (28.0-36.0) 02/15/19 18:35 RDW 12.4 % (11.5-20.0) 02/15/19 18:35 Plt Count 138 Th/cmm (150-400) L 02/15/19 18:35 MPV 7.9 fl 02/15/19 18:35 Neutrophils % 51.5 % (40.0-80.0) 02/15/19 18:35 Lymphocytes % 37.3 % (20.0-50.0) 02/15/19 18:35 Monocytes % 9.0 % (2.0-10.0) 02/15/19 18:35 Eosinophils % 1.1 % (0.0-5.0) 02/15/19 18:35 Basophils % 1.1 % (0.0-2.0) 02/15/19 18:35 Sodium 138 mEq/L (136-145) 02/15/19 18:35 Potassium 3.7 mEq/L (3.5-5.1) 02/15/19 18:35 Chloride 101 mEq/L (98-107) 02/15/19 18:35 Carbon Dioxide 30.1 mEq/L (21.0-31.0) 02/15/19 18:35 Anion Gap 10.6 (7.0-16.0) 02/15/19 18:35 BUN 22 mg/dL (7-25) 02/15/19 18:35 Creatinine 0.9 mg/dL (0.6-1.2) 02/15/19 18:35 Est GFR ( Amer) TNP 02/15/19 18:35 Est GFR (Non-Af Amer) TNP 02/15/19 18:35 BUN/Creatinine Ratio 24.4 02/15/19 18:35 Glucose 138 mg/dL (70-105) H 02/15/19 18:35 POC Glucose 98 MG/DL (70 - 105) 02/18/19 20:44 Calcium 8.6 mg/dL (8.6-10.3) 02/15/19 18:35 Total Bilirubin 0.3 mg/dL (0.3-1.0) 02/15/19 18:35 AST 44 U/L (13-39) H 02/15/19 18:35 ALT 51 U/L (7-52) 02/15/19 18:35 Alkaline Phosphatase 110 U/L (34-104) H 02/15/19 18:35 Total Protein 5.7 gm/dL (6.0-8.3) L 02/15/19 18:35 Albumin 3.4 gm/dL (3.7-5.3) L 02/15/19 18:35 Globulin 2.3 gm/dL 02/15/19 18:35 Albumin/Globulin Ratio 1.5 (1.0-1.8) 02/15/19 18:35 Triglycerides 60 mg/dL (<150) 02/15/19 18:35 Cholesterol 142 mg/dL (<200) 02/15/19 18:35 LDL Cholesterol Direct 71 mg/dL (75-193) L 02/15/19 18:35 HDL Cholesterol 55 mg/dL (23-92) 02/15/19 18:35 TSH 4.98 uIU/ml (0.34-5.60) 02/15/19 18:35 Urine Source CLEAN C 02/15/19 19:00 Urine Color YELLOW 02/15/19 19:00 Urine Clarity HAZY (CLEAR) 02/15/19 19:00 Urine pH 7.0 (4.6 - 8.0) 02/15/19 19:00 Ur Specific [place] 1.010 (1.005-1.030) 02/15/19 19:00 Urine Protein TRACE mg/dL (NEGATIVE) 02/15/19 19:00 Urine Glucose (UA) NEGATIVE mg/dL (NEGATIVE) 02/15/19 19:00 Urine Ketones NEGATIVE mg/dL (NEGATIVE) 02/15/19 19:00 Urine Blood NEGATIVE (NEGATIVE) 02/15/19 19:00 Urine Nitrate NEGATIVE (NEGATIVE) 02/15/19 19:00 Urine Bilirubin NEGATIVE (NEGATIVE) 02/15/19 19:00 Urine Urobilinogen 0.2 E.U./dL (0.2 - 1.0) 02/15/19 19:00 Ur Leukocyte Esterase SMALL (NEGATIVE) H 02/15/19 19:00 Urine RBC 0-2 /hpf (0-5) 02/15/19 19:00 Urine WBC 2-5 /hpf (0-5) 02/15/19 19:00 Ur Epithelial Cells FEW /lpf (FEW) 02/15/19 19:00 Amorphous Sediment FEW URATES (NONE SEEN) 02/15/19 19:00 Urine Bacteria MODERATE /hpf (NONE SEEN) H 02/15/19 19:00 RPR NONREACTIVE (NONREACTIVE) 02/15/19 18:35 - Physical Exam Vitals and I&O: Vital Signs Temp 97.7 F 02/19/19 14:19 Pulse 64 02/19/19 17:30 Resp 18 02/19/19 14:19 BP 156/79 02/19/19 14:19 Pulse Ox 98 02/19/19 14:19 Intake & Output 02/19/19 02/19/19 02/20/19 06:59 18:59 06:59 Intake Total 120 950 Balance 120 950 Intake: Oral 120 950 Other: # Voids 3 4 # Bowel Movements 1 Active Medications: Current Medications Acetaminophen (Tylenol) 650 mg PO Q4HR PRN PRN Reason: Mild Pain / Temp above 100 Stop: 04/17/19 06:31 Last Admin: 02/18/19 10:03 Dose: 650 mg Al Hydrox/Mg Hydrox/Simethicone (Maalox) 30 ml PO Q4HR PRN PRN Reason: GI DISTRESS Stop: 04/17/19 14:52 Aripiprazole (Abilify) 10 mg PO DAILY [facility]; Protocol Stop: 04/17/19 08:59 Last Admin: 02/19/19 08:44 Dose: 10 mg Aspirin (Ecotrin) 81 mg PO DAILY [facility] Stop: 04/17/19 08:59 Last Admin: 02/19/19 08:44 Dose: 81 mg Benztropine Mesylate (Cogentin) 1 mg PO BID [facility] Stop: 04/17/19 08:59 Last Admin: 02/19/19 17:31 Dose: 1 mg Divalproex Sodium (Depakote Dr) 250 mg PO TID [facility]; Protocol Stop: 04/16/19 20:59 Last Admin: 02/19/19 17:30 Dose: Not Given Docusate Sodium (Colace) 250 mg PO DAILY [facility] Stop: 04/17/19 08:59 Last Admin: 02/19/19 08:44 Dose: 250 mg Famotidine (Pepcid) 20 mg PO DAILY [facility] Stop: 04/17/19 08:59 Last Admin: 02/19/19 08:45 Dose: 20 mg Glipizide (Glucotrol) 2.5 mg PO BID [facility] Stop: 04/17/19 08:59 Last Admin: 02/19/19 17:29 Dose: 2.5 mg Insulin Glargine (Lantus Insulin) 10 units SUBQ HS [facility] Stop: 04/17/19 20:59 Last Admin: 02/18/19 21:53 Dose: Not Given Lorazepam (Ativan) 0.5 mg PO Q4HR PRN; Protocol PRN Reason: Anxiety Stop: 03/17/19 21:07 Losartan Potassium (Cozaar) 50 mg PO DAILY [facility] Stop: 04/17/19 08:59 Last Admin: 02/19/19 08:45 Dose: 50 mg Magnesium Hydroxide (Milk Of Magnesia) 30 ml PO HS PRN PRN Reason: Constipation Metformin HCl (Glucophage) 500 mg PO BID [facility] Stop: 04/17/19 08:59 Last Admin: 02/19/19 17:30 Dose: 500 mg Quetiapine Fumarate (Seroquel) 25 mg PO DAILY [facility]; Protocol Stop: 04/17/19 08:59 Last Admin: 02/19/19 08:46 Dose: 25 mg Quetiapine Fumarate (Seroquel) 100 mg PO HS [facility]; Protocol Stop: 04/16/19 20:59 Last Admin: 02/18/19 21:52 Dose: 100 mg Zolpidem Tartrate (Ambien) 5 mg PO HS PRN PRN Reason: Insomnia Stop: 04/16/19 21:07 Last Admin: 02/16/19 20:35 Dose: 5 mg General: demented HEENT: NC/AT, PERRLA, EOMI, anicteric sclerae, throat clear Neck: Supple, No JVD, No thyromegaly, +2 carotid pulse wo bruit, No LAD Lungs: CTAB Cardiovascular: RRR, Normal S1, without murmur Abdomen: soft, non-tender, non-distended Extremities: clear Neurological: no change Internal Medicine Assmt/Plan - Assessment Assessment: 1.DM. 2.HTN. 3.ANEMIA. 4.DEMENTIA - Plan Plan: CONTINUE ON CURRENT MEDICATION AND DIET Nutritional Asmnt/Malnutr-PDOC - Dietary Evaluation Malnutrition Findings (Please click <Entered> for more info): Nutritional Asmnt/Malnutrition Start: 02/19/19 08: 49 Text: Status: Complete Freq: Protocol: Document 02/19/19 08:49 EBONIE (Rec: 02/19/19 08:52 [email or web address] [id number]) Nutritional Asmnt/Malnutrition Patient General Information Nutritional Screening Moderate Risk Diagnosis Psychosis Pertinent Medical Hx/Surgical Hx HTN, DM, Asthma/COPD, Dyslipidemia, Arthritis, Anemia, Schizophrenic Disorder , Appendectomy, Lumpectomy of both breasts, Tonsillectomy Subjective Information Pt is a 79-year-old female admitted on 02/15 from extended care facility d/t aggressive behavior. Pt is eating well, 75-100% meals regularly, adequate to meet estimated nutritional needs. HT: 57 WT: 171 LB (77.73kg) BMI: 26.78 (Overweight) GI: WNL, soft, flat, non- tender BM: 02/19 x1 I/O: 1020/Not Noted Skin: WNL, intact Julián: 20 Diet Order: Mechanical soft, CCHO, NORRIS, chopped Estimated Energy Needs: ( Geriatric, CBW) 3594-6924 kcals (25-30 kcals/ kg) 78-93g Pro (1.0-1.2 g/kg) 0810-8639 ml (25-30 ml/kg) Pt is eating 75-100% of meals Per Meal/Nutrition Activity Record. Dietary is currently providing an estimated 2400 kcals and 108 gm Pro, per Pt PO intake this is providing an estimated 2100 kcals and 95gm Pro to meet 100+% kcal and 100+% Pro needs. Current Diet Order/ Nutrition Support Mechanical soft, CCHO, NORRIS, chopped Pertinent Medications Maalox (PRN), Colace, Pepcid, Glucotrol, Lantus, Cozaar, MOM (PRN), Glucophage Pertinent Labs 02/15: Hgb/Hct 10.8/31.4 POC Glucose (last 24 hours): 84, 133, 98 Nutritional Hx/Data Height 1.7 m Height (Calculated Centimeters) 170.2 Current Weight (lbs) 77.564 kg Weight (Calculated Kilograms) 77.6 Weight (Calculated Grams) 67761.3 Theodore Body Weight 135 LB (61.36 kg) % Theodore Body Weight 127 Body Mass Index (BMI) 26.7 Weight Status Overweight GI Symptoms GI Symptoms None Last BM 02/19 x1 Skin Integrity/Comment: Skin: WNL, intact Julián: 20 Current %PO Good (75-100%) Estimated Nutritional Goals BEE in Kcals: Using Current wt Calories/Kcals/Kg 25-30 Kcals Calculated 0903-1632 Protein: Using Current wt Protein g/k.0-1.2 Protein Calculated 78-93 Fluid: ml 6778-3018 ml (25-30 ml/kg) Nutritional Problem 1. Problem Problem Impaired nutrient utilization Etiology r/t endocrine dysfunction Signs/Symptoms: aeb Hx DM and POC Glucose ( last 24 hours): 84, 133, 98 Malnutrition Related to Morbid Obesity Malnutrition related to morbid obesity No Intervention/Recommendation Comments 1. Continue with mechanical soft, CCHO, NORRIS, chopped diet as ordered. 2. Continue antihyperglycemic medications for glucose control per MD order. Expected Outcomes/Goals Expected Outcomes/Goals 1. PO intake to continue to meet 75% of nutritional needs. 2. Monitor PO intake, wt, nutrition related labs, and skin integrity. 3. F/U as low risk in 7 days, 02/26
[2019-02-19] MEDS: Insulin Glargine 100 units/ml 10ml Vial SUBQ SCH (21:06)
--- NOTE | 2019-02-19 23:22 | Progress Notes ---
DATE: 02/19/2019 Case was discussed with staff of the patient, reviewed records. A 79-year-old female who was read[facility] because of agitation, irritability, unable to be redirected, paranoid, increasingly agitated, confused, aggressive with staff, with multiple prior admissions. The patient continues to have poor insight, continues to be unpredictable, impulsive, continues to be unable to make safe plan for self-care, suspicious, delusional. She believes she is here to make a makeover. No side effects with the medication, no sedation, no nausea, no extrapyramidal symptoms. She is on Abilify 10 mg daily, Depakote 250 mg 3 times a day, and Seroquel 25 mg daily and 100 mg at bedtime. I will continue outpatient group therapy, milieu therapy, and adjust medication as needed. [facility]# [id number] TANIA
[2019-02-20] MEDS: Benztropine 1 MG TAB PO SCH ×2 (09:29→17:58)
--- NOTE | 2019-02-20 14:29 | Progress Notes ---
DATE: 02/20/2019 Case was discussed with staff of the patient, reviewed records. The patient continues to have poor insight, continues to be unpredictable, impulsive, disorganized, paranoid, easily agitated, confused, aggressive at times with multiple prior admissions to this facility. Continues to need redirection. She tolerated adjustment in her medications. No side effects with the medication, no sedation, no nausea, no extrapyramidal symptoms. We will continue to work with the patient in group therapy, milieu therapy, adjust the medication as needed. [facility]# [id number]
--- NOTE | 2019-02-20 20:40 | Internal Medicine Prog Note ---
Internal Medicine Subjective - Subjective Service Date: 02/20/19 Patient seen and examined:: without staff (she is stable) Patient is:: awake, verbal, in bed, confused Per staff patient has:: no adverse event Internal Medicine Objective - Results Result Diagrams: 02/15/19 18:35 02/15/19 18:35 Recent Labs: Laboratory Last Values WBC 5.8 Th/cmm (4.8-10.8) 02/15/19 18:35 RBC 3.62 Mil/cmm (3.80-5.20) L 02/15/19 18:35 Hgb 10.8 gm/dL (12-16) L 02/15/19 18:35 Hct 31.4 % (41.0-60) L 02/15/19 18:35 MCV 86.6 fl (81-100) 02/15/19 18:35 MCH 29.7 pg (27.0-31.0) 02/15/19 18:35 MCHC Differential 34.3 pg (28.0-36.0) 02/15/19 18:35 RDW 12.4 % (11.5-20.0) 02/15/19 18:35 Plt Count 138 Th/cmm (150-400) L 02/15/19 18:35 MPV 7.9 fl 02/15/19 18:35 Neutrophils % 51.5 % (40.0-80.0) 02/15/19 18:35 Lymphocytes % 37.3 % (20.0-50.0) 02/15/19 18:35 Monocytes % 9.0 % (2.0-10.0) 02/15/19 18:35 Eosinophils % 1.1 % (0.0-5.0) 02/15/19 18:35 Basophils % 1.1 % (0.0-2.0) 02/15/19 18:35 Sodium 138 mEq/L (136-145) 02/15/19 18:35 Potassium 3.7 mEq/L (3.5-5.1) 02/15/19 18:35 Chloride 101 mEq/L (98-107) 02/15/19 18:35 Carbon Dioxide 30.1 mEq/L (21.0-31.0) 02/15/19 18:35 Anion Gap 10.6 (7.0-16.0) 02/15/19 18:35 BUN 22 mg/dL (7-25) 02/15/19 18:35 Creatinine 0.9 mg/dL (0.6-1.2) 02/15/19 18:35 Est GFR ( Amer) TNP 02/15/19 18:35 Est GFR (Non-Af Amer) TNP 02/15/19 18:35 BUN/Creatinine Ratio 24.4 02/15/19 18:35 Glucose 138 mg/dL (70-105) H 02/15/19 18:35 POC Glucose 98 MG/DL (70 - 105) 02/18/19 20:44 Calcium 8.6 mg/dL (8.6-10.3) 02/15/19 18:35 Total Bilirubin 0.3 mg/dL (0.3-1.0) 02/15/19 18:35 AST 44 U/L (13-39) H 02/15/19 18:35 ALT 51 U/L (7-52) 02/15/19 18:35 Alkaline Phosphatase 110 U/L (34-104) H 02/15/19 18:35 Total Protein 5.7 gm/dL (6.0-8.3) L 02/15/19 18:35 Albumin 3.4 gm/dL (3.7-5.3) L 02/15/19 18:35 Globulin 2.3 gm/dL 02/15/19 18:35 Albumin/Globulin Ratio 1.5 (1.0-1.8) 02/15/19 18:35 Triglycerides 60 mg/dL (<150) 02/15/19 18:35 Cholesterol 142 mg/dL (<200) 02/15/19 18:35 LDL Cholesterol Direct 71 mg/dL (75-193) L 02/15/19 18:35 HDL Cholesterol 55 mg/dL (23-92) 02/15/19 18:35 TSH 4.98 uIU/ml (0.34-5.60) 02/15/19 18:35 Urine Source CLEAN C 02/15/19 19:00 Urine Color YELLOW 02/15/19 19:00 Urine Clarity HAZY (CLEAR) 02/15/19 19:00 Urine pH 7.0 (4.6 - 8.0) 02/15/19 19:00 Ur Specific [place] 1.010 (1.005-1.030) 02/15/19 19:00 Urine Protein TRACE mg/dL (NEGATIVE) 02/15/19 19:00 Urine Glucose (UA) NEGATIVE mg/dL (NEGATIVE) 02/15/19 19:00 Urine Ketones NEGATIVE mg/dL (NEGATIVE) 02/15/19 19:00 Urine Blood NEGATIVE (NEGATIVE) 02/15/19 19:00 Urine Nitrate NEGATIVE (NEGATIVE) 02/15/19 19:00 Urine Bilirubin NEGATIVE (NEGATIVE) 02/15/19 19:00 Urine Urobilinogen 0.2 E.U./dL (0.2 - 1.0) 02/15/19 19:00 Ur Leukocyte Esterase SMALL (NEGATIVE) H 02/15/19 19:00 Urine RBC 0-2 /hpf (0-5) 02/15/19 19:00 Urine WBC 2-5 /hpf (0-5) 02/15/19 19:00 Ur Epithelial Cells FEW /lpf (FEW) 02/15/19 19:00 Amorphous Sediment FEW URATES (NONE SEEN) 02/15/19 19:00 Urine Bacteria MODERATE /hpf (NONE SEEN) H 02/15/19 19:00 RPR NONREACTIVE (NONREACTIVE) 02/15/19 18:35 - Physical Exam Vitals and I&O: Vital Signs Temp 98 F 02/20/19 20:27 Pulse 66 02/20/19 20:27 Resp 20 02/20/19 20:27 BP 171/82 02/20/19 20:27 Pulse Ox 97 02/20/19 20:27 Intake & Output 02/20/19 02/20/19 02/21/19 06:59 18:59 06:59 Intake Total 240 240 Balance 240 240 Intake: Oral 240 240 Other: # Voids 3 1 # Bowel Movements 0 Active Medications: Current Medications Acetaminophen (Tylenol) 650 mg PO Q4HR PRN PRN Reason: Mild Pain / Temp above 100 Stop: 04/17/19 06:31 Last Admin: 02/20/19 13:34 Dose: 650 mg Al Hydrox/Mg Hydrox/Simethicone (Maalox) 30 ml PO Q4HR PRN PRN Reason: GI DISTRESS Stop: 04/17/19 14:52 Aripiprazole (Abilify) 10 mg PO DAILY [facility]; Protocol Stop: 04/17/19 08:59 Last Admin: 02/20/19 09:28 Dose: 10 mg Aspirin (Ecotrin) 81 mg PO DAILY [facility] Stop: 04/17/19 08:59 Last Admin: 02/20/19 09:28 Dose: 81 mg Benztropine Mesylate (Cogentin) 1 mg PO BID [facility] Stop: 04/17/19 08:59 Last Admin: 02/20/19 17:58 Dose: 1 mg Divalproex Sodium (Depakote Dr) 250 mg PO TID [facility]; Protocol Stop: 04/16/19 20:59 Last Admin: 02/20/19 13:34 Dose: 250 mg Docusate Sodium (Colace) 250 mg PO DAILY [facility] Stop: 04/17/19 08:59 Last Admin: 02/20/19 09:27 Dose: 250 mg Famotidine (Pepcid) 20 mg PO DAILY [facility] Stop: 04/17/19 08:59 Last Admin: 02/20/19 09:29 Dose: 20 mg Glipizide (Glucotrol) 2.5 mg PO BID [facility] Stop: 04/17/19 08:59 Last Admin: 02/20/19 17:59 Dose: 2.5 mg Insulin Glargine (Lantus Insulin) 10 units SUBQ HS [facility] Stop: 04/17/19 20:59 Last Admin: 02/19/19 21:06 Dose: 10 unit Lorazepam (Ativan) 0.5 mg PO Q4HR PRN; Protocol PRN Reason: Anxiety Stop: 03/17/19 21:07 Losartan Potassium (Cozaar) 50 mg PO DAILY [facility] Stop: 04/17/19 08:59 Last Admin: 02/20/19 09:27 Dose: 50 mg Magnesium Hydroxide (Milk Of Magnesia) 30 ml PO HS PRN PRN Reason: Constipation Metformin HCl (Glucophage) 500 mg PO BID [facility] Stop: 04/17/19 08:59 Last Admin: 02/20/19 17:58 Dose: 500 mg Quetiapine Fumarate (Seroquel) 25 mg PO DAILY [facility]; Protocol Stop: 04/17/19 08:59 Last Admin: 02/20/19 09:27 Dose: 25 mg Quetiapine Fumarate (Seroquel) 100 mg PO HS [facility]; Protocol Stop: 04/16/19 20:59 Last Admin: 02/19/19 21:06 Dose: 100 mg Zolpidem Tartrate (Ambien) 5 mg PO HS PRN PRN Reason: Insomnia Stop: 04/16/19 21:07 Last Admin: 02/16/19 20:35 Dose: 5 mg General: demented HEENT: NC/AT, PERRLA, EOMI, anicteric sclerae, throat clear Neck: Supple, No JVD, No thyromegaly, +2 carotid pulse wo bruit, No LAD Lungs: CTAB Cardiovascular: RRR, Normal S1, without murmur Abdomen: soft, non-tender, non-distended Extremities: clear Neurological: no change Internal Medicine Assmt/Plan - Assessment Assessment: 1.DM. 2.HTN. 3.ANEMIA. 4.DEMENTIA - Plan Plan: CONTINUE ON CURRENT MEDICATION AND DIET Nutritional Asmnt/Malnutr-PDOC - Dietary Evaluation Malnutrition Findings (Please click <Entered> for more info): Nutritional Asmnt/Malnutrition Start: 02/19/19 08: 49 Text: Status: Complete Freq: Protocol: Document 02/19/19 08:49 EBONIE (Rec: 02/19/19 08:52 EBONIE [id number]) Nutritional Asmnt/Malnutrition Patient General Information Nutritional Screening Moderate Risk Diagnosis Psychosis Pertinent Medical Hx/Surgical Hx HTN, DM, Asthma/COPD, Dyslipidemia, Arthritis, Anemia, Schizophrenic Disorder , Appendectomy, Lumpectomy of both breasts, Tonsillectomy Subjective Information Pt is a 79-year-old female admitted on 02/15 from extended care facility d/t aggressive behavior. Pt is eating well, 75-100% meals regularly, adequate to meet estimated nutritional needs. HT: 57 WT: 171 LB (77.73kg) BMI: 26.78 (Overweight) GI: WNL, soft, flat, non- tender BM: 02/19 x1 I/O: 1020/Not Noted Skin: WNL, intact Julián: 20 Diet Order: Mechanical soft, CCHO, NORRIS, chopped Estimated Energy Needs: ( Geriatric, CBW) 7027-1849 kcals (25-30 kcals/ kg) 78-93g Pro (1.0-1.2 g/kg) 6719-0087 ml (25-30 ml/kg) Pt is eating 75-100% of meals Per Meal/Nutrition Activity Record. Dietary is currently providing an estimated 2400 kcals and 108 gm Pro, per Pt PO intake this is providing an estimated 2100 kcals and 95gm Pro to meet 100+% kcal and 100+% Pro needs. Current Diet Order/ Nutrition Support Mechanical soft, CCHO, NORRIS, chopped Pertinent Medications Maalox (PRN), Colace, Pepcid, Glucotrol, Lantus, Cozaar, MOM (PRN), Glucophage Pertinent Labs 02/15: Hgb/Hct 10.8/31.4 POC Glucose (last 24 hours): 84, 133, 98 Nutritional Hx/Data Height 1.7 m Height (Calculated Centimeters) 170.2 Current Weight (lbs) 77.564 kg Weight (Calculated Kilograms) 77.6 Weight (Calculated Grams) 94515.3 [place] Body Weight 135 LB (61.36 kg) % [place] Body Weight 127 Body Mass Index (BMI) 26.7 Weight Status Overweight GI Symptoms GI Symptoms None Last BM 02/19 x1 Skin Integrity/Comment: Skin: WNL, intact Julián: 20 Current %PO Good (75-100%) Estimated Nutritional Goals BEE in Kcals: Using Current wt Calories/Kcals/Kg 25-30 Kcals Calculated 7134-6255 Protein: Using Current wt Protein g/k.0-1.2 Protein Calculated 78-93 Fluid: ml 5815-9527 ml (25-30 ml/kg) Nutritional Problem 1. Problem Problem Impaired nutrient utilization Etiology r/t endocrine dysfunction Signs/Symptoms: aeb Hx DM and POC Glucose ( last 24 hours): 84, 133, 98 Malnutrition Related to Morbid Obesity Malnutrition related to morbid obesity No Intervention/Recommendation Comments 1. Continue with mechanical soft, CCHO, NORRIS, chopped diet as ordered. 2. Continue antihyperglycemic medications for glucose control per MD order. Expected Outcomes/Goals Expected Outcomes/Goals 1. PO intake to continue to meet 75% of nutritional needs. 2. Monitor PO intake, wt, nutrition related labs, and skin integrity. 3. F/U as low risk in 7 days, 02/26
[2019-02-20] MEDS: Insulin Glargine 100 units/ml 10ml Vial SUBQ SCH (20:57)
[2019-02-21] MEDS: Benztropine 1 MG TAB PO SCH ×2 (09:07→16:55)
[2019-02-21] MEDS: Insulin Glargine 100 units/ml 10ml Vial SUBQ SCH (20:13)
--- NOTE | 2019-02-21 21:20 | Internal Medicine Prog Note ---
Internal Medicine Subjective - Subjective Service Date: 02/21/19 Patient seen and examined:: without staff (SHE IS CONFUSED) Patient is:: awake, verbal, in bed, confused Per staff patient has:: no adverse event Internal Medicine Objective - Results Result Diagrams: 02/15/19 18:35 02/15/19 18:35 Recent Labs: Laboratory Last Values WBC 5.8 Th/cmm (4.8-10.8) 02/15/19 18:35 RBC 3.62 Mil/cmm (3.80-5.20) L 02/15/19 18:35 Hgb 10.8 gm/dL (12-16) L 02/15/19 18:35 Hct 31.4 % (41.0-60) L 02/15/19 18:35 MCV 86.6 fl (81-100) 02/15/19 18:35 MCH 29.7 pg (27.0-31.0) 02/15/19 18:35 MCHC Differential 34.3 pg (28.0-36.0) 02/15/19 18:35 RDW 12.4 % (11.5-20.0) 02/15/19 18:35 Plt Count 138 Th/cmm (150-400) L 02/15/19 18:35 MPV 7.9 fl 02/15/19 18:35 Neutrophils % 51.5 % (40.0-80.0) 02/15/19 18:35 Lymphocytes % 37.3 % (20.0-50.0) 02/15/19 18:35 Monocytes % 9.0 % (2.0-10.0) 02/15/19 18:35 Eosinophils % 1.1 % (0.0-5.0) 02/15/19 18:35 Basophils % 1.1 % (0.0-2.0) 02/15/19 18:35 Sodium 138 mEq/L (136-145) 02/15/19 18:35 Potassium 3.7 mEq/L (3.5-5.1) 02/15/19 18:35 Chloride 101 mEq/L (98-107) 02/15/19 18:35 Carbon Dioxide 30.1 mEq/L (21.0-31.0) 02/15/19 18:35 Anion Gap 10.6 (7.0-16.0) 02/15/19 18:35 BUN 22 mg/dL (7-25) 02/15/19 18:35 Creatinine 0.9 mg/dL (0.6-1.2) 02/15/19 18:35 Est GFR ( Amer) TNP 02/15/19 18:35 Est GFR (Non-Af Amer) TNP 02/15/19 18:35 BUN/Creatinine Ratio 24.4 02/15/19 18:35 Glucose 138 mg/dL (70-105) H 02/15/19 18:35 POC Glucose 98 MG/DL (70 - 105) 02/18/19 20:44 Calcium 8.6 mg/dL (8.6-10.3) 02/15/19 18:35 Total Bilirubin 0.3 mg/dL (0.3-1.0) 02/15/19 18:35 AST 44 U/L (13-39) H 02/15/19 18:35 ALT 51 U/L (7-52) 02/15/19 18:35 Alkaline Phosphatase 110 U/L (34-104) H 02/15/19 18:35 Total Protein 5.7 gm/dL (6.0-8.3) L 02/15/19 18:35 Albumin 3.4 gm/dL (3.7-5.3) L 02/15/19 18:35 Globulin 2.3 gm/dL 02/15/19 18:35 Albumin/Globulin Ratio 1.5 (1.0-1.8) 02/15/19 18:35 Triglycerides 60 mg/dL (<150) 02/15/19 18:35 Cholesterol 142 mg/dL (<200) 02/15/19 18:35 LDL Cholesterol Direct 71 mg/dL (75-193) L 02/15/19 18:35 HDL Cholesterol 55 mg/dL (23-92) 02/15/19 18:35 TSH 4.98 uIU/ml (0.34-5.60) 02/15/19 18:35 Urine Source CLEAN C 02/15/19 19:00 Urine Color YELLOW 02/15/19 19:00 Urine Clarity HAZY (CLEAR) 02/15/19 19:00 Urine pH 7.0 (4.6 - 8.0) 02/15/19 19:00 Ur Specific [place] 1.010 (1.005-1.030) 02/15/19 19:00 Urine Protein TRACE mg/dL (NEGATIVE) 02/15/19 19:00 Urine Glucose (UA) NEGATIVE mg/dL (NEGATIVE) 02/15/19 19:00 Urine Ketones NEGATIVE mg/dL (NEGATIVE) 02/15/19 19:00 Urine Blood NEGATIVE (NEGATIVE) 02/15/19 19:00 Urine Nitrate NEGATIVE (NEGATIVE) 02/15/19 19:00 Urine Bilirubin NEGATIVE (NEGATIVE) 02/15/19 19:00 Urine Urobilinogen 0.2 E.U./dL (0.2 - 1.0) 02/15/19 19:00 Ur Leukocyte Esterase SMALL (NEGATIVE) H 02/15/19 19:00 Urine RBC 0-2 /hpf (0-5) 02/15/19 19:00 Urine WBC 2-5 /hpf (0-5) 02/15/19 19:00 Ur Epithelial Cells FEW /lpf (FEW) 02/15/19 19:00 Amorphous Sediment FEW URATES (NONE SEEN) 02/15/19 19:00 Urine Bacteria MODERATE /hpf (NONE SEEN) H 02/15/19 19:00 Valproic Acid 64.1 ug/mL (50.0-100.0) 02/21/19 06:50 RPR NONREACTIVE (NONREACTIVE) 02/15/19 18:35 - Physical Exam Vitals and I&O: Vital Signs Temp 98.3 F 02/21/19 14:13 Pulse 71 02/21/19 14:13 Resp 20 02/21/19 14:13 BP 159/85 02/21/19 14:13 Pulse Ox 98 02/21/19 14:13 Intake & Output 02/21/19 02/21/19 02/22/19 06:59 18:59 06:59 Intake Total 240 Balance 240 Intake: Oral 240 Other: # Voids 3 2 # Bowel Movements 0 1 Active Medications: Current Medications Acetaminophen (Tylenol) 650 mg PO Q4HR PRN PRN Reason: Mild Pain / Temp above 100 Stop: 04/17/19 06:31 Last Admin: 02/20/19 13:34 Dose: 650 mg Al Hydrox/Mg Hydrox/Simethicone (Maalox) 30 ml PO Q4HR PRN PRN Reason: GI DISTRESS Stop: 04/17/19 14:52 Aspirin (Ecotrin) 81 mg PO DAILY [facility] Stop: 04/17/19 08:59 Last Admin: 02/21/19 09:07 Dose: 81 mg Benztropine Mesylate (Cogentin) 1 mg PO BID [facility] Stop: 04/17/19 08:59 Last Admin: 02/21/19 16:55 Dose: 1 mg Divalproex Sodium (Depakote Dr) 250 mg PO TID [facility]; Protocol Stop: 04/16/19 20:59 Last Admin: 02/21/19 20:12 Dose: 250 mg Docusate Sodium (Colace) 250 mg PO DAILY [facility] Stop: 04/17/19 08:59 Last Admin: 02/21/19 09:08 Dose: 250 mg Famotidine (Pepcid) 20 mg PO DAILY [facility] Stop: 04/17/19 08:59 Last Admin: 02/21/19 09:08 Dose: 20 mg Glipizide (Glucotrol) 2.5 mg PO BID [facility] Stop: 04/17/19 08:59 Last Admin: 02/21/19 16:55 Dose: 2.5 mg Insulin Glargine (Lantus Insulin) 10 units SUBQ HS [facility] Stop: 04/17/19 20:59 Last Admin: 02/21/19 20:13 Dose: 10 unit Lorazepam (Ativan) 0.5 mg PO Q4HR PRN; Protocol PRN Reason: Anxiety Stop: 03/17/19 21:07 Losartan Potassium (Cozaar) 50 mg PO DAILY [facility] Stop: 04/17/19 08:59 Last Admin: 02/21/19 09:08 Dose: 50 mg Magnesium Hydroxide (Milk Of Magnesia) 30 ml PO HS PRN PRN Reason: Constipation Metformin HCl (Glucophage) 500 mg PO BID [facility] Stop: 04/17/19 08:59 Last Admin: 02/21/19 16:57 Dose: 500 mg Quetiapine Fumarate (Seroquel) 25 mg PO DAILY [facility]; Protocol Stop: 04/17/19 08:59 Last Admin: 02/21/19 09:08 Dose: 25 mg Quetiapine Fumarate (Seroquel) 100 mg PO HS [facility]; Protocol Stop: 04/16/19 20:59 Last Admin: 02/21/19 20:12 Dose: 100 mg Zolpidem Tartrate (Ambien) 5 mg PO HS PRN PRN Reason: Insomnia Stop: 04/16/19 21:07 Last Admin: 02/16/19 20:35 Dose: 5 mg General: demented HEENT: NC/AT, PERRLA, EOMI, anicteric sclerae, throat clear Neck: Supple, No JVD, No thyromegaly, +2 carotid pulse wo bruit, No LAD Lungs: CTAB Cardiovascular: RRR, Normal S1, without murmur Abdomen: soft, non-tender, non-distended Extremities: clear Neurological: no change Internal Medicine Assmt/Plan - Assessment Assessment: 1.DM. 2.HTN. 3.ANEMIA. 4.DEMENTIA - Plan Plan: CONTINUE ON CURRENT MEDICATION AND DIET Nutritional Asmnt/Malnutr-PDOC - Dietary Evaluation Malnutrition Findings (Please click <Entered> for more info): Nutritional Asmnt/Malnutrition Start: 02/19/19 08: 49 Text: Status: Complete Freq: Protocol: Document 02/19/19 08:49 EBONIE (Rec: 02/19/19 08:52 EBONIE [email or web address]) Nutritional Asmnt/Malnutrition Patient General Information Nutritional Screening Moderate Risk Diagnosis Psychosis Pertinent Medical Hx/Surgical Hx HTN, DM, Asthma/COPD, Dyslipidemia, Arthritis, Anemia, Schizophrenic Disorder , Appendectomy, Lumpectomy of both breasts, Tonsillectomy Subjective Information Pt is a 79-year-old female admitted on 02/15 from [facility] care facility d/t aggressive behavior. Pt is eating well, 75-100% meals regularly, adequate to meet estimated nutritional needs. HT: 57 WT: 171 LB (77.73kg) BMI: 26.78 (Overweight) GI: WNL, soft, flat, non- tender BM: 02/19 x1 I/O: 1020/Not Noted Skin: WNL, intact Julián: 20 Diet Order: Mechanical soft, CCHO, NORRIS, chopped Estimated Energy Needs: ( Geriatric, CBW) 2435-5596 kcals (25-30 kcals/ kg) 78-93g Pro (1.0-1.2 g/kg) 5138-0971 ml (25-30 ml/kg) Pt is eating 75-100% of meals Per Meal/Nutrition Activity Record. Dietary is currently providing an estimated 2400 kcals and 108 gm Pro, per Pt PO intake this is providing an estimated 2100 kcals and 95gm Pro to meet 100+% kcal and 100+% Pro needs. Current Diet Order/ Nutrition Support Mechanical soft, CCHO, NORRIS, chopped Pertinent Medications Maalox (PRN), Colace, Pepcid, Glucotrol, Lantus, Cozaar, MOM (PRN), Glucophage Pertinent Labs 02/15: Hgb/Hct 10.8/31.4 POC Glucose (last 24 hours): 84, 133, 98 Nutritional Hx/Data Height 1.7 m Height (Calculated Centimeters) 170.2 Current Weight (lbs) 77.564 kg Weight (Calculated Kilograms) 77.6 Weight (Calculated Grams) 28793.3 [place] Body Weight 135 LB (61.36 kg) % [place] Body Weight 127 Body Mass Index (BMI) 26.7 Weight Status Overweight GI Symptoms GI Symptoms None Last BM 02/19 x1 Skin Integrity/Comment: Skin: WNL, intact Julián: 20 Current %PO Good (75-100%) Estimated Nutritional Goals BEE in Kcals: Using Current wt Calories/Kcals/Kg 25-30 Kcals Calculated 4194-9201 Protein: Using Current wt Protein g/k.0-1.2 Protein Calculated 78-93 Fluid: ml 8324-3926 ml (25-30 ml/kg) Nutritional Problem 1. Problem Problem Impaired nutrient utilization Etiology r/t endocrine dysfunction Signs/Symptoms: aeb Hx DM and POC Glucose ( last 24 hours): 84, 133, 98 Malnutrition Related to Morbid Obesity Malnutrition related to morbid obesity No Intervention/Recommendation Comments 1. Continue with mechanical soft, CCHO, NORRIS, chopped diet as ordered. 2. Continue antihyperglycemic medications for glucose control per MD order. Expected Outcomes/Goals Expected Outcomes/Goals 1. PO intake to continue to meet 75% of nutritional needs. 2. Monitor PO intake, wt, nutrition related labs, and skin integrity. 3. F/U as low risk in 7 days, 02/26
--- NOTE | 2019-02-21 22:11 | Progress Notes ---
DATE: 02/21/2019 Chart reviewed and the patient interviewed. Also discussed the patient's condition with the staff and reviewed records and labs. The patient is still suspicious and paranoid. Affect is brighter. The patient still seems to be preoccupied and she is having mood swings. Today, the patient is saying that she is going to do "total makeover." She has more positive attitude this morning, but at the same time, the patient still seems to be responding and is preoccupied. ASSESSMENT: The patient is still paranoid and confused, but seems to have more positive attitude. TREATMENT PLAN: The patient is taking Abilify and Seroquel, which are two antipsychotic medications. We will discontinue Abilify and continue Seroquel same dose. Also, we will get Depakote blood level today and continue to follow up closely. JOB# [id number]
[2019-02-22] MEDS: Benztropine 1 MG TAB PO SCH ×2 (08:51→17:29)
--- NOTE | 2019-02-22 18:12 | Internal Medicine Prog Note ---
Internal Medicine Subjective - Subjective Service Date: 02/22/19 Patient seen and examined:: without staff (SHE IS STABLE,CONFUSED) Patient is:: awake, verbal, in bed, confused Per staff patient has:: no adverse event Internal Medicine Objective - Results Result Diagrams: 02/15/19 18:35 02/15/19 18:35 Recent Labs: Laboratory Last Values WBC 5.8 Th/cmm (4.8-10.8) 02/15/19 18:35 RBC 3.62 Mil/cmm (3.80-5.20) L 02/15/19 18:35 Hgb 10.8 gm/dL (12-16) L 02/15/19 18:35 Hct 31.4 % (41.0-60) L 02/15/19 18:35 MCV 86.6 fl (81-100) 02/15/19 18:35 MCH 29.7 pg (27.0-31.0) 02/15/19 18:35 MCHC Differential 34.3 pg (28.0-36.0) 02/15/19 18:35 RDW 12.4 % (11.5-20.0) 02/15/19 18:35 Plt Count 138 Th/cmm (150-400) L 02/15/19 18:35 MPV 7.9 fl 02/15/19 18:35 Neutrophils % 51.5 % (40.0-80.0) 02/15/19 18:35 Lymphocytes % 37.3 % (20.0-50.0) 02/15/19 18:35 Monocytes % 9.0 % (2.0-10.0) 02/15/19 18:35 Eosinophils % 1.1 % (0.0-5.0) 02/15/19 18:35 Basophils % 1.1 % (0.0-2.0) 02/15/19 18:35 Sodium 138 mEq/L (136-145) 02/15/19 18:35 Potassium 3.7 mEq/L (3.5-5.1) 02/15/19 18:35 Chloride 101 mEq/L (98-107) 02/15/19 18:35 Carbon Dioxide 30.1 mEq/L (21.0-31.0) 02/15/19 18:35 Anion Gap 10.6 (7.0-16.0) 02/15/19 18:35 BUN 22 mg/dL (7-25) 02/15/19 18:35 Creatinine 0.9 mg/dL (0.6-1.2) 02/15/19 18:35 Est GFR ( Amer) TNP 02/15/19 18:35 Est GFR (Non-Af Amer) TNP 02/15/19 18:35 BUN/Creatinine Ratio 24.4 02/15/19 18:35 Glucose 138 mg/dL (70-105) H 02/15/19 18:35 POC Glucose 98 MG/DL (70 - 105) 02/18/19 20:44 Calcium 8.6 mg/dL (8.6-10.3) 02/15/19 18:35 Total Bilirubin 0.3 mg/dL (0.3-1.0) 02/15/19 18:35 AST 44 U/L (13-39) H 02/15/19 18:35 ALT 51 U/L (7-52) 02/15/19 18:35 Alkaline Phosphatase 110 U/L (34-104) H 02/15/19 18:35 Total Protein 5.7 gm/dL (6.0-8.3) L 02/15/19 18:35 Albumin 3.4 gm/dL (3.7-5.3) L 02/15/19 18:35 Globulin 2.3 gm/dL 02/15/19 18:35 Albumin/Globulin Ratio 1.5 (1.0-1.8) 02/15/19 18:35 Triglycerides 60 mg/dL (<150) 02/15/19 18:35 Cholesterol 142 mg/dL (<200) 02/15/19 18:35 LDL Cholesterol Direct 71 mg/dL (75-193) L 02/15/19 18:35 HDL Cholesterol 55 mg/dL (23-92) 02/15/19 18:35 TSH 4.98 uIU/ml (0.34-5.60) 02/15/19 18:35 Urine Source CLEAN C 02/15/19 19:00 Urine Color YELLOW 02/15/19 19:00 Urine Clarity HAZY (CLEAR) 02/15/19 19:00 Urine pH 7.0 (4.6 - 8.0) 02/15/19 19:00 Ur Specific [place] 1.010 (1.005-1.030) 02/15/19 19:00 Urine Protein TRACE mg/dL (NEGATIVE) 02/15/19 19:00 Urine Glucose (UA) NEGATIVE mg/dL (NEGATIVE) 02/15/19 19:00 Urine Ketones NEGATIVE mg/dL (NEGATIVE) 02/15/19 19:00 Urine Blood NEGATIVE (NEGATIVE) 02/15/19 19:00 Urine Nitrate NEGATIVE (NEGATIVE) 02/15/19 19:00 Urine Bilirubin NEGATIVE (NEGATIVE) 02/15/19 19:00 Urine Urobilinogen 0.2 E.U./dL (0.2 - 1.0) 02/15/19 19:00 Ur Leukocyte Esterase SMALL (NEGATIVE) H 02/15/19 19:00 Urine RBC 0-2 /hpf (0-5) 02/15/19 19:00 Urine WBC 2-5 /hpf (0-5) 02/15/19 19:00 Ur Epithelial Cells FEW /lpf (FEW) 02/15/19 19:00 Amorphous Sediment FEW URATES (NONE SEEN) 02/15/19 19:00 Urine Bacteria MODERATE /hpf (NONE SEEN) H 02/15/19 19:00 Valproic Acid 64.1 ug/mL (50.0-100.0) 02/21/19 06:50 RPR NONREACTIVE (NONREACTIVE) 02/15/19 18:35 - Physical Exam Vitals and I&O: Vital Signs Temp 98.5 F 02/22/19 14:00 Pulse 82 02/22/19 17:29 Resp 20 02/22/19 14:00 BP 135/75 02/22/19 14:00 Pulse Ox 99 02/22/19 14:00 Intake & Output 02/21/19 02/22/19 02/22/19 18:59 06:59 18:59 Intake Total 360 Balance 360 Intake: Oral 360 Other: # Voids 2 2 # Bowel Movements 1 0 Active Medications: Current Medications Acetaminophen (Tylenol) 650 mg PO Q4HR PRN PRN Reason: Mild Pain / Temp above 100 Stop: 04/17/19 06:31 Last Admin: 02/20/19 13:34 Dose: 650 mg Al Hydrox/Mg Hydrox/Simethicone (Maalox) 30 ml PO Q4HR PRN PRN Reason: GI DISTRESS Stop: 04/17/19 14:52 Aspirin (Ecotrin) 81 mg PO DAILY [facility] Stop: 04/17/19 08:59 Last Admin: 02/22/19 08:51 Dose: 81 mg Benztropine Mesylate (Cogentin) 1 mg PO BID [facility] Stop: 04/17/19 08:59 Last Admin: 02/22/19 17:29 Dose: 1 mg Divalproex Sodium (Depakote Dr) 250 mg PO TID [facility]; Protocol Stop: 04/16/19 20:59 Last Admin: 02/22/19 14:17 Dose: Not Given Docusate Sodium (Colace) 250 mg PO DAILY [facility] Stop: 04/17/19 08:59 Last Admin: 02/22/19 08:51 Dose: 250 mg Famotidine (Pepcid) 20 mg PO DAILY [facility] Stop: 04/17/19 08:59 Last Admin: 02/22/19 08:51 Dose: 20 mg Glipizide (Glucotrol) 2.5 mg PO BID [facility] Stop: 04/17/19 08:59 Last Admin: 02/22/19 17:29 Dose: 2.5 mg Insulin Glargine (Lantus Insulin) 10 units SUBQ HS [facility] Stop: 04/17/19 20:59 Last Admin: 02/21/19 20:13 Dose: 10 unit Lorazepam (Ativan) 0.5 mg PO Q4HR PRN; Protocol PRN Reason: Anxiety Stop: 03/17/19 21:07 Losartan Potassium (Cozaar) 50 mg PO DAILY [facility] Stop: 04/17/19 08:59 Last Admin: 02/22/19 08:51 Dose: 50 mg Magnesium Hydroxide (Milk Of Magnesia) 30 ml PO HS PRN PRN Reason: Constipation Metformin HCl (Glucophage) 500 mg PO BID [facility] Stop: 04/17/19 08:59 Last Admin: 02/22/19 17:29 Dose: 500 mg Quetiapine Fumarate (Seroquel) 25 mg PO DAILY [facility]; Protocol Stop: 04/17/19 08:59 Last Admin: 02/22/19 08:51 Dose: 25 mg Quetiapine Fumarate (Seroquel) 100 mg PO HS [facility]; Protocol Stop: 04/16/19 20:59 Last Admin: 02/21/19 20:12 Dose: 100 mg Zolpidem Tartrate (Ambien) 5 mg PO HS PRN PRN Reason: Insomnia Stop: 04/16/19 21:07 Last Admin: 02/16/19 20:35 Dose: 5 mg General: demented HEENT: NC/AT, PERRLA, EOMI, anicteric sclerae, throat clear Neck: Supple, No JVD, No thyromegaly, +2 carotid pulse wo bruit, No LAD Lungs: CTAB Cardiovascular: RRR, Normal S1, without murmur Abdomen: soft, non-tender, non-distended Extremities: clear Neurological: no change Internal Medicine Assmt/Plan - Assessment Assessment: 1.DM. 2.HTN. 3.ANEMIA. 4.DEMENTIA - Plan Plan: CONTINUE ON CURRENT MEDICATION AND DIET Nutritional Asmnt/Malnutr-PDOC - Dietary Evaluation Malnutrition Findings (Please click <Entered> for more info): Nutritional Asmnt/Malnutrition Start: 02/19/19 08: 49 Text: Status: Complete Freq: Protocol: Document 02/19/19 08:49 EBONIE (Rec: 02/19/19 08:52 EBONIE [email or web address]) Nutritional Asmnt/Malnutrition Patient General Information Nutritional Screening Moderate Risk Diagnosis Psychosis Pertinent Medical Hx/Surgical Hx HTN, DM, Asthma/COPD, Dyslipidemia, Arthritis, Anemia, Schizophrenic Disorder , Appendectomy, Lumpectomy of both breasts, Tonsillectomy Subjective Information Pt is a 79-year-old female admitted on 02/15 from extended care facility d/t aggressive behavior. Pt is eating well, 75-100% meals regularly, adequate to meet estimated nutritional needs. HT: 57 WT: 171 LB (77.73kg) BMI: 26.78 (Overweight) GI: WNL, soft, flat, non- tender BM: 02/19 x1 I/O: 1020/Not Noted Skin: WNL, intact Julián: 20 Diet Order: Mechanical soft, CCHO, NORRIS, chopped Estimated Energy Needs: ( Geriatric, CBW) 8033-1865 kcals (25-30 kcals/ kg) 78-93g Pro (1.0-1.2 g/kg) 3225-4667 ml (25-30 ml/kg) Pt is eating 75-100% of meals Per Meal/Nutrition Activity Record. Dietary is currently providing an estimated 2400 kcals and 108 gm Pro, per Pt PO intake this is providing an estimated 2100 kcals and 95gm Pro to meet 100+% kcal and 100+% Pro needs. Current Diet Order/ Nutrition Support Mechanical soft, CCHO, NORRIS, chopped Pertinent Medications Maalox (PRN), Colace, Pepcid, Glucotrol, Lantus, Cozaar, MOM (PRN), Glucophage Pertinent Labs 02/15: Hgb/Hct 10.8/31.4 POC Glucose (last 24 hours): 84, 133, 98 Nutritional Hx/Data Height 1.7 m Height (Calculated Centimeters) 170.2 Current Weight (lbs) 77.564 kg Weight (Calculated Kilograms) 77.6 Weight (Calculated Grams) 95382.3 [place] Body Weight 135 LB (61.36 kg) % [place] Body Weight 127 Body Mass Index (BMI) 26.7 Weight Status Overweight GI Symptoms GI Symptoms None Last BM 02/19 x1 Skin Integrity/Comment: Skin: WNL, intact Julián: 20 Current %PO Good (75-100%) Estimated Nutritional Goals BEE in Kcals: Using Current wt Calories/Kcals/Kg 25-30 Kcals Calculated 2187-2101 Protein: Using Current wt Protein g/k.0-1.2 Protein Calculated 78-93 Fluid: ml 8979-5723 ml (25-30 ml/kg) Nutritional Problem 1. Problem Problem Impaired nutrient utilization Etiology r/t endocrine dysfunction Signs/Symptoms: aeb Hx DM and POC Glucose ( last 24 hours): 84, 133, 98 Malnutrition Related to Morbid Obesity Malnutrition related to morbid obesity No Intervention/Recommendation Comments 1. Continue with mechanical soft, CCHO, NORRIS, chopped diet as ordered. 2. Continue antihyperglycemic medications for glucose control per MD order. Expected Outcomes/Goals Expected Outcomes/Goals 1. PO intake to continue to meet 75% of nutritional needs. 2. Monitor PO intake, wt, nutrition related labs, and skin integrity. 3. F/U as low risk in 7 days, 02/26
[2019-02-22] MEDS: Insulin Glargine 100 units/ml 10ml Vial SUBQ SCH (21:06)
--- NOTE | 2019-02-22 22:34 | Progress Notes ---
DATE: The patient seen, chart reviewed, discussed with staff. The patient noted to be playing bingo, very confused and does not really know where she is or why she is here, stating that she is here because she choked when she was eating and that she is also here for "a complete makeover." Noted to be in the hospital due to agitation, increased irritability, coming from [place]. The patient stating that she is coming from home, confused, disoriented, ongoing symptoms. Poor orientation. She remains pretty impulsive, unpredictable, still angry at times, still telling staff she is here for makeover. We will continue to monitor. Medications were noted. JOB# [id number]
[2019-02-23] MEDS: Benztropine 1 MG TAB PO SCH ×2 (08:21→16:22)
--- NOTE | 2019-02-23 18:28 | Internal Medicine Prog Note ---
Internal Medicine Subjective - Subjective Service Date: 02/23/19 Patient seen and examined:: with staff (SHE IS CONFUSED) Patient is:: awake, verbal, in bed, confused Per staff patient has:: no adverse event Internal Medicine Objective - Results Result Diagrams: 02/15/19 18:35 02/15/19 18:35 Recent Labs: Laboratory Last Values WBC 5.8 Th/cmm (4.8-10.8) 02/15/19 18:35 RBC 3.62 Mil/cmm (3.80-5.20) L 02/15/19 18:35 Hgb 10.8 gm/dL (12-16) L 02/15/19 18:35 Hct 31.4 % (41.0-60) L 02/15/19 18:35 MCV 86.6 fl (81-100) 02/15/19 18:35 MCH 29.7 pg (27.0-31.0) 02/15/19 18:35 MCHC Differential 34.3 pg (28.0-36.0) 02/15/19 18:35 RDW 12.4 % (11.5-20.0) 02/15/19 18:35 Plt Count 138 Th/cmm (150-400) L 02/15/19 18:35 MPV 7.9 fl 02/15/19 18:35 Neutrophils % 51.5 % (40.0-80.0) 02/15/19 18:35 Lymphocytes % 37.3 % (20.0-50.0) 02/15/19 18:35 Monocytes % 9.0 % (2.0-10.0) 02/15/19 18:35 Eosinophils % 1.1 % (0.0-5.0) 02/15/19 18:35 Basophils % 1.1 % (0.0-2.0) 02/15/19 18:35 Sodium 138 mEq/L (136-145) 02/15/19 18:35 Potassium 3.7 mEq/L (3.5-5.1) 02/15/19 18:35 Chloride 101 mEq/L (98-107) 02/15/19 18:35 Carbon Dioxide 30.1 mEq/L (21.0-31.0) 02/15/19 18:35 Anion Gap 10.6 (7.0-16.0) 02/15/19 18:35 BUN 22 mg/dL (7-25) 02/15/19 18:35 Creatinine 0.9 mg/dL (0.6-1.2) 02/15/19 18:35 Est GFR ( Amer) TNP 02/15/19 18:35 Est GFR (Non-Af Amer) TNP 02/15/19 18:35 BUN/Creatinine Ratio 24.4 02/15/19 18:35 Glucose 138 mg/dL (70-105) H 02/15/19 18:35 POC Glucose 98 MG/DL (70 - 105) 02/18/19 20:44 Calcium 8.6 mg/dL (8.6-10.3) 02/15/19 18:35 Total Bilirubin 0.3 mg/dL (0.3-1.0) 02/15/19 18:35 AST 44 U/L (13-39) H 02/15/19 18:35 ALT 51 U/L (7-52) 02/15/19 18:35 Alkaline Phosphatase 110 U/L (34-104) H 02/15/19 18:35 Total Protein 5.7 gm/dL (6.0-8.3) L 02/15/19 18:35 Albumin 3.4 gm/dL (3.7-5.3) L 02/15/19 18:35 Globulin 2.3 gm/dL 02/15/19 18:35 Albumin/Globulin Ratio 1.5 (1.0-1.8) 02/15/19 18:35 Triglycerides 60 mg/dL (<150) 02/15/19 18:35 Cholesterol 142 mg/dL (<200) 02/15/19 18:35 LDL Cholesterol Direct 71 mg/dL (75-193) L 02/15/19 18:35 HDL Cholesterol 55 mg/dL (23-92) 02/15/19 18:35 TSH 4.98 uIU/ml (0.34-5.60) 02/15/19 18:35 Urine Source CLEAN C 02/15/19 19:00 Urine Color YELLOW 02/15/19 19:00 Urine Clarity HAZY (CLEAR) 02/15/19 19:00 Urine pH 7.0 (4.6 - 8.0) 02/15/19 19:00 Ur Specific [place] 1.010 (1.005-1.030) 02/15/19 19:00 Urine Protein TRACE mg/dL (NEGATIVE) 02/15/19 19:00 Urine Glucose (UA) NEGATIVE mg/dL (NEGATIVE) 02/15/19 19:00 Urine Ketones NEGATIVE mg/dL (NEGATIVE) 02/15/19 19:00 Urine Blood NEGATIVE (NEGATIVE) 02/15/19 19:00 Urine Nitrate NEGATIVE (NEGATIVE) 02/15/19 19:00 Urine Bilirubin NEGATIVE (NEGATIVE) 02/15/19 19:00 Urine Urobilinogen 0.2 E.U./dL (0.2 - 1.0) 02/15/19 19:00 Ur Leukocyte Esterase SMALL (NEGATIVE) H 02/15/19 19:00 Urine RBC 0-2 /hpf (0-5) 02/15/19 19:00 Urine WBC 2-5 /hpf (0-5) 02/15/19 19:00 Ur Epithelial Cells FEW /lpf (FEW) 02/15/19 19:00 Amorphous Sediment FEW URATES (NONE SEEN) 02/15/19 19:00 Urine Bacteria MODERATE /hpf (NONE SEEN) H 02/15/19 19:00 Valproic Acid 64.1 ug/mL (50.0-100.0) 02/21/19 06:50 RPR NONREACTIVE (NONREACTIVE) 02/15/19 18:35 - Physical Exam Vitals and I&O: Vital Signs Temp 98.9 F 02/23/19 14:00 Pulse 69 02/23/19 17:23 Resp 20 02/23/19 14:00 BP 113/68 02/23/19 17:23 Pulse Ox 98 02/23/19 14:00 Intake & Output 02/22/19 02/23/19 02/23/19 18:59 06:59 18:59 Intake Total 960 120 Balance 960 120 Intake: Oral 960 120 Other: # Voids 3 3 # Bowel Movements 1 Active Medications: Current Medications Acetaminophen (Tylenol) 650 mg PO Q4HR PRN PRN Reason: Mild Pain / Temp above 100 Stop: 04/17/19 06:31 Last Admin: 02/20/19 13:34 Dose: 650 mg Al Hydrox/Mg Hydrox/Simethicone (Maalox) 30 ml PO Q4HR PRN PRN Reason: GI DISTRESS Stop: 04/17/19 14:52 Aspirin (Ecotrin) 81 mg PO DAILY [facility] Stop: 04/17/19 08:59 Last Admin: 02/23/19 08:21 Dose: 81 mg Benztropine Mesylate (Cogentin) 1 mg PO BID [facility] Stop: 04/17/19 08:59 Last Admin: 02/23/19 16:22 Dose: 1 mg Divalproex Sodium (Depakote Dr) 250 mg PO TID [facility]; Protocol Stop: 04/16/19 20:59 Last Admin: 02/23/19 13:49 Dose: 250 mg Docusate Sodium (Colace) 250 mg PO DAILY [facility] Stop: 04/17/19 08:59 Last Admin: 02/23/19 08:21 Dose: 250 mg Famotidine (Pepcid) 20 mg PO DAILY [facility] Stop: 04/17/19 08:59 Last Admin: 02/23/19 08:20 Dose: 20 mg Glipizide (Glucotrol) 2.5 mg PO BID [facility] Stop: 04/17/19 08:59 Last Admin: 02/23/19 16:22 Dose: 2.5 mg Insulin Glargine (Lantus Insulin) 10 units SUBQ HS [facility] Stop: 04/17/19 20:59 Last Admin: 02/22/19 21:06 Dose: Not Given Lorazepam (Ativan) 0.5 mg PO Q4HR PRN; Protocol PRN Reason: Anxiety Stop: 03/17/19 21:07 Losartan Potassium (Cozaar) 50 mg PO DAILY [facility] Stop: 04/17/19 08:59 Last Admin: 02/23/19 08:22 Dose: 50 mg Magnesium Hydroxide (Milk Of Magnesia) 30 ml PO HS PRN PRN Reason: Constipation Metformin HCl (Glucophage) 500 mg PO BID [facility] Stop: 04/17/19 08:59 Last Admin: 02/23/19 16:22 Dose: 500 mg Quetiapine Fumarate (Seroquel) 25 mg PO DAILY [facility]; Protocol Stop: 04/17/19 08:59 Last Admin: 02/23/19 08:21 Dose: 25 mg Quetiapine Fumarate 100 mg/ (Quetiapine Fumarate 25 mg) 125 mg PO HS [facility] Stop: 04/24/19 20:59 Zolpidem Tartrate (Ambien) 5 mg PO HS PRN PRN Reason: Insomnia Stop: 04/16/19 21:07 Last Admin: 02/16/19 20:35 Dose: 5 mg General: demented HEENT: NC/AT, PERRLA, EOMI, anicteric sclerae, throat clear Neck: Supple, No JVD, No thyromegaly, +2 carotid pulse wo bruit, No LAD Lungs: CTAB Cardiovascular: RRR, Normal S1, without murmur Abdomen: soft, non-tender, non-distended Extremities: clear Neurological: no change Internal Medicine Assmt/Plan - Assessment Assessment: 1.DM. 2.HTN. 3.ANEMIA. 4.DEMENTIA - Plan Plan: CONTINUE ON CURRENT MEDICATION AND DIET Nutritional Asmnt/Malnutr-PDOC - Dietary Evaluation Malnutrition Findings (Please click <Entered> for more info): Nutritional Asmnt/Malnutrition Start: 02/19/19 08: 49 Text: Status: Complete Freq: Protocol: Document 02/19/19 08:49 EBONIE (Rec: 02/19/19 08:52 EBONIE [email or web address]) Nutritional Asmnt/Malnutrition Patient General Information Nutritional Screening Moderate Risk Diagnosis Psychosis Pertinent Medical Hx/Surgical Hx HTN, DM, Asthma/COPD, Dyslipidemia, Arthritis, Anemia, Schizophrenic Disorder , Appendectomy, Lumpectomy of both breasts, Tonsillectomy Subjective Information Pt is a 79-year-old female admitted on 02/15 from extended care facility d/t aggressive behavior. Pt is eating well, 75-100% meals regularly, adequate to meet estimated nutritional needs. HT: 57 WT: 171 LB (77.73kg) BMI: 26.78 (Overweight) GI: WNL, soft, flat, non- tender BM: 02/19 x1 I/O: 1020/Not Noted Skin: WNL, intact Julián: 20 Diet Order: Mechanical soft, CCHO, NORRIS, chopped Estimated Energy Needs: ( Geriatric, CBW) 4724-7466 kcals (25-30 kcals/ kg) 78-93g Pro (1.0-1.2 g/kg) 4399-3465 ml (25-30 ml/kg) Pt is eating 75-100% of meals Per Meal/Nutrition Activity Record. Dietary is currently providing an estimated 2400 kcals and 108 gm Pro, per Pt PO intake this is providing an estimated 2100 kcals and 95gm Pro to meet 100+% kcal and 100+% Pro needs. Current Diet Order/ Nutrition Support Mechanical soft, CCHO, NORRIS, chopped Pertinent Medications Maalox (PRN), Colace, Pepcid, Glucotrol, Lantus, Cozaar, MOM (PRN), Glucophage Pertinent Labs 02/15: Hgb/Hct 10.8/31.4 POC Glucose (last 24 hours): 84, 133, 98 Nutritional Hx/Data Height 1.7 m Height (Calculated Centimeters) 170.2 Current Weight (lbs) 77.564 kg Weight (Calculated Kilograms) 77.6 Weight (Calculated Grams) 68378.3 [place] Body Weight 135 LB (61.36 kg) % [place] Body Weight 127 Body Mass Index (BMI) 26.7 Weight Status Overweight GI Symptoms GI Symptoms None Last BM 02/19 x1 Skin Integrity/Comment: Skin: WNL, intact Julián: 20 Current %PO Good (75-100%) Estimated Nutritional Goals BEE in Kcals: Using Current wt Calories/Kcals/Kg 25-30 Kcals Calculated 1387-6625 Protein: Using Current wt Protein g/k.0-1.2 Protein Calculated 78-93 Fluid: ml 4682-5818 ml (25-30 ml/kg) Nutritional Problem 1. Problem Problem Impaired nutrient utilization Etiology r/t endocrine dysfunction Signs/Symptoms: aeb Hx DM and POC Glucose ( last 24 hours): 84, 133, 98 Malnutrition Related to Morbid Obesity Malnutrition related to morbid obesity No Intervention/Recommendation Comments 1. Continue with mechanical soft, CCHO, NORRIS, chopped diet as ordered. 2. Continue antihyperglycemic medications for glucose control per MD order. Expected Outcomes/Goals Expected Outcomes/Goals 1. PO intake to continue to meet 75% of nutritional needs. 2. Monitor PO intake, wt, nutrition related labs, and skin integrity. 3. F/U as low risk in 7 days, 02/26
[2019-02-23] MEDS: Insulin Glargine 100 units/ml 10ml Vial SUBQ SCH (20:40)
--- NOTE | 2019-02-23 22:52 | Progress Notes ---
DATE: 02/23/2019 SUBJECTIVE: A 79-year-old female admitted to the hospital from [facility], increased agitation, irritability, very angry, upset, hard time following directions, paranoias, confusion. The patient remains highly impulsive, unpredictable, depressed, easily irritable, labile, poor orientation, AO x 1 only. Still acting out. Still paranoid, believing that staff is trying to plan some sort of robbery against her. She is really suspicious of her things, quiet right now. Medications were noted. PLAN: I will continue to monitor ongoing concerns about her ability to care for basic needs. I will be increasing her dosing of Seroquel to target paranoias, psychosis. [facility]# [id number]
[2019-02-24] MEDS: Benztropine 1 MG TAB PO SCH ×2 (08:11→16:54)
--- NOTE | 2019-02-24 16:36 | General Progress Note ---
Subjective - Review of Systems Service Date: 02/24/19 Subjective: resting comfortably no distress Objective - Results Result Diagrams: 02/15/19 18:35 02/15/19 18:35 Recent Labs: Laboratory Last Values WBC 5.8 Th/cmm (4.8-10.8) 02/15/19 18:35 RBC 3.62 Mil/cmm (3.80-5.20) L 02/15/19 18:35 Hgb 10.8 gm/dL (12-16) L 02/15/19 18:35 Hct 31.4 % (41.0-60) L 02/15/19 18:35 MCV 86.6 fl (81-100) 02/15/19 18:35 MCH 29.7 pg (27.0-31.0) 02/15/19 18:35 MCHC Differential 34.3 pg (28.0-36.0) 02/15/19 18:35 RDW 12.4 % (11.5-20.0) 02/15/19 18:35 Plt Count 138 Th/cmm (150-400) L 02/15/19 18:35 MPV 7.9 fl 02/15/19 18:35 Neutrophils % 51.5 % (40.0-80.0) 02/15/19 18:35 Lymphocytes % 37.3 % (20.0-50.0) 02/15/19 18:35 Monocytes % 9.0 % (2.0-10.0) 02/15/19 18:35 Eosinophils % 1.1 % (0.0-5.0) 02/15/19 18:35 Basophils % 1.1 % (0.0-2.0) 02/15/19 18:35 Sodium 138 mEq/L (136-145) 02/15/19 18:35 Potassium 3.7 mEq/L (3.5-5.1) 02/15/19 18:35 Chloride 101 mEq/L (98-107) 02/15/19 18:35 Carbon Dioxide 30.1 mEq/L (21.0-31.0) 02/15/19 18:35 Anion Gap 10.6 (7.0-16.0) 02/15/19 18:35 BUN 22 mg/dL (7-25) 02/15/19 18:35 Creatinine 0.9 mg/dL (0.6-1.2) 02/15/19 18:35 Est GFR ( Amer) TNP 02/15/19 18:35 Est GFR (Non-Af Amer) TNP 02/15/19 18:35 BUN/Creatinine Ratio 24.4 02/15/19 18:35 Glucose 138 mg/dL (70-105) H 02/15/19 18:35 POC Glucose 98 MG/DL (70 - 105) 02/18/19 20:44 Calcium 8.6 mg/dL (8.6-10.3) 02/15/19 18:35 Total Bilirubin 0.3 mg/dL (0.3-1.0) 02/15/19 18:35 AST 44 U/L (13-39) H 02/15/19 18:35 ALT 51 U/L (7-52) 02/15/19 18:35 Alkaline Phosphatase 110 U/L (34-104) H 02/15/19 18:35 Total Protein 5.7 gm/dL (6.0-8.3) L 02/15/19 18:35 Albumin 3.4 gm/dL (3.7-5.3) L 02/15/19 18:35 Globulin 2.3 gm/dL 02/15/19 18:35 Albumin/Globulin Ratio 1.5 (1.0-1.8) 02/15/19 18:35 Triglycerides 60 mg/dL (<150) 02/15/19 18:35 Cholesterol 142 mg/dL (<200) 02/15/19 18:35 LDL Cholesterol Direct 71 mg/dL (75-193) L 02/15/19 18:35 HDL Cholesterol 55 mg/dL (23-92) 02/15/19 18:35 TSH 4.98 uIU/ml (0.34-5.60) 02/15/19 18:35 Urine Source CLEAN C 02/15/19 19:00 Urine Color YELLOW 02/15/19 19:00 Urine Clarity HAZY (CLEAR) 02/15/19 19:00 Urine pH 7.0 (4.6 - 8.0) 02/15/19 19:00 Ur Specific [place] 1.010 (1.005-1.030) 02/15/19 19:00 Urine Protein TRACE mg/dL (NEGATIVE) 02/15/19 19:00 Urine Glucose (UA) NEGATIVE mg/dL (NEGATIVE) 02/15/19 19:00 Urine Ketones NEGATIVE mg/dL (NEGATIVE) 02/15/19 19:00 Urine Blood NEGATIVE (NEGATIVE) 02/15/19 19:00 Urine Nitrate NEGATIVE (NEGATIVE) 02/15/19 19:00 Urine Bilirubin NEGATIVE (NEGATIVE) 02/15/19 19:00 Urine Urobilinogen 0.2 E.U./dL (0.2 - 1.0) 02/15/19 19:00 Ur Leukocyte Esterase SMALL (NEGATIVE) H 02/15/19 19:00 Urine RBC 0-2 /hpf (0-5) 02/15/19 19:00 Urine WBC 2-5 /hpf (0-5) 02/15/19 19:00 Ur Epithelial Cells FEW /lpf (FEW) 02/15/19 19:00 Amorphous Sediment FEW URATES (NONE SEEN) 02/15/19 19:00 Urine Bacteria MODERATE /hpf (NONE SEEN) H 02/15/19 19:00 Valproic Acid 64.1 ug/mL (50.0-100.0) 02/21/19 06:50 RPR NONREACTIVE (NONREACTIVE) 02/15/19 18:35 - Physical Exam Vitals and I&O: Vital Signs Temp 98.2 F 02/24/19 15:27 Pulse 73 02/24/19 15:27 Resp 20 02/24/19 15:27 BP 101/63 02/24/19 15:27 Pulse Ox 98 02/24/19 15:27 Intake & Output 02/23/19 02/24/19 02/24/19 18:59 06:59 18:59 Intake Total 900 Balance 900 Intake: Oral 900 Other: # Voids 3 # Bowel Movements 1 Active Medications: Current Medications Acetaminophen (Tylenol) 650 mg PO Q4HR PRN PRN Reason: Mild Pain / Temp above 100 Stop: 04/17/19 06:31 Last Admin: 02/20/19 13:34 Dose: 650 mg Al Hydrox/Mg Hydrox/Simethicone (Maalox) 30 ml PO Q4HR PRN PRN Reason: GI DISTRESS Stop: 04/17/19 14:52 Aspirin (Ecotrin) 81 mg PO DAILY [facility] Stop: 04/17/19 08:59 Last Admin: 02/24/19 08:12 Dose: 81 mg Benztropine Mesylate (Cogentin) 1 mg PO BID [facility] Stop: 04/17/19 08:59 Last Admin: 02/24/19 08:11 Dose: 1 mg Divalproex Sodium (Depakote Dr) 250 mg PO TID [facility]; Protocol Stop: 04/16/19 20:59 Last Admin: 02/24/19 13:39 Dose: 250 mg Docusate Sodium (Colace) 250 mg PO DAILY [facility] Stop: 04/17/19 08:59 Last Admin: 02/24/19 08:11 Dose: 250 mg Famotidine (Pepcid) 20 mg PO DAILY [facility] Stop: 04/17/19 08:59 Last Admin: 02/24/19 08:12 Dose: 20 mg Glipizide (Glucotrol) 2.5 mg PO BID [facility] Stop: 04/17/19 08:59 Last Admin: 02/24/19 08:11 Dose: 2.5 mg Insulin Glargine (Lantus Insulin) 10 units SUBQ HS [facility] Stop: 04/17/19 20:59 Last Admin: 02/23/19 20:40 Dose: 10 unit Lorazepam (Ativan) 0.5 mg PO Q4HR PRN; Protocol PRN Reason: Anxiety Stop: 03/17/19 21:07 Last Admin: 02/24/19 15:25 Dose: 0.5 mg Losartan Potassium (Cozaar) 50 mg PO DAILY [facility] Stop: 04/17/19 08:59 Last Admin: 02/24/19 08:12 Dose: 50 mg Magnesium Hydroxide (Milk Of Magnesia) 30 ml PO HS PRN PRN Reason: Constipation Metformin HCl (Glucophage) 500 mg PO BID [facility] Stop: 04/17/19 08:59 Last Admin: 02/24/19 08:11 Dose: 500 mg Quetiapine Fumarate (Seroquel) 25 mg PO DAILY [facility]; Protocol Stop: 04/17/19 08:59 Last Admin: 02/24/19 08:12 Dose: 25 mg Quetiapine Fumarate (Seroquel) 150 mg PO HS [facility] Stop: 04/25/19 20:59 Zolpidem Tartrate (Ambien) 5 mg PO HS PRN PRN Reason: Insomnia Stop: 04/16/19 21:07 Last Admin: 02/16/19 20:35 Dose: 5 mg General: No acute distress HEENT: Atraumatic, PERRLA Neck: Supple, JVD Cardiovascular: Regular rate, Normal S1, Normal S2 Lungs: Clear to auscultation Abdomen: Bowel sounds, Soft Assessment/Plan - Assessment Assessment: 1.DM. 2.HTN. 3.ANEMIA. 4.DEMENTIA - Plan Plan: continue current treatment Nutritional Asmnt/Malnutr-PDOC - Dietary Evaluation Malnutrition Findings (Please click <Entered> for more info): Nutritional Asmnt/Malnutrition Start: 02/19/19 08: 49 Text: Status: Complete Freq: Protocol: Document 02/19/19 08:49 SHIRAALISA (Rec: 02/19/19 08:52 EBONIE [email or web address]) Nutritional Asmnt/Malnutrition Patient General Information Nutritional Screening Moderate Risk Diagnosis Psychosis Pertinent Medical Hx/Surgical Hx HTN, DM, Asthma/COPD, Dyslipidemia, Arthritis, Anemia, Schizophrenic Disorder , Appendectomy, Lumpectomy of both breasts, Tonsillectomy Subjective Information Pt is a 79-year-old female admitted on 02/15 from [facility] care facility d/t aggressive behavior. Pt is eating well, 75-100% meals regularly, adequate to meet estimated nutritional needs. HT: 57 WT: 171 LB (77.73kg) BMI: 26.78 (Overweight) GI: WNL, soft, flat, non- tender BM: 02/19 x1 I/O: 1020/Not Noted Skin: WNL, intact Julián: 20 Diet Order: Mechanical soft, CCHO, NORRIS, chopped Estimated Energy Needs: ( Geriatric, CBW) 5454-2434 kcals (25-30 kcals/ kg) 78-93g Pro (1.0-1.2 g/kg) 5331-8644 ml (25-30 ml/kg) Pt is eating 75-100% of meals Per Meal/Nutrition Activity Record. Dietary is currently providing an estimated 2400 kcals and 108 gm Pro, per Pt PO intake this is providing an estimated 2100 kcals and 95gm Pro to meet 100+% kcal and 100+% Pro needs. Current Diet Order/ Nutrition Support Mechanical soft, CCHO, NORRIS, chopped Pertinent Medications Maalox (PRN), Colace, Pepcid, Glucotrol, Lantus, Cozaar, MOM (PRN), Glucophage Pertinent Labs 02/15: Hgb/Hct 10.8/31.4 POC Glucose (last 24 hours): 84, 133, 98 Nutritional Hx/Data Height 1.7 m Height (Calculated Centimeters) 170.2 Current Weight (lbs) 77.564 kg Weight (Calculated Kilograms) 77.6 Weight (Calculated Grams) 16577.3 [place] Body Weight 135 LB (61.36 kg) % [place] Body Weight 127 Body Mass Index (BMI) 26.7 Weight Status Overweight GI Symptoms GI Symptoms None Last BM 02/19 x1 Skin Integrity/Comment: Skin: WNL, intact Julián: 20 Current %PO Good (75-100%) Estimated Nutritional Goals BEE in Kcals: Using Current wt Calories/Kcals/Kg 25-30 Kcals Calculated 2695-8003 Protein: Using Current wt Protein g/k.0-1.2 Protein Calculated 78-93 Fluid: ml 0276-3118 ml (25-30 ml/kg) Nutritional Problem 1. Problem Problem Impaired nutrient utilization Etiology r/t endocrine dysfunction Signs/Symptoms: aeb Hx DM and POC Glucose ( last 24 hours): 84, 133, 98 Malnutrition Related to Morbid Obesity Malnutrition related to morbid obesity No Intervention/Recommendation Comments 1. Continue with mechanical soft, CCHO, NORRIS, chopped diet as ordered. 2. Continue antihyperglycemic medications for glucose control per MD order. Expected Outcomes/Goals Expected Outcomes/Goals 1. PO intake to continue to meet 75% of nutritional needs. 2. Monitor PO intake, wt, nutrition related labs, and skin integrity. 3. F/U as low risk in 7 days, 02/26
[2019-02-24] MEDS: Insulin Glargine 100 units/ml 10ml Vial SUBQ SCH (21:31)
--- NOTE | 2019-02-25 03:26 | Progress Notes ---
DATE: 02/24/2019 SUBJECTIVE: The patient in the hospital, delusional, hallucinating, screaming, believing that people are trying to come into her room and trying to hurt her. The patient bizarre, not making any sense, internally preoccupied, mumbling to self. ASSESSMENT: The patient remains symptomatic, ongoing concerns about psychotic symptoms. I will be increasing her dosing of Seroquel today to try to target these psychotic and perceptual disturbances. [facility]# [id number]
[2019-02-25] MEDS: Benztropine 1 MG TAB PO SCH ×2 (08:55→16:44)
--- NOTE | 2019-02-25 11:03 | General Progress Note ---
Subjective - Review of Systems Service Date: 02/25/19 Subjective: resting comfortably no distress Objective - Results Result Diagrams: 02/15/19 18:35 02/15/19 18:35 Recent Labs: Laboratory Last Values WBC 5.8 Th/cmm (4.8-10.8) 02/15/19 18:35 RBC 3.62 Mil/cmm (3.80-5.20) L 02/15/19 18:35 Hgb 10.8 gm/dL (12-16) L 02/15/19 18:35 Hct 31.4 % (41.0-60) L 02/15/19 18:35 MCV 86.6 fl (81-100) 02/15/19 18:35 MCH 29.7 pg (27.0-31.0) 02/15/19 18:35 MCHC Differential 34.3 pg (28.0-36.0) 02/15/19 18:35 RDW 12.4 % (11.5-20.0) 02/15/19 18:35 Plt Count 138 Th/cmm (150-400) L 02/15/19 18:35 MPV 7.9 fl 02/15/19 18:35 Neutrophils % 51.5 % (40.0-80.0) 02/15/19 18:35 Lymphocytes % 37.3 % (20.0-50.0) 02/15/19 18:35 Monocytes % 9.0 % (2.0-10.0) 02/15/19 18:35 Eosinophils % 1.1 % (0.0-5.0) 02/15/19 18:35 Basophils % 1.1 % (0.0-2.0) 02/15/19 18:35 Sodium 138 mEq/L (136-145) 02/15/19 18:35 Potassium 3.7 mEq/L (3.5-5.1) 02/15/19 18:35 Chloride 101 mEq/L (98-107) 02/15/19 18:35 Carbon Dioxide 30.1 mEq/L (21.0-31.0) 02/15/19 18:35 Anion Gap 10.6 (7.0-16.0) 02/15/19 18:35 BUN 22 mg/dL (7-25) 02/15/19 18:35 Creatinine 0.9 mg/dL (0.6-1.2) 02/15/19 18:35 Est GFR ( Amer) TNP 02/15/19 18:35 Est GFR (Non-Af Amer) TNP 02/15/19 18:35 BUN/Creatinine Ratio 24.4 02/15/19 18:35 Glucose 138 mg/dL (70-105) H 02/15/19 18:35 POC Glucose 195 MG/DL (70 - 105) H 02/19/19 20:48 Calcium 8.6 mg/dL (8.6-10.3) 02/15/19 18:35 Total Bilirubin 0.3 mg/dL (0.3-1.0) 02/15/19 18:35 AST 44 U/L (13-39) H 02/15/19 18:35 ALT 51 U/L (7-52) 02/15/19 18:35 Alkaline Phosphatase 110 U/L (34-104) H 02/15/19 18:35 Total Protein 5.7 gm/dL (6.0-8.3) L 02/15/19 18:35 Albumin 3.4 gm/dL (3.7-5.3) L 02/15/19 18:35 Globulin 2.3 gm/dL 02/15/19 18:35 Albumin/Globulin Ratio 1.5 (1.0-1.8) 02/15/19 18:35 Triglycerides 60 mg/dL (<150) 02/15/19 18:35 Cholesterol 142 mg/dL (<200) 02/15/19 18:35 LDL Cholesterol Direct 71 mg/dL (75-193) L 02/15/19 18:35 HDL Cholesterol 55 mg/dL (23-92) 02/15/19 18:35 TSH 4.98 uIU/ml (0.34-5.60) 02/15/19 18:35 Urine Source CLEAN C 02/15/19 19:00 Urine Color YELLOW 02/15/19 19:00 Urine Clarity HAZY (CLEAR) 02/15/19 19:00 Urine pH 7.0 (4.6 - 8.0) 02/15/19 19:00 Ur Specific [place] 1.010 (1.005-1.030) 02/15/19 19:00 Urine Protein TRACE mg/dL (NEGATIVE) 02/15/19 19:00 Urine Glucose (UA) NEGATIVE mg/dL (NEGATIVE) 02/15/19 19:00 Urine Ketones NEGATIVE mg/dL (NEGATIVE) 02/15/19 19:00 Urine Blood NEGATIVE (NEGATIVE) 02/15/19 19:00 Urine Nitrate NEGATIVE (NEGATIVE) 02/15/19 19:00 Urine Bilirubin NEGATIVE (NEGATIVE) 02/15/19 19:00 Urine Urobilinogen 0.2 E.U./dL (0.2 - 1.0) 02/15/19 19:00 Ur Leukocyte Esterase SMALL (NEGATIVE) H 02/15/19 19:00 Urine RBC 0-2 /hpf (0-5) 02/15/19 19:00 Urine WBC 2-5 /hpf (0-5) 02/15/19 19:00 Ur Epithelial Cells FEW /lpf (FEW) 02/15/19 19:00 Amorphous Sediment FEW URATES (NONE SEEN) 02/15/19 19:00 Urine Bacteria MODERATE /hpf (NONE SEEN) H 02/15/19 19:00 Valproic Acid 64.1 ug/mL (50.0-100.0) 02/21/19 06:50 RPR NONREACTIVE (NONREACTIVE) 02/15/19 18:35 - Physical Exam Vitals and I&O: Vital Signs Temp 97.9 F 02/25/19 06:24 Pulse 77 02/25/19 09:00 Resp 20 02/25/19 06:24 BP 172/91 02/25/19 09:00 Pulse Ox 96 02/25/19 06:24 Intake & Output 02/24/19 02/25/19 02/25/19 18:59 06:59 18:59 Intake Total 1000 1440 Balance 1000 1440 Intake: Oral 1000 1440 Other: # Voids 4 1 # Bowel Movements 1 0 Active Medications: Current Medications Acetaminophen (Tylenol) 650 mg PO Q4HR PRN PRN Reason: Mild Pain / Temp above 100 Stop: 04/17/19 06:31 Last Admin: 02/20/19 13:34 Dose: 650 mg Al Hydrox/Mg Hydrox/Simethicone (Maalox) 30 ml PO Q4HR PRN PRN Reason: GI DISTRESS Stop: 04/17/19 14:52 Aspirin (Ecotrin) 81 mg PO DAILY [facility] Stop: 04/17/19 08:59 Last Admin: 02/25/19 08:55 Dose: 81 mg Benztropine Mesylate (Cogentin) 1 mg PO BID [facility] Stop: 04/17/19 08:59 Last Admin: 02/25/19 08:55 Dose: 1 mg Divalproex Sodium (Depakote Dr) 250 mg PO TID [facility]; Protocol Stop: 04/16/19 20:59 Last Admin: 02/25/19 08:54 Dose: 250 mg Docusate Sodium (Colace) 250 mg PO DAILY [facility] Stop: 04/17/19 08:59 Last Admin: 02/25/19 08:54 Dose: 250 mg Famotidine (Pepcid) 20 mg PO DAILY [facility] Stop: 04/17/19 08:59 Last Admin: 02/25/19 08:54 Dose: 20 mg Glipizide (Glucotrol) 2.5 mg PO BID [facility] Stop: 04/17/19 08:59 Last Admin: 02/25/19 08:54 Dose: 2.5 mg Insulin Glargine (Lantus Insulin) 10 units SUBQ HS [facility] Stop: 04/17/19 20:59 Last Admin: 02/24/19 21:31 Dose: 10 unit Lorazepam (Ativan) 0.5 mg PO Q4HR PRN; Protocol PRN Reason: Anxiety Stop: 03/17/19 21:07 Last Admin: 02/24/19 15:25 Dose: 0.5 mg Losartan Potassium (Cozaar) 50 mg PO DAILY [facility] Stop: 04/17/19 08:59 Last Admin: 02/25/19 09:00 Dose: 50 mg Magnesium Hydroxide (Milk Of Magnesia) 30 ml PO HS PRN PRN Reason: Constipation Metformin HCl (Glucophage) 500 mg PO BID [facility] Stop: 04/17/19 08:59 Last Admin: 02/25/19 08:54 Dose: 500 mg Quetiapine Fumarate (Seroquel) 25 mg PO DAILY [facility]; Protocol Stop: 04/17/19 08:59 Last Admin: 02/25/19 08:55 Dose: 25 mg Quetiapine Fumarate (Seroquel) 150 mg PO HS [facility] Stop: 04/25/19 20:59 Last Admin: 02/24/19 21:32 Dose: 150 mg Zolpidem Tartrate (Ambien) 5 mg PO HS PRN PRN Reason: Insomnia Stop: 04/16/19 21:07 Last Admin: 02/24/19 21:32 Dose: 5 mg General: No acute distress HEENT: Atraumatic, PERRLA Neck: Supple, JVD Cardiovascular: Regular rate, Normal S1, Normal S2 Lungs: Clear to auscultation Abdomen: Bowel sounds, Soft Assessment/Plan - Assessment Assessment: 1.DM. 2.HTN. 3.ANEMIA. 4.DEMENTIA - Plan Plan: continue current treatment Nutritional Asmnt/Malnutr-PDOC - Dietary Evaluation Malnutrition Findings (Please click <Entered> for more info): Nutritional Asmnt/Malnutrition Start: 02/19/19 08: 49 Text: Status: Complete Freq: Protocol: Document 02/19/19 08:49 EBONIE (Rec: 02/19/19 08:52 EBONIE [email or web address]) Nutritional Asmnt/Malnutrition Patient General Information Nutritional Screening Moderate Risk Diagnosis Psychosis Pertinent Medical Hx/Surgical Hx HTN, DM, Asthma/COPD, Dyslipidemia, Arthritis, Anemia, Schizophrenic Disorder , Appendectomy, Lumpectomy of both breasts, Tonsillectomy Subjective Information Pt is a 79-year-old female admitted on 02/15 from extended care facility d/t aggressive behavior. Pt is eating well, 75-100% meals regularly, adequate to meet estimated nutritional needs. HT: 57 WT: 171 LB (77.73kg) BMI: 26.78 (Overweight) GI: WNL, soft, flat, non- tender BM: 02/19 x1 I/O: 1020/Not Noted Skin: WNL, intact Julián: 20 Diet Order: Mechanical soft, CCHO, NORRIS, chopped Estimated Energy Needs: ( Geriatric, CBW) 3585-2336 kcals (25-30 kcals/ kg) 78-93g Pro (1.0-1.2 g/kg) 6017-9528 ml (25-30 ml/kg) Pt is eating 75-100% of meals Per Meal/Nutrition Activity Record. Dietary is currently providing an estimated 2400 kcals and 108 gm Pro, per Pt PO intake this is providing an estimated 2100 kcals and 95gm Pro to meet 100+% kcal and 100+% Pro needs. Current Diet Order/ Nutrition Support Mechanical soft, CCHO, NORRIS, chopped Pertinent Medications Maalox (PRN), Colace, Pepcid, Glucotrol, Lantus, Cozaar, MOM (PRN), Glucophage Pertinent Labs 02/15: Hgb/Hct 10.8/31.4 POC Glucose (last 24 hours): 84, 133, 98 Nutritional Hx/Data Height 1.7 m Height (Calculated Centimeters) 170.2 Current Weight (lbs) 77.564 kg Weight (Calculated Kilograms) 77.6 Weight (Calculated Grams) 74503.3 [place] Body Weight 135 LB (61.36 kg) % [place] Body Weight 127 Body Mass Index (BMI) 26.7 Weight Status Overweight GI Symptoms GI Symptoms None Last BM 02/19 x1 Skin Integrity/Comment: Skin: WNL, intact Julián: 20 Current %PO Good (75-100%) Estimated Nutritional Goals BEE in Kcals: Using Current wt Calories/Kcals/Kg 25-30 Kcals Calculated 2341-7038 Protein: Using Current wt Protein g/k.0-1.2 Protein Calculated 78-93 Fluid: ml 4908-6433 ml (25-30 ml/kg) Nutritional Problem 1. Problem Problem Impaired nutrient utilization Etiology r/t endocrine dysfunction Signs/Symptoms: aeb Hx DM and POC Glucose ( last 24 hours): 84, 133, 98 Malnutrition Related to Morbid Obesity Malnutrition related to morbid obesity No Intervention/Recommendation Comments 1. Continue with mechanical soft, CCHO, NORRIS, chopped diet as ordered. 2. Continue antihyperglycemic medications for glucose control per MD order. Expected Outcomes/Goals Expected Outcomes/Goals 1. PO intake to continue to meet 75% of nutritional needs. 2. Monitor PO intake, wt, nutrition related labs, and skin integrity. 3. F/U as low risk in 7 days, 02/26
--- NOTE | 2019-02-25 20:05 | Progress Notes ---
DATE: 02/25/2019 SUBJECTIVE: The patient in the hospital, talking about the ministry, provoking others. She did sleep somewhat better last night, but still seems psychotic, responding to internal stimuli, talking to self, talking nonsense, very confused. Ongoing psychotic symptoms, agitation and provoking others, still stating that somebody came in her room and tried to hurt her. Medications were noted. Staff noting she was hallucinating over the past couple of days, but seems somewhat quieter yesterday and did sleep better. [facility]# [id number]
[2019-02-25] MEDS: Insulin Glargine 100 units/ml 10ml Vial SUBQ SCH (20:36)
[2019-02-26] MEDS: Benztropine 1 MG TAB PO SCH ×2 (08:40→16:40)
--- NOTE | 2019-02-26 14:13 | General Progress Note ---
Subjective - Review of Systems Service Date: 02/26/19 Subjective: resting comfortably no distress Objective - Results Result Diagrams: 02/15/19 18:35 02/15/19 18:35 Recent Labs: Laboratory Last Values WBC 5.8 Th/cmm (4.8-10.8) 02/15/19 18:35 RBC 3.62 Mil/cmm (3.80-5.20) L 02/15/19 18:35 Hgb 10.8 gm/dL (12-16) L 02/15/19 18:35 Hct 31.4 % (41.0-60) L 02/15/19 18:35 MCV 86.6 fl (81-100) 02/15/19 18:35 MCH 29.7 pg (27.0-31.0) 02/15/19 18:35 MCHC Differential 34.3 pg (28.0-36.0) 02/15/19 18:35 RDW 12.4 % (11.5-20.0) 02/15/19 18:35 Plt Count 138 Th/cmm (150-400) L 02/15/19 18:35 MPV 7.9 fl 02/15/19 18:35 Neutrophils % 51.5 % (40.0-80.0) 02/15/19 18:35 Lymphocytes % 37.3 % (20.0-50.0) 02/15/19 18:35 Monocytes % 9.0 % (2.0-10.0) 02/15/19 18:35 Eosinophils % 1.1 % (0.0-5.0) 02/15/19 18:35 Basophils % 1.1 % (0.0-2.0) 02/15/19 18:35 Sodium 138 mEq/L (136-145) 02/15/19 18:35 Potassium 3.7 mEq/L (3.5-5.1) 02/15/19 18:35 Chloride 101 mEq/L (98-107) 02/15/19 18:35 Carbon Dioxide 30.1 mEq/L (21.0-31.0) 02/15/19 18:35 Anion Gap 10.6 (7.0-16.0) 02/15/19 18:35 BUN 22 mg/dL (7-25) 02/15/19 18:35 Creatinine 0.9 mg/dL (0.6-1.2) 02/15/19 18:35 Est GFR ( Amer) TNP 02/15/19 18:35 Est GFR (Non-Af Amer) TNP 02/15/19 18:35 BUN/Creatinine Ratio 24.4 02/15/19 18:35 Glucose 138 mg/dL (70-105) H 02/15/19 18:35 POC Glucose 195 MG/DL (70 - 105) H 02/19/19 20:48 Calcium 8.6 mg/dL (8.6-10.3) 02/15/19 18:35 Total Bilirubin 0.3 mg/dL (0.3-1.0) 02/15/19 18:35 AST 44 U/L (13-39) H 02/15/19 18:35 ALT 51 U/L (7-52) 02/15/19 18:35 Alkaline Phosphatase 110 U/L (34-104) H 02/15/19 18:35 Total Protein 5.7 gm/dL (6.0-8.3) L 02/15/19 18:35 Albumin 3.4 gm/dL (3.7-5.3) L 02/15/19 18:35 Globulin 2.3 gm/dL 02/15/19 18:35 Albumin/Globulin Ratio 1.5 (1.0-1.8) 02/15/19 18:35 Triglycerides 60 mg/dL (<150) 02/15/19 18:35 Cholesterol 142 mg/dL (<200) 02/15/19 18:35 LDL Cholesterol Direct 71 mg/dL (75-193) L 02/15/19 18:35 HDL Cholesterol 55 mg/dL (23-92) 02/15/19 18:35 TSH 4.98 uIU/ml (0.34-5.60) 02/15/19 18:35 Urine Source CLEAN C 02/15/19 19:00 Urine Color YELLOW 02/15/19 19:00 Urine Clarity HAZY (CLEAR) 02/15/19 19:00 Urine pH 7.0 (4.6 - 8.0) 02/15/19 19:00 Ur Specific [place] 1.010 (1.005-1.030) 02/15/19 19:00 Urine Protein TRACE mg/dL (NEGATIVE) 02/15/19 19:00 Urine Glucose (UA) NEGATIVE mg/dL (NEGATIVE) 02/15/19 19:00 Urine Ketones NEGATIVE mg/dL (NEGATIVE) 02/15/19 19:00 Urine Blood NEGATIVE (NEGATIVE) 02/15/19 19:00 Urine Nitrate NEGATIVE (NEGATIVE) 02/15/19 19:00 Urine Bilirubin NEGATIVE (NEGATIVE) 02/15/19 19:00 Urine Urobilinogen 0.2 E.U./dL (0.2 - 1.0) 02/15/19 19:00 Ur Leukocyte Esterase SMALL (NEGATIVE) H 02/15/19 19:00 Urine RBC 0-2 /hpf (0-5) 02/15/19 19:00 Urine WBC 2-5 /hpf (0-5) 02/15/19 19:00 Ur Epithelial Cells FEW /lpf (FEW) 02/15/19 19:00 Amorphous Sediment FEW URATES (NONE SEEN) 02/15/19 19:00 Urine Bacteria MODERATE /hpf (NONE SEEN) H 02/15/19 19:00 Valproic Acid 64.1 ug/mL (50.0-100.0) 02/21/19 06:50 RPR NONREACTIVE (NONREACTIVE) 02/15/19 18:35 - Physical Exam Vitals and I&O: Vital Signs Temp 98.2 F 02/26/19 06:10 Pulse 62 02/26/19 08:40 Resp 20 02/26/19 08:00 BP 161/65 02/26/19 08:40 Pulse Ox 97 02/26/19 06:10 Intake & Output 02/25/19 02/26/19 02/26/19 18:59 06:59 18:59 Intake Total 900 480 Balance 900 480 Intake: Oral 900 480 Other: # Voids 3 1 # Bowel Movements 1 Active Medications: Current Medications Acetaminophen (Tylenol) 650 mg PO Q4HR PRN PRN Reason: Mild Pain / Temp above 100 Stop: 04/17/19 06:31 Last Admin: 02/20/19 13:34 Dose: 650 mg Al Hydrox/Mg Hydrox/Simethicone (Maalox) 30 ml PO Q4HR PRN PRN Reason: GI DISTRESS Stop: 04/17/19 14:52 Aspirin (Ecotrin) 81 mg PO DAILY [facility] Stop: 04/17/19 08:59 Last Admin: 02/26/19 08:40 Dose: 81 mg Benztropine Mesylate (Cogentin) 1 mg PO BID [facility] Stop: 04/17/19 08:59 Last Admin: 02/26/19 08:40 Dose: 1 mg Divalproex Sodium (Depakote Dr) 250 mg PO TID [facility]; Protocol Stop: 04/16/19 20:59 Last Admin: 02/26/19 13:57 Dose: 250 mg Docusate Sodium (Colace) 250 mg PO DAILY [facility] Stop: 04/17/19 08:59 Last Admin: 02/26/19 08:40 Dose: 250 mg Famotidine (Pepcid) 20 mg PO DAILY [facility] Stop: 04/17/19 08:59 Last Admin: 02/26/19 08:40 Dose: 20 mg Glipizide (Glucotrol) 2.5 mg PO BID [facility] Stop: 04/17/19 08:59 Last Admin: 02/26/19 08:40 Dose: 2.5 mg Insulin Glargine (Lantus Insulin) 10 units SUBQ HS [facility] Stop: 04/17/19 20:59 Last Admin: 02/25/19 20:36 Dose: 10 units Lorazepam (Ativan) 0.5 mg PO Q4HR PRN; Protocol PRN Reason: Anxiety Stop: 03/17/19 21:07 Last Admin: 02/25/19 20:33 Dose: 0.5 mg Losartan Potassium (Cozaar) 50 mg PO DAILY [facility] Stop: 04/17/19 08:59 Last Admin: 02/26/19 08:40 Dose: 50 mg Magnesium Hydroxide (Milk Of Magnesia) 30 ml PO HS PRN PRN Reason: Constipation Metformin HCl (Glucophage) 500 mg PO BID [facility] Stop: 04/17/19 08:59 Last Admin: 02/26/19 08:40 Dose: 500 mg Quetiapine Fumarate (Seroquel) 25 mg PO DAILY [facility]; Protocol Stop: 04/17/19 08:59 Last Admin: 02/26/19 08:40 Dose: 25 mg Quetiapine Fumarate (Seroquel) 150 mg PO HS [facility] Stop: 04/25/19 20:59 Last Admin: 02/25/19 20:34 Dose: 150 mg Zolpidem Tartrate (Ambien) 5 mg PO HS PRN PRN Reason: Insomnia Stop: 04/16/19 21:07 Last Admin: 02/24/19 21:32 Dose: 5 mg General: No acute distress HEENT: Atraumatic, PERRLA Neck: Supple, JVD Cardiovascular: Regular rate, Normal S1, Normal S2 Lungs: Clear to auscultation Abdomen: Bowel sounds, Soft Assessment/Plan - Assessment Assessment: 1.DM. 2.HTN. 3.ANEMIA. 4.DEMENTIA - Plan Plan: continue current treatment Nutritional Asmnt/Malnutr-PDOC - Dietary Evaluation Malnutrition Findings (Please click <Entered> for more info): Nutritional Asmnt/Malnutrition Start: 02/19/19 08: 49 Text: Status: Complete Freq: Protocol: Document 02/19/19 08:49 EBONIE (Rec: 02/19/19 08:52 EBONIE [email or web address]) Nutritional Asmnt/Malnutrition Patient General Information Nutritional Screening Moderate Risk Diagnosis Psychosis Pertinent Medical Hx/Surgical Hx HTN, DM, Asthma/COPD, Dyslipidemia, Arthritis, Anemia, Schizophrenic Disorder , Appendectomy, Lumpectomy of both breasts, Tonsillectomy Subjective Information Pt is a 79-year-old female admitted on 02/15 from extended care facility d/t aggressive behavior. Pt is eating well, 75-100% meals regularly, adequate to meet estimated nutritional needs. HT: 57 WT: 171 LB (77.73kg) BMI: 26.78 (Overweight) GI: WNL, soft, flat, non- tender BM: 02/19 x1 I/O: 1020/Not Noted Skin: WNL, intact Julián: 20 Diet Order: Mechanical soft, CCHO, NORRIS, chopped Estimated Energy Needs: ( Geriatric, CBW) 4936-8759 kcals (25-30 kcals/ kg) 78-93g Pro (1.0-1.2 g/kg) 3902-9180 ml (25-30 ml/kg) Pt is eating 75-100% of meals Per Meal/Nutrition Activity Record. Dietary is currently providing an estimated 2400 kcals and 108 gm Pro, per Pt PO intake this is providing an estimated 2100 kcals and 95gm Pro to meet 100+% kcal and 100+% Pro needs. Current Diet Order/ Nutrition Support Mechanical soft, CCHO, NORRIS, chopped Pertinent Medications Maalox (PRN), Colace, Pepcid, Glucotrol, Lantus, Cozaar, MOM (PRN), Glucophage Pertinent Labs 02/15: Hgb/Hct 10.8/31.4 POC Glucose (last 24 hours): 84, 133, 98 Nutritional Hx/Data Height 1.7 m Height (Calculated Centimeters) 170.2 Current Weight (lbs) 77.564 kg Weight (Calculated Kilograms) 77.6 Weight (Calculated Grams) 87163.3 [place] Body Weight 135 LB (61.36 kg) % [place] Body Weight 127 Body Mass Index (BMI) 26.7 Weight Status Overweight GI Symptoms GI Symptoms None Last BM 02/19 x1 Skin Integrity/Comment: Skin: WNL, intact Julián: 20 Current %PO Good (75-100%) Estimated Nutritional Goals BEE in Kcals: Using Current wt Calories/Kcals/Kg 25-30 Kcals Calculated 1529-7410 Protein: Using Current wt Protein g/k.0-1.2 Protein Calculated 78-93 Fluid: ml 7560-1395 ml (25-30 ml/kg) Nutritional Problem 1. Problem Problem Impaired nutrient utilization Etiology r/t endocrine dysfunction Signs/Symptoms: aeb Hx DM and POC Glucose ( last 24 hours): 84, 133, 98 Malnutrition Related to Morbid Obesity Malnutrition related to morbid obesity No Intervention/Recommendation Comments 1. Continue with mechanical soft, CCHO, NORRIS, chopped diet as ordered. 2. Continue antihyperglycemic medications for glucose control per MD order. Expected Outcomes/Goals Expected Outcomes/Goals 1. PO intake to continue to meet 75% of nutritional needs. 2. Monitor PO intake, wt, nutrition related labs, and skin integrity. 3. F/U as low risk in 7 days, 02/26
--- NOTE | 2019-02-26 16:25 | Progress Notes ---
DATE: 02/26/2019 SUBJECTIVE: The patient slept well throughout the night. No behavioral issues. The patient with recent behavioral disturbances disrupting the milieu, hallucinations. Staff noting that over the past 1-2 days, she has been somewhat calmer, still very poorly oriented, labile, still paranoid, suspicious of others. Seems to be scanning her environment. When I talked to her, she is confused, but generally calmer, more pleasant, still talking about the ministry. Medications were noted. Recent dose changes. We will continue to monitor closely. ASSESSMENT: The patient seems to be tolerant of recent dose increases. No side effects. PLAN: We will continue to monitor; therefore, on an inpatient basis, some improvement noted. JOB# [id number]
[2019-02-26] MEDS: Insulin Glargine 100 units/ml 10ml Vial SUBQ SCH (21:39)
[2019-02-27] MEDS: Benztropine 1 MG TAB PO SCH ×2 (09:34→17:16)
[2019-02-27] MEDS: Insulin Glargine 100 units/ml 10ml Vial SUBQ SCH (21:27)
--- NOTE | 2019-02-27 21:50 | Internal Medicine Prog Note ---
Internal Medicine Subjective - Subjective Service Date: 02/27/19 Patient seen and examined:: without staff (SHE IS COMFORTABLE,CONFUSED) Patient is:: awake, verbal, in bed, confused Per staff patient has:: no adverse event Internal Medicine Objective - Results Result Diagrams: 02/15/19 18:35 02/15/19 18:35 Recent Labs: Laboratory Last Values WBC 5.8 Th/cmm (4.8-10.8) 02/15/19 18:35 RBC 3.62 Mil/cmm (3.80-5.20) L 02/15/19 18:35 Hgb 10.8 gm/dL (12-16) L 02/15/19 18:35 Hct 31.4 % (41.0-60) L 02/15/19 18:35 MCV 86.6 fl (81-100) 02/15/19 18:35 MCH 29.7 pg (27.0-31.0) 02/15/19 18:35 MCHC Differential 34.3 pg (28.0-36.0) 02/15/19 18:35 RDW 12.4 % (11.5-20.0) 02/15/19 18:35 Plt Count 138 Th/cmm (150-400) L 02/15/19 18:35 MPV 7.9 fl 02/15/19 18:35 Neutrophils % 51.5 % (40.0-80.0) 02/15/19 18:35 Lymphocytes % 37.3 % (20.0-50.0) 02/15/19 18:35 Monocytes % 9.0 % (2.0-10.0) 02/15/19 18:35 Eosinophils % 1.1 % (0.0-5.0) 02/15/19 18:35 Basophils % 1.1 % (0.0-2.0) 02/15/19 18:35 Sodium 138 mEq/L (136-145) 02/15/19 18:35 Potassium 3.7 mEq/L (3.5-5.1) 02/15/19 18:35 Chloride 101 mEq/L (98-107) 02/15/19 18:35 Carbon Dioxide 30.1 mEq/L (21.0-31.0) 02/15/19 18:35 Anion Gap 10.6 (7.0-16.0) 02/15/19 18:35 BUN 22 mg/dL (7-25) 02/15/19 18:35 Creatinine 0.9 mg/dL (0.6-1.2) 02/15/19 18:35 Est GFR ( Amer) TNP 02/15/19 18:35 Est GFR (Non-Af Amer) TNP 02/15/19 18:35 BUN/Creatinine Ratio 24.4 02/15/19 18:35 Glucose 138 mg/dL (70-105) H 02/15/19 18:35 POC Glucose 195 MG/DL (70 - 105) H 02/19/19 20:48 Calcium 8.6 mg/dL (8.6-10.3) 02/15/19 18:35 Total Bilirubin 0.3 mg/dL (0.3-1.0) 02/15/19 18:35 AST 44 U/L (13-39) H 02/15/19 18:35 ALT 51 U/L (7-52) 02/15/19 18:35 Alkaline Phosphatase 110 U/L (34-104) H 02/15/19 18:35 Total Protein 5.7 gm/dL (6.0-8.3) L 02/15/19 18:35 Albumin 3.4 gm/dL (3.7-5.3) L 02/15/19 18:35 Globulin 2.3 gm/dL 02/15/19 18:35 Albumin/Globulin Ratio 1.5 (1.0-1.8) 02/15/19 18:35 Triglycerides 60 mg/dL (<150) 02/15/19 18:35 Cholesterol 142 mg/dL (<200) 02/15/19 18:35 LDL Cholesterol Direct 71 mg/dL (75-193) L 02/15/19 18:35 HDL Cholesterol 55 mg/dL (23-92) 02/15/19 18:35 TSH 4.98 uIU/ml (0.34-5.60) 02/15/19 18:35 Urine Source CLEAN C 02/15/19 19:00 Urine Color YELLOW 02/15/19 19:00 Urine Clarity HAZY (CLEAR) 02/15/19 19:00 Urine pH 7.0 (4.6 - 8.0) 02/15/19 19:00 Ur Specific [place] 1.010 (1.005-1.030) 02/15/19 19:00 Urine Protein TRACE mg/dL (NEGATIVE) 02/15/19 19:00 Urine Glucose (UA) NEGATIVE mg/dL (NEGATIVE) 02/15/19 19:00 Urine Ketones NEGATIVE mg/dL (NEGATIVE) 02/15/19 19:00 Urine Blood NEGATIVE (NEGATIVE) 02/15/19 19:00 Urine Nitrate NEGATIVE (NEGATIVE) 02/15/19 19:00 Urine Bilirubin NEGATIVE (NEGATIVE) 02/15/19 19:00 Urine Urobilinogen 0.2 E.U./dL (0.2 - 1.0) 02/15/19 19:00 Ur Leukocyte Esterase SMALL (NEGATIVE) H 02/15/19 19:00 Urine RBC 0-2 /hpf (0-5) 02/15/19 19:00 Urine WBC 2-5 /hpf (0-5) 02/15/19 19:00 Ur Epithelial Cells FEW /lpf (FEW) 02/15/19 19:00 Amorphous Sediment FEW URATES (NONE SEEN) 02/15/19 19:00 Urine Bacteria MODERATE /hpf (NONE SEEN) H 02/15/19 19:00 Valproic Acid 64.1 ug/mL (50.0-100.0) 02/21/19 06:50 RPR NONREACTIVE (NONREACTIVE) 02/15/19 18:35 - Physical Exam Vitals and I&O: Vital Signs Temp 98.7 F 02/27/19 20:17 Pulse 66 02/27/19 20:17 Resp 20 02/27/19 20:17 BP 123/62 02/27/19 20:17 Pulse Ox 97 02/27/19 20:17 Intake & Output 02/27/19 02/27/19 02/28/19 06:59 18:59 06:59 Intake Total 360 120 Balance 360 120 Intake: Oral 360 120 Other: # Voids 3 3 # Bowel Movements 1 0 Active Medications: Current Medications Acetaminophen (Tylenol) 650 mg PO Q4HR PRN PRN Reason: Mild Pain / Temp above 100 Stop: 04/17/19 06:31 Last Admin: 02/20/19 13:34 Dose: 650 mg Al Hydrox/Mg Hydrox/Simethicone (Maalox) 30 ml PO Q4HR PRN PRN Reason: GI DISTRESS Stop: 04/17/19 14:52 Aspirin (Ecotrin) 81 mg PO DAILY [facility] Stop: 04/17/19 08:59 Last Admin: 02/27/19 09:34 Dose: 81 mg Benztropine Mesylate (Cogentin) 1 mg PO BID [facility] Stop: 04/17/19 08:59 Last Admin: 02/27/19 17:16 Dose: 1 mg Divalproex Sodium (Depakote Dr) 250 mg PO TID [facility]; Protocol Stop: 04/16/19 20:59 Last Admin: 02/27/19 21:27 Dose: 250 mg Docusate Sodium (Colace) 250 mg PO DAILY [facility] Stop: 04/17/19 08:59 Last Admin: 02/27/19 09:33 Dose: 250 mg Famotidine (Pepcid) 20 mg PO DAILY [facility] Stop: 04/17/19 08:59 Last Admin: 02/27/19 09:35 Dose: 20 mg Glipizide (Glucotrol) 2.5 mg PO BID [facility] Stop: 04/17/19 08:59 Last Admin: 02/27/19 17:16 Dose: 2.5 mg Insulin Glargine (Lantus Insulin) 10 units SUBQ HS [facility] Stop: 04/17/19 20:59 Last Admin: 02/27/19 21:27 Dose: 10 units Lorazepam (Ativan) 0.5 mg PO Q4HR PRN; Protocol PRN Reason: Anxiety Stop: 03/17/19 21:07 Last Admin: 02/25/19 20:33 Dose: 0.5 mg Losartan Potassium (Cozaar) 50 mg PO DAILY [facility] Stop: 04/17/19 08:59 Last Admin: 02/27/19 09:33 Dose: 50 mg Magnesium Hydroxide (Milk Of Magnesia) 30 ml PO HS PRN PRN Reason: Constipation Metformin HCl (Glucophage) 500 mg PO BID [facility] Stop: 04/17/19 08:59 Last Admin: 02/27/19 17:16 Dose: 500 mg Quetiapine Fumarate (Seroquel) 25 mg PO DAILY [facility]; Protocol Stop: 04/17/19 08:59 Last Admin: 02/27/19 09:34 Dose: 25 mg Quetiapine Fumarate (Seroquel) 150 mg PO HS [facility] Stop: 04/25/19 20:59 Last Admin: 02/27/19 21:27 Dose: 150 mg Zolpidem Tartrate (Ambien) 5 mg PO HS PRN PRN Reason: Insomnia Stop: 04/16/19 21:07 Last Admin: 02/27/19 21:28 Dose: 5 mg General: demented HEENT: NC/AT, PERRLA, EOMI, anicteric sclerae, throat clear Neck: Supple, No JVD, No thyromegaly, +2 carotid pulse wo bruit, No LAD Lungs: CTAB Cardiovascular: RRR, Normal S1, without murmur Abdomen: soft, non-tender, non-distended Extremities: clear Neurological: no change Internal Medicine Assmt/Plan - Assessment Assessment: 1.DM. 2.HTN. 3.ANEMIA. 4.DEMENTIA - Plan Plan: CONTINUE ON CURRENT MEDICATION AND DIET Nutritional Asmnt/Malnutr-PDOC - Dietary Evaluation Malnutrition Findings (Please click <Entered> for more info): Nutritional Asmnt/Malnutrition Start: 02/19/19 08: 49 Text: Status: Complete Freq: Protocol: Document 02/19/19 08:49 EBONIE (Rec: 02/19/19 08:52 EBONIE [id number]) Nutritional Asmnt/Malnutrition Patient General Information Nutritional Screening Moderate Risk Diagnosis Psychosis Pertinent Medical Hx/Surgical Hx HTN, DM, Asthma/COPD, Dyslipidemia, Arthritis, Anemia, Schizophrenic Disorder , Appendectomy, Lumpectomy of both breasts, Tonsillectomy Subjective Information Pt is a 79-year-old female admitted on 02/15 from extended care facility d/t aggressive behavior. Pt is eating well, 75-100% meals regularly, adequate to meet estimated nutritional needs. HT: 57 WT: 171 LB (77.73kg) BMI: 26.78 (Overweight) GI: WNL, soft, flat, non- tender BM: 02/19 x1 I/O: 1020/Not Noted Skin: WNL, intact Julián: 20 Diet Order: Mechanical soft, CCHO, NORRIS, chopped Estimated Energy Needs: ( Geriatric, CBW) 3579-7993 kcals (25-30 kcals/ kg) 78-93g Pro (1.0-1.2 g/kg) 7736-8822 ml (25-30 ml/kg) Pt is eating 75-100% of meals Per Meal/Nutrition Activity Record. Dietary is currently providing an estimated 2400 kcals and 108 gm Pro, per Pt PO intake this is providing an estimated 2100 kcals and 95gm Pro to meet 100+% kcal and 100+% Pro needs. Current Diet Order/ Nutrition Support Mechanical soft, CCHO, NORRIS, chopped Pertinent Medications Maalox (PRN), Colace, Pepcid, Glucotrol, Lantus, Cozaar, MOM (PRN), Glucophage Pertinent Labs 02/15: Hgb/Hct 10.8/31.4 POC Glucose (last 24 hours): 84, 133, 98 Nutritional Hx/Data Height 1.7 m Height (Calculated Centimeters) 170.2 Current Weight (lbs) 77.564 kg Weight (Calculated Kilograms) 77.6 Weight (Calculated Grams) 22995.3 [place] Body Weight 135 LB (61.36 kg) % [place] Body Weight 127 Body Mass Index (BMI) 26.7 Weight Status Overweight GI Symptoms GI Symptoms None Last BM 02/19 x1 Skin Integrity/Comment: Skin: WNL, intact Julián: 20 Current %PO Good (75-100%) Estimated Nutritional Goals BEE in Kcals: Using Current wt Calories/Kcals/Kg 25-30 Kcals Calculated 7671-5979 Protein: Using Current wt Protein g/k.0-1.2 Protein Calculated 78-93 Fluid: ml 9152-3603 ml (25-30 ml/kg) Nutritional Problem 1. Problem Problem Impaired nutrient utilization Etiology r/t endocrine dysfunction Signs/Symptoms: aeb Hx DM and POC Glucose ( last 24 hours): 84, 133, 98 Malnutrition Related to Morbid Obesity Malnutrition related to morbid obesity No Intervention/Recommendation Comments 1. Continue with mechanical soft, CCHO, NORRIS, chopped diet as ordered. 2. Continue antihyperglycemic medications for glucose control per MD order. Expected Outcomes/Goals Expected Outcomes/Goals 1. PO intake to continue to meet 75% of nutritional needs. 2. Monitor PO intake, wt, nutrition related labs, and skin integrity. 3. F/U as low risk in 7 days, 02/26
--- NOTE | 2019-02-28 09:24 | Progress Notes ---
DATE: 02/27/2019 SUBJECTIVE: The patient slept well through the night, woke up twice per ____ was showering, repeatedly asking to take a shower even at 2:00 a.m., very confused. The patient is complaining of "dizzy." She is pretty preoccupied, paranoid, guarded, occasionally seen talking, mumbling to self. Mood remains unpredictable, agitated. The patient is alert and oriented with a labile mood, paranoia, thought processes, suspicious, guarded, withdrawn to self, ambulatory with steady gait. The patient is pretty confused on exam. The patient has been accepted to [facility]. ASSESSMENT: The patient seems to be showing signs of improvement, seems to be calmer, no overt psychosis. PLAN: We will monitor for further 1-2 days. JOB# [id number]
[2019-02-28] MEDS: Benztropine 1 MG TAB PO SCH ×2 (09:30→17:32)
--- NOTE | 2019-02-28 20:43 | Internal Medicine Prog Note ---
Internal Medicine Subjective - Subjective Service Date: 02/28/19 Patient seen and examined:: without staff (SHE IS CONFUSED) Patient is:: awake, verbal, in bed, confused Per staff patient has:: no adverse event Internal Medicine Objective - Results Result Diagrams: 02/15/19 18:35 02/15/19 18:35 Recent Labs: Laboratory Last Values WBC 5.8 Th/cmm (4.8-10.8) 02/15/19 18:35 RBC 3.62 Mil/cmm (3.80-5.20) L 02/15/19 18:35 Hgb 10.8 gm/dL (12-16) L 02/15/19 18:35 Hct 31.4 % (41.0-60) L 02/15/19 18:35 MCV 86.6 fl (81-100) 02/15/19 18:35 MCH 29.7 pg (27.0-31.0) 02/15/19 18:35 MCHC Differential 34.3 pg (28.0-36.0) 02/15/19 18:35 RDW 12.4 % (11.5-20.0) 02/15/19 18:35 Plt Count 138 Th/cmm (150-400) L 02/15/19 18:35 MPV 7.9 fl 02/15/19 18:35 Neutrophils % 51.5 % (40.0-80.0) 02/15/19 18:35 Lymphocytes % 37.3 % (20.0-50.0) 02/15/19 18:35 Monocytes % 9.0 % (2.0-10.0) 02/15/19 18:35 Eosinophils % 1.1 % (0.0-5.0) 02/15/19 18:35 Basophils % 1.1 % (0.0-2.0) 02/15/19 18:35 Sodium 138 mEq/L (136-145) 02/15/19 18:35 Potassium 3.7 mEq/L (3.5-5.1) 02/15/19 18:35 Chloride 101 mEq/L (98-107) 02/15/19 18:35 Carbon Dioxide 30.1 mEq/L (21.0-31.0) 02/15/19 18:35 Anion Gap 10.6 (7.0-16.0) 02/15/19 18:35 BUN 22 mg/dL (7-25) 02/15/19 18:35 Creatinine 0.9 mg/dL (0.6-1.2) 02/15/19 18:35 Est GFR ( Amer) TNP 02/15/19 18:35 Est GFR (Non-Af Amer) TNP 02/15/19 18:35 BUN/Creatinine Ratio 24.4 02/15/19 18:35 Glucose 138 mg/dL (70-105) H 02/15/19 18:35 POC Glucose 195 MG/DL (70 - 105) H 02/19/19 20:48 Calcium 8.6 mg/dL (8.6-10.3) 02/15/19 18:35 Total Bilirubin 0.3 mg/dL (0.3-1.0) 02/15/19 18:35 AST 44 U/L (13-39) H 02/15/19 18:35 ALT 51 U/L (7-52) 02/15/19 18:35 Alkaline Phosphatase 110 U/L (34-104) H 02/15/19 18:35 Total Protein 5.7 gm/dL (6.0-8.3) L 02/15/19 18:35 Albumin 3.4 gm/dL (3.7-5.3) L 02/15/19 18:35 Globulin 2.3 gm/dL 02/15/19 18:35 Albumin/Globulin Ratio 1.5 (1.0-1.8) 02/15/19 18:35 Triglycerides 60 mg/dL (<150) 02/15/19 18:35 Cholesterol 142 mg/dL (<200) 02/15/19 18:35 LDL Cholesterol Direct 71 mg/dL (75-193) L 02/15/19 18:35 HDL Cholesterol 55 mg/dL (23-92) 02/15/19 18:35 TSH 4.98 uIU/ml (0.34-5.60) 02/15/19 18:35 Urine Source CLEAN C 02/15/19 19:00 Urine Color YELLOW 02/15/19 19:00 Urine Clarity HAZY (CLEAR) 02/15/19 19:00 Urine pH 7.0 (4.6 - 8.0) 02/15/19 19:00 Ur Specific [place] 1.010 (1.005-1.030) 02/15/19 19:00 Urine Protein TRACE mg/dL (NEGATIVE) 02/15/19 19:00 Urine Glucose (UA) NEGATIVE mg/dL (NEGATIVE) 02/15/19 19:00 Urine Ketones NEGATIVE mg/dL (NEGATIVE) 02/15/19 19:00 Urine Blood NEGATIVE (NEGATIVE) 02/15/19 19:00 Urine Nitrate NEGATIVE (NEGATIVE) 02/15/19 19:00 Urine Bilirubin NEGATIVE (NEGATIVE) 02/15/19 19:00 Urine Urobilinogen 0.2 E.U./dL (0.2 - 1.0) 02/15/19 19:00 Ur Leukocyte Esterase SMALL (NEGATIVE) H 02/15/19 19:00 Urine RBC 0-2 /hpf (0-5) 02/15/19 19:00 Urine WBC 2-5 /hpf (0-5) 02/15/19 19:00 Ur Epithelial Cells FEW /lpf (FEW) 02/15/19 19:00 Amorphous Sediment FEW URATES (NONE SEEN) 02/15/19 19:00 Urine Bacteria MODERATE /hpf (NONE SEEN) H 02/15/19 19:00 Valproic Acid 64.1 ug/mL (50.0-100.0) 02/21/19 06:50 RPR NONREACTIVE (NONREACTIVE) 02/15/19 18:35 - Physical Exam Vitals and I&O: Vital Signs Temp 98.0 F 02/28/19 14:00 Pulse 75 02/28/19 17:33 Resp 20 02/28/19 14:00 BP 151/80 02/28/19 14:00 Pulse Ox 98 02/28/19 14:00 Intake & Output 02/28/19 02/28/19 03/01/19 06:59 18:59 06:59 Intake Total 120 1320 Balance 120 1320 Intake: Oral 120 1320 Other: # Voids 3 3 # Bowel Movements 0 1 Active Medications: Current Medications Acetaminophen (Tylenol) 650 mg PO Q4HR PRN PRN Reason: Mild Pain / Temp above 100 Stop: 04/17/19 06:31 Last Admin: 02/20/19 13:34 Dose: 650 mg Al Hydrox/Mg Hydrox/Simethicone (Maalox) 30 ml PO Q4HR PRN PRN Reason: GI DISTRESS Stop: 04/17/19 14:52 Aspirin (Ecotrin) 81 mg PO DAILY [facility] Stop: 04/17/19 08:59 Last Admin: 02/28/19 09:27 Dose: 81 mg Benztropine Mesylate (Cogentin) 1 mg PO BID [facility] Stop: 04/17/19 08:59 Last Admin: 02/28/19 17:32 Dose: 1 mg Divalproex Sodium (Depakote Dr) 250 mg PO TID [facility]; Protocol Stop: 04/16/19 20:59 Last Admin: 02/28/19 14:00 Dose: 250 mg Docusate Sodium (Colace) 250 mg PO DAILY [facility] Stop: 04/17/19 08:59 Last Admin: 02/28/19 09:30 Dose: 250 mg Famotidine (Pepcid) 20 mg PO DAILY [facility] Stop: 04/17/19 08:59 Last Admin: 02/28/19 09:31 Dose: 20 mg Glipizide (Glucotrol) 2.5 mg PO BID [facility] Stop: 04/17/19 08:59 Last Admin: 02/28/19 09:31 Dose: Not Given Insulin Glargine (Lantus Insulin) 10 units SUBQ HS [facility] Stop: 04/17/19 20:59 Last Admin: 02/27/19 21:27 Dose: 10 units Lorazepam (Ativan) 0.5 mg PO Q4HR PRN; Protocol PRN Reason: Anxiety Stop: 03/17/19 21:07 Last Admin: 02/28/19 17:33 Dose: 0.5 mg Losartan Potassium (Cozaar) 50 mg PO DAILY [facility] Stop: 04/17/19 08:59 Last Admin: 02/28/19 09:00 Dose: Not Given Magnesium Hydroxide (Milk Of Magnesia) 30 ml PO HS PRN PRN Reason: Constipation Metformin HCl (Glucophage) 500 mg PO BID [facility] Stop: 04/17/19 08:59 Last Admin: 02/28/19 09:32 Dose: Not Given Quetiapine Fumarate (Seroquel) 25 mg PO DAILY [facility]; Protocol Stop: 04/17/19 08:59 Last Admin: 02/28/19 09:31 Dose: 25 mg Quetiapine Fumarate (Seroquel) 150 mg PO HS [facility] Stop: 04/25/19 20:59 Last Admin: 02/27/19 21:27 Dose: 150 mg Zolpidem Tartrate (Ambien) 5 mg PO HS PRN PRN Reason: Insomnia Stop: 04/16/19 21:07 Last Admin: 02/27/19 21:28 Dose: 5 mg General: demented HEENT: NC/AT, PERRLA, EOMI, anicteric sclerae, throat clear Neck: Supple, No JVD, No thyromegaly, +2 carotid pulse wo bruit, No LAD Lungs: CTAB Cardiovascular: RRR, Normal S1, without murmur Abdomen: soft, non-tender, non-distended Extremities: clear Neurological: no change Internal Medicine Assmt/Plan - Assessment Assessment: 1.DM. 2.HTN. 3.ANEMIA. 4.DEMENTIA - Plan Plan: CONTINUE ON CURRENT MEDICATION AND DIET Nutritional Asmnt/Malnutr-PDOC - Dietary Evaluation Malnutrition Findings (Please click <Entered> for more info): Nutritional Asmnt/Malnutrition Start: 02/19/19 08: 49 Text: Status: Complete Freq: Protocol: Document 02/19/19 08:49 EBONIE (Rec: 02/19/19 08:52 EBONIE [id number]) Nutritional Asmnt/Malnutrition Patient General Information Nutritional Screening Moderate Risk Diagnosis Psychosis Pertinent Medical Hx/Surgical Hx HTN, DM, Asthma/COPD, Dyslipidemia, Arthritis, Anemia, Schizophrenic Disorder , Appendectomy, Lumpectomy of both breasts, Tonsillectomy Subjective Information Pt is a 79-year-old female admitted on 02/15 from extended care facility d/t aggressive behavior. Pt is eating well, 75-100% meals regularly, adequate to meet estimated nutritional needs. HT: 57 WT: 171 LB (77.73kg) BMI: 26.78 (Overweight) GI: WNL, soft, flat, non- tender BM: 02/19 x1 I/O: 1020/Not Noted Skin: WNL, intact Julián: 20 Diet Order: Mechanical soft, CCHO, NORRIS, chopped Estimated Energy Needs: ( Geriatric, CBW) 4961-9383 kcals (25-30 kcals/ kg) 78-93g Pro (1.0-1.2 g/kg) 9468-8879 ml (25-30 ml/kg) Pt is eating 75-100% of meals Per Meal/Nutrition Activity Record. Dietary is currently providing an estimated 2400 kcals and 108 gm Pro, per Pt PO intake this is providing an estimated 2100 kcals and 95gm Pro to meet 100+% kcal and 100+% Pro needs. Current Diet Order/ Nutrition Support Mechanical soft, CCHO, NORRIS, chopped Pertinent Medications Maalox (PRN), Colace, Pepcid, Glucotrol, Lantus, Cozaar, MOM (PRN), Glucophage Pertinent Labs 02/15: Hgb/Hct 10.8/31.4 POC Glucose (last 24 hours): 84, 133, 98 Nutritional Hx/Data Height 1.7 m Height (Calculated Centimeters) 170.2 Current Weight (lbs) 77.564 kg Weight (Calculated Kilograms) 77.6 Weight (Calculated Grams) 88961.3 [place] Body Weight 135 LB (61.36 kg) % [place] Body Weight 127 Body Mass Index (BMI) 26.7 Weight Status Overweight GI Symptoms GI Symptoms None Last BM 02/19 x1 Skin Integrity/Comment: Skin: WNL, intact Julián: 20 Current %PO Good (75-100%) Estimated Nutritional Goals BEE in Kcals: Using Current wt Calories/Kcals/Kg 25-30 Kcals Calculated 0835-8926 Protein: Using Current wt Protein g/k.0-1.2 Protein Calculated 78-93 Fluid: ml 9708-9742 ml (25-30 ml/kg) Nutritional Problem 1. Problem Problem Impaired nutrient utilization Etiology r/t endocrine dysfunction Signs/Symptoms: aeb Hx DM and POC Glucose ( last 24 hours): 84, 133, 98 Malnutrition Related to Morbid Obesity Malnutrition related to morbid obesity No Intervention/Recommendation Comments 1. Continue with mechanical soft, CCHO, NORRIS, chopped diet as ordered. 2. Continue antihyperglycemic medications for glucose control per MD order. Expected Outcomes/Goals Expected Outcomes/Goals 1. PO intake to continue to meet 75% of nutritional needs. 2. Monitor PO intake, wt, nutrition related labs, and skin integrity. 3. F/U as low risk in 7 days, 02/26
[2019-02-28] MEDS: Insulin Glargine 100 units/ml 10ml Vial SUBQ SCH (20:49)
--- NOTE | 2019-02-28 23:22 | Progress Notes ---
DATE: 02/28/2019 SUBJECTIVE: The patient is currently in the hospital. Slept for about 6 hours. She took a shower at 4 a.m., still preoccupied, somewhat paranoid, states that she may have cancer, very concerned about her health. Still talking to self, mumbling to self. Concerns for ongoing psychotic symptoms. The patient wanted to consistently take showers. No agitation, just noted psychosis. Medications were noted. Currently on dosing of Seroquel, seems to be tolerant of a higher dose. Per Environmental Construction Engineer' note, as of right now, the patient is going to [place]. ASSESSMENT: The patient is calmer, seems to be more cooperative. PLAN: We will continue to monitor, likely approaching her baseline. [facility]# [id number]
[2019-03-01] MEDS: Benztropine 1 MG TAB PO SCH (08:49)
--- NOTE | 2019-03-01 21:13 | Progress Notes ---
DATE: 03/01/2019 SUBJECTIVE: The patient in the hospital, seems to be showing some signs of improvement, calmer. No overt SI or HI. Mood seems to be improving as well. Staff noting no agitation, no escalation of behaviors. No overt paranoias. Mood "okay." No SI, no HI, no intent, no plan. No hitting behaviors. More redirectable, more amenable to care, currently denying any perceptual disturbances. The patient coming from [place]. PLAN: No current symptoms of agitation. I will attempt to discharge the patient today. JOB# [id number]
== END 2019-03-01 14:20 | DRG 885 ==
LOC: ER 18:23 → GERO 20:04
PROVIDERS: ADMIT Psychiatry & Neurology Psychiatry; ATTEND Psychiatry & Neurology Psychiatry
DX: F29 Unspecified psychosis not due to a substance or known physiological condition (principal); F03.91 Unspecified dementia, unspecified severity, with behavioral disturbance; E11.9 Type 2 diabetes mellitus without complications; I10 Essential (primary) hypertension; D64.9 Anemia, unspecified; F25.9 Schizoaffective disorder, unspecified
CPT/HCPCS: 36415-UA; 80053-TC; 80061-TC; 80164-TC; 81001-TC; 82948-90; 83036-90; 84443-TC; 85025-TC; 86592-TC; 87086-90; 93005; G0410; J1815; Z7610

== ENCOUNTER 2019-06-24 13:58 | Inpatient (IN) | payer MEDICARE, MEDICAID ==
[2019-06-24] MEDS ORDERED: Acetaminophen 500 MG TAB PO PRN (20:11)
[2019-06-24] MEDS ORDERED: Maalox 30 mL Cup PO PRN (20:14)
[2019-06-24] MEDS ORDERED: Magnesium Hydroxide (MOM) 30 mL UDC PO PRN (20:14)
[2019-06-24] MEDS ORDERED: GLUCAGON HCl 1 MG KIT IM PRN (20:20)
[2019-06-24] MEDS: INSULIN LISPRO SLIDING SCALE 100 UNITS/ML UNIT SUBQ SCH (21:55)
[2019-06-25] MEDS: INSULIN LISPRO SLIDING SCALE 100 UNITS/ML UNIT SUBQ SCH ×4 (06:38→20:59)
[2019-06-25] MEDS ORDERED: Benztropine 1 MG TAB PO SCH (09:00)
[2019-06-25] MEDS ORDERED: Fluticasone Propionate Nasal 1 SPR SPR NS SCH ×2 (09:00)
[2019-06-25] MEDS: Fluticasone Propionate Nasal 1 SPR SPR NS SCH (15:17)
--- NOTE | 2019-06-26 03:10 | Psychiatric Evaluation ---
DATE OF SERVICE: 06/25/2019 JUSTIFICATION FOR HOSPITALIZATION: This is a 79-year-old female coming in from [place], history of mental illness, hypertension, anemia, GERD, episodes of forgetfulness noted, withdrawn, guarded. The patient, on exam, delusional, stating that she owns the hospital, she lives in the hospital, "of course I own it as what she tells me, plans to buy the hospital and give it to her kids," delusional, irritable on exam, paranoid, grandiose. PAST PSYCHIATRIC HISTORY: Admissions in the past. SOCIAL HISTORY: Unclear how much support she has ____. We will defer to social and human services assistant to increase collateral in this regard. MEDICATIONS: Noted. MEDICAL HISTORY: Please see full H and P. MENTAL STATUS EXAMINATION: Stated age. Fair eye contact. Speech loud. Mood "okay." Grandiose on exam, confused, disoriented, talking nonsense. No overt SI or HI. Poor insight. PROVISIONAL DIAGNOSES: Likely schizophrenia. Concerns for dementia. ESTIMATED LENGTH OF STAY: 7-10 days. ASSESSMENT: The patient requiring hospitalization, grandiose, delusional, bizarre. CONDITIONS FOR DISCHARGE: Improved mood, improved affect, cessation of any aggression, better control of her psychotic symptoms. [facility]# [id number]
[2019-06-26] MEDS: INSULIN LISPRO SLIDING SCALE 100 UNITS/ML UNIT SUBQ SCH (06:31)
[2019-06-26] MEDS: Fluticasone Propionate Nasal 1 SPR SPR NS SCH (09:27)
--- NOTE | 2019-06-26 09:44 | Progress Notes ---
DATE: 06/26/2019 SUBJECTIVE: The patient coming in from [place], history of mental illness, hypertension, delusions, believing that she owns the hospital, stating she lives in the hospital, acting out behaviors, aggressive at times, especially when people question whether she owns the hospital or not. The patient is mostly withdrawn, keeps to self, delusions persist, orientation and mostly agitated, anxious. PLAN: We will continue to monitor ongoing symptoms, safety concerns. We will consider dose titration of antipsychotic medications. [facility]# [id number]
--- NOTE | 2019-06-26 10:10 | History and Physical ---
History of Present Illness - HPI Chief Complaint: 79F admitted for psychosis. HPI: 79F coming from [place], with PMH of mental illness, HTN, anemia, GERD, DM, Dementia, psychosis. Patient is delusional staing she owns the hsotial, and lives in the hospital and she that she got after getting her blood drawn. Vital Signs: Last Vital Signs Temp 97.5 F 06/26/19 06:30 Pulse 62 06/26/19 08:55 Resp 18 06/26/19 06:30 BP 158/85 06/26/19 08:55 Pulse Ox 99 06/26/19 06:30 Past Medical History Cardiovascular: Report: HTN RESIDENTIAL SERVICE TECHNICIAN: Report: Dementia GI: Report: GERD Psych: Report: Psychosis Endocrine: Report: Diabetes Family Medical History - Family Member Mother History Unknown: Yes Ethnicity: Unknown Living Status: Unknown Hx Family Cancer: (unknown) Hx Family Coronary Artery Disease: (unknown) Hx Family Congestive Heart Failure: (unknown) Hx Family Hypertension: (unknown) Hx Family Stroke: (unknown) Hx Family Diabetes: (unknown) Hx Family Seizures: (unknown) Hx Family Dementia: (unknown) Hx Family AIDS: (unknown) Hx Family HIV: No Hx Family COPD: (unknown) Hx Family Hepatitis: (unknown) Hx Family Psychiatric Problems: (unknown) Hx Family Tuberculosis: (unknown) Social History Smoke: No Alcohol: None Drugs: None Lives: Other - Medications Home Medications: Home Medication Medication Instructions Recorded Type Acetaminophen [Tylenol] 650 mg PO Q4HR PRN tab 03/01/19 Rx Al Hyd/Mg Hyd/Simethicone [Maalox] 30 ml PO Q4HR PRN udc 03/01/19 Rx Aspirin EC [Ecotrin] 81 mg PO DAILY ect 03/01/19 Rx Benztropine [Cogentin*] 1 mg PO BID tab 03/01/[address] [Depakote DR] 250 mg PO TID tcp 03/01/19 Rx Docusate Sodium [Colace] 250 mg PO DAILY sgl 03/01/19 Rx Famotidine [Pepcid] 20 mg PO DAILY tab 03/01/19 Rx Glipizide [Glucotrol] 2.5 mg PO BID tab 03/01/19 Rx Insulin Glargine [Lantus Insulin] 10 units SUBQ HS vial 03/01/19 Rx Lorazepam [Ativan] 0.5 mg PO Q4HR PRN tab 03/01/19 Rx Losartan Potassium [Cozaar] 50 mg PO DAILY tab 03/01/19 Rx Magnesium Hydroxide [Milk of 30 ml PO HS PRN udc 03/01/19 Rx Magnesia] QUEtiapine Fumarate [SEROquel] 25 mg PO DAILY tab 03/01/19 Rx QUEtiapine Fumarate [SEROquel] 150 mg PO HS tab 03/01/19 Rx Zolpidem Tartrate [Ambien] 5 mg PO HS PRN tab 03/01/19 Rx cloNIDine HCl [Catapres] 0.1 mg PO BID tab 03/01/19 Rx metFORMIN [Glucophage] 500 mg PO BID tab 03/01/19 Rx - Allergies Allergies/Adverse Reactions: Allergies Allergy/AdvReac Type Severity Reaction Status Date / Time Penicillins Allergy Verified 06/24/19 21:01 Review of Systems - Review of Systems Constitutional: Report: No Significant, Fever, Chills Eyes: Report: No Significant Respiratory: Report: No Significant Cardiovascular: Report: No Significant Neurological: Report: No Significant Physical Exam - Physical Exam HEENT: Report: Ears Nose Throat within normal limits Neck: Report: Within normal limits Cardiovascular Systems: Report: Regular, Rate and Rhythm Respiratory: Report: Other (no acute respiratory distress on RA) Abdomen: Report: Non-tender to palpation Skin: Report: Color of skin is within normal limits Other Systems Exam: delusional - Lab Results All Lab Results last 24 hours: Laboratory Results - last 24 hr 06/25/19 06/25/19 06/26/19 18:00 20:24 06:26 POC Glucose 125 H 174 H 113 H - Assessment Assessment: Likely schizophrenia per pscyh Psychosis HTN DM Dementia GERD Anemia - Plan Plan: Continue current treatment plan. Continue current medications Continue to monitor VS Monitor Diet/Nutritional support. Psych management per Psychiatry. Pain Management. PT/OT prn Safety precaution, Fall precaution, frequent nursing round. Supportive care. Continue collaborating with consulting specialists, case management and nursing team
[2019-06-27] MEDS: INSULIN LISPRO SLIDING SCALE 100 UNITS/ML UNIT SUBQ SCH (06:36)
--- NOTE | 2019-06-27 09:27 | Progress Notes ---
DATE: 06/27/2019 The patient in the hospital, very delusional, unruly, got into an altercation with roommate, anxious, withdrawn, easily irritated, still ____ hospital, ongoing grandiosities, unruly at times. These behaviors are driven by her delusions, irritable, not wanting to talk to me. Currently on dosing of Risperdal. We will continue to monitor. JOB# [id number]
[2019-06-27] MEDS: Fluticasone Propionate Nasal 1 SPR SPR NS SCH ×2 (10:34→10:49)
--- NOTE | 2019-06-27 12:21 | Internal Medicine Prog Note ---
Internal Medicine Subjective - Subjective Patient seen and examined:: with staff Patient is:: awake, verbal, in bed Per staff patient has:: no adverse event, no episodes of fall Internal Medicine Objective - Results Recent Labs: Laboratory Last Values POC Glucose 77 MG/DL (70 - 105) 06/27/19 11:06 - Physical Exam Vitals and I&O: Vital Signs Temp 97.6 F 06/27/19 05:34 Pulse 60 06/27/19 10:32 Resp 20 06/27/19 05:34 BP 165/77 06/27/19 10:32 Pulse Ox 99 06/27/19 05:34 Intake & Output 06/26/19 06/27/19 06/27/19 18:59 06:59 18:59 Intake Total 950 120 Balance 950 120 Intake: Oral 950 120 Other: # Voids 4 3 # Bowel Movements 1 0 Active Medications: Current Medications Acetaminophen (Tylenol) 650 mg PO Q4HR PRN PRN Reason: Mild Pain (1-3) Stop: 08/23/19 20:07 Acetaminophen (Tylenol) 650 mg PO Q4H PRN PRN Reason: For Temp above 101F Stop: 08/23/19 20:08 Acetaminophen (Tylenol Extra Strength) 500 mg PO Q8H PRN PRN Reason: For moderate pain (4-6) Stop: 08/23/19 20:10 Al Hydrox/Mg Hydrox/Simethicone (Maalox) 30 ml PO Q6HR PRN PRN Reason: GI DISTRESS Stop: 08/23/19 20:13 Benztropine Mesylate (Cogentin) 0.5 mg PO BID [facility] Stop: 08/24/19 08:59 Last Admin: 06/27/19 10:32 Dose: 0.5 mg Clonazepam (Klonopin) 0.5 mg PO Q6H PRN; Protocol PRN Reason: Anxiety Stop: 08/23/19 20:29 Last Admin: 06/26/19 06:08 Dose: 0.5 mg Dextrose (Glutose 40%) 18.75 gm PO PRN PRN PRN Reason: Blood Glucose less than 70 Stop: 08/23/19 20:19 Fluticasone Propionate (Flonase) 1 spr NS DAILY [facility] Stop: 08/24/19 08:59 Last Admin: 06/27/19 10:49 Dose: 1 spr Glipizide (Glucotrol) 5 mg PO BID [facility] Stop: 08/24/19 08:59 Last Admin: 06/27/19 10:33 Dose: 5 mg Glucagon (Glucagen) 1 mg IM PRN PRN PRN Reason: Blood Glucose less than 70 Stop: 08/23/19 20:19 Hydralazine HCl (Apresoline) 25 mg PO Q4H PRN PRN Reason: Give if SBP above 110 Stop: 08/23/19 20:29 Last Admin: 06/25/19 06:35 Dose: 25 mg Insulin Human Lispro (Humalog Insulin Sliding Scale) 0 units SUBQ QDAC [facility]; Protocol Stop: 08/26/19 07:29 Last Admin: 06/27/19 06:36 Dose: Not Given Losartan Potassium (Cozaar) 50 mg PO DAILY [facility] Stop: 08/24/19 10:11 Last Admin: 06/27/19 10:32 Dose: 50 mg Magnesium Hydroxide (Milk Of Magnesia) 30 ml PO HS PRN PRN Reason: Constipation Stop: 08/23/19 20:13 Risperidone (Risperdal) 0.5 mg PO TID [facility]; Protocol Stop: 08/23/19 20:59 Last Admin: 06/27/19 10:33 Dose: 0.5 mg Temazepam (Restoril) 15 mg PO HS PRN; Protocol PRN Reason: Insomnia Stop: 08/23/19 20:26 Last Admin: 06/26/19 20:55 Dose: 15 mg General: demented, NAD HEENT: NC/AT, PERRLA Neck: Supple, No JVD Lungs: other (no acute respiratory distress on RA) Cardiovascular: RRR Abdomen: soft, non-tender Internal Medicine Assmt/Plan - Assessment Assessment: Likely schizophrenia per [facility] Psychosis HTN DM Dementia GERD Anemia - Plan Plan: Continue current treatment plan. Continue current medications Continue to monitor VS Monitor Diet/Nutritional support. Psych management per Psychiatry. Pain Management. PT/OT prn Safety precaution, Fall precaution, frequent nursing round. Supportive care. Continue collaborating with consulting specialists, case management and nursing team
[2019-06-28] MEDS: INSULIN LISPRO SLIDING SCALE 100 UNITS/ML UNIT SUBQ SCH (06:33)
[2019-06-28] MEDS: Fluticasone Propionate Nasal 1 SPR SPR NS SCH (08:47)
--- NOTE | 2019-06-28 17:10 | Internal Medicine Prog Note ---
Internal Medicine Subjective - Subjective Service Date: 06/28/19 Patient is:: awake, verbal, in bed Per staff patient has:: no adverse event, no episodes of fall Internal Medicine Objective - Results Recent Labs: Laboratory Last Values POC Glucose 129 MG/DL (70 - 105) H 06/28/19 06:08 - Physical Exam Vitals and I&O: Vital Signs Temp 97.6 F 06/28/19 06:25 Pulse 70 06/28/19 08:47 Resp 18 06/28/19 08:00 BP 145/66 06/28/19 08:47 Pulse Ox 98 06/28/19 06:25 Intake & Output 06/27/19 06/28/19 06/28/19 18:59 06:59 18:59 Intake Total 900 180 Balance 900 180 Intake: Oral 900 180 Other: # Voids 3 1 # Bowel Movements 1 0 Active Medications: Current Medications Acetaminophen (Tylenol) 650 mg PO Q4HR PRN PRN Reason: Mild Pain (1-3) Stop: 08/23/19 20:07 Acetaminophen (Tylenol) 650 mg PO Q4H PRN PRN Reason: For Temp above 101F Stop: 08/23/19 20:08 Acetaminophen (Tylenol Extra Strength) 500 mg PO Q8H PRN PRN Reason: For moderate pain (4-6) Stop: 08/23/19 20:10 Al Hydrox/Mg Hydrox/Simethicone (Maalox) 30 ml PO Q6HR PRN PRN Reason: GI DISTRESS Stop: 08/23/19 20:13 Benztropine Mesylate (Cogentin) 0.5 mg PO BID [facility] Stop: 08/24/19 08:59 Last Admin: 06/28/19 17:08 Dose: 0.5 mg Clonazepam (Klonopin) 0.5 mg PO Q6H PRN; Protocol PRN Reason: Anxiety Stop: 08/23/19 20:29 Last Admin: 06/26/19 06:08 Dose: 0.5 mg Dextrose (Glutose 40%) 18.75 gm PO PRN PRN PRN Reason: BS Below 70 if tolerate po Stop: 08/23/19 20:19 Fluticasone Propionate (Flonase) 1 spr NS DAILY [facility] Stop: 08/24/19 08:59 Last Admin: 06/28/19 08:47 Dose: Not Given Glipizide (Glucotrol) 5 mg PO BID [facility] Stop: 08/24/19 08:59 Last Admin: 06/28/19 17:08 Dose: 5 mg Glucagon (Glucagen) 1 mg IM PRN PRN PRN Reason: BS Below 70 if not tolerate po Stop: 08/23/19 20:19 Hydralazine HCl (Apresoline) 25 mg PO Q4H PRN PRN Reason: Give if SBP above 110 Stop: 08/23/19 20:29 Last Admin: 06/28/19 06:00 Dose: 25 mg Insulin Human Lispro (Humalog Insulin Sliding Scale) 0 units SUBQ QDAC [facility]; Protocol Stop: 08/26/19 07:29 Last Admin: 06/28/19 06:33 Dose: Not Given Losartan Potassium (Cozaar) 50 mg PO DAILY [facility] Stop: 08/24/19 10:11 Last Admin: 06/28/19 08:47 Dose: 50 mg Magnesium Hydroxide (Milk Of Magnesia) 30 ml PO HS PRN PRN Reason: Constipation Stop: 08/23/19 20:13 Risperidone (Risperdal) 0.75 mg PO TID [facility]; Protocol Stop: 08/27/19 20:59 Temazepam (Restoril) 15 mg PO HS PRN; Protocol PRN Reason: Insomnia Stop: 08/23/19 20:26 Last Admin: 06/26/19 20:55 Dose: 15 mg General: demented, NAD HEENT: NC/AT, PERRLA Neck: Supple, No JVD Lungs: other (no acute respiratory distress on RA) Cardiovascular: RRR Abdomen: soft, non-tender Internal Medicine Assmt/Plan - Assessment Assessment: Likely schizophrenia per pscyh Psychosis HTN DM Dementia GERD Anemia - Plan Plan: Continue current treatment plan. Continue current medications Continue to monitor VS Monitor Diet/Nutritional support. Psych management per Psychiatry. Pain Management. PT/OT prn Safety precaution, Fall precaution, frequent nursing round. Supportive care. Continue collaborating with consulting specialists, case management and nursing team Nutritional Asmnt/Malnutr-PDOC - Dietary Evaluation Malnutrition Findings (Please click <Entered> for more info): Nutritional Asmnt/Malnutrition Start: 06/28/19 14: 20 Text: Status: Complete Freq: Protocol: Document 06/28/19 14:20 EBONIE (Rec: 06/28/19 14:25 EBONIE [email or web address]) Nutritional Asmnt/Malnutrition Patient General Information Nutritional Screening Moderate Risk Diagnosis Psychosis Pertinent Medical Hx/Surgical Hx HTN, Anemia, GERD, DM, Dementia, Psychosis Subjective Information Pt is a 79-year-old female admitted on d/t psychosis, delusions. Pt is eating an estimated 100% of meals since admit date Per Meal/Nutrition Activity Record . Dietary is currently providing an estimated 1900 kcals and 100 gm Pro to meet 100% kcal and 100+% Pro needs. Visited pt today after lunchtime, documented pt food preferences. Explained pt diet Rx to her and suggested eating the whole fruit as I'd prefer her not to have juice d /t her DM, pt expressed understanding. Anthropometrics HT: 57 WT: 171 LB (63.64 kg) ABW: 144 LB (65.45 kg) BMI: 26.78 (Overweight) GI/ Skin Integrity GI: WNL, Soft, Non-tender BM: 06/27 x1 I/O: 1080/Not Noted Skin: WNL, Intact Julián: 20 Diet Order: Mechanical Soft, NORRIS, CCHO Estimated Energy Needs: ( Geriatric, ABW) 3237-7274 kcals (25-30 kcals/ kg) 60-76g Pro (1.0-1.2 g/kg) 1600-2000ml (25-30 ml/kg) Current Diet Order/ Nutrition Support Mechanical Soft, NORRIS, CCHO Pertinent Medications Maalox (PRN), Glutose 40% (PRN ), Glucotrol, Glucagen (PRN), INS-SS, Cozaar, MOM (PRN) Pertinent Labs POC Glucose (last 24 hours): 113, 77,129 06/24: A1c 7.5%, glucose 138, BUN/Cr 22/1.01, Alb 3.1 Nutritional Hx/Data Height 5 ft 7 in Height (Calculated Centimeters) 170.2 Current Weight (lbs) 171 lb Weight (Calculated Kilograms) 77.6 Weight (Calculated Grams) 43484.3 [place] Body Weight 135 LB (61.36 kg) % [place] Body Weight 127 Body Mass Index (BMI) 26.7 Weight Status Overweight GI Symptoms GI Symptoms None Last BM 06/27 x1 Skin Integrity/Comment: Skin: WNL, Intact Julián: 20 Estimated Nutritional Goals BEE in Kcals: Adj wt of IBW Calories/Kcals/Kg 25-30 Kcals Calculated 4649-3387 Protein: Adj wt of IBW Protein g/k.0-1.2 Protein Calculated 60-76 Fluid: ml 1600-2000ml (25-30 ml/kg) Nutritional Problem 1. Problem Problem Impaired nutrient utilization Etiology r/t endocrine dysfunction Signs/Symptoms: aeb Hx DM, labs (06/24) A1c 7. 5%. Malnutrition Related to Morbid Obesity Malnutrition related to morbid obesity No Intervention/Recommendation Comments 1.Continue Mechanical Soft, NORRIS, CCHO diet as tolerated. 2.Continue antihyperglycemic medication for glucose control per MD order. Expected Outcomes/Goals Expected Outcomes/Goals 1.PO intake to continue to meet >75% of estimated nutritional needs. 2.Monitor PO intake, wt, nutrition related labs, and skin integrity. 3.F/U as low risk in 7-10 days , 07/05-07/08
--- NOTE | 2019-06-28 23:10 | Progress Notes ---
DATE: 06/28/2019 SUBJECTIVE: The patient remains unruly, aggressive toward others, delusional, believing that she owns the hospital, that God bought her the hospital and now her kids own it. Rude, agitated toward other patients, ongoing symptoms, psychotic symptoms. Poor impulse control. PLAN: I will continue to monitor. I will slowly titrate her dosing of antipsychotic medications to target paranoias, delusion. [facility]# [id number]
[2019-06-29] MEDS: INSULIN LISPRO SLIDING SCALE 100 UNITS/ML UNIT SUBQ SCH (06:39)
[2019-06-29] MEDS: Fluticasone Propionate Nasal 1 SPR SPR NS SCH (09:00)
--- NOTE | 2019-06-29 15:49 | Progress Notes ---
DATE: SUBJECTIVE: The patient was seen, chart reviewed, discussed with staff. The patient remains withdrawn, isolative, still paranoid, delusional, episodes of sudden yelling, very angry, upset, believing that this is her hospital and that she owns the hospital. Recent dose increase of Risperdal seems to be tolerating well. Vitals were noted. We will continue inpatient monitoring, ongoing safety concerns, very impulsive, unpredictable. [facility]# [id number]
--- NOTE | 2019-06-29 21:00 | Internal Medicine Prog Note ---
Internal Medicine Subjective - Subjective Service Date: 06/29/19 Patient seen and examined:: with staff Patient is:: awake, verbal, in bed, agitated Patient Complaints of:: other (Diabetic.) Per staff patient has:: no adverse event, no episodes of fall Internal Medicine Objective - Results Recent Labs: Laboratory Last Values POC Glucose 136 MG/DL (70 - 105) H 06/29/19 06:07 - Physical Exam Vitals and I&O: Vital Signs Temp 97.1 F 06/29/19 20:06 Pulse 64 06/29/19 20:06 Resp 20 06/29/19 20:06 BP 152/82 06/29/19 20:06 Pulse Ox 98 06/29/19 20:06 Intake & Output 06/29/19 06/29/19 06/30/19 06:59 18:59 06:59 Intake Total 120 120 Balance 120 120 Intake: Oral 120 120 Other: # Voids 3 1 # Bowel Movements 0 Active Medications: Current Medications Acetaminophen (Tylenol) 650 mg PO Q4HR PRN PRN Reason: Mild Pain (1-3) Stop: 08/23/19 20:07 Acetaminophen (Tylenol) 650 mg PO Q4H PRN PRN Reason: For Temp above 101F Stop: 08/23/19 20:08 Acetaminophen (Tylenol Extra Strength) 500 mg PO Q8H PRN PRN Reason: For moderate pain (4-6) Stop: 08/23/19 20:10 Last Admin: 06/29/19 18:28 Dose: 500 mg Al Hydrox/Mg Hydrox/Simethicone (Maalox) 30 ml PO Q6HR PRN PRN Reason: GI DISTRESS Stop: 08/23/19 20:13 Benztropine Mesylate (Cogentin) 0.5 mg PO BID [facility] Stop: 08/24/19 08:59 Last Admin: 06/29/19 16:49 Dose: 0.5 mg Clonazepam (Klonopin) 0.5 mg PO Q6H PRN; Protocol PRN Reason: Anxiety Stop: 08/23/19 20:29 Last Admin: 06/26/19 06:08 Dose: 0.5 mg Dextrose (Glutose 40%) 18.75 gm PO PRN PRN PRN Reason: BS Below 70 if tolerate po Stop: 08/23/19 20:19 Fluticasone Propionate (Flonase) 1 spr NS DAILY [facility] Stop: 08/24/19 08:59 Last Admin: 06/29/19 09:00 Dose: 1 spr Glipizide (Glucotrol) 5 mg PO BID [facility] Stop: 08/24/19 08:59 Last Admin: 06/29/19 16:49 Dose: 5 mg Glucagon (Glucagen) 1 mg IM PRN PRN PRN Reason: BS Below 70 if not tolerate po Stop: 08/23/19 20:19 Hydralazine HCl (Apresoline) 25 mg PO Q4H PRN PRN Reason: Give if SBP above 110 Stop: 08/23/19 20:29 Last Admin: 06/28/19 06:00 Dose: 25 mg Insulin Human Lispro (Humalog Insulin Sliding Scale) 0 units SUBQ QDAC [facility]; Protocol Stop: 08/26/19 07:29 Last Admin: 06/29/19 06:39 Dose: Not Given Losartan Potassium (Cozaar) 50 mg PO DAILY [facility] Stop: 08/24/19 10:11 Last Admin: 06/29/19 08:59 Dose: 50 mg Magnesium Hydroxide (Milk Of Magnesia) 30 ml PO HS PRN PRN Reason: Constipation Stop: 08/23/19 20:13 Risperidone (Risperdal) 0.75 mg PO TID [facility]; Protocol Stop: 08/27/19 20:59 Last Admin: 06/29/19 13:38 Dose: 0.75 mg Temazepam (Restoril) 15 mg PO HS PRN; Protocol PRN Reason: Insomnia Stop: 08/23/19 20:26 Last Admin: 06/26/19 20:55 Dose: 15 mg Physical Exam: Patient needs close monitoring, remains very irritable, withdrawn and impulsive. General: demented, NAD HEENT: NC/AT, PERRLA Neck: Supple, No JVD Lungs: other (no acute respiratory distress on RA) Cardiovascular: RRR Abdomen: soft, non-tender Extremities: clear Neurological: no change Internal Medicine Assmt/Plan - Assessment Assessment: Schizophrenia. Psychosis. Hypertension. Diabetes Mellitus. Dementia. Gerd. Anemia. - Plan Plan: Safety precaution. Monitor vitals and labs. Continue present meds as directed. Supportive care. Accu-check twice daily. Monitor diet and nutritional support. Psych management as per Psych. Continue current treatment plan. Nutritional Asmnt/Malnutr-PDOC - Dietary Evaluation Malnutrition Findings (Please click <Entered> for more info): Nutritional Asmnt/Malnutrition Start: 06/28/19 14: 20 Text: Status: Complete Freq: Protocol: Document 06/28/19 14:20 EBONIE (Rec: 06/28/19 14:25 EBONIE [email or web address]) Nutritional Asmnt/Malnutrition Patient General Information Nutritional Screening Moderate Risk Diagnosis Psychosis Pertinent Medical Hx/Surgical Hx HTN, Anemia, GERD, DM, Dementia, Psychosis Subjective Information Pt is a 79-year-old female admitted on d/t psychosis, delusions. Pt is eating an estimated 100% of meals since admit date Per Meal/Nutrition Activity Record . Dietary is currently providing an estimated 1900 kcals and 100 gm Pro to meet 100% kcal and 100+% Pro needs. Visited pt today after lunchtime, documented pt food preferences. Explained pt diet Rx to her and suggested eating the whole fruit as I'd prefer her not to have juice d /t her DM, pt expressed understanding. Anthropometrics HT: 57 WT: 171 LB (63.64 kg) ABW: 144 LB (65.45 kg) BMI: 26.78 (Overweight) GI/ Skin Integrity GI: WNL, Soft, Non-tender BM: 06/27 x1 I/O: 1080/Not Noted Skin: WNL, Intact Julián: 20 Diet Order: Mechanical Soft, NORRIS, CCHO Estimated Energy Needs: ( Geriatric, ABW) 3730-0136 kcals (25-30 kcals/ kg) 60-76g Pro (1.0-1.2 g/kg) 1600-2000ml (25-30 ml/kg) Current Diet Order/ Nutrition Support Mechanical Soft, NORRIS, CCHO Pertinent Medications Maalox (PRN), Glutose 40% (PRN ), Glucotrol, Glucagen (PRN), INS-SS, Cozaar, MOM (PRN) Pertinent Labs POC Glucose (last 24 hours): 113, 77,129 06/24: A1c 7.5%, glucose 138, BUN/Cr 22/1.01, Alb 3.1 Nutritional Hx/Data Height 1.7 m Height (Calculated Centimeters) 170.2 Current Weight (lbs) 77.564 kg Weight (Calculated Kilograms) 77.6 Weight (Calculated Grams) 88664.3 [place] Body Weight 135 LB (61.36 kg) % [place] Body Weight 127 Body Mass Index (BMI) 26.7 Weight Status Overweight GI Symptoms GI Symptoms None Last BM 06/27 x1 Skin Integrity/Comment: Skin: WNL, Intact Julián: 20 Estimated Nutritional Goals BEE in Kcals: Adj wt of IBW Calories/Kcals/Kg 25-30 Kcals Calculated 1761-2335 Protein: Adj wt of IBW Protein g/k.0-1.2 Protein Calculated 60-76 Fluid: ml 1600-2000ml (25-30 ml/kg) Nutritional Problem 1. Problem Problem Impaired nutrient utilization Etiology r/t endocrine dysfunction Signs/Symptoms: aeb Hx DM, labs (06/24) A1c 7. 5%. Malnutrition Related to Morbid Obesity Malnutrition related to morbid obesity No Intervention/Recommendation Comments 1.Continue Mechanical Soft, NORRIS, CCHO diet as tolerated. 2.Continue antihyperglycemic medication for glucose control per MD order. Expected Outcomes/Goals Expected Outcomes/Goals 1.PO intake to continue to meet >75% of estimated nutritional needs. 2.Monitor PO intake, wt, nutrition related labs, and skin integrity. 3.F/U as low risk in 7-10 days , 07/05-07/08
[2019-06-30] MEDS: INSULIN LISPRO SLIDING SCALE 100 UNITS/ML UNIT SUBQ SCH (07:00)
--- NOTE | 2019-06-30 07:50 | Progress Notes ---
DATE: SUBJECTIVE: The patient seen, chart reviewed, discussed with staff. The patient remains bizarre, grandiose, still stating she is in the hospital. Ongoing delusions, grandiosities, gets agitated, upset at times, can strike out. Fair sleep, mostly keeps to self, withdrawn, scared of others. PLAN: We will continue to monitor closely, ongoing symptoms, safety concerns. [facility]# [id number]
[2019-06-30] MEDS: Fluticasone Propionate Nasal 1 SPR SPR NS SCH (09:19)
--- NOTE | 2019-06-30 11:20 | Progress Notes ---
DATE: 06/30/2019 SUBJECTIVE: The patient was seen in the dining area. The patient appears to be guarded, easily gets frustrated, still has ongoing grandiosity and delusion, easily gets agitated with intermittent paranoia, appears to be withdrawn and isolative at times. Otherwise, the patient is in no acute distress. OBJECTIVE: VITAL SIGNS: Temperature 97.1, heart rate 62, blood pressure 140/77, respirations 20, 98% on room air. HEENT: Head is atraumatic and normocephalic. Eyes: Bilateral conjunctivae are clear. Bilateral pupils are equally round and reactive. NECK: Supple. No JVD. CARDIOVASCULAR: S1 and S2, without murmur. PULMONARY: Clear to auscultation. GASTROINTESTINAL: Soft and nontender without guarding. Positive bowel sounds. MUSCULOSKELETAL: No clubbing. No cyanosis noted. ASSESSMENT: 1. Schizophrenia. 2. Hypertension. 3. Diabetes. 4. Anemia. 5. Gastroesophageal reflux disease. PLAN: We will keep the patient to inpatient Psychiatric Unit. We will follow up with a psychiatrist to monitor the patient's condition and behavior. We will put the patient on fall precautions. Treatment plans were discussed with the patient's nurse. Treatment plans were discussed with Dr. Gates. JOB# [id number]
[2019-07-01] MEDS: INSULIN LISPRO SLIDING SCALE 100 UNITS/ML UNIT SUBQ SCH (06:41)
[2019-07-01] MEDS: Fluticasone Propionate Nasal 1 SPR SPR NS SCH (09:09)
--- NOTE | 2019-07-01 13:26 | Internal Medicine Prog Note ---
Internal Medicine Subjective - Subjective Patient is:: awake, verbal, in bed Patient Complaints of:: other (Diabetic.) Per staff patient has:: no adverse event, no episodes of fall Internal Medicine Objective - Results Recent Labs: Laboratory Last Values POC Glucose 118 MG/DL (70 - 105) H 07/01/19 06:22 - Physical Exam Vitals and I&O: Vital Signs Temp 97.2 F 07/01/19 06:15 Pulse 62 07/01/19 09:09 Resp 18 07/01/19 06:15 BP 147/65 07/01/19 09:09 Pulse Ox 99 07/01/19 06:15 Intake & Output 06/30/19 07/01/19 07/01/19 18:59 06:59 18:59 Intake Total 240 Output Total 0 Balance 0 240 Intake: Oral 240 Output: Stool 0 Other: # Voids 2 1 Active Medications: Current Medications Acetaminophen (Tylenol) 650 mg PO Q4HR PRN PRN Reason: Mild Pain (1-3) Stop: 08/23/19 20:07 Acetaminophen (Tylenol) 650 mg PO Q4H PRN PRN Reason: For Temp above 101F Stop: 08/23/19 20:08 Acetaminophen (Tylenol Extra Strength) 500 mg PO Q8H PRN PRN Reason: For moderate pain (4-6) Stop: 08/23/19 20:10 Last Admin: 06/29/19 18:28 Dose: 500 mg Al Hydrox/Mg Hydrox/Simethicone (Maalox) 30 ml PO Q6HR PRN PRN Reason: GI DISTRESS Stop: 08/23/19 20:13 Benztropine Mesylate (Cogentin) 0.5 mg PO BID [facility] Stop: 08/24/19 08:59 Last Admin: 07/01/19 09:08 Dose: 0.5 mg Clonazepam (Klonopin) 0.5 mg PO Q6H PRN; Protocol PRN Reason: Anxiety Stop: 08/23/19 20:29 Last Admin: 06/26/19 06:08 Dose: 0.5 mg Dextrose (Glutose 40%) 18.75 gm PO PRN PRN PRN Reason: BS Below 70 if tolerate po Stop: 08/23/19 20:19 Fluticasone Propionate (Flonase) 1 spr NS DAILY [facility] Stop: 08/24/19 08:59 Last Admin: 07/01/19 09:09 Dose: 1 spr Glipizide (Glucotrol) 5 mg PO BID [facility] Stop: 08/24/19 08:59 Last Admin: 07/01/19 09:09 Dose: 5 mg Glucagon (Glucagen) 1 mg IM PRN PRN PRN Reason: BS Below 70 if not tolerate po Stop: 08/23/19 20:19 Hydralazine HCl (Apresoline) 25 mg PO Q4H PRN PRN Reason: Give if SBP above 110 Stop: 08/23/19 20:29 Last Admin: 06/28/19 06:00 Dose: 25 mg Insulin Human Lispro (Humalog Insulin Sliding Scale) 0 units SUBQ QDAC [facility]; Protocol Stop: 08/26/19 07:29 Last Admin: 07/01/19 06:41 Dose: Not Given Losartan Potassium (Cozaar) 50 mg PO DAILY [facility] Stop: 08/24/19 10:11 Last Admin: 07/01/19 09:09 Dose: 50 mg Magnesium Hydroxide (Milk Of Magnesia) 30 ml PO HS PRN PRN Reason: Constipation Stop: 08/23/19 20:13 Risperidone (Risperdal) 0.75 mg PO TID [facility]; Protocol Stop: 08/27/19 20:59 Last Admin: 07/01/19 09:09 Dose: 0.75 mg Temazepam (Restoril) 15 mg PO HS PRN; Protocol PRN Reason: Insomnia Stop: 08/23/19 20:26 Last Admin: 06/29/19 21:10 Dose: 15 mg General: demented, NAD HEENT: NC/AT, PERRLA Neck: Supple, No JVD Lungs: other (no acute respiratory distress on RA) Cardiovascular: RRR Abdomen: soft, non-tender Extremities: clear Neurological: no change Internal Medicine Assmt/Plan - Assessment Assessment: Likely schizophrenia per pscyh Psychosis HTN DM Dementia GERD Anemia - Plan Plan: Continue current treatment plan. Continue current medications Continue to monitor VS Monitor Diet/Nutritional support. Psych management per Psychiatry. Pain Management. PT/OT prn Safety precaution, Fall precaution, frequent nursing round. Supportive care. Continue collaborating with consulting specialists, case management and nursing team Nutritional Asmnt/Malnutr-PDOC - Dietary Evaluation Malnutrition Findings (Please click <Entered> for more info): Nutritional Asmnt/Malnutrition Start: 06/28/19 14: 20 Text: Status: Complete Freq: Protocol: Document 06/28/19 14:20 EBONIE (Rec: 06/28/19 14:25 EBONIE [email or web address]) Nutritional Asmnt/Malnutrition Patient General Information Nutritional Screening Moderate Risk Diagnosis Psychosis Pertinent Medical Hx/Surgical Hx HTN, Anemia, GERD, DM, Dementia, Psychosis Subjective Information Pt is a 79-year-old female admitted on d/t psychosis, delusions. Pt is eating an estimated 100% of meals since admit date Per Meal/Nutrition Activity Record . Dietary is currently providing an estimated 1900 kcals and 100 gm Pro to meet 100% kcal and 100+% Pro needs. Visited pt today after lunchtime, documented pt food preferences. Explained pt diet Rx to her and suggested eating the whole fruit as I'd prefer her not to have juice d /t her DM, pt expressed understanding. Anthropometrics HT: 57 WT: 171 LB (63.64 kg) ABW: 144 LB (65.45 kg) BMI: 26.78 (Overweight) GI/ Skin Integrity GI: WNL, Soft, Non-tender BM: 06/27 x1 I/O: 1080/Not Noted Skin: WNL, Intact Julián: 20 Diet Order: Mechanical Soft, NORRIS, CCHO Estimated Energy Needs: ( Geriatric, ABW) 4215-0311 kcals (25-30 kcals/ kg) 60-76g Pro (1.0-1.2 g/kg) 1600-2000ml (25-30 ml/kg) Current Diet Order/ Nutrition Support Mechanical Soft, NORRIS, CCHO Pertinent Medications Maalox (PRN), Glutose 40% (PRN ), Glucotrol, Glucagen (PRN), INS-SS, Cozaar, MOM (PRN) Pertinent Labs POC Glucose (last 24 hours): 113, 77,129 06/24: A1c 7.5%, glucose 138, BUN/Cr 22/1.01, Alb 3.1 Nutritional Hx/Data Height 5 ft 7 in Height (Calculated Centimeters) 170.2 Current Weight (lbs) 171 lb Weight (Calculated Kilograms) 77.6 Weight (Calculated Grams) 99218.3 [place] Body Weight 135 LB (61.36 kg) % [place] Body Weight 127 Body Mass Index (BMI) 26.7 Weight Status Overweight GI Symptoms GI Symptoms None Last BM 06/27 x1 Skin Integrity/Comment: Skin: WNL, Intact Julián: 20 Estimated Nutritional Goals BEE in Kcals: Adj wt of IBW Calories/Kcals/Kg 25-30 Kcals Calculated 0211-0478 Protein: Adj wt of IBW Protein g/k.0-1.2 Protein Calculated 60-76 Fluid: ml 1600-2000ml (25-30 ml/kg) Nutritional Problem 1. Problem Problem Impaired nutrient utilization Etiology r/t endocrine dysfunction Signs/Symptoms: aeb Hx DM, labs (06/24) A1c 7. 5%. Malnutrition Related to Morbid Obesity Malnutrition related to morbid obesity No Intervention/Recommendation Comments 1.Continue Mechanical Soft, NORRIS, CCHO diet as tolerated. 2.Continue antihyperglycemic medication for glucose control per MD order. Expected Outcomes/Goals Expected Outcomes/Goals 1.PO intake to continue to meet >75% of estimated nutritional needs. 2.Monitor PO intake, wt, nutrition related labs, and skin integrity. 3.F/U as low risk in 7-10 days , 07/05-07/08
--- NOTE | 2019-07-01 22:23 | Progress Notes ---
DATE: SUBJECTIVE: The patient was seen, chart reviewed, and discussed with staff. The patient continues to be very delusional, responding to internal stimuli, can often be quite grandiose, bragging about very improbable accomplishments. She has, however, been compliant with medications. No reports of any physical or verbal aggression today. PLAN: The patient continues to be actively psychotic, unpredictable, and impulsive, so that she will require inpatient care center and treatment. We will monitor on a daily basis for response to medications and titrate medications as needed. JOB# [id number]
[2019-07-02] MEDS: INSULIN LISPRO SLIDING SCALE 100 UNITS/ML UNIT SUBQ SCH (06:55)
[2019-07-02] MEDS: Fluticasone Propionate Nasal 1 SPR SPR NS SCH (08:55)
--- NOTE | 2019-07-02 09:46 | Internal Medicine Prog Note ---
Internal Medicine Subjective - Subjective Service Date: 07/02/19 Patient seen and examined:: with staff Patient is:: awake, verbal, in bed, confused Patient Complaints of:: other (Diabetic.) Per staff patient has:: no adverse event, no episodes of fall Internal Medicine Objective - Results Recent Labs: Laboratory Last Values POC Glucose 118 MG/DL (70 - 105) H 07/01/19 06:22 - Physical Exam Vitals and I&O: Vital Signs Temp 97.7 F 07/02/19 06:38 Pulse 61 07/02/19 08:56 Resp 18 07/02/19 06:38 BP 146/73 07/02/19 08:56 Pulse Ox 99 07/02/19 06:38 Intake & Output 07/01/19 07/02/19 07/02/19 18:59 06:59 18:59 Intake Total 1000 240 Balance 1000 240 Intake: Oral 1000 240 Other: # Voids 3 2 # Bowel Movements 1 Active Medications: Current Medications Acetaminophen (Tylenol) 650 mg PO Q4HR PRN PRN Reason: Mild Pain (1-3) Stop: 08/23/19 20:07 Acetaminophen (Tylenol) 650 mg PO Q4H PRN PRN Reason: For Temp above 101F Stop: 08/23/19 20:08 Acetaminophen (Tylenol Extra Strength) 500 mg PO Q8H PRN PRN Reason: For moderate pain (4-6) Stop: 08/23/19 20:10 Last Admin: 06/29/19 18:28 Dose: 500 mg Al Hydrox/Mg Hydrox/Simethicone (Maalox) 30 ml PO Q6HR PRN PRN Reason: GI DISTRESS Stop: 08/23/19 20:13 Benztropine Mesylate (Cogentin) 0.5 mg PO BID [facility] Stop: 08/24/19 08:59 Last Admin: 07/02/19 08:55 Dose: 0.5 mg Clonazepam (Klonopin) 0.5 mg PO Q6H PRN; Protocol PRN Reason: Anxiety Stop: 08/23/19 20:29 Last Admin: 06/26/19 06:08 Dose: 0.5 mg Dextrose (Glutose 40%) 18.75 gm PO PRN PRN PRN Reason: BS Below 70 if tolerate po Stop: 08/23/19 20:19 Fluticasone Propionate (Flonase) 1 spr NS DAILY [facility] Stop: 08/24/19 08:59 Last Admin: 07/02/19 08:55 Dose: 1 spr Glipizide (Glucotrol) 5 mg PO BID [facility] Stop: 08/24/19 08:59 Last Admin: 07/02/19 08:55 Dose: 5 mg Glucagon (Glucagen) 1 mg IM PRN PRN PRN Reason: BS Below 70 if not tolerate po Stop: 08/23/19 20:19 Hydralazine HCl (Apresoline) 25 mg PO Q4H PRN PRN Reason: Give if SBP above 110 Stop: 08/23/19 20:29 Last Admin: 06/28/19 06:00 Dose: 25 mg Insulin Human Lispro (Humalog Insulin Sliding Scale) 0 units SUBQ QDAC [facility]; Protocol Stop: 08/26/19 07:29 Last Admin: 07/02/19 06:55 Dose: Not Given Losartan Potassium (Cozaar) 50 mg PO DAILY [facility] Stop: 08/24/19 10:11 Last Admin: 07/02/19 08:56 Dose: 50 mg Magnesium Hydroxide (Milk Of Magnesia) 30 ml PO HS PRN PRN Reason: Constipation Stop: 08/23/19 20:13 Risperidone (Risperdal) 0.75 mg PO TID [facility]; Protocol Stop: 08/27/19 20:59 Last Admin: 07/02/19 08:56 Dose: 0.75 mg Temazepam (Restoril) 15 mg PO HS PRN; Protocol PRN Reason: Insomnia Stop: 08/23/19 20:26 Last Admin: 07/01/19 20:42 Dose: 15 mg Physical Exam: Patient is still very delusional and dis-oriented, less aggressive today, will continue to monitor. General: demented, NAD HEENT: NC/AT, PERRLA Neck: Supple, No JVD Lungs: other (no acute respiratory distress on RA) Cardiovascular: RRR Abdomen: soft, non-tender Extremities: clear Neurological: no change Internal Medicine Assmt/Plan - Assessment Assessment: Schizophrenia. Psychosis. Hypertension. Diabetes Mellitus. Dementia. Gerd. Anemia. - Plan Plan: Safety precaution. Monitor vitals and labs. Continue present meds as directed. Supportive care. Accu-check twice daily. Monitor diet and nutritional support. Psych management as per Psych. Continue current treatment plan. Nutritional Asmnt/Malnutr-PDOC - Dietary Evaluation Malnutrition Findings (Please click <Entered> for more info): Nutritional Asmnt/Malnutrition Start: 06/28/19 14: 20 Text: Status: Complete Freq: Protocol: Document 06/28/19 14:20 EBONIE (Rec: 06/28/19 14:25 EBONIE [email or web address]) Nutritional Asmnt/Malnutrition Patient General Information Nutritional Screening Moderate Risk Diagnosis Psychosis Pertinent Medical Hx/Surgical Hx HTN, Anemia, GERD, DM, Dementia, Psychosis Subjective Information Pt is a 79-year-old female admitted on d/t psychosis, delusions. Pt is eating an estimated 100% of meals since admit date Per Meal/Nutrition Activity Record . Dietary is currently providing an estimated 1900 kcals and 100 gm Pro to meet 100% kcal and 100+% Pro needs. Visited pt today after lunchtime, documented pt food preferences. Explained pt diet Rx to her and suggested eating the whole fruit as I'd prefer her not to have juice d /t her DM, pt expressed understanding. Anthropometrics HT: 57 WT: 171 LB (63.64 kg) ABW: 144 LB (65.45 kg) BMI: 26.78 (Overweight) GI/ Skin Integrity GI: WNL, Soft, Non-tender BM: 06/27 x1 I/O: 1080/Not Noted Skin: WNL, Intact Julián: 20 Diet Order: Mechanical Soft, NORRIS, CCHO Estimated Energy Needs: ( Geriatric, ABW) 3119-1526 kcals (25-30 kcals/ kg) 60-76g Pro (1.0-1.2 g/kg) 1600-2000ml (25-30 ml/kg) Current Diet Order/ Nutrition Support Mechanical Soft, NORRIS, CCHO Pertinent Medications Maalox (PRN), Glutose 40% (PRN ), Glucotrol, Glucagen (PRN), INS-SS, Cozaar, MOM (PRN) Pertinent Labs POC Glucose (last 24 hours): 113, 77,129 06/24: A1c 7.5%, glucose 138, BUN/Cr 22/1.01, Alb 3.1 Nutritional Hx/Data Height 1.7 m Height (Calculated Centimeters) 170.2 Current Weight (lbs) 77.564 kg Weight (Calculated Kilograms) 77.6 Weight (Calculated Grams) 33540.3 [place] Body Weight 135 LB (61.36 kg) % [place] Body Weight 127 Body Mass Index (BMI) 26.7 Weight Status Overweight GI Symptoms GI Symptoms None Last BM 06/27 x1 Skin Integrity/Comment: Skin: WNL, Intact Julián: 20 Estimated Nutritional Goals BEE in Kcals: Adj wt of IBW Calories/Kcals/Kg 25-30 Kcals Calculated 8359-5131 Protein: Adj wt of IBW Protein g/k.0-1.2 Protein Calculated 60-76 Fluid: ml 1600-2000ml (25-30 ml/kg) Nutritional Problem 1. Problem Problem Impaired nutrient utilization Etiology r/t endocrine dysfunction Signs/Symptoms: aeb Hx DM, labs (06/24) A1c 7. 5%. Malnutrition Related to Morbid Obesity Malnutrition related to morbid obesity No Intervention/Recommendation Comments 1.Continue Mechanical Soft, NORRIS, CCHO diet as tolerated. 2.Continue antihyperglycemic medication for glucose control per MD order. Expected Outcomes/Goals Expected Outcomes/Goals 1.PO intake to continue to meet >75% of estimated nutritional needs. 2.Monitor PO intake, wt, nutrition related labs, and skin integrity. 3.F/U as low risk in 7-10 days , 07/05-07/08
--- NOTE | 2019-07-02 19:40 | Progress Notes ---
DATE: 07/02/2019 Case was discussed with staff of the patient, reviewed records. Covering for Dr. Estrada. She is a well-known case. I have seen her before covering for Dr. Estrada and she was readmitted on 06/24/2019. She is a 79-year-old, came from [place] with a history of psychosis, forgetfulness. She believes she owns the hospital. Continues to have poor insight, unable to make safe plan for self-care or participate in a meaningful conversation, unpredictable, impulsive, needing redirection, delusional. Her sleep and appetite varies. She is on Risperdal 0.5 mg 3 times a day. No side effects with the medication, no sedation, no nausea, no extrapyramidal symptoms. We will continue outpatient group therapy, milieu therapy, adjust medication as needed. JOB# [id number]
[2019-07-03] MEDS: INSULIN LISPRO SLIDING SCALE 100 UNITS/ML UNIT SUBQ SCH (06:31)
[2019-07-03] MEDS ORDERED: Haloperidol Lactate 5 mg/mL 1mL Vial IM ONE (08:45)
[2019-07-03] MEDS: Fluticasone Propionate Nasal 1 SPR SPR NS SCH (09:54)
--- NOTE | 2019-07-03 16:12 | Internal Medicine Prog Note ---
Internal Medicine Subjective - Subjective Service Date: 07/03/19 Patient is:: awake, verbal, in bed, confused Patient Complaints of:: other (Diabetic.) Per staff patient has:: no adverse event, no episodes of fall Internal Medicine Objective - Results Recent Labs: Laboratory Last Values POC Glucose 129 MG/DL (70 - 105) H 07/03/19 06:22 - Physical Exam Vitals and I&O: Vital Signs Temp 98 F 07/03/19 14:00 Pulse 68 07/03/19 14:00 Resp 18 07/03/19 14:00 BP 174/79 07/03/19 14:00 Pulse Ox 99 07/03/19 14:00 Intake & Output 07/02/19 07/03/19 07/03/19 18:59 06:59 18:59 Intake Total 1000 240 Balance 1000 240 Intake: Oral 1000 240 Other: # Voids 4 2 # Bowel Movements 1 Active Medications: Current Medications Acetaminophen (Tylenol) 650 mg PO Q4HR PRN PRN Reason: Mild Pain (1-3) Stop: 08/23/19 20:07 Acetaminophen (Tylenol) 650 mg PO Q4H PRN PRN Reason: For Temp above 101F Stop: 08/23/19 20:08 Acetaminophen (Tylenol Extra Strength) 500 mg PO Q8H PRN PRN Reason: For moderate pain (4-6) Stop: 08/23/19 20:10 Last Admin: 06/29/19 18:28 Dose: 500 mg Al Hydrox/Mg Hydrox/Simethicone (Maalox) 30 ml PO Q6HR PRN PRN Reason: GI DISTRESS Stop: 08/23/19 20:13 Benztropine Mesylate (Cogentin) 0.5 mg PO BID [facility] Stop: 08/24/19 08:59 Last Admin: 07/03/19 09:57 Dose: 0.5 mg Clonazepam (Klonopin) 0.5 mg PO Q6H PRN; Protocol PRN Reason: Anxiety Stop: 08/23/19 20:29 Last Admin: 06/26/19 06:08 Dose: 0.5 mg Dextrose (Glutose 40%) 18.75 gm PO PRN PRN PRN Reason: BS Below 70 if tolerate po Stop: 08/23/19 20:19 Fluticasone Propionate (Flonase) 1 spr NS DAILY [facility] Stop: 08/24/19 08:59 Last Admin: 07/03/19 09:54 Dose: 1 spr Glipizide (Glucotrol) 5 mg PO BID [facility] Stop: 08/24/19 08:59 Last Admin: 07/03/19 09:59 Dose: 5 mg Glucagon (Glucagen) 1 mg IM PRN PRN PRN Reason: BS Below 70 if not tolerate po Stop: 08/23/19 20:19 Hydralazine HCl (Apresoline) 25 mg PO Q4H PRN PRN Reason: Give if SBP above 110 Stop: 08/23/19 20:29 Last Admin: 06/28/19 06:00 Dose: 25 mg Insulin Human Lispro (Humalog Insulin Sliding Scale) 0 units SUBQ QDAC [facility]; Protocol Stop: 08/26/19 07:29 Last Admin: 07/03/19 06:31 Dose: Not Given Losartan Potassium (Cozaar) 50 mg PO DAILY [facility] Stop: 08/24/19 10:11 Last Admin: 07/03/19 09:58 Dose: 50 mg Magnesium Hydroxide (Milk Of Magnesia) 30 ml PO HS PRN PRN Reason: Constipation Stop: 08/23/19 20:13 Risperidone (Risperdal) 1 mg PO TID [facility]; Protocol Stop: 09/01/19 13:59 Last Admin: 07/03/19 15:26 Dose: 1 mg Temazepam (Restoril) 15 mg PO HS PRN; Protocol PRN Reason: Insomnia Stop: 08/23/19 20:26 Last Admin: 07/02/19 20:57 Dose: 15 mg General: demented, NAD HEENT: NC/AT, PERRLA Neck: Supple, No JVD Lungs: other (no acute respiratory distress on RA) Cardiovascular: RRR Abdomen: soft, non-tender Extremities: clear Neurological: no change Internal Medicine Assmt/Plan - Assessment Assessment: Likely schizophrenia per pscyh Psychosis HTN DM Dementia GERD Anemia - Plan Plan: Continue current treatment plan. Continue current medications Continue to monitor VS Monitor Diet/Nutritional support. Psych management per Psychiatry. Pain Management. PT/OT prn Safety precaution, Fall precaution, frequent nursing round. Supportive care. Continue collaborating with consulting specialists, case management and nursing team Nutritional Asmnt/Malnutr-PDOC - Dietary Evaluation Malnutrition Findings (Please click <Entered> for more info): Nutritional Asmnt/Malnutrition Start: 06/28/19 14: 20 Text: Status: Complete Freq: Protocol: Document 06/28/19 14:20 EBONIE (Rec: 06/28/19 14:25 EBONIE [email or web address]) Nutritional Asmnt/Malnutrition Patient General Information Nutritional Screening Moderate Risk Diagnosis Psychosis Pertinent Medical Hx/Surgical Hx HTN, Anemia, GERD, DM, Dementia, Psychosis Subjective Information Pt is a 79-year-old female admitted on d/t psychosis, delusions. Pt is eating an estimated 100% of meals since admit date Per Meal/Nutrition Activity Record . Dietary is currently providing an estimated 1900 kcals and 100 gm Pro to meet 100% kcal and 100+% Pro needs. Visited pt today after lunchtime, documented pt food preferences. Explained pt diet Rx to her and suggested eating the whole fruit as I'd prefer her not to have juice d /t her DM, pt expressed understanding. Anthropometrics HT: 57 WT: 171 LB (63.64 kg) ABW: 144 LB (65.45 kg) BMI: 26.78 (Overweight) GI/ Skin Integrity GI: WNL, Soft, Non-tender BM: 06/27 x1 I/O: 1080/Not Noted Skin: WNL, Intact Julián: 20 Diet Order: Mechanical Soft, NORRIS, CCHO Estimated Energy Needs: ( Geriatric, ABW) 7820-8339 kcals (25-30 kcals/ kg) 60-76g Pro (1.0-1.2 g/kg) 1600-2000ml (25-30 ml/kg) Current Diet Order/ Nutrition Support Mechanical Soft, NORRIS, CCHO Pertinent Medications Maalox (PRN), Glutose 40% (PRN ), Glucotrol, Glucagen (PRN), INS-SS, Cozaar, MOM (PRN) Pertinent Labs POC Glucose (last 24 hours): 113, 77,129 06/24: A1c 7.5%, glucose 138, BUN/Cr 22/1.01, Alb 3.1 Nutritional Hx/Data Height 5 ft 7 in Height (Calculated Centimeters) 170.2 Current Weight (lbs) 171 lb Weight (Calculated Kilograms) 77.6 Weight (Calculated Grams) 93446.3 [place] Body Weight 135 LB (61.36 kg) % [place] Body Weight 127 Body Mass Index (BMI) 26.7 Weight Status Overweight GI Symptoms GI Symptoms None Last BM 06/27 x1 Skin Integrity/Comment: Skin: WNL, Intact Julián: 20 Estimated Nutritional Goals BEE in Kcals: Adj wt of IBW Calories/Kcals/Kg 25-30 Kcals Calculated 0430-0143 Protein: Adj wt of IBW Protein g/k.0-1.2 Protein Calculated 60-76 Fluid: ml 1600-2000ml (25-30 ml/kg) Nutritional Problem 1. Problem Problem Impaired nutrient utilization Etiology r/t endocrine dysfunction Signs/Symptoms: aeb Hx DM, labs (06/24) A1c 7. 5%. Malnutrition Related to Morbid Obesity Malnutrition related to morbid obesity No Intervention/Recommendation Comments 1.Continue Mechanical Soft, NORRIS, CCHO diet as tolerated. 2.Continue antihyperglycemic medication for glucose control per MD order. Expected Outcomes/Goals Expected Outcomes/Goals 1.PO intake to continue to meet >75% of estimated nutritional needs. 2.Monitor PO intake, wt, nutrition related labs, and skin integrity. 3.F/U as low risk in 7-10 days , 07/05-07/08
--- NOTE | 2019-07-03 23:02 | Progress Notes ---
DATE: 07/03/2019 SUBJECTIVE: Case was discussed with staff of the patient, reviewed records. The patient had to be medicated earlier today because of severe agitation, irritability, unpredictable, impulsive, needing redirection, unable to make safe plan for self-care. She has been compliant with the medication with no side effects, no sedation, no nausea, no extrapyramidal symptoms. She is on Risperdal 0.75 mg 3 times a day. I will be increasing the dose to 1 mg 3 times a day and so far no side effects with the medication, no sedation, no nausea, and no extrapyramidal symptoms. We will continue outpatient group therapy, milieu therapy, and adjust her medication as needed. [facility]# [id number]
[2019-07-04] MEDS: INSULIN LISPRO SLIDING SCALE 100 UNITS/ML UNIT SUBQ SCH (06:32)
[2019-07-04] MEDS: Fluticasone Propionate Nasal 1 SPR SPR NS SCH (08:53)
--- NOTE | 2019-07-04 19:01 | Internal Medicine Prog Note ---
Internal Medicine Subjective - Subjective Service Date: 07/04/19 Patient seen and examined:: with staff, chart reviewed Patient is:: awake, verbal, confused Patient Complaints of:: other (Diabetic.) Per staff patient has:: no adverse event, no episodes of fall Internal Medicine Objective - Results Recent Labs: Laboratory Last Values POC Glucose 129 MG/DL (70 - 105) H 07/04/19 06:01 - Physical Exam Vitals and I&O: Vital Signs Temp 97.7 F 07/04/19 17:16 Pulse 73 07/04/19 17:16 Resp 18 07/04/19 17:16 BP 154/88 07/04/19 17:16 Pulse Ox 99 07/04/19 17:16 Intake & Output 07/03/19 07/04/19 07/04/19 18:59 06:59 18:59 Intake Total 800 120 Balance 800 120 Intake: Oral 800 120 Other: # Voids 4 3 # Bowel Movements 0 Active Medications: Current Medications Acetaminophen (Tylenol) 650 mg PO Q4HR PRN PRN Reason: Mild Pain (1-3) Stop: 08/23/19 20:07 Acetaminophen (Tylenol) 650 mg PO Q4H PRN PRN Reason: For Temp above 101F Stop: 08/23/19 20:08 Acetaminophen (Tylenol Extra Strength) 500 mg PO Q8H PRN PRN Reason: For moderate pain (4-6) Stop: 08/23/19 20:10 Last Admin: 06/29/19 18:28 Dose: 500 mg Al Hydrox/Mg Hydrox/Simethicone (Maalox) 30 ml PO Q6HR PRN PRN Reason: GI DISTRESS Stop: 08/23/19 20:13 Benztropine Mesylate (Cogentin) 0.5 mg PO BID [facility] Stop: 08/24/19 08:59 Last Admin: 07/04/19 16:43 Dose: 0.5 mg Clonazepam (Klonopin) 0.5 mg PO Q6H PRN; Protocol PRN Reason: Anxiety Stop: 08/23/19 20:29 Last Admin: 06/26/19 06:08 Dose: 0.5 mg Dextrose (Glutose 40%) 18.75 gm PO PRN PRN PRN Reason: BS Below 70 if tolerate po Stop: 08/23/19 20:19 Fluticasone Propionate (Flonase) 1 spr NS DAILY [facility] Stop: 08/24/19 08:59 Last Admin: 07/04/19 08:53 Dose: 1 spr Glipizide (Glucotrol) 5 mg PO BID [facility] Stop: 08/24/19 08:59 Last Admin: 07/04/19 16:43 Dose: 5 mg Glucagon (Glucagen) 1 mg IM PRN PRN PRN Reason: BS Below 70 if not tolerate po Stop: 08/23/19 20:19 Hydralazine HCl (Apresoline) 25 mg PO Q4H PRN PRN Reason: Give if SBP above 110 Stop: 08/23/19 20:29 Last Admin: 06/28/19 06:00 Dose: 25 mg Insulin Human Lispro (Humalog Insulin Sliding Scale) 0 units SUBQ QDAC [facility]; Protocol Stop: 08/26/19 07:29 Last Admin: 07/04/19 06:32 Dose: Not Given Losartan Potassium (Cozaar) 50 mg PO DAILY [facility] Stop: 08/24/19 10:11 Last Admin: 07/04/19 08:54 Dose: 50 mg Magnesium Hydroxide (Milk Of Magnesia) 30 ml PO HS PRN PRN Reason: Constipation Stop: 08/23/19 20:13 Risperidone (Risperdal) 1 mg PO TID [facility]; Protocol Stop: 09/01/19 13:59 Last Admin: 07/04/19 14:15 Dose: 1 mg Temazepam (Restoril) 15 mg PO HS PRN; Protocol PRN Reason: Insomnia Stop: 08/23/19 20:26 Last Admin: 07/03/19 20:42 Dose: 15 mg Physical Exam: We will continue to monitor patient, she is very impulsive, irritable and unpredictable. General: demented, NAD HEENT: NC/AT, PERRLA Neck: Supple, No JVD Lungs: other (no acute respiratory distress on RA) Cardiovascular: RRR Abdomen: soft, non-tender Extremities: clear Neurological: no change Internal Medicine Assmt/Plan - Assessment Assessment: Schizophrenia. Psychosis. Hypertension. Diabetes Mellitus. Dementia. Gerd. Anemia. - Plan Plan: Continue present meds as directed. Supportive care. Safety precaution. Monitor vitals and labs. Accu-check twice daily. Monitor diet and nutritional support. Psych management as per Psych. Continue current treatment plan. Nutritional Asmnt/Malnutr-PDOC - Dietary Evaluation Malnutrition Findings (Please click <Entered> for more info): Nutritional Asmnt/Malnutrition Start: 06/28/19 14: 20 Text: Status: Complete Freq: Protocol: Document 06/28/19 14:20 EBONIE (Rec: 06/28/19 14:25 EBONIE [email or web address]) Nutritional Asmnt/Malnutrition Patient General Information Nutritional Screening Moderate Risk Diagnosis Psychosis Pertinent Medical Hx/Surgical Hx HTN, Anemia, GERD, DM, Dementia, Psychosis Subjective Information Pt is a 79-year-old female admitted on d/t psychosis, delusions. Pt is eating an estimated 100% of meals since admit date Per Meal/Nutrition Activity Record . Dietary is currently providing an estimated 1900 kcals and 100 gm Pro to meet 100% kcal and 100+% Pro needs. Visited pt today after lunchtime, documented pt food preferences. Explained pt diet Rx to her and suggested eating the whole fruit as I'd prefer her not to have juice d /t her DM, pt expressed understanding. Anthropometrics HT: 57 WT: 171 LB (63.64 kg) ABW: 144 LB (65.45 kg) BMI: 26.78 (Overweight) GI/ Skin Integrity GI: WNL, Soft, Non-tender BM: 06/27 x1 I/O: 1080/Not Noted Skin: WNL, Intact Julián: 20 Diet Order: Mechanical Soft, NORRIS, CCHO Estimated Energy Needs: ( Geriatric, ABW) 6855-0450 kcals (25-30 kcals/ kg) 60-76g Pro (1.0-1.2 g/kg) 1600-2000ml (25-30 ml/kg) Current Diet Order/ Nutrition Support Mechanical Soft, NORRIS, CCHO Pertinent Medications Maalox (PRN), Glutose 40% (PRN ), Glucotrol, Glucagen (PRN), INS-SS, Cozaar, MOM (PRN) Pertinent Labs POC Glucose (last 24 hours): 113, 77,129 06/24: A1c 7.5%, glucose 138, BUN/Cr 22/1.01, Alb 3.1 Nutritional Hx/Data Height 1.7 m Height (Calculated Centimeters) 170.2 Current Weight (lbs) 77.564 kg Weight (Calculated Kilograms) 77.6 Weight (Calculated Grams) 20649.3 [place] Body Weight 135 LB (61.36 kg) % [place] Body Weight 127 Body Mass Index (BMI) 26.7 Weight Status Overweight GI Symptoms GI Symptoms None Last BM 06/27 x1 Skin Integrity/Comment: Skin: WNL, Intact Julián: 20 Estimated Nutritional Goals BEE in Kcals: Adj wt of IBW Calories/Kcals/Kg 25-30 Kcals Calculated 4180-3236 Protein: Adj wt of IBW Protein g/k.0-1.2 Protein Calculated 60-76 Fluid: ml 1600-2000ml (25-30 ml/kg) Nutritional Problem 1. Problem Problem Impaired nutrient utilization Etiology r/t endocrine dysfunction Signs/Symptoms: aeb Hx DM, labs (06/24) A1c 7. 5%. Malnutrition Related to Morbid Obesity Malnutrition related to morbid obesity No Intervention/Recommendation Comments 1.Continue Mechanical Soft, NORRIS, CCHO diet as tolerated. 2.Continue antihyperglycemic medication for glucose control per MD order. Expected Outcomes/Goals Expected Outcomes/Goals 1.PO intake to continue to meet >75% of estimated nutritional needs. 2.Monitor PO intake, wt, nutrition related labs, and skin integrity. 3.F/U as low risk in 7-10 days , 07/05-07/08
--- NOTE | 2019-07-04 23:01 | Progress Notes ---
DATE: 07/04/2019 SUBJECTIVE: Case was discussed with staff of the patient, reviewed records. She was very agitated yesterday. The patient had to be medicated. The patient today is a bit calmer. Continues to have poor insight, unpredictable, impulsive, needing redirection. Continues to have poor insight, unable to make safe plan for self-care. No side effects to the medication, no sedation, no nausea, no extrapyramidal symptoms. She tolerated the increase in Risperdal yesterday to 1 mg 3 times a day. We will continue outpatient group therapy, milieu therapy, and adjust medications as needed. JOB# [id number]
[2019-07-05] MEDS: INSULIN LISPRO SLIDING SCALE 100 UNITS/ML UNIT SUBQ SCH (06:45)
[2019-07-05] MEDS: Fluticasone Propionate Nasal 1 SPR SPR NS SCH (09:03)
--- NOTE | 2019-07-05 12:57 | Internal Medicine Prog Note ---
Internal Medicine Subjective - Subjective Service Date: 07/05/19 Patient is:: awake, verbal, confused Patient Complaints of:: other (Diabetic.) Per staff patient has:: no adverse event, no episodes of fall Internal Medicine Objective - Results Recent Labs: Laboratory Last Values POC Glucose 197 MG/DL (70 - 105) H 07/05/19 06:11 - Physical Exam Vitals and I&O: Vital Signs Temp 97.4 F 07/05/19 06:42 Pulse 85 07/05/19 09:03 Resp 19 07/05/19 08:00 BP 123/68 07/05/19 09:03 Pulse Ox 98 07/05/19 06:42 Intake & Output 07/04/19 07/05/19 07/05/19 18:59 06:59 18:59 Intake Total 240 Balance 240 Intake: Oral 240 Other: # Voids 2 Active Medications: Current Medications Acetaminophen (Tylenol) 650 mg PO Q4HR PRN PRN Reason: Mild Pain (1-3) Stop: 08/23/19 20:07 Acetaminophen (Tylenol) 650 mg PO Q4H PRN PRN Reason: For Temp above 101F Stop: 08/23/19 20:08 Acetaminophen (Tylenol Extra Strength) 500 mg PO Q8H PRN PRN Reason: For moderate pain (4-6) Stop: 08/23/19 20:10 Last Admin: 06/29/19 18:28 Dose: 500 mg Al Hydrox/Mg Hydrox/Simethicone (Maalox) 30 ml PO Q6HR PRN PRN Reason: GI DISTRESS Stop: 08/23/19 20:13 Benztropine Mesylate (Cogentin) 0.5 mg PO BID [facility] Stop: 08/24/19 08:59 Last Admin: 07/05/19 09:03 Dose: 0.5 mg Clonazepam (Klonopin) 0.5 mg PO Q6H PRN; Protocol PRN Reason: Anxiety Stop: 08/23/19 20:29 Last Admin: 06/26/19 06:08 Dose: 0.5 mg Dextrose (Glutose 40%) 18.75 gm PO PRN PRN PRN Reason: BS Below 70 if tolerate po Stop: 08/23/19 20:19 Fluticasone Propionate (Flonase) 1 spr NS DAILY [facility] Stop: 08/24/19 08:59 Last Admin: 07/05/19 09:03 Dose: 1 spr Glipizide (Glucotrol) 5 mg PO BID [facility] Stop: 08/24/19 08:59 Last Admin: 07/05/19 09:03 Dose: 5 mg Glucagon (Glucagen) 1 mg IM PRN PRN PRN Reason: BS Below 70 if not tolerate po Stop: 08/23/19 20:19 Hydralazine HCl (Apresoline) 25 mg PO Q4H PRN PRN Reason: Give if SBP above 110 Stop: 08/23/19 20:29 Last Admin: 06/28/19 06:00 Dose: 25 mg Insulin Human Lispro (Humalog Insulin Sliding Scale) 0 units SUBQ QDAC [facility]; Protocol Stop: 08/26/19 07:29 Last Admin: 07/05/19 06:45 Dose: 2 units Losartan Potassium (Cozaar) 50 mg PO DAILY [facility] Stop: 08/24/19 10:11 Last Admin: 07/05/19 09:03 Dose: 50 mg Magnesium Hydroxide (Milk Of Magnesia) 30 ml PO HS PRN PRN Reason: Constipation Stop: 08/23/19 20:13 Risperidone (Risperdal) 1 mg PO TID [facility]; Protocol Stop: 09/01/19 13:59 Last Admin: 07/05/19 09:03 Dose: 1 mg Temazepam (Restoril) 15 mg PO HS PRN; Protocol PRN Reason: Insomnia Stop: 08/23/19 20:26 Last Admin: 07/04/19 23:46 Dose: 15 mg General: demented, NAD HEENT: NC/AT, PERRLA Neck: Supple, No JVD Lungs: other (no acute respiratory distress on RA) Cardiovascular: RRR Abdomen: soft, non-tender Extremities: clear Neurological: no change Internal Medicine Assmt/Plan - Assessment Assessment: Likely schizophrenia [facility] Psychosis HTN DM Dementia GERD Anemia - Plan Plan: Continue current treatment plan. Continue current medications Continue to monitor VS Monitor Diet/Nutritional support. Psych management per Psychiatry. Pain Management. PT/OT prn Safety precaution, Fall precaution, frequent nursing round. Supportive care. Continue collaborating with consulting specialists, case management and nursing team Nutritional Asmnt/Malnutr-PDOC - Dietary Evaluation Malnutrition Findings (Please click <Entered> for more info): Nutritional Asmnt/Malnutrition Start: 06/28/19 14: 20 Text: Status: Complete Freq: Protocol: Document 06/28/19 14:20 EBONIE (Rec: 06/28/19 14:25 EBONIE [email or web address]) Nutritional Asmnt/Malnutrition Patient General Information Nutritional Screening Moderate Risk Diagnosis Psychosis Pertinent Medical Hx/Surgical Hx HTN, Anemia, GERD, DM, Dementia, Psychosis Subjective Information Pt is a 79-year-old female admitted on d/t psychosis, delusions. Pt is eating an estimated 100% of meals since admit date Per Meal/Nutrition Activity Record . Dietary is currently providing an estimated 1900 kcals and 100 gm Pro to meet 100% kcal and 100+% Pro needs. Visited pt today after lunchtime, documented pt food preferences. Explained pt diet Rx to her and suggested eating the whole fruit as I'd prefer her not to have juice d /t her DM, pt expressed understanding. Anthropometrics HT: 57 WT: 171 LB (63.64 kg) ABW: 144 LB (65.45 kg) BMI: 26.78 (Overweight) GI/ Skin Integrity GI: WNL, Soft, Non-tender BM: 06/27 x1 I/O: 1080/Not Noted Skin: WNL, Intact Julián: 20 Diet Order: Mechanical Soft, NORRIS, CCHO Estimated Energy Needs: ( Geriatric, ABW) 0224-9535 kcals (25-30 kcals/ kg) 60-76g Pro (1.0-1.2 g/kg) 1600-2000ml (25-30 ml/kg) Current Diet Order/ Nutrition Support Mechanical Soft, NORRIS, CCHO Pertinent Medications Maalox (PRN), Glutose 40% (PRN ), Glucotrol, Glucagen (PRN), INS-SS, Cozaar, MOM (PRN) Pertinent Labs POC Glucose (last 24 hours): 113, 77,129 06/24: A1c 7.5%, glucose 138, BUN/Cr 22/1.01, Alb 3.1 Nutritional Hx/Data Height 5 ft 7 in Height (Calculated Centimeters) 170.2 Current Weight (lbs) 171 lb Weight (Calculated Kilograms) 77.6 Weight (Calculated Grams) 57440.3 [place] Body Weight 135 LB (61.36 kg) % [place] Body Weight 127 Body Mass Index (BMI) 26.7 Weight Status Overweight GI Symptoms GI Symptoms None Last BM 06/27 x1 Skin Integrity/Comment: Skin: WNL, Intact Julián: 20 Estimated Nutritional Goals BEE in Kcals: Adj wt of IBW Calories/Kcals/Kg 25-30 Kcals Calculated 3333-9912 Protein: Adj wt of IBW Protein g/k.0-1.2 Protein Calculated 60-76 Fluid: ml 1600-2000ml (25-30 ml/kg) Nutritional Problem 1. Problem Problem Impaired nutrient utilization Etiology r/t endocrine dysfunction Signs/Symptoms: aeb Hx DM, labs (06/24) A1c 7. 5%. Malnutrition Related to Morbid Obesity Malnutrition related to morbid obesity No Intervention/Recommendation Comments 1.Continue Mechanical Soft, NORRIS, CCHO diet as tolerated. 2.Continue antihyperglycemic medication for glucose control per MD order. Expected Outcomes/Goals Expected Outcomes/Goals 1.PO intake to continue to meet >75% of estimated nutritional needs. 2.Monitor PO intake, wt, nutrition related labs, and skin integrity. 3.F/U as low risk in 7-10 days , 07/05-07/08
--- NOTE | 2019-07-05 18:19 | Progress Notes ---
DATE: 07/05/2019 Case was discussed with staff of the patient, reviewed records. The patient continues to have episodes of acting out. Continues to have poor insight, unable to make safe plan for self-care. She is compliant with the medication, no side effects, no sedation, no nausea, no extrapyramidal symptoms. Tolerated the increase in her Risperdal to 1 mg 3 times a day. We will continue outpatient group therapy, milieu therapy, and adjust the medications as needed. JOB# [id number]
[2019-07-06] MEDS: INSULIN LISPRO SLIDING SCALE 100 UNITS/ML UNIT SUBQ SCH (06:35)
[2019-07-06] MEDS: Fluticasone Propionate Nasal 1 SPR SPR NS SCH (08:39)
--- NOTE | 2019-07-06 10:26 | Internal Medicine Prog Note ---
Internal Medicine Subjective - Subjective Service Date: 07/06/19 Patient seen and examined:: with staff Patient is:: awake, verbal, confused Patient Complaints of:: other (Diabetic.) Per staff patient has:: no adverse event, no episodes of fall Internal Medicine Objective - Results Recent Labs: Laboratory Last Values POC Glucose 116 MG/DL (70 - 105) H 07/06/19 05:28 - Physical Exam Vitals and I&O: Vital Signs Temp 96.8 F 07/06/19 06:18 Pulse 67 07/06/19 08:35 Resp 19 07/06/19 08:00 BP 173/82 07/06/19 08:35 Pulse Ox 97 07/06/19 06:18 Intake & Output 07/05/19 07/06/19 07/06/19 18:59 06:59 18:59 Intake Total 1200 240 Balance 1200 240 Intake: Oral 1200 240 Other: # Voids 1 # Bowel Movements 1 Active Medications: Current Medications Acetaminophen (Tylenol) 650 mg PO Q4HR PRN PRN Reason: Mild Pain (1-3) Stop: 08/23/19 20:07 Acetaminophen (Tylenol) 650 mg PO Q4H PRN PRN Reason: For Temp above 101F Stop: 08/23/19 20:08 Acetaminophen (Tylenol Extra Strength) 500 mg PO Q8H PRN PRN Reason: For moderate pain (4-6) Stop: 08/23/19 20:10 Last Admin: 06/29/19 18:28 Dose: 500 mg Al Hydrox/Mg Hydrox/Simethicone (Maalox) 30 ml PO Q6HR PRN PRN Reason: GI DISTRESS Stop: 08/23/19 20:13 Benztropine Mesylate (Cogentin) 0.5 mg PO BID MARISEL Stop: 08/24/19 08:59 Last Admin: 07/06/19 08:35 Dose: 0.5 mg Clonazepam (Klonopin) 0.5 mg PO Q6H PRN; Protocol PRN Reason: Anxiety Stop: 08/23/19 20:29 Last Admin: 06/26/19 06:08 Dose: 0.5 mg Dextrose (Glutose 40%) 18.75 gm PO PRN PRN PRN Reason: BS Below 70 if tolerate po Stop: 08/23/19 20:19 Fluticasone Propionate (Flonase) 1 spr NS DAILY [facility] Stop: 08/24/19 08:59 Last Admin: 07/06/19 08:39 Dose: 1 spr Glipizide (Glucotrol) 5 mg PO BID [facility] Stop: 08/24/19 08:59 Last Admin: 07/06/19 08:36 Dose: 5 mg Glucagon (Glucagen) 1 mg IM PRN PRN PRN Reason: BS Below 70 if not tolerate po Stop: 08/23/19 20:19 Hydralazine HCl (Apresoline) 25 mg PO Q4H PRN PRN Reason: Give if SBP above 110 Stop: 08/23/19 20:29 Last Admin: 06/28/19 06:00 Dose: 25 mg Insulin Human Lispro (Humalog Insulin Sliding Scale) 0 units SUBQ QDAC [facility]; Protocol Stop: 08/26/19 07:29 Last Admin: 07/06/19 06:35 Dose: Not Given Losartan Potassium (Cozaar) 50 mg PO DAILY [facility] Stop: 08/24/19 10:11 Last Admin: 07/06/19 08:35 Dose: 50 mg Magnesium Hydroxide (Milk Of Magnesia) 30 ml PO HS PRN PRN Reason: Constipation Stop: 08/23/19 20:13 Risperidone (Risperdal) 1 mg PO TID [facility]; Protocol Stop: 09/01/19 13:59 Last Admin: 07/06/19 08:35 Dose: 1 mg Temazepam (Restoril) 15 mg PO HS PRN; Protocol PRN Reason: Insomnia Stop: 08/23/19 20:26 Last Admin: 07/04/19 23:46 Dose: 15 mg Physical Exam: We will continue to monitor closely, Patient is still aggressive and easily frustrated. General: demented, NAD HEENT: NC/AT, PERRLA Neck: Supple, No JVD Lungs: other (no acute respiratory distress on RA) Cardiovascular: RRR Abdomen: soft, non-tender Extremities: clear Neurological: no change Internal Medicine Assmt/Plan - Assessment Assessment: Schizophrenia. Psychosis. Hypertension. Diabetes Mellitus. Dementia. Gerd. Anemia. - Plan Plan: Continue present meds as directed. Supportive care. Safety precaution. Monitor vitals and labs. Accu-check twice daily. Monitor diet and nutritional support. Psych management as per Psych. Continue current treatment plan. Nutritional Asmnt/Malnutr-PDOC - Dietary Evaluation Malnutrition Findings (Please click <Entered> for more info): Nutritional Asmnt/Malnutrition Start: 06/28/19 14: 20 Text: Status: Complete Freq: Protocol: Document 06/28/19 14:20 EBNOIE (Rec: 06/28/19 14:25 EBONIE [email or web address]) Nutritional Asmnt/Malnutrition Patient General Information Nutritional Screening Moderate Risk Diagnosis Psychosis Pertinent Medical Hx/Surgical Hx HTN, Anemia, GERD, DM, Dementia, Psychosis Subjective Information Pt is a 79-year-old female admitted on d/t psychosis, delusions. Pt is eating an estimated 100% of meals since admit date Per Meal/Nutrition Activity Record . Dietary is currently providing an estimated 1900 kcals and 100 gm Pro to meet 100% kcal and 100+% Pro needs. Visited pt today after lunchtime, documented pt food preferences. Explained pt diet Rx to her and suggested eating the whole fruit as I'd prefer her not to have juice d /t her DM, pt expressed understanding. Anthropometrics HT: 57 WT: 171 LB (63.64 kg) ABW: 144 LB (65.45 kg) BMI: 26.78 (Overweight) GI/ Skin Integrity GI: WNL, Soft, Non-tender BM: 06/27 x1 I/O: 1080/Not Noted Skin: WNL, Intact Julián: 20 Diet Order: Mechanical Soft, NORRIS, CCHO Estimated Energy Needs: ( Geriatric, ABW) 5090-3688 kcals (25-30 kcals/ kg) 60-76g Pro (1.0-1.2 g/kg) 1600-2000ml (25-30 ml/kg) Current Diet Order/ Nutrition Support Mechanical Soft, NORRIS, CCHO Pertinent Medications Maalox (PRN), Glutose 40% (PRN ), Glucotrol, Glucagen (PRN), INS-SS, Cozaar, MOM (PRN) Pertinent Labs POC Glucose (last 24 hours): 113, 77,129 06/24: A1c 7.5%, glucose 138, BUN/Cr 22/1.01, Alb 3.1 Nutritional Hx/Data Height 1.7 m Height (Calculated Centimeters) 170.2 Current Weight (lbs) 77.564 kg Weight (Calculated Kilograms) 77.6 Weight (Calculated Grams) 75240.3 [place] Body Weight 135 LB (61.36 kg) % [place] Body Weight 127 Body Mass Index (BMI) 26.7 Weight Status Overweight GI Symptoms GI Symptoms None Last BM 06/27 x1 Skin Integrity/Comment: Skin: WNL, Intact Julián: 20 Estimated Nutritional Goals BEE in Kcals: Adj wt of IBW Calories/Kcals/Kg 25-30 Kcals Calculated 7382-9461 Protein: Adj wt of IBW Protein g/k.0-1.2 Protein Calculated 60-76 Fluid: ml 1600-2000ml (25-30 ml/kg) Nutritional Problem 1. Problem Problem Impaired nutrient utilization Etiology r/t endocrine dysfunction Signs/Symptoms: aeb Hx DM, labs (06/24) A1c 7. 5%. Malnutrition Related to Morbid Obesity Malnutrition related to morbid obesity No Intervention/Recommendation Comments 1.Continue Mechanical Soft, NORRIS, CCHO diet as tolerated. 2.Continue antihyperglycemic medication for glucose control per MD order. Expected Outcomes/Goals Expected Outcomes/Goals 1.PO intake to continue to meet >75% of estimated nutritional needs. 2.Monitor PO intake, wt, nutrition related labs, and skin integrity. 3.F/U as low risk in 7-10 days , 07/05-07/08
--- NOTE | 2019-07-07 00:19 | Progress Notes ---
DATE: 07/06/2019 SUBJECTIVE: Chart was reviewed and the patient interviewed. Also discussed the patient's condition with the staff and reviewed records and labs. The patient seems to be slightly calmer than before, but still has episodes of yelling and screaming, but not as loud and not as much according to staff report. She also still seems to be psychotic and hallucinating, but also slightly easier to redirect her. She also slept slightly better than before. She is showing slight improvement. Otherwise, the patient still needs redirections and needs close monitoring. ASSESSMENT: The patient seems to be slightly improved. TREATMENT PLAN: Continue Risperdal 1 mg 3 times a day and Klonopin on a p.r.n. basis. Also, continue Cogentin 0.5 mg twice a day and we will continue to follow up. JOB# [id number]
[2019-07-07] MEDS: INSULIN LISPRO SLIDING SCALE 100 UNITS/ML UNIT SUBQ SCH (06:30)
[2019-07-07] MEDS: Fluticasone Propionate Nasal 1 SPR SPR NS SCH (08:25)
--- NOTE | 2019-07-07 19:45 | Progress Notes ---
DATE: 07/07/2019 SUBJECTIVE: The patient was seen in her room. The patient appears to be guarded, easily gets frustrated with still ongoing paranoia and withdrawn. Otherwise, the patient appears to be in no acute distress. OBJECTIVE: VITAL SIGNS: Temperature 97, heart rate 79, blood pressure 145/72, respirations 20, 97% on room air. HEENT: Head is atraumatic and normocephalic. Eyes: Bilateral conjunctivae are clear. Bilateral pupils are equally round and reactive. NECK: Supple. No JVD. CARDIOVASCULAR: S1 and S2, without murmur. PULMONARY: Clear to auscultation. GASTROINTESTINAL: Soft and nontender without guarding. Positive bowel sounds. MUSCULOSKELETAL: No clubbing. No cyanosis noted. ASSESSMENT: 1. Schizophrenia. 2. Hypertension. 3. Diabetes. 4. Anemia. 5. Gastroesophageal reflux disease. PLAN: We will continue to keep the patient inpatient to Psychiatric Unit. We will follow up with a psychiatrist to monitor the patient's condition and behavior. We will put the patient on fall precautions. Treatment plans were discussed with the patient's nurse. Treatment plans were discussed with Dr. Gates. JOB# [id number]
--- NOTE | 2019-07-08 01:07 | Progress Notes ---
DATE: 07/07/2019 SUBJECTIVE: The patient was seen and evaluated. The patient's chart was reviewed. This is a psychiatric followup note covering for Dr. Rodriguez. IDENTIFYING DATA: A 79-year-old female brought in here from [place] after medically cleared. She was delusional, stating that she had owned the hospital. Nursing staff reported that patient has been isolated and withdrawn, although cooperative with care. Today on [id number] evaluation, the patient reports "I am here to close the deal." When attempting to discuss with her what she means by that she is here, she reports multiple times she is here to close the deal and if there is any paperwork for her to sign, she is unable to give much more information beyond that. ASSESSMENT AND PLAN: A 79-year-old female with the history of dementia, behavior disturbance, and grandiose delusion that she is here to close the deal and unable to give much information beyond that. We will continue with the current medications' regimen, which reconciliation was reviewed, which include temazepam 15 as needed, Risperdal 1 mg p.o. t.i.d., and clonazepam as needed. JOB# [id number]
[2019-07-08] MEDS: INSULIN LISPRO SLIDING SCALE 100 UNITS/ML UNIT SUBQ SCH (06:49)
[2019-07-08] MEDS: Fluticasone Propionate Nasal 1 SPR SPR NS SCH (08:44)
--- NOTE | 2019-07-08 11:46 | Progress Notes ---
DATE: 07/08/2019 SUBJECTIVE: The patient was seen and evaluated. The patient's chart reviewed. Covering for Dr. Rodriguez. Today on [id number] evaluation, the patient continues to reiterate that she is here to close the deal to buy a building. MENTAL STATUS EXAMINATION: Grandiose. A 79-year-old female with a history of dementia who "is here to close the deal." ASSESSMENT AND PLAN: We will continue with the recent adjustments of the risperidone to target the patient's ongoing grandiose state. JOB# [id number]
--- NOTE | 2019-07-08 13:15 | Internal Medicine Prog Note ---
Internal Medicine Subjective - Subjective Patient is:: asleep, verbal, arousable, in bed, confused Patient Complaints of:: other (Diabetic.) Per staff patient has:: no adverse event, no episodes of fall Internal Medicine Objective - Results Recent Labs: Laboratory Last Values POC Glucose 94 MG/DL (70 - 105) 07/08/19 06:46 - Physical Exam Vitals and I&O: Vital Signs Temp 97.2 F 07/08/19 06:38 Pulse 74 07/08/19 08:43 Resp 19 07/08/19 06:38 BP 138/76 07/08/19 08:43 Pulse Ox 97 07/08/19 06:38 Intake & Output 07/07/19 07/08/19 07/08/19 18:59 06:59 18:59 Intake Total 1000 320 240 Balance 1000 320 240 Intake: Oral 1000 320 240 Other: # Voids 4 2 # Bowel Movements 1 Active Medications: Current Medications Acetaminophen (Tylenol) 650 mg PO Q4HR PRN PRN Reason: Mild Pain (1-3) Stop: 08/23/19 20:07 Acetaminophen (Tylenol) 650 mg PO Q4H PRN PRN Reason: For Temp above 101F Stop: 08/23/19 20:08 Acetaminophen (Tylenol Extra Strength) 500 mg PO Q8H PRN PRN Reason: For moderate pain (4-6) Stop: 08/23/19 20:10 Last Admin: 06/29/19 18:28 Dose: 500 mg Al Hydrox/Mg Hydrox/Simethicone (Maalox) 30 ml PO Q6HR PRN PRN Reason: GI DISTRESS Stop: 08/23/19 20:13 Benztropine Mesylate (Cogentin) 0.5 mg PO BID [facility] Stop: 08/24/19 08:59 Last Admin: 07/08/19 08:43 Dose: 0.5 mg Clonazepam (Klonopin) 0.5 mg PO Q6H PRN; Protocol PRN Reason: Anxiety Stop: 08/23/19 20:29 Last Admin: 06/26/19 06:08 Dose: 0.5 mg Dextrose (Glutose 40%) 18.75 gm PO PRN PRN PRN Reason: BS Below 70 if tolerate po Stop: 08/23/19 20:19 Fluticasone Propionate (Flonase) 1 spr NS DAILY [facility] Stop: 08/24/19 08:59 Last Admin: 07/08/19 08:44 Dose: 1 spr Glipizide (Glucotrol) 5 mg PO BID [facility] Stop: 08/24/19 08:59 Last Admin: 07/08/19 08:43 Dose: 5 mg Glucagon (Glucagen) 1 mg IM PRN PRN PRN Reason: BS Below 70 if not tolerate po Stop: 08/23/19 20:19 Hydralazine HCl (Apresoline) 25 mg PO Q4H PRN PRN Reason: Give if SBP above 110 Stop: 08/23/19 20:29 Last Admin: 07/07/19 15:34 Dose: 25 mg Insulin Human Lispro (Humalog Insulin Sliding Scale) 0 units SUBQ QDAC [facility]; Protocol Stop: 08/26/19 07:29 Last Admin: 07/08/19 06:49 Dose: Not Given Losartan Potassium (Cozaar) 50 mg PO DAILY [facility] Stop: 08/24/19 10:11 Last Admin: 07/08/19 08:43 Dose: 50 mg Magnesium Hydroxide (Milk Of Magnesia) 30 ml PO HS PRN PRN Reason: Constipation Stop: 08/23/19 20:13 Risperidone (Risperdal) 1 mg PO TID [facility]; Protocol Stop: 09/01/19 13:59 Last Admin: 07/08/19 08:43 Dose: 1 mg Temazepam (Restoril) 15 mg PO HS PRN; Protocol PRN Reason: Insomnia Stop: 08/23/19 20:26 Last Admin: 07/07/19 21:52 Dose: 15 mg General: demented, NAD HEENT: NC/AT, PERRLA Neck: Supple, No JVD Lungs: other (no acute respiratory distress on RA) Cardiovascular: RRR Abdomen: soft, non-tender Extremities: clear Neurological: no change Internal Medicine Assmt/Plan - Assessment Assessment: Likely schizophrenia per pscyh Psychosis HTN DM Dementia GERD Anemia - Plan Plan: Continue current treatment plan. Continue current medications Continue to monitor VS Monitor Diet/Nutritional support. Psych management per Psychiatry. Pain Management. PT/OT prn Safety precaution, Fall precaution, frequent nursing round. Supportive care. Continue collaborating with consulting specialists, case management and nursing team Nutritional Asmnt/Malnutr-PDOC - Dietary Evaluation Malnutrition Findings (Please click <Entered> for more info): Nutritional Asmnt/Malnutrition Start: 06/28/19 14: 20 Text: Status: Complete Freq: Protocol: Document 06/28/19 14:20 EBONIE (Rec: 06/28/19 14:25 EBONIE [email or web address]) Nutritional Asmnt/Malnutrition Patient General Information Nutritional Screening Moderate Risk Diagnosis Psychosis Pertinent Medical Hx/Surgical Hx HTN, Anemia, GERD, DM, Dementia, Psychosis Subjective Information Pt is a 79-year-old female admitted on d/t psychosis, delusions. Pt is eating an estimated 100% of meals since admit date Per Meal/Nutrition Activity Record . Dietary is currently providing an estimated 1900 kcals and 100 gm Pro to meet 100% kcal and 100+% Pro needs. Visited pt today after lunchtime, documented pt food preferences. Explained pt diet Rx to her and suggested eating the whole fruit as I'd prefer her not to have juice d /t her DM, pt expressed understanding. Anthropometrics HT: 57 WT: 171 LB (63.64 kg) ABW: 144 LB (65.45 kg) BMI: 26.78 (Overweight) GI/ Skin Integrity GI: WNL, Soft, Non-tender BM: 06/27 x1 I/O: 1080/Not Noted Skin: WNL, Intact Julián: 20 Diet Order: Mechanical Soft, NORRIS, CCHO Estimated Energy Needs: ( Geriatric, ABW) 4397-0063 kcals (25-30 kcals/ kg) 60-76g Pro (1.0-1.2 g/kg) 1600-2000ml (25-30 ml/kg) Current Diet Order/ Nutrition Support Mechanical Soft, NORRIS, CCHO Pertinent Medications Maalox (PRN), Glutose 40% (PRN ), Glucotrol, Glucagen (PRN), INS-SS, Cozaar, MOM (PRN) Pertinent Labs POC Glucose (last 24 hours): 113, 77,129 06/24: A1c 7.5%, glucose 138, BUN/Cr 22/1.01, Alb 3.1 Nutritional Hx/Data Height 5 ft 7 in Height (Calculated Centimeters) 170.2 Current Weight (lbs) 171 lb Weight (Calculated Kilograms) 77.6 Weight (Calculated Grams) 15432.3 [place] Body Weight 135 LB (61.36 kg) % [place] Body Weight 127 Body Mass Index (BMI) 26.7 Weight Status Overweight GI Symptoms GI Symptoms None Last BM 06/27 x1 Skin Integrity/Comment: Skin: WNL, Intact Julián: 20 Estimated Nutritional Goals BEE in Kcals: Adj wt of IBW Calories/Kcals/Kg 25-30 Kcals Calculated 6585-5789 Protein: Adj wt of IBW Protein g/k.0-1.2 Protein Calculated 60-76 Fluid: ml 1600-2000ml (25-30 ml/kg) Nutritional Problem 1. Problem Problem Impaired nutrient utilization Etiology r/t endocrine dysfunction Signs/Symptoms: aeb Hx DM, labs (06/24) A1c 7. 5%. Malnutrition Related to Morbid Obesity Malnutrition related to morbid obesity No Intervention/Recommendation Comments 1.Continue Mechanical Soft, NORRIS, CCHO diet as tolerated. 2.Continue antihyperglycemic medication for glucose control per MD order. Expected Outcomes/Goals Expected Outcomes/Goals 1.PO intake to continue to meet >75% of estimated nutritional needs. 2.Monitor PO intake, wt, nutrition related labs, and skin integrity. 3.F/U as low risk in 7-10 days , 07/05-07/08
[2019-07-09] MEDS: INSULIN LISPRO SLIDING SCALE 100 UNITS/ML UNIT SUBQ SCH (06:54)
[2019-07-09] MEDS: Fluticasone Propionate Nasal 1 SPR SPR NS SCH (08:13)
--- NOTE | 2019-07-09 08:49 | Progress Notes ---
DATE: SUBJECTIVE: Chart reviewed and the patient interviewed. Also discussed the patient's condition with the staff and reviewed records and labs. The patient continued to be in a depressed mood with sad affect. She also is still suspicious and is still paranoid. She also still needs lots of redirections. Otherwise, the patient is compliant with taking her medications with no side effects of medications. ASSESSMENT: The patient is still psychotic and confused. TREATMENT PLAN: Continue Risperdal 1 mg 3 times a day. Also, continue adjusting psychotropic medications and working on behavioral modification. JOB# [id number]
--- NOTE | 2019-07-09 10:08 | Internal Medicine Prog Note ---
Internal Medicine Subjective - Subjective Service Date: 07/09/19 Patient seen and examined:: with staff Patient is:: asleep, verbal, arousable, in bed, agitated, confused Patient Complaints of:: other (Diabetic.) Per staff patient has:: no adverse event, no episodes of fall Internal Medicine Objective - Results Recent Labs: Laboratory Last Values POC Glucose 94 MG/DL (70 - 105) 07/08/19 06:46 - Physical Exam Vitals and I&O: Vital Signs Temp 97.3 F 07/09/19 06:40 Pulse 65 07/09/19 08:14 Resp 18 07/09/19 06:40 BP 140/72 07/09/19 08:14 Pulse Ox 97 07/09/19 06:40 Intake & Output 07/08/19 07/09/19 07/09/19 18:59 06:59 18:59 Intake Total 840 240 Balance 840 240 Intake: Oral 840 240 Other: # Voids 4 2 # Bowel Movements 0 Active Medications: Current Medications Acetaminophen (Tylenol) 650 mg PO Q4HR PRN PRN Reason: Mild Pain (1-3) Stop: 08/23/19 20:07 Acetaminophen (Tylenol) 650 mg PO Q4H PRN PRN Reason: For Temp above 101F Stop: 08/23/19 20:08 Acetaminophen (Tylenol Extra Strength) 500 mg PO Q8H PRN PRN Reason: For moderate pain (4-6) Stop: 08/23/19 20:10 Last Admin: 06/29/19 18:28 Dose: 500 mg Al Hydrox/Mg Hydrox/Simethicone (Maalox) 30 ml PO Q6HR PRN PRN Reason: GI DISTRESS Stop: 08/23/19 20:13 Benztropine Mesylate (Cogentin) 0.5 mg PO BID MARISEL Stop: 08/24/19 08:59 Last Admin: 07/09/19 09:05 Dose: 0.5 mg Clonazepam (Klonopin) 0.5 mg PO Q6H PRN; Protocol PRN Reason: Anxiety Stop: 08/23/19 20:29 Last Admin: 06/26/19 06:08 Dose: 0.5 mg Dextrose (Glutose 40%) 18.75 gm PO PRN PRN PRN Reason: BS Below 70 if tolerate po Stop: 08/23/19 20:19 Fluticasone Propionate (Flonase) 1 spr NS DAILY [facility] Stop: 08/24/19 08:59 Last Admin: 07/09/19 08:13 Dose: 1 spr Glipizide (Glucotrol) 5 mg PO BID [facility] Stop: 08/24/19 08:59 Last Admin: 07/09/19 08:14 Dose: 5 mg Glucagon (Glucagen) 1 mg IM PRN PRN PRN Reason: BS Below 70 if not tolerate po Stop: 08/23/19 20:19 Hydralazine HCl (Apresoline) 25 mg PO Q4H PRN PRN Reason: Give if SBP above 110 Stop: 08/23/19 20:29 Last Admin: 07/08/19 14:52 Dose: 25 mg Insulin Human Lispro (Humalog Insulin Sliding Scale) 0 units SUBQ QDAC [facility]; Protocol Stop: 08/26/19 07:29 Last Admin: 07/09/19 06:54 Dose: Not Given Losartan Potassium (Cozaar) 50 mg PO DAILY [facility] Stop: 08/24/19 10:11 Last Admin: 07/09/19 08:14 Dose: 50 mg Magnesium Hydroxide (Milk Of Magnesia) 30 ml PO HS PRN PRN Reason: Constipation Stop: 08/23/19 20:13 Risperidone (Risperdal) 1 mg PO TID [facility]; Protocol Stop: 09/01/19 13:59 Last Admin: 07/09/19 09:04 Dose: 1 mg Temazepam (Restoril) 15 mg PO HS PRN; Protocol PRN Reason: Insomnia Stop: 08/23/19 20:26 Last Admin: 07/08/19 20:51 Dose: 15 mg Physical Exam: We will continue to monitor closely, Patient is very confused, irritable and easily frustrated. General: demented, NAD HEENT: NC/AT, PERRLA Neck: Supple, No JVD Lungs: other (no acute respiratory distress on RA) Cardiovascular: RRR Abdomen: soft, non-tender Extremities: clear Neurological: no change Internal Medicine Assmt/Plan - Assessment Assessment: Schizophrenia. Psychosis. Hypertension. Diabetes Mellitus. Dementia. Gerd. Anemia. - Plan Plan: Continue present meds as directed. Supportive care. Safety precaution. Monitor vitals and labs. Accu-check twice daily. Monitor diet and nutritional support. Psych management as per Psych. Continue current treatment plan. Nutritional Asmnt/Malnutr-PDOC - Dietary Evaluation Malnutrition Findings (Please click <Entered> for more info): Nutritional Asmnt/Malnutrition Start: 06/28/19 14: 20 Text: Status: Complete Freq: Protocol: Document 06/28/19 14:20 EBONIE (Rec: 06/28/19 14:25 EBONIE [email or web address]) Nutritional Asmnt/Malnutrition Patient General Information Nutritional Screening Moderate Risk Diagnosis Psychosis Pertinent Medical Hx/Surgical Hx HTN, Anemia, GERD, DM, Dementia, Psychosis Subjective Information Pt is a 79-year-old female admitted on d/t psychosis, delusions. Pt is eating an estimated 100% of meals since admit date Per Meal/Nutrition Activity Record . Dietary is currently providing an estimated 1900 kcals and 100 gm Pro to meet 100% kcal and 100+% Pro needs. Visited pt today after lunchtime, documented pt food preferences. Explained pt diet Rx to her and suggested eating the whole fruit as I'd prefer her not to have juice d /t her DM, pt expressed understanding. Anthropometrics HT: 57 WT: 171 LB (63.64 kg) ABW: 144 LB (65.45 kg) BMI: 26.78 (Overweight) GI/ Skin Integrity GI: WNL, Soft, Non-tender BM: 06/27 x1 I/O: 1080/Not Noted Skin: WNL, Intact Julián: 20 Diet Order: Mechanical Soft, NORRIS, CCHO Estimated Energy Needs: ( Geriatric, ABW) 5141-2438 kcals (25-30 kcals/ kg) 60-76g Pro (1.0-1.2 g/kg) 1600-2000ml (25-30 ml/kg) Current Diet Order/ Nutrition Support Mechanical Soft, NORRIS, CCHO Pertinent Medications Maalox (PRN), Glutose 40% (PRN ), Glucotrol, Glucagen (PRN), INS-SS, Cozaar, MOM (PRN) Pertinent Labs POC Glucose (last 24 hours): 113, 77,129 06/24: A1c 7.5%, glucose 138, BUN/Cr 22/1.01, Alb 3.1 Nutritional Hx/Data Height 1.7 m Height (Calculated Centimeters) 170.2 Current Weight (lbs) 77.564 kg Weight (Calculated Kilograms) 77.6 Weight (Calculated Grams) 33912.3 [place] Body Weight 135 LB (61.36 kg) % [place] Body Weight 127 Body Mass Index (BMI) 26.7 Weight Status Overweight GI Symptoms GI Symptoms None Last BM 06/27 x1 Skin Integrity/Comment: Skin: WNL, Intact Julián: 20 Estimated Nutritional Goals BEE in Kcals: Adj wt of IBW Calories/Kcals/Kg 25-30 Kcals Calculated 6764-3072 Protein: Adj wt of IBW Protein g/k.0-1.2 Protein Calculated 60-76 Fluid: ml 1600-2000ml (25-30 ml/kg) Nutritional Problem 1. Problem Problem Impaired nutrient utilization Etiology r/t endocrine dysfunction Signs/Symptoms: aeb Hx DM, labs (06/24) A1c 7. 5%. Malnutrition Related to Morbid Obesity Malnutrition related to morbid obesity No Intervention/Recommendation Comments 1.Continue Mechanical Soft, NORRIS, CCHO diet as tolerated. 2.Continue antihyperglycemic medication for glucose control per MD order. Expected Outcomes/Goals Expected Outcomes/Goals 1.PO intake to continue to meet >75% of estimated nutritional needs. 2.Monitor PO intake, wt, nutrition related labs, and skin integrity. 3.F/U as low risk in 7-10 days , 07/05-07/08
[2019-07-10] MEDS: INSULIN LISPRO SLIDING SCALE 100 UNITS/ML UNIT SUBQ SCH (06:48)
[2019-07-10] MEDS: Fluticasone Propionate Nasal 1 SPR SPR NS SCH (08:20)
--- NOTE | 2019-07-10 16:33 | Internal Medicine Prog Note ---
Internal Medicine Subjective - Subjective Service Date: 07/10/19 Patient is:: asleep, verbal, arousable, in bed, agitated, confused Patient Complaints of:: other (Diabetic.) Per staff patient has:: no adverse event, no episodes of fall Internal Medicine Objective - Results Recent Labs: Laboratory Last Values POC Glucose 67 MG/DL (70 - 105) L 07/10/19 16:23 - Physical Exam Vitals and I&O: Vital Signs Temp 97.3 F 07/10/19 14:00 Pulse 66 07/10/19 14:00 Resp 20 07/10/19 14:00 BP 153/75 07/10/19 14:00 Pulse Ox 99 07/10/19 14:00 Intake & Output 07/09/19 07/10/19 07/10/19 18:59 06:59 18:59 Intake Total 1000 240 Balance 1000 240 Intake: Oral 1000 240 Other: # Voids 4 3 # Bowel Movements 1 0 Active Medications: Current Medications Acetaminophen (Tylenol) 650 mg PO Q4HR PRN PRN Reason: Mild Pain (1-3) Stop: 08/23/19 20:07 Acetaminophen (Tylenol) 650 mg PO Q4H PRN PRN Reason: For Temp above 101F Stop: 08/23/19 20:08 Acetaminophen (Tylenol Extra Strength) 500 mg PO Q8H PRN PRN Reason: For moderate pain (4-6) Stop: 08/23/19 20:10 Last Admin: 06/29/19 18:28 Dose: 500 mg Al Hydrox/Mg Hydrox/Simethicone (Maalox) 30 ml PO Q6HR PRN PRN Reason: GI DISTRESS Stop: 08/23/19 20:13 Benztropine Mesylate (Cogentin) 0.5 mg PO BID MARISEL Stop: 08/24/19 08:59 Last Admin: 07/10/19 08:20 Dose: 0.5 mg Clonazepam (Klonopin) 0.5 mg PO Q6H PRN; Protocol PRN Reason: Anxiety Stop: 08/23/19 20:29 Last Admin: 07/09/19 19:39 Dose: 0.5 mg Dextrose (Glutose 40%) 18.75 gm PO PRN PRN PRN Reason: BS Below 70 if tolerate po Stop: 08/23/19 20:19 Fluticasone Propionate (Flonase) 1 spr NS DAILY [facility] Stop: 08/24/19 08:59 Last Admin: 07/10/19 08:20 Dose: 1 spr Glipizide (Glucotrol) 5 mg PO BID [facility] Stop: 08/24/19 08:59 Last Admin: 07/10/19 08:20 Dose: 5 mg Glucagon (Glucagen) 1 mg IM PRN PRN PRN Reason: BS Below 70 if not tolerate po Stop: 08/23/19 20:19 Hydralazine HCl (Apresoline) 25 mg PO Q4H PRN PRN Reason: Give if SBP above 110 Stop: 08/23/19 20:29 Last Admin: 07/08/19 14:52 Dose: 25 mg Insulin Human Lispro (Humalog Insulin Sliding Scale) 0 units SUBQ QDAC [facility]; Protocol Stop: 08/26/19 07:29 Last Admin: 07/10/19 06:48 Dose: Not Given Losartan Potassium (Cozaar) 50 mg PO DAILY [facility] Stop: 08/24/19 10:11 Last Admin: 07/10/19 09:04 Dose: 50 mg Magnesium Hydroxide (Milk Of Magnesia) 30 ml PO HS PRN PRN Reason: Constipation Stop: 08/23/19 20:13 Quetiapine Fumarate (Seroquel) 25 mg PO BID [facility]; Protocol Stop: 09/08/19 08:59 Last Admin: 07/10/19 09:05 Dose: 25 mg Risperidone (Risperdal) 1 mg PO BID [facility]; Protocol Stop: 09/08/19 08:59 Last Admin: 07/10/19 08:21 Dose: 1 mg Temazepam (Restoril) 15 mg PO HS PRN; Protocol PRN Reason: Insomnia Stop: 08/23/19 20:26 Last Admin: 07/09/19 21:16 Dose: 15 mg General: demented, NAD HEENT: NC/AT, PERRLA Neck: Supple, No JVD Lungs: other (no acute respiratory distress on RA) Cardiovascular: RRR Abdomen: soft, non-tender Extremities: clear Neurological: no change Internal Medicine Assmt/Plan - Assessment Assessment: Likely schizophrenia per pscyh Psychosis HTN DM Dementia GERD Anemia - Plan Plan: Continue current treatment plan. Continue current medications Continue to monitor VS Monitor Diet/Nutritional support. Psych management per Psychiatry. Pain Management. PT/OT prn Safety precaution, Fall precaution, frequent nursing round. Supportive care. Continue collaborating with consulting specialists, case management and nursing team Nutritional Asmnt/Malnutr-PDOC - Dietary Evaluation Malnutrition Findings (Please click <Entered> for more info): Nutritional Asmnt/Malnutrition Start: 06/28/19 14: 20 Text: Status: Complete Freq: Protocol: Document 06/28/19 14:20 EBONIE (Rec: 06/28/19 14:25 EBONIE [id number]) Nutritional Asmnt/Malnutrition Patient General Information Nutritional Screening Moderate Risk Diagnosis Psychosis Pertinent Medical Hx/Surgical Hx HTN, Anemia, GERD, DM, Dementia, Psychosis Subjective Information Pt is a 79-year-old female admitted on d/t psychosis, delusions. Pt is eating an estimated 100% of meals since admit date Per Meal/Nutrition Activity Record . Dietary is currently providing an estimated 1900 kcals and 100 gm Pro to meet 100% kcal and 100+% Pro needs. Visited pt today after lunchtime, documented pt food preferences. Explained pt diet Rx to her and suggested eating the whole fruit as I'd prefer her not to have juice d /t her DM, pt expressed understanding. Anthropometrics HT: 57 WT: 171 LB (63.64 kg) ABW: 144 LB (65.45 kg) BMI: 26.78 (Overweight) GI/ Skin Integrity GI: WNL, Soft, Non-tender BM: 06/27 x1 I/O: 1080/Not Noted Skin: WNL, Intact Julián: 20 Diet Order: Mechanical Soft, NORRIS, CCHO Estimated Energy Needs: ( Geriatric, ABW) 0018-7043 kcals (25-30 kcals/ kg) 60-76g Pro (1.0-1.2 g/kg) 1600-2000ml (25-30 ml/kg) Current Diet Order/ Nutrition Support Mechanical Soft, NORRIS, CCHO Pertinent Medications Maalox (PRN), Glutose 40% (PRN ), Glucotrol, Glucagen (PRN), INS-SS, Cozaar, MOM (PRN) Pertinent Labs POC Glucose (last 24 hours): 113, 77,129 06/24: A1c 7.5%, glucose 138, BUN/Cr 22/1.01, Alb 3.1 Nutritional Hx/Data Height 5 ft 7 in Height (Calculated Centimeters) 170.2 Current Weight (lbs) 171 lb Weight (Calculated Kilograms) 77.6 Weight (Calculated Grams) 16770.3 [place] Body Weight 135 LB (61.36 kg) % [place] Body Weight 127 Body Mass Index (BMI) 26.7 Weight Status Overweight GI Symptoms GI Symptoms None Last BM 06/27 x1 Skin Integrity/Comment: Skin: WNL, Intact Julián: 20 Estimated Nutritional Goals BEE in Kcals: Adj wt of IBW Calories/Kcals/Kg 25-30 Kcals Calculated 5684-6658 Protein: Adj wt of IBW Protein g/k.0-1.2 Protein Calculated 60-76 Fluid: ml 1600-2000ml (25-30 ml/kg) Nutritional Problem 1. Problem Problem Impaired nutrient utilization Etiology r/t endocrine dysfunction Signs/Symptoms: aeb Hx DM, labs (06/24) A1c 7. 5%. Malnutrition Related to Morbid Obesity Malnutrition related to morbid obesity No Intervention/Recommendation Comments 1.Continue Mechanical Soft, NORRIS, CCHO diet as tolerated. 2.Continue antihyperglycemic medication for glucose control per MD order. Expected Outcomes/Goals Expected Outcomes/Goals 1.PO intake to continue to meet >75% of estimated nutritional needs. 2.Monitor PO intake, wt, nutrition related labs, and skin integrity. 3.F/U as low risk in 7-10 days , 07/05-07/08
--- NOTE | 2019-07-10 22:08 | Progress Notes ---
DATE: 07/10/2019 SUBJECTIVE: Chart was reviewed and the patient interviewed. Also discussed the patient's condition with the staff and reviewed records and labs. The patient is still actively hallucinating and is still walking naked in the hallway and also having a blanket in her head. The patient is walking in the hallway saying that "someone will kill me." She also still slamming doors and actively responding to stimuli and with episodes of yelling and screaming. ASSESSMENT: The patient is still psychotic. TREATMENT PLAN: We will start the patient on Seroquel since it seemed that Risperdal is not helping her much. We will start Seroquel 25 mg twice a day and we will decrease Risperdal __ twice a day. Also, continue to work on behavior modification and follow up closely. JOB# [id number]
[2019-07-11] MEDS: INSULIN LISPRO SLIDING SCALE 100 UNITS/ML UNIT SUBQ SCH (06:59)
[2019-07-11] MEDS: Fluticasone Propionate Nasal 1 SPR SPR NS SCH (09:31)
--- NOTE | 2019-07-11 13:19 | Internal Medicine Prog Note ---
Internal Medicine Subjective - Subjective Service Date: 07/11/19 Patient seen and examined:: with staff Patient is:: asleep, verbal, arousable, in bed, agitated, confused Patient Complaints of:: other (Diabetic.) Per staff patient has:: no adverse event, no episodes of fall Internal Medicine Objective - Results Recent Labs: Laboratory Last Values POC Glucose 143 MG/DL (70 - 105) H 07/10/19 19:50 - Physical Exam Vitals and I&O: Vital Signs Temp 98 F 07/11/19 06:40 Pulse 62 07/11/19 09:32 Resp 18 07/11/19 06:40 BP 140/79 07/11/19 09:32 Pulse Ox 98 07/11/19 06:40 Intake & Output 07/10/19 07/11/19 07/11/19 18:59 06:59 18:59 Intake Total 950 120 Balance 950 120 Intake: Oral 950 120 Other: # Voids 3 3 # Bowel Movements 1 0 Active Medications: Current Medications Acetaminophen (Tylenol) 650 mg PO Q4HR PRN PRN Reason: Mild Pain (1-3) Stop: 08/23/19 20:07 Acetaminophen (Tylenol) 650 mg PO Q4H PRN PRN Reason: For Temp above 101F Stop: 08/23/19 20:08 Acetaminophen (Tylenol Extra Strength) 500 mg PO Q8H PRN PRN Reason: For moderate pain (4-6) Stop: 08/23/19 20:10 Last Admin: 06/29/19 18:28 Dose: 500 mg Al Hydrox/Mg Hydrox/Simethicone (Maalox) 30 ml PO Q6HR PRN PRN Reason: GI DISTRESS Stop: 08/23/19 20:13 Benztropine Mesylate (Cogentin) 0.5 mg PO BID MARISEL Stop: 08/24/19 08:59 Last Admin: 07/11/19 09:32 Dose: 0.5 mg Clonazepam (Klonopin) 0.5 mg PO Q6H PRN; Protocol PRN Reason: Anxiety Stop: 08/23/19 20:29 Last Admin: 07/11/19 02:38 Dose: 0.5 mg Dextrose (Glutose 40%) 18.75 gm PO PRN PRN PRN Reason: BS Below 70 if tolerate po Stop: 08/23/19 20:19 Fluticasone Propionate (Flonase) 1 spr NS DAILY [facility] Stop: 08/24/19 08:59 Last Admin: 07/11/19 09:31 Dose: 1 spr Glipizide (Glucotrol) 5 mg PO BID [facility] Stop: 08/24/19 08:59 Last Admin: 07/11/19 09:32 Dose: 5 mg Glucagon (Glucagen) 1 mg IM PRN PRN PRN Reason: BS Below 70 if not tolerate po Stop: 08/23/19 20:19 Hydralazine HCl (Apresoline) 25 mg PO Q4H PRN PRN Reason: Give if SBP above 110 Stop: 08/23/19 20:29 Last Admin: 07/08/19 14:52 Dose: 25 mg Insulin Human Lispro (Humalog Insulin Sliding Scale) 0 units SUBQ QDAC [facility]; Protocol Stop: 08/26/19 07:29 Last Admin: 07/10/19 06:48 Dose: Not Given Losartan Potassium (Cozaar) 50 mg PO DAILY [facility] Stop: 08/24/19 10:11 Last Admin: 07/11/19 09:32 Dose: 50 mg Magnesium Hydroxide (Milk Of Magnesia) 30 ml PO HS PRN PRN Reason: Constipation Stop: 08/23/19 20:13 Quetiapine Fumarate (Seroquel) 25 mg PO BID [facility]; Protocol Stop: 09/08/19 08:59 Last Admin: 07/11/19 09:32 Dose: 25 mg Risperidone (Risperdal) 1 mg PO BID [facility]; Protocol Stop: 09/08/19 08:59 Last Admin: 07/11/19 09:32 Dose: 1 mg Temazepam (Restoril) 15 mg PO HS PRN; Protocol PRN Reason: Insomnia Stop: 08/23/19 20:26 Last Admin: 07/09/19 21:16 Dose: 15 mg Physical Exam: Patient is very agitated, irritable, remains psychotic, has been walking nude in hallways, needs close monitoring. General: demented, NAD HEENT: NC/AT, PERRLA Neck: Supple, No JVD Lungs: other (no acute respiratory distress on RA) Cardiovascular: RRR Abdomen: soft, non-tender Extremities: clear Neurological: no change Internal Medicine Assmt/Plan - Assessment Assessment: Schizophrenia. Psychosis. Hypertension. Diabetes Mellitus. Dementia. Gerd. Anemia. - Plan Plan: Continue present meds as directed. Supportive care. Safety precaution. Monitor vitals and labs. Accu-check twice daily. Monitor diet and nutritional support. Psych management as per Psych. Continue current treatment plan. Nutritional Asmnt/Malnutr-PDOC - Dietary Evaluation Malnutrition Findings (Please click <Entered> for more info): Nutritional Asmnt/Malnutrition Start: 06/28/19 14: 20 Text: Status: Complete Freq: Protocol: Document 06/28/19 14:20 SHIRAALISA (Rec: 06/28/19 14:25 SHIRAALISA [id number]) Nutritional Asmnt/Malnutrition Patient General Information Nutritional Screening Moderate Risk Diagnosis Psychosis Pertinent Medical Hx/Surgical Hx HTN, Anemia, GERD, DM, Dementia, Psychosis Subjective Information Pt is a 79-year-old female admitted on d/t psychosis, delusions. Pt is eating an estimated 100% of meals since admit date Per Meal/Nutrition Activity Record . Dietary is currently providing an estimated 1900 kcals and 100 gm Pro to meet 100% kcal and 100+% Pro needs. Visited pt today after lunchtime, documented pt food preferences. Explained pt diet Rx to her and suggested eating the whole fruit as I'd prefer her not to have juice d /t her DM, pt expressed understanding. Anthropometrics HT: 57 WT: 171 LB (63.64 kg) ABW: 144 LB (65.45 kg) BMI: 26.78 (Overweight) GI/ Skin Integrity GI: WNL, Soft, Non-tender BM: 06/27 x1 I/O: 1080/Not Noted Skin: WNL, Intact Julián: 20 Diet Order: Mechanical Soft, NORRIS, CCHO Estimated Energy Needs: ( Geriatric, ABW) 3201-8470 kcals (25-30 kcals/ kg) 60-76g Pro (1.0-1.2 g/kg) 1600-2000ml (25-30 ml/kg) Current Diet Order/ Nutrition Support Mechanical Soft, NORRIS, CCHO Pertinent Medications Maalox (PRN), Glutose 40% (PRN ), Glucotrol, Glucagen (PRN), INS-SS, Cozaar, MOM (PRN) Pertinent Labs POC Glucose (last 24 hours): 113, 77,129 06/24: A1c 7.5%, glucose 138, BUN/Cr 22/1.01, Alb 3.1 Nutritional Hx/Data Height 1.7 m Height (Calculated Centimeters) 170.2 Current Weight (lbs) 77.564 kg Weight (Calculated Kilograms) 77.6 Weight (Calculated Grams) 70631.3 [place] Body Weight 135 LB (61.36 kg) % [place] Body Weight 127 Body Mass Index (BMI) 26.7 Weight Status Overweight GI Symptoms GI Symptoms None Last BM 06/27 x1 Skin Integrity/Comment: Skin: WNL, Intact Julián: 20 Estimated Nutritional Goals BEE in Kcals: Adj wt of IBW Calories/Kcals/Kg 25-30 Kcals Calculated 9902-4883 Protein: Adj wt of IBW Protein g/k.0-1.2 Protein Calculated 60-76 Fluid: ml 1600-2000ml (25-30 ml/kg) Nutritional Problem 1. Problem Problem Impaired nutrient utilization Etiology r/t endocrine dysfunction Signs/Symptoms: aeb Hx DM, labs (06/24) A1c 7. 5%. Malnutrition Related to Morbid Obesity Malnutrition related to morbid obesity No Intervention/Recommendation Comments 1.Continue Mechanical Soft, NORRIS, CCHO diet as tolerated. 2.Continue antihyperglycemic medication for glucose control per MD order. Expected Outcomes/Goals Expected Outcomes/Goals 1.PO intake to continue to meet >75% of estimated nutritional needs. 2.Monitor PO intake, wt, nutrition related labs, and skin integrity. 3.F/U as low risk in 7-10 days , 07/05-07/08
--- NOTE | 2019-07-11 21:43 | Progress Notes ---
DATE: 07/11/2019 SUBJECTIVE: Chart was reviewed and the patient interviewed. Also discussed the patient's condition with the staff and reviewed records and labs. The patient is calmer and seems to be slightly less agitated, but she still has episodes of yelling and screaming. Also, the patient still has episodes of come out naked in the hallway, but not as much. Also, during the interview, the patient is actively responding to stimuli and is unable to answer any of the questions currently. She wants to call 911 because of fear and paranoia. The patient also said that the president is "blind". Otherwise, the patient continued to comply with taking her medications with no side effects of medications. ASSESSMENT: The patient is still psychotic. TREATMENT PLAN: I started the patient yesterday on Seroquel 25 mg twice a day and I decreased Risperdal 4 mg twice a day. We will continue same dose and it seemed that patient is responding better to Seroquel. At the same time, we will continue cross titrating Seroquel and Risperdal and continue to follow up closely. JOB# [id number]
[2019-07-12] MEDS: INSULIN LISPRO SLIDING SCALE 100 UNITS/ML UNIT SUBQ SCH (06:36)
[2019-07-12] MEDS: Fluticasone Propionate Nasal 1 SPR SPR NS SCH (08:46)
--- NOTE | 2019-07-12 17:24 | Internal Medicine Prog Note ---
Internal Medicine Subjective - Subjective Service Date: 07/12/19 Patient is:: asleep, verbal, arousable, in bed, agitated, confused Patient Complaints of:: other (Diabetic.) Per staff patient has:: no adverse event, no episodes of fall Internal Medicine Objective - Results Recent Labs: Laboratory Last Values POC Glucose 105 MG/DL (70 - 105) 07/12/19 05:57 - Physical Exam Vitals and I&O: Vital Signs Temp 98.1 F 07/12/19 14:00 Pulse 69 07/12/19 14:00 Resp 20 07/12/19 14:00 BP 157/82 07/12/19 14:00 Pulse Ox 98 07/12/19 14:00 Intake & Output 07/11/19 07/12/19 07/12/19 18:59 06:59 18:59 Intake Total 1320 120 120 Balance 1320 120 120 Intake: Oral 1080 120 120 Other 240 Other: # Voids 3 2 2 # Bowel Movements 0 2 0 Active Medications: Current Medications Acetaminophen (Tylenol) 650 mg PO Q4HR PRN PRN Reason: Mild Pain (1-3) Stop: 08/23/19 20:07 Acetaminophen (Tylenol) 650 mg PO Q4H PRN PRN Reason: For Temp above 101F Stop: 08/23/19 20:08 Acetaminophen (Tylenol Extra Strength) 500 mg PO Q8H PRN PRN Reason: For moderate pain (4-6) Stop: 08/23/19 20:10 Last Admin: 06/29/19 18:28 Dose: 500 mg Al Hydrox/Mg Hydrox/Simethicone (Maalox) 30 ml PO Q6HR PRN PRN Reason: GI DISTRESS Stop: 08/23/19 20:13 Benztropine Mesylate (Cogentin) 0.5 mg PO BID [facility] Stop: 08/24/19 08:59 Last Admin: 07/12/19 16:40 Dose: 0.5 mg Clonazepam (Klonopin) 0.5 mg PO Q6H PRN; Protocol PRN Reason: Anxiety Stop: 08/23/19 20:29 Last Admin: 07/11/19 20:35 Dose: 0.5 mg Dextrose (Glutose 40%) 18.75 gm PO PRN PRN PRN Reason: BS Below 70 if tolerate po Stop: 08/23/19 20:19 Fluticasone Propionate (Flonase) 1 spr NS DAILY [facility] Stop: 08/24/19 08:59 Last Admin: 07/12/19 08:46 Dose: 1 spr Glipizide (Glucotrol) 5 mg PO BID [facility] Stop: 08/24/19 08:59 Last Admin: 07/12/19 16:40 Dose: 5 mg Glucagon (Glucagen) 1 mg IM PRN PRN PRN Reason: BS Below 70 if not tolerate po Stop: 08/23/19 20:19 Hydralazine HCl (Apresoline) 25 mg PO Q4H PRN PRN Reason: Give if SBP above 110 Stop: 08/23/19 20:29 Last Admin: 07/08/19 14:52 Dose: 25 mg Insulin Human Lispro (Humalog Insulin Sliding Scale) 0 units SUBQ QDAC [facility]; Protocol Stop: 08/26/19 07:29 Last Admin: 07/12/19 06:36 Dose: Not Given Losartan Potassium (Cozaar) 50 mg PO DAILY [facility] Stop: 08/24/19 10:11 Last Admin: 07/12/19 08:44 Dose: 50 mg Magnesium Hydroxide (Milk Of Magnesia) 30 ml PO HS PRN PRN Reason: Constipation Stop: 08/23/19 20:13 Quetiapine Fumarate (Seroquel) 25 mg PO BID [facility]; Protocol Stop: 09/08/19 08:59 Last Admin: 07/12/19 16:40 Dose: 25 mg Risperidone (Risperdal) 1 mg PO BID [facility]; Protocol Stop: 09/08/19 08:59 Last Admin: 07/12/19 16:40 Dose: 1 mg Temazepam (Restoril) 15 mg PO HS PRN; Protocol PRN Reason: Insomnia Stop: 08/23/19 20:26 Last Admin: 07/09/19 21:16 Dose: 15 mg General: demented, NAD HEENT: NC/AT, PERRLA Neck: Supple, No JVD Lungs: other (no acute respiratory distress on RA) Cardiovascular: RRR Abdomen: soft, non-tender Extremities: clear Neurological: no change Internal Medicine Assmt/Plan - Assessment Assessment: Likely schizophrenia per pscyh Psychosis HTN DM Dementia GERD Anemia - Plan Plan: Continue current treatment plan. Continue current medications Continue to monitor VS Monitor Diet/Nutritional support. Psych management per Psychiatry. Pain Management. PT/OT prn Safety precaution, Fall precaution, frequent nursing round. Supportive care. Continue collaborating with consulting specialists, case management and nursing team Nutritional Asmnt/Malnutr-PDOC - Dietary Evaluation Malnutrition Findings (Please click <Entered> for more info): Nutritional Asmnt/Malnutrition Start: 06/28/19 14: 20 Text: Status: Complete Freq: Protocol: Document 06/28/19 14:20 EBONIE (Rec: 06/28/19 14:25 JOSE ANGELAXELALISA [id number]) Nutritional Asmnt/Malnutrition Patient General Information Nutritional Screening Moderate Risk Diagnosis Psychosis Pertinent Medical Hx/Surgical Hx HTN, Anemia, GERD, DM, Dementia, Psychosis Subjective Information Pt is a 79-year-old female admitted on d/t psychosis, delusions. Pt is eating an estimated 100% of meals since admit date Per Meal/Nutrition Activity Record . Dietary is currently providing an estimated 1900 kcals and 100 gm Pro to meet 100% kcal and 100+% Pro needs. Visited pt today after lunchtime, documented pt food preferences. Explained pt diet Rx to her and suggested eating the whole fruit as I'd prefer her not to have juice d /t her DM, pt expressed understanding. Anthropometrics HT: 57 WT: 171 LB (63.64 kg) ABW: 144 LB (65.45 kg) BMI: 26.78 (Overweight) GI/ Skin Integrity GI: WNL, Soft, Non-tender BM: 06/27 x1 I/O: 1080/Not Noted Skin: WNL, Intact Julián: 20 Diet Order: Mechanical Soft, NORRIS, CCHO Estimated Energy Needs: ( Geriatric, ABW) 8396-7079 kcals (25-30 kcals/ kg) 60-76g Pro (1.0-1.2 g/kg) 1600-2000ml (25-30 ml/kg) Current Diet Order/ Nutrition Support Mechanical Soft, NORRIS, CCHO Pertinent Medications Maalox (PRN), Glutose 40% (PRN ), Glucotrol, Glucagen (PRN), INS-SS, Cozaar, MOM (PRN) Pertinent Labs POC Glucose (last 24 hours): 113, 77,129 06/24: A1c 7.5%, glucose 138, BUN/Cr 22/1.01, Alb 3.1 Nutritional Hx/Data Height 5 ft 7 in Height (Calculated Centimeters) 170.2 Current Weight (lbs) 171 lb Weight (Calculated Kilograms) 77.6 Weight (Calculated Grams) 18312.3 [place] Body Weight 135 LB (61.36 kg) % [place] Body Weight 127 Body Mass Index (BMI) 26.7 Weight Status Overweight GI Symptoms GI Symptoms None Last BM 06/27 x1 Skin Integrity/Comment: Skin: WNL, Intact Julián: 20 Estimated Nutritional Goals BEE in Kcals: Adj wt of IBW Calories/Kcals/Kg 25-30 Kcals Calculated 2478-8957 Protein: Adj wt of IBW Protein g/k.0-1.2 Protein Calculated 60-76 Fluid: ml 1600-2000ml (25-30 ml/kg) Nutritional Problem 1. Problem Problem Impaired nutrient utilization Etiology r/t endocrine dysfunction Signs/Symptoms: aeb Hx DM, labs (06/24) A1c 7. 5%. Malnutrition Related to Morbid Obesity Malnutrition related to morbid obesity No Intervention/Recommendation Comments 1.Continue Mechanical Soft, NORRIS, CCHO diet as tolerated. 2.Continue antihyperglycemic medication for glucose control per MD order. Expected Outcomes/Goals Expected Outcomes/Goals 1.PO intake to continue to meet >75% of estimated nutritional needs. 2.Monitor PO intake, wt, nutrition related labs, and skin integrity. 3.F/U as low risk in 7-10 days , 07/05-07/08
--- NOTE | 2019-07-12 22:18 | Progress Notes ---
DATE: 07/12/2019 Chart reviewed and the patient interviewed. Also discussed the patient's condition with the staff and reviewed records and labs. The patient is still easily agitated and easily irritable. The patient also is still argumentative and is still confused, but at the same time slightly easier to redirect her. She still thinks that someone will kill her. During interview, the patient seems to be slightly calmer than before and the patient also is trying to answer my questions. She also has a slight decrease in the behavior of calling 911 and thinking that somebody is going to kill her. She continued to comply with taking her medications. The patient is complaining of leg and knee pain, otherwise no physical complaints. ASSESSMENT: The patient is still agitated and psychotic, but seems to be slightly less. TREATMENT PLAN: Continue to monitor behavior and condition closely. Also, continue Seroquel 25 mg twice a day and Risperdal 1 mg twice a day with the plan to cross titrate Seroquel and Haldol. JOB# [id number]
[2019-07-13] MEDS: INSULIN LISPRO SLIDING SCALE 100 UNITS/ML UNIT SUBQ SCH (06:43)
[2019-07-13] MEDS: Fluticasone Propionate Nasal 1 SPR SPR NS SCH (09:27)
--- NOTE | 2019-07-13 14:26 | Internal Medicine Prog Note ---
Internal Medicine Subjective - Subjective Service Date: 07/13/19 Patient seen and examined:: with staff Patient is:: asleep, verbal, arousable, agitated, confused Patient Complaints of:: other (Diabetic.) Per staff patient has:: no adverse event, no episodes of fall Internal Medicine Objective - Results Recent Labs: Laboratory Last Values POC Glucose 120 MG/DL (70 - 105) H 07/13/19 06:33 - Physical Exam Vitals and I&O: Vital Signs Temp 97.1 F 07/13/19 06:26 Pulse 63 07/13/19 09:26 Resp 18 07/13/19 06:26 BP 135/73 07/13/19 09:26 Pulse Ox 99 07/13/19 06:26 Intake & Output 07/12/19 07/13/19 07/13/19 18:59 06:59 18:59 Intake Total 1120 120 Balance 1120 120 Intake: Oral 1120 120 Other: # Voids 4 3 # Bowel Movements 1 Active Medications: Current Medications Acetaminophen (Tylenol) 650 mg PO Q4HR PRN PRN Reason: Mild Pain (1-3) Stop: 08/23/19 20:07 Acetaminophen (Tylenol) 650 mg PO Q4H PRN PRN Reason: For Temp above 101F Stop: 08/23/19 20:08 Acetaminophen (Tylenol Extra Strength) 500 mg PO Q8H PRN PRN Reason: For moderate pain (4-6) Stop: 08/23/19 20:10 Last Admin: 06/29/19 18:28 Dose: 500 mg Al Hydrox/Mg Hydrox/Simethicone (Maalox) 30 ml PO Q6HR PRN PRN Reason: GI DISTRESS Stop: 08/23/19 20:13 Benztropine Mesylate (Cogentin) 0.5 mg PO BID [facility] Stop: 08/24/19 08:59 Last Admin: 07/13/19 09:27 Dose: 0.5 mg Clonazepam (Klonopin) 0.5 mg PO Q6H PRN; Protocol PRN Reason: Anxiety Stop: 08/23/19 20:29 Last Admin: 07/11/19 20:35 Dose: 0.5 mg Dextrose (Glutose 40%) 18.75 gm PO PRN PRN PRN Reason: BS Below 70 if tolerate po Stop: 08/23/19 20:19 Fluticasone Propionate (Flonase) 1 spr NS DAILY [facility] Stop: 08/24/19 08:59 Last Admin: 07/13/19 09:27 Dose: 1 spr Glipizide (Glucotrol) 5 mg PO BID [facility] Stop: 08/24/19 08:59 Last Admin: 07/13/19 09:27 Dose: 5 mg Glucagon (Glucagen) 1 mg IM PRN PRN PRN Reason: BS Below 70 if not tolerate po Stop: 08/23/19 20:19 Hydralazine HCl (Apresoline) 25 mg PO Q4H PRN PRN Reason: Give if SBP above 110 Stop: 08/23/19 20:29 Last Admin: 07/08/19 14:52 Dose: 25 mg Insulin Human Lispro (Humalog Insulin Sliding Scale) 0 units SUBQ QDAC [facility]; Protocol Stop: 08/26/19 07:29 Last Admin: 07/13/19 06:43 Dose: Not Given Losartan Potassium (Cozaar) 50 mg PO DAILY [facility] Stop: 08/24/19 10:11 Last Admin: 07/13/19 09:26 Dose: 50 mg Magnesium Hydroxide (Milk Of Magnesia) 30 ml PO HS PRN PRN Reason: Constipation Stop: 08/23/19 20:13 Quetiapine Fumarate (Seroquel) 25 mg PO BID [facility]; Protocol Stop: 09/08/19 08:59 Last Admin: 07/13/19 09:27 Dose: 25 mg Risperidone (Risperdal) 1 mg PO BID [facility]; Protocol Stop: 09/08/19 08:59 Last Admin: 07/13/19 09:27 Dose: 1 mg Temazepam (Restoril) 15 mg PO HS PRN; Protocol PRN Reason: Insomnia Stop: 08/23/19 20:26 Last Admin: 07/09/19 21:16 Dose: 15 mg Physical Exam: Patient is very aggressive and delusional, believes someone is trying to hurt her, needs close monitoring. General: demented, NAD HEENT: NC/AT, PERRLA Neck: Supple, No JVD Lungs: other (no acute respiratory distress on RA) Cardiovascular: RRR Abdomen: soft, non-tender Extremities: clear Neurological: no change Internal Medicine Assmt/Plan - Assessment Assessment: Schizophrenia. Psychosis. Hypertension. Diabetes Mellitus. Dementia. Gerd. Anemia. - Plan Plan: Continue present meds as directed. Supportive care. Safety precaution. Monitor vitals and labs. Accu-check twice daily. Monitor diet and nutritional support. Psych management as per Psych. Continue current treatment plan. Nutritional Asmnt/Malnutr-PDOC - Dietary Evaluation Malnutrition Findings (Please click <Entered> for more info): Nutritional Asmnt/Malnutrition Start: 06/28/19 14: 20 Text: Status: Complete Freq: Protocol: Document 06/28/19 14:20 SHIRAALISA (Rec: 06/28/19 14:25 SHIRAALISA [email or web address]) Nutritional Asmnt/Malnutrition Patient General Information Nutritional Screening Moderate Risk Diagnosis Psychosis Pertinent Medical Hx/Surgical Hx HTN, Anemia, GERD, DM, Dementia, Psychosis Subjective Information Pt is a 79-year-old female admitted on d/t psychosis, delusions. Pt is eating an estimated 100% of meals since admit date Per Meal/Nutrition Activity Record . Dietary is currently providing an estimated 1900 kcals and 100 gm Pro to meet 100% kcal and 100+% Pro needs. Visited pt today after lunchtime, documented pt food preferences. Explained pt diet Rx to her and suggested eating the whole fruit as I'd prefer her not to have juice d /t her DM, pt expressed understanding. Anthropometrics HT: 57 WT: 171 LB (63.64 kg) ABW: 144 LB (65.45 kg) BMI: 26.78 (Overweight) GI/ Skin Integrity GI: WNL, Soft, Non-tender BM: 06/27 x1 I/O: 1080/Not Noted Skin: WNL, Intact Julián: 20 Diet Order: Mechanical Soft, NORRIS, CCHO Estimated Energy Needs: ( Geriatric, ABW) 6637-8366 kcals (25-30 kcals/ kg) 60-76g Pro (1.0-1.2 g/kg) 1600-2000ml (25-30 ml/kg) Current Diet Order/ Nutrition Support Mechanical Soft, NORRIS, CCHO Pertinent Medications Maalox (PRN), Glutose 40% (PRN ), Glucotrol, Glucagen (PRN), INS-SS, Cozaar, MOM (PRN) Pertinent Labs POC Glucose (last 24 hours): 113, 77,129 06/24: A1c 7.5%, glucose 138, BUN/Cr 22/1.01, Alb 3.1 Nutritional Hx/Data Height 1.7 m Height (Calculated Centimeters) 170.2 Current Weight (lbs) 77.564 kg Weight (Calculated Kilograms) 77.6 Weight (Calculated Grams) 40527.3 [place] Body Weight 135 LB (61.36 kg) % [place] Body Weight 127 Body Mass Index (BMI) 26.7 Weight Status Overweight GI Symptoms GI Symptoms None Last BM 06/27 x1 Skin Integrity/Comment: Skin: WNL, Intact Julián: 20 Estimated Nutritional Goals BEE in Kcals: Adj wt of IBW Calories/Kcals/Kg 25-30 Kcals Calculated 4861-9784 Protein: Adj wt of IBW Protein g/k.0-1.2 Protein Calculated 60-76 Fluid: ml 1600-2000ml (25-30 ml/kg) Nutritional Problem 1. Problem Problem Impaired nutrient utilization Etiology r/t endocrine dysfunction Signs/Symptoms: aeb Hx DM, labs (06/24) A1c 7. 5%. Malnutrition Related to Morbid Obesity Malnutrition related to morbid obesity No Intervention/Recommendation Comments 1.Continue Mechanical Soft, NORRIS, CCHO diet as tolerated. 2.Continue antihyperglycemic medication for glucose control per MD order. Expected Outcomes/Goals Expected Outcomes/Goals 1.PO intake to continue to meet >75% of estimated nutritional needs. 2.Monitor PO intake, wt, nutrition related labs, and skin integrity. 3.F/U as low risk in 7-10 days , 07/05-07/08
[2019-07-14] MEDS: INSULIN LISPRO SLIDING SCALE 100 UNITS/ML UNIT SUBQ SCH (06:40)
[2019-07-14] MEDS: Fluticasone Propionate Nasal 1 SPR SPR NS SCH (09:11)
--- NOTE | 2019-07-14 12:01 | Progress Notes ---
DATE: 07/14/2019 SUBJECTIVE: The patient was seen in her room. The patient appears to be guarded, easily gets frustrated, still paranoid, confused, and needs a lateral redirection. Otherwise, the patient appears to be in no acute distress. OBJECTIVE: VITAL SIGNS: Temperature 97.6, heart rate is 66, blood pressure 158/82, respirations 20, and 99% on the room air. HEENT: Head is atraumatic and normocephalic. Eyes: Bilateral conjunctivae are clear. Bilateral pupils are equally round and reactive. NECK: Supple and no JVD. CARDIOVASCULAR: S1 and S2, without murmur. PULMONARY: Clear to auscultation. GASTROINTESTINAL: Soft and nontender without guarding. Positive bowel sounds. MUSCULOSKELETAL: No clubbing and no cyanosis are noted. ASSESSMENT: 1. Schizophrenia. 2. Hypertension. 3. Diabetes. 4. Anemia. 5. Gastroesophageal reflux disease. PLAN: We will continue to keep the patient inpatient to Psychiatric Unit. We will follow up with a psychiatrist to monitor the patient's condition and behavior. Treatment plans were discussed with the patient's nurse. Treatment plans were discussed with Dr. Gates. JOB# [id number]
--- NOTE | 2019-07-14 20:46 | Progress Notes ---
DATE: Case was discussed with staff of the patient, reviewed records. i have seen her before covering for Dr. Estrada. The patient continues to be easily agitated, irritable, argumentative, confused, but she has been easier to redirect. Continues to be paranoid, continues to be unable to make safe plan for self-care. She is on Seroquel 25 mg twice a day as well as Risperdal was added [address] Estrada planning to taper her off her antipsychotics. She currently was taken off the Haldol and no side effects with the medication, no sedation, no nausea, no extrapyramidal symptoms. We will continue outpatient group therapy, milieu therapy, adjust medication as needed. JOB# [id number] MTDD
[2019-07-15] MEDS: INSULIN LISPRO SLIDING SCALE 100 UNITS/ML UNIT SUBQ SCH (06:56)
[2019-07-15] MEDS: Fluticasone Propionate Nasal 1 SPR SPR NS SCH (08:18)
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
--- NOTE | 2019-07-15 14:02 | Progress Notes ---
DATE: 07/15/2019 Case was discussed with staff of the patient, reviewed records. The patient continues to have episodes of agitation, irritability, unpredictable, impulsive, needing redirection. Continues to need emergency medication at times, still unstable. No side effects of the medication, no sedation, no nausea, no extrapyramidal symptoms. Her antipsychotics has been changed taken off Haldol and on Seroquel and Risperdal. No sedation, no nausea, no extrapyramidal symptoms. We will continue to work with the patient in group therapy, milieu therapy, and adjust the medications as needed. JOB# [id number]
--- NOTE | 2019-07-15 19:18 | Progress Notes ---
DATE: 07/13/2019 SUBJECTIVE: Chart reviewed and the patient interviewed. Also discussed the patient's condition with the staff and reviewed records and labs. The patient is calm and cooperative. The patient was less agitated and less irritable. Also, the patient interacting more. She denies any side effects of medications. ASSESSMENT: The patient is less agitated and less psychotic. TREATMENT PLAN: Plan is to discharge the patient today to [facility] and according to the perinatal social worker report, the patient was accepted to go back. Outpatient treatment and followup will continue there. JOB# [id number]
[2019-07-16] MEDS: INSULIN LISPRO SLIDING SCALE 100 UNITS/ML UNIT SUBQ SCH (06:38)
[2019-07-16] MEDS: Fluticasone Propionate Nasal 1 SPR SPR NS SCH (08:48)
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
--- NOTE | 2019-07-16 10:23 | Internal Medicine Prog Note ---
Internal Medicine Subjective - Subjective Patient is:: awake, verbal, ambulating, agitated, confused Patient Complaints of:: other (Diabetic.) Per staff patient has:: no adverse event, no episodes of fall, other Internal Medicine Objective - Results Recent Labs: Laboratory Last Values POC Glucose 151 MG/DL (70 - 105) H 07/14/19 05:58 - Physical Exam Vitals and I&O: Vital Signs Temp 99.1 F 07/16/19 06:55 Pulse 86 07/16/19 08:45 Resp 20 07/16/19 06:55 BP 144/85 07/16/19 08:45 Pulse Ox 94 07/16/19 06:55 Intake & Output 07/15/19 07/16/19 07/16/19 18:59 06:59 18:59 Intake Total 950 360 Balance 950 360 Intake: Oral 950 360 Other: # Voids 4 3 # Bowel Movements 1 0 Active Medications: Current Medications Acetaminophen (Tylenol) 650 mg PO Q4HR PRN PRN Reason: Mild Pain (1-3) Stop: 08/23/19 20:07 Acetaminophen (Tylenol) 650 mg PO Q4H PRN PRN Reason: For Temp above 101F Stop: 08/23/19 20:08 Acetaminophen (Tylenol Extra Strength) 500 mg PO Q8H PRN PRN Reason: For moderate pain (4-6) Stop: 08/23/19 20:10 Last Admin: 06/29/19 18:28 Dose: 500 mg Al Hydrox/Mg Hydrox/Simethicone (Maalox) 30 ml PO Q6HR PRN PRN Reason: GI DISTRESS Stop: 08/23/19 20:13 Benztropine Mesylate (Cogentin) 0.5 mg PO BID [facility] Stop: 08/24/19 08:59 Last Admin: 07/16/19 08:46 Dose: 0.5 mg Clonazepam (Klonopin) 0.5 mg PO Q6H PRN; Protocol PRN Reason: Anxiety Stop: 08/23/19 20:29 Last Admin: 07/16/19 08:46 Dose: 0.5 mg Dextrose (Glutose 40%) 18.75 gm PO PRN PRN PRN Reason: BS Below 70 if tolerate po Stop: 08/23/19 20:19 Fluticasone Propionate (Flonase) 1 spr NS DAILY [facility] Stop: 08/24/19 08:59 Last Admin: 07/16/19 08:48 Dose: 1 spr Glipizide (Glucotrol) 5 mg PO BID [facility] Stop: 08/24/19 08:59 Last Admin: 07/16/19 08:45 Dose: 5 mg Glucagon (Glucagen) 1 mg IM PRN PRN PRN Reason: BS Below 70 if not tolerate po Stop: 08/23/19 20:19 Hydralazine HCl (Apresoline) 25 mg PO Q4H PRN PRN Reason: Give if SBP above 110 Stop: 08/23/19 20:29 Last Admin: 07/08/19 14:52 Dose: 25 mg Insulin Human Lispro (Humalog Insulin Sliding Scale) 0 units SUBQ QDAC [facility]; Protocol Stop: 08/26/19 07:29 Last Admin: 07/16/19 06:38 Dose: Not Given Losartan Potassium (Cozaar) 50 mg PO DAILY [facility] Stop: 08/24/19 10:11 Last Admin: 07/16/19 08:45 Dose: 50 mg Magnesium Hydroxide (Milk Of Magnesia) 30 ml PO HS PRN PRN Reason: Constipation Stop: 08/23/19 20:13 Quetiapine Fumarate (Seroquel) 37.5 mg PO BID [facility]; Protocol Stop: 09/14/19 08:59 Last Admin: 07/16/19 08:58 Dose: 37.5 mg Risperidone (Risperdal) 0.5 mg PO BID [facility]; Protocol Stop: 09/14/19 08:59 Last Admin: 07/16/19 08:59 Dose: 0.5 mg Temazepam (Restoril) 15 mg PO HS PRN; Protocol PRN Reason: Insomnia Stop: 08/23/19 20:26 Last Admin: 07/09/19 21:16 Dose: 15 mg General: demented, NAD HEENT: NC/AT, PERRLA Neck: Supple, No JVD Lungs: other (no acute respiratory distress on RA) Cardiovascular: RRR Abdomen: soft, non-tender Extremities: clear Neurological: no change Internal Medicine Assmt/Plan - Assessment Assessment: Likely schizophrenia per pscyh Psychosis HTN DM Dementia GERD Anemia - Plan Plan: Continue current treatment plan. Continue current medications Continue to monitor VS Monitor Diet/Nutritional support. Psych management per Psychiatry. Pain Management. PT/OT prn Safety precaution, Fall precaution, frequent nursing round. Supportive care. Continue collaborating with consulting specialists, case management and nursing team Nutritional Asmnt/Malnutr-PDOC - Dietary Evaluation Malnutrition Findings (Please click <Entered> for more info): Nutritional Asmnt/Malnutrition Start: 06/28/19 14: 20 Text: Status: Complete Freq: Protocol: Document 06/28/19 14:20 EBONIE (Rec: 06/28/19 14:25 EBONIE [email or web address]) Nutritional Asmnt/Malnutrition Patient General Information Nutritional Screening Moderate Risk Diagnosis Psychosis Pertinent Medical Hx/Surgical Hx HTN, Anemia, GERD, DM, Dementia, Psychosis Subjective Information Pt is a 79-year-old female admitted on d/t psychosis, delusions. Pt is eating an estimated 100% of meals since admit date Per Meal/Nutrition Activity Record . Dietary is currently providing an estimated 1900 kcals and 100 gm Pro to meet 100% kcal and 100+% Pro needs. Visited pt today after lunchtime, documented pt food preferences. Explained pt diet Rx to her and suggested eating the whole fruit as I'd prefer her not to have juice d /t her DM, pt expressed understanding. Anthropometrics HT: 57 WT: 171 LB (63.64 kg) ABW: 144 LB (65.45 kg) BMI: 26.78 (Overweight) GI/ Skin Integrity GI: WNL, Soft, Non-tender BM: 06/27 x1 I/O: 1080/Not Noted Skin: WNL, Intact Julián: 20 Diet Order: Mechanical Soft, NORRIS, CCHO Estimated Energy Needs: ( Geriatric, ABW) 5263-4556 kcals (25-30 kcals/ kg) 60-76g Pro (1.0-1.2 g/kg) 1600-2000ml (25-30 ml/kg) Current Diet Order/ Nutrition Support Mechanical Soft, NORRIS, CCHO Pertinent Medications Maalox (PRN), Glutose 40% (PRN ), Glucotrol, Glucagen (PRN), INS-SS, Cozaar, MOM (PRN) Pertinent Labs POC Glucose (last 24 hours): 113, 77,129 06/24: A1c 7.5%, glucose 138, BUN/Cr 22/1.01, Alb 3.1 Nutritional Hx/Data Height 5 ft 7 in Height (Calculated Centimeters) 170.2 Current Weight (lbs) 171 lb Weight (Calculated Kilograms) 77.6 Weight (Calculated Grams) 44981.3 [place] Body Weight 135 LB (61.36 kg) % [place] Body Weight 127 Body Mass Index (BMI) 26.7 Weight Status Overweight GI Symptoms GI Symptoms None Last BM 06/27 x1 Skin Integrity/Comment: Skin: WNL, Intact Julián: 20 Estimated Nutritional Goals BEE in Kcals: Adj wt of IBW Calories/Kcals/Kg 25-30 Kcals Calculated 0303-3577 Protein: Adj wt of IBW Protein g/k.0-1.2 Protein Calculated 60-76 Fluid: ml 1600-2000ml (25-30 ml/kg) Nutritional Problem 1. Problem Problem Impaired nutrient utilization Etiology r/t endocrine dysfunction Signs/Symptoms: aeb Hx DM, labs (06/24) A1c 7. 5%. Malnutrition Related to Morbid Obesity Malnutrition related to morbid obesity No Intervention/Recommendation Comments 1.Continue Mechanical Soft, NORRIS, CCHO diet as tolerated. 2.Continue antihyperglycemic medication for glucose control per MD order. Expected Outcomes/Goals Expected Outcomes/Goals 1.PO intake to continue to meet >75% of estimated nutritional needs. 2.Monitor PO intake, wt, nutrition related labs, and skin integrity. 3.F/U as low risk in 7-10 days , 07/05-07/08
[2019-07-17] MEDS: INSULIN LISPRO SLIDING SCALE 100 UNITS/ML UNIT SUBQ SCH (06:33)
[2019-07-17] MEDS: Fluticasone Propionate Nasal 1 SPR SPR NS SCH (08:27)
[2019-07-18] MEDS: INSULIN LISPRO SLIDING SCALE 100 UNITS/ML UNIT SUBQ SCH (06:31)
[2019-07-18] MEDS: Fluticasone Propionate Nasal 1 SPR SPR NS SCH (08:35)
--- NOTE | 2019-07-18 16:16 | Internal Medicine Prog Note ---
Internal Medicine Subjective - Subjective Service Date: 07/18/19 Patient is:: awake, verbal, ambulating, agitated, confused Patient Complaints of:: other (Diabetic.) Per staff patient has:: no adverse event, no episodes of fall, other Internal Medicine Objective - Results Recent Labs: Laboratory Last Values POC Glucose 104 MG/DL (70 - 105) 07/18/19 05:49 - Physical Exam Vitals and I&O: Vital Signs Temp 97.8 F 07/18/19 14:00 Pulse 65 07/18/19 14:00 Resp 20 07/18/19 14:00 BP 137/72 07/18/19 14:00 Pulse Ox 97 07/18/19 14:00 Intake & Output 07/17/19 07/18/19 07/18/19 18:59 06:59 18:59 Intake Total 1200 120 Balance 1200 120 Intake: Oral 1200 120 Other: # Voids 4 1 # Bowel Movements 0 0 Active Medications: Current Medications Acetaminophen (Tylenol) 650 mg PO Q4HR PRN PRN Reason: Mild Pain (1-3) Stop: 08/23/19 20:07 Acetaminophen (Tylenol) 650 mg PO Q4H PRN PRN Reason: For Temp above 101F Stop: 08/23/19 20:08 Acetaminophen (Tylenol Extra Strength) 500 mg PO Q8H PRN PRN Reason: For moderate pain (4-6) Stop: 08/23/19 20:10 Last Admin: 06/29/19 18:28 Dose: 500 mg Al Hydrox/Mg Hydrox/Simethicone (Maalox) 30 ml PO Q6HR PRN PRN Reason: GI DISTRESS Stop: 08/23/19 20:13 Benztropine Mesylate (Cogentin) 0.5 mg PO BID [facility] Stop: 08/24/19 08:59 Last Admin: 07/18/19 08:33 Dose: 0.5 mg Clonazepam (Klonopin) 0.5 mg PO Q6H PRN; Protocol PRN Reason: Anxiety Stop: 08/23/19 20:29 Last Admin: 07/18/19 08:33 Dose: 0.5 mg Dextrose (Glutose 40%) 18.75 gm PO PRN PRN PRN Reason: BS Below 70 if tolerate po Stop: 08/23/19 20:19 Fluticasone Propionate (Flonase) 1 spr NS DAILY [facility] Stop: 08/24/19 08:59 Last Admin: 07/18/19 08:35 Dose: 1 spr Glipizide (Glucotrol) 5 mg PO BID [facility] Stop: 08/24/19 08:59 Last Admin: 07/18/19 08:34 Dose: 5 mg Glucagon (Glucagen) 1 mg IM PRN PRN PRN Reason: BS Below 70 if not tolerate po Stop: 08/23/19 20:19 Hydralazine HCl (Apresoline) 25 mg PO Q4H PRN PRN Reason: Give if SBP above 110 Stop: 08/23/19 20:29 Last Admin: 07/08/19 14:52 Dose: 25 mg Insulin Human Lispro (Humalog Insulin Sliding Scale) 0 units SUBQ QDAC [facility]; Protocol Stop: 08/26/19 07:29 Last Admin: 07/18/19 06:31 Dose: Not Given Losartan Potassium (Cozaar) 50 mg PO DAILY [facility] Stop: 08/24/19 10:11 Last Admin: 07/18/19 08:33 Dose: 50 mg Magnesium Hydroxide (Milk Of Magnesia) 30 ml PO HS PRN PRN Reason: Constipation Stop: 08/23/19 20:13 Quetiapine Fumarate (Seroquel) 50 mg PO TID [facility]; Protocol Stop: 09/16/19 08:59 Last Admin: 07/18/19 14:06 Dose: 50 mg Temazepam (Restoril) 15 mg PO HS PRN; Protocol PRN Reason: Insomnia Stop: 08/23/19 20:26 Last Admin: 07/16/19 21:00 Dose: 15 mg General: demented, NAD HEENT: NC/AT, PERRLA Neck: Supple, No JVD Lungs: other (no acute respiratory distress on RA) Cardiovascular: RRR Abdomen: soft, non-tender Extremities: clear Neurological: no change Internal Medicine Assmt/Plan - Assessment Assessment: Likely schizophrenia per pscyh Psychosis HTN DM Dementia GERD Anemia - Plan Plan: Continue current treatment plan. Continue current medications Continue to monitor VS Monitor Diet/Nutritional support. Psych management per Psychiatry. Pain Management. PT/OT prn Safety precaution, Fall precaution, frequent nursing round. Supportive care. Continue collaborating with consulting specialists, case management and nursing team Nutritional Asmnt/Malnutr-PDOC - Dietary Evaluation Malnutrition Findings (Please click <Entered> for more info): Nutritional Asmnt/Malnutrition Start: 06/28/19 14: 20 Text: Status: Complete Freq: Protocol: Document 06/28/19 14:20 EBONIE (Rec: 06/28/19 14:25 EBONIE [email or web address]) Nutritional Asmnt/Malnutrition Patient General Information Nutritional Screening Moderate Risk Diagnosis Psychosis Pertinent Medical Hx/Surgical Hx HTN, Anemia, GERD, DM, Dementia, Psychosis Subjective Information Pt is a 79-year-old female admitted on d/t psychosis, delusions. Pt is eating an estimated 100% of meals since admit date Per Meal/Nutrition Activity Record . Dietary is currently providing an estimated 1900 kcals and 100 gm Pro to meet 100% kcal and 100+% Pro needs. Visited pt today after lunchtime, documented pt food preferences. Explained pt diet Rx to her and suggested eating the whole fruit as I'd prefer her not to have juice d /t her DM, pt expressed understanding. Anthropometrics HT: 57 WT: 171 LB (63.64 kg) ABW: 144 LB (65.45 kg) BMI: 26.78 (Overweight) GI/ Skin Integrity GI: WNL, Soft, Non-tender BM: 06/27 x1 I/O: 1080/Not Noted Skin: WNL, Intact Julián: 20 Diet Order: Mechanical Soft, NORRIS, CCHO Estimated Energy Needs: ( Geriatric, ABW) 7950-8918 kcals (25-30 kcals/ kg) 60-76g Pro (1.0-1.2 g/kg) 1600-2000ml (25-30 ml/kg) Current Diet Order/ Nutrition Support Mechanical Soft, NORRIS, CCHO Pertinent Medications Maalox (PRN), Glutose 40% (PRN ), Glucotrol, Glucagen (PRN), INS-SS, Cozaar, MOM (PRN) Pertinent Labs POC Glucose (last 24 hours): 113, 77,129 06/24: A1c 7.5%, glucose 138, BUN/Cr 22/1.01, Alb 3.1 Nutritional Hx/Data Height 5 ft 7 in Height (Calculated Centimeters) 170.2 Current Weight (lbs) 171 lb Weight (Calculated Kilograms) 77.6 Weight (Calculated Grams) 12418.3 [place] Body Weight 135 LB (61.36 kg) % [place] Body Weight 127 Body Mass Index (BMI) 26.7 Weight Status Overweight GI Symptoms GI Symptoms None Last BM 06/27 x1 Skin Integrity/Comment: Skin: WNL, Intact Julián: 20 Estimated Nutritional Goals BEE in Kcals: Adj wt of IBW Calories/Kcals/Kg 25-30 Kcals Calculated 9723-6072 Protein: Adj wt of IBW Protein g/k.0-1.2 Protein Calculated 60-76 Fluid: ml 1600-2000ml (25-30 ml/kg) Nutritional Problem 1. Problem Problem Impaired nutrient utilization Etiology r/t endocrine dysfunction Signs/Symptoms: aeb Hx DM, labs (06/24) A1c 7. 5%. Malnutrition Related to Morbid Obesity Malnutrition related to morbid obesity No Intervention/Recommendation Comments 1.Continue Mechanical Soft, NORRIS, CCHO diet as tolerated. 2.Continue antihyperglycemic medication for glucose control per MD order. Expected Outcomes/Goals Expected Outcomes/Goals 1.PO intake to continue to meet >75% of estimated nutritional needs. 2.Monitor PO intake, wt, nutrition related labs, and skin integrity. 3.F/U as low risk in 7-10 days , 07/05-07/08
--- NOTE | 2019-07-18 19:11 | Discharge Summary ---
DATE OF DISCHARGE: 07/18/2019 AGE: 79. SEX: Female. PHYSICIAN: Dr. Estrada. FINAL DIAGNOSIS AND PRIMARY DIAGNOSIS: Unspecified psychosis. SECONDARY DIAGNOSES: Dementia, moderate to severe, with psychotic features and behavioral disturbances. REASON FOR HOSPITALIZATION: The patient was admitted to the hospital because of increased forgetfulness and increased agitation and also episodes of yelling and screaming and hallucination. Also the patient has grandiose delusions and was paranoid. HOSPITAL COURSE: The patient continued to be easily irritable and easily agitated. The patient also was in angry and in irritable mood. The patient also was interacting minimally with others at times and other times was out of control and exhibited grandiose delusions and paranoia. The patient was started on Klonopin and the dose was given 0.5 mg every 6 hours on a p.r.n. basis. She also was given Seroquel in a dose of 25 mg twice a day and Risperdal 1 mg twice a day. Later on cross titration and Risperdal was stopped and Seroquel was given in a dose of 50 mg 3 times a day. The patient was slightly calmer and less agitated. The patient was also easier to follow directions and the patient was [facility] AFTER DISCHARGE PLANS: The patient discharged from the hospital back to [facility] with plan to follow up there. EXPECTED OUTCOME AFTER DISCHARGE: Fair if the patient continued to take her psychotropic medications and follow up with discharge plans. [facility]# [id number]
== END 2019-07-18 18:10 | DRG 885 ==
LOC: GERO 19:14
PROVIDERS: ADMIT Psychiatry & Neurology Psychiatry; ATTEND Psychiatry & Neurology Psychiatry
DX: F29 Unspecified psychosis not due to a substance or known physiological condition (principal); F03.91 Unspecified dementia, unspecified severity, with behavioral disturbance; F20.9 Schizophrenia, unspecified; I10 Essential (primary) hypertension; E11.9 Type 2 diabetes mellitus without complications; K21.9 Gastro-esophageal reflux disease without esophagitis; D64.9 Anemia, unspecified; Z88.0 Allergy status to penicillin; Z79.82 Long term (current) use of aspirin; Z79.4 Long term (current) use of insulin; Z79.899 Other long term (current) drug therapy
CPT/HCPCS: 82948-90; 83036-90; G0410; J1200; J1630; J2060; Z7610